=== PATIENT | female | born 1940 | race Caucasian/White ===

== ENCOUNTER → 2016-09-01 | Outpatient (CLI) | payer MEDICARE, OTHER ==
[~2016-09-01] MED LIST: ALBU8.5H2 IH; BUDE6HFA IH; CEPH500C PO; DILT240C54 PO; DOXY100C2 PO; FLUO20CA25 PO; FLUT1DIS26 IH; FLX10C PO; HYDR-3062 PO; HYDR-3816 PO; IBUP-15 PO; IBUP-1773 PO; LISI2.5T PO; MTF500T PO; OMEP20CA12 PO; OMEP40CA36 PO; OXYC-197 PO; PROM25TA14 PO; RANI75TA30 PO
--- OUTSIDE RECORDS SUMMARY | 2016-09-01 14:24 | XMS REPORT | Continuity of Care Document ---
Author Author [facility] Organization [facility] Address Unknown Phone Unavailable Care Team Providers Care Oil Scout Name Role Phone AVIS ALY MD PCP Insurance Providers Payer Name Policy Number Subscriber Name Relationship [employer] Medicare [id number] Trevor Burgess Self / Same As Patient [facility] [id number] Trevor Burgess Self / Same As Patient Self Pay Pending [facility] Apprv [phone] Trevor Burgess Self / Same As Patient Advance Directives Directive Response Recorded Date/Time Advance Directives No 12/31/15 1:08pm Health Care Power of Family Day Care Worker No 12/31/15 1:08pm Organ Donor Yes 12/31/15 1:08pm Resuscitation Status Full Code 12/31/15 1:08pm Problems No problem information available. Medications Current Home Medications Medication Dose Units Route Directions Days/Qty Instructions Start Date Diltiazem Hcl 240 Mg 240 Mg Oral Bedtime 30 06/14/11 Fluoxetine Hcl (Prozac) 20 Mg 20 Mg Oral Daily 06/14/11 Budesonide/Formoterol Fumarate 10.2 Gm 1 Puff Inhalation Twice A Day as needed for Shortness Of Breath 06/14/11 Metformin Hcl (Glucophage) 500 Mg 500 Mg Oral Twice A Day 09/05/12 Ibuprofen 600 Mg 600 Mg Oral Every 6 Hours as needed for Pain Omeprazole 40 Mg 40 Mg Oral Twice A Day 12/31/15 Hydrocodone/Acetaminophen 1 Each 1 Each Oral Every 6 Hours as needed for Pain 12/31/15 Lisinopril 2.5 Mg 2.5 Mg Oral Daily 12/31/15 Promethazine Hcl (Phenergan Tablet) 25 Mg 25 Mg Oral Every 6 Hours as needed for Nausea/Vomiting 12/31/15 Past Home Medications Medication Directions Ordered Status Doxycycline Hyclate (Vibramycin) 100 Mg Capsule, 1 Each Oral Twice A Day 14/06 Discontinued Ibuprofen 200 Mg Tablet, 800 Mg Oral Three Times A Day 06/14/11 Discontinued Omeprazole 20 Mg Capsule.dr, 1 Cap Oral Daily 06/14/11 Discontinued Albuterol 8.5 Gm Hfa.aer.ad, 8.5 Gm Inhalation Every 6 Hours as needed for Shortness Of Breath 06/14/11 Discontinued Fluoxetine Hcl 10 Mg Tablet, 1 Each Oral Daily 06/14/11 Discontinued Ranitidine Hcl 75 Mg Tablet, 150 Mg Oral Daily 06/14/11 Discontinued Salmeterol Xinafoate/Fluticasone 1 Disk Inhp, 1 Puff Inhalation Twice A Day 09/05/12 Discontinued Social History Social History Problem Response Recorded Date/Time Alcohol Use Denies Use 12/31/2015 1:01pm Recreational Drug Use No 12/31/2015 1:01pm Recent Foreign Travel No 12/31/2015 1:01pm Recent Infectious Disease Exposure No 12/31/2015 1:01pm Hospitalization with Isolation Denies 12/31/2015 1:01pm Smoking Status Never a Smoker 12/31/2015 1:10pm Query Response Start Date Stop Date Smoking Status Never a Smoker Hospital Discharge Instructions No hospital discharge instructions. Plan of Care Discharge Date 12/31/15 2:00pm Prescriptions See Medication Section Functional Status No functional status results. Allergies, Adverse Reactions, Alerts Allergen Type Severity Reaction Status Last Updated HAYFEVER Allergy Active 06/14/11 Immunizations Name Given Type Date of Pneumonia Vaccine 09/01/15 Historical Date of Influenza Vaccine 05/01/12 Historical Tetanus Booster (TDap) More than 5yrs Historical Vital Signs Acute Vital Signs Vital Response Date/Time Temperature (Fahrenheit) 97.2 degrees F (97.6 - 99.5) 12/26/2015 10:58am Temperature (Calculated Celsius) 36.87220 degrees C (36.4 - 37.5) 12/26/2015 10:58am Temperature Source Tympanic 12/26/2015 10:58am Pulse Rate (adult) 70 bpm (60 - 90) 12/31/2015 1:00pm Respiratory Rate 18 bpm (12 - 24) 12/26/2015 11:27am O2 Sat by Pulse Oximetry 96 % (88 - 100) 12/31/2015 1:00pm Blood Pressure 137/75 mm Hg 12/31/2015 1:00pm Blood Pressure Mean 95 mm Hg 12/31/2015 1:00pm Pain Pain Intensity 3 12/31/2015 1:00pm Height (Feet) 5 feet 12/31/2015 1:01pm Height (Inches) 4.00 inches 12/31/2015 1:01pm Height (Calculated Centimeters) 162.233866 cm 12/31/2015 1:01pm Weight (Pounds) 264 pounds 12/31/2015 1:01pm Weight (Ounces) 0.0 oz 12/31/2015 1:01pm Weight (Calculated Grams) 382075.387 gm 12/31/2015 1:01pm Weight (Calculated Kilograms) 119.188252 kilograms 12/31/2015 1:01pm Calculated BMI 45.3 12/31/2015 1:01pm Results Laboratory Results Test Name Result Units Flags Reference Collection Date/Time Result Date/ Time Comments White Blood Count 5.6 10^3/uL 4.3-11.0 09/03/2015 2:56pm 09/03/2015 3: 00pm Red Blood Count 4.59 10^6/uL 4.35-5.85 09/03/2015 2:56pm 09/03/2015 3: 00pm Hemoglobin 13.9 G/DL 11.5-16.0 09/03/2015 2:56pm 09/03/2015 3:00pm Hematocrit 43 % 35-52 09/03/2015 2:56pm 09/03/2015 3:00pm Mean Corpuscular Volume 93 FL 80-99 09/03/2015 2:56pm 09/03/2015 3: 00pm Mean Corpuscular Hemoglobin 30 PG 25-34 09/03/2015 2:56pm 09/03/2015 3: 00pm Mean Corpuscular Hemoglobin Concent 33 G/DL 32-36 09/03/2015 2:56pm 09/2015 3:00pm Red Cell Distribution Width 13.8 % 10.0-14.5 09/03/2015 2:56pm 2015 3:00pm Platelet Count 195 10^3/uL 130-400 09/03/2015 2:56pm 09/03/2015 3:00pm Mean Platelet Volume 9.4 FL 7.4-10.4 09/03/2015 2:56pm 09/03/2015 3: 00pm Neutrophils (%) (Auto) 70 % 42-75 09/03/2015 2:56pm 09/03/2015 3:00pm Lymphocytes (%) (Auto) 22 % 12-44 09/03/2015 2:56pm 09/03/2015 3:00pm Monocytes (%) (Auto) 7 % 0-12 09/03/2015 2:56pm 09/03/2015 3:00pm Eosinophils (%) (Auto) 1 % 0-10 09/03/2015 2:56pm 09/03/2015 3:00pm Basophils (%) (Auto) 0 % 0-10 09/03/2015 2:56pm 09/03/2015 3:00pm Neutrophils # (Auto) 3.9 X 10^3 1.8-7.8 09/03/2015 2:56pm 09/03/2015 3: 00pm Lymphocytes # (Auto) 1.2 X 10^3 1.0-4.0 09/03/2015 2:56pm 09/03/2015 3: 00pm Monocytes # (Auto) 0.4 X 10^3 0.0-1.0 09/03/2015 2:56pm 09/03/2015 3: 00pm Eosinophils # (Auto) 0.1 10^3/uL 0.0-0.3 09/03/2015 2:56pm 09/03/2015 3 :00pm Basophils # (Auto) 0.0 10^3/uL 0.0-0.1 09/03/2015 2:56pm 09/03/2015 3: 00pm Sodium Level 138 MMOL/L 135-145 09/03/2015 2:56pm 09/03/2015 3:34pm Potassium Level 4.2 MMOL/L 3.6-5.0 09/03/2015 2:56pm 09/03/2015 3:34pm Chloride Level 105 MMOL/L 98-107 09/03/2015 2:56pm 09/03/2015 3:34pm Carbon Dioxide Level 25 MMOL/L 21-32 09/03/2015 2:56pm 09/03/2015 3: 34pm Anion Gap 8 MMOL/L 5-14 09/03/2015 2:56pm 09/03/2015 3:34pm Blood Urea Nitrogen 20 MG/DL H 7-18 09/03/2015 2:56pm 09/03/2015 3:34pm Creatinine 0.75 MG/DL 0.60-1.30 09/03/2015 2:56pm 09/03/2015 3:34pm BUN/Creatinine Ratio 27 09/03/2015 2:56pm 09/03/2015 3:34pm Estimat Glomerular Filtration Rate > 60 09/03/2015 2:56pm 2015 3:34pm GFR INTERPRETIVE DATA UNITS FOR ESTIMATED GFR (eGFR): mL/min/1.73 M2 REFERENCE RANGE FOR ESTIMATED GFR (eGFR) eGFR NORMAL eGFR >60 MODERATELY DECREASED eGFR 30-59 SEVERLY DECREASED eGFR 15-29 KIDNEY FAILURE <15 (OR DIALYSIS) Glucose Level 102 MG/DL 70-105 09/03/2015 2:56pm 09/03/2015 3:34pm Calcium Level 9.4 MG/DL 8.5-10.1 09/03/2015 2:56pm 09/03/2015 3:34pm Total Bilirubin 0.3 MG/DL 0.1-1.0 09/03/2015 2:56pm 09/03/2015 3:34pm Alkaline Phosphatase 54 U/L 40-136 09/03/2015 2:56pm 09/03/2015 3:34pm Aspartate Amino Transf (AST/SGOT) 16 U/L 5-34 09/03/2015 2:56pm 2015 3:34pm Alanine Aminotransferase (ALT/SGPT) 25 U/L 0-55 09/03/2015 2:56pm 09/03 3:34pm Total Protein 6.0 G/DL L 6.4-8.2 09/03/2015 2:56pm 09/03/2015 3:34pm Albumin 3.7 G/DL 3.2-4.5 09/03/2015 2:56pm 09/03/2015 3:34pm Ferritin 43 NG/ML 15-150 09/03/2015 2:56pm 09/04/2015 7:02am Test performed at [facility] [address], [facility] [address] CLIA# [id number], Nighat Liu MD - Data Warehouse Administrator Iron Level 61 UG/DL 35-180 09/03/2015 2:56pm 09/04/2015 7:01am Test performed at [address] [address] CLIA# [id number], Deborah Alonzo MD - Data Warehouse Administrator Transferrin % Saturation 18 % 15-50 09/03/2015 2:56pm 09/04/2015 7: 01am Total Iron Binding Capacity 336 UG/DL 280-380 09/03/2015 2:56pm 2015 7:01am Unsaturated Iron Binding Capacity 275 MCG/DL 09/03/2015 2:56pm 2015 7:01am Test performed at [place] [id number] CLIA# [id number], Deborah Alonzo MD - Data Warehouse Administrator Pending Laboratory Results Test Name Collection Date/Time Procedures Procedure Status Date Provider(s) Tracing only of electrocardiogram Active 12/31/15 SUZE COONEY MD Encounters Encounter Location Arrival/Admit Date Discharge/Depart Date Attending Provider Departed Clinic [facility] 12/31/15 12:52pm 12/31/15 2: 00pm SUZE COONEY MD Departed Clinic [facility] 12/26/15 9:57am 12/26/15 11: 28am ÁNGEL ANDREWS MD Discharged Recurring [facility] 09/03/15 2:25pm 11:59pm ELIANA BAILON MD
[2016-09-01 14:30] LABS: BASOPHILS % (AUTO) 0 % (0-10); EOSINOPHILS # (AUTO) 0.1 10^3/uL (0.0-0.3); EOSINOPHILS % (AUTO) 2 % (0-10); LYMPHOCYTES # (AUTO) 1.4 X 10^3 (1.0-4.0); LYMPHOCYTES % (AUTO) 27 % (12-44); MEAN CORPUSCULAR HEMOGLOBIN 28 PG (25-34); MEAN CORPUSCULAR HGB CONC 32 G/DL (32-36); MEAN CORPUSCULAR VOLUME 88 FL (80-99); MEAN PLATELET VOLUME 9.4 FL (7.4-10.4); MONOCYTES # (AUTO) 0.4 X 10^3 (0.0-1.0); MONOCYTES % (AUTO) 8 % (0-12); NEUTROPHILS # (AUTO) 3.4 X 10^3 (1.8-7.8); NEUTROPHILS % (AUTO) 63 % (42-75); PLATELET COUNT 200 10^3/uL (130-400); RED BLOOD COUNT 4.57 10^6/uL (4.35-5.85); RED CELL DISTRIBUTION WIDTH 14.2 % (10.0-14.5); WHITE BLOOD COUNT 5.3 10^3/uL (4.3-11.0)
== END ==
LOC: EDSTATUS 12-03 14:39 → ONC 14:20
PROVIDERS: ATTEND Internal Medicine Hematology & Oncology
DX: D50.9 Iron deficiency anemia, unspecified (principal); I10 Essential (primary) hypertension; E11.9 Type 2 diabetes mellitus without complications; I25.10 Atherosclerotic heart disease of native coronary artery without angina pectoris; K21.9 Gastro-esophageal reflux disease without esophagitis; Z79.899 Other long term (current) drug therapy
CPT/HCPCS: 36415; 85025; 99213

== ENCOUNTER → 2016-11-05 | Outpatient (CLI) | payer MEDICARE ==
[~2016-11-05] VITALS: Ht 162.6 cm; Wt 113.4 kg
[~2016-11-05] MED LIST changes: +BUPIVACAINE 0.25% 30 ML (SENSORCAINE) VIAL ONE; +TRIAMCINOLONE ACET (KENALOG-40) 40 MG/ML 1 ML VIAL ONE
[2016-11-05 08:36] VITALS: BP 122/77
[2016-11-05 08:55] VITALS: BP 139/92
--- NOTE | 2016-11-05 12:30 | Pain Medicine-Procedure ---
Procedure Pre-Op/Post-Op Diagnosis Diagnosis: disc disorder with radiculopathy, lumbar Indications for Operation Low back pain Attending Surgeon Anthony Procedure Date of Service: Nov 05, 2016 Procedure: Lumbar Epidural Steroid Injection at the L5-S1 level under Fluoroscopic Guidance Procedure: Patient was identified in the holding area. After risks, benefits, and alternatives were discussed with the patient, informed consent was obtained. Patient was brought to the fluoroscopy suite and placed prone on the procedure room table. A time out was performed. Vital signs were monitored throughout the procedure. The patients low back was prepped and draped in the usual sterile fashion. The patients skin was anesthetized using 2% Lidocaine. A Tuohy needle was inserted and advanced to the L5-S1 epidural space under fluoroscopic guidance using the loss of resistance technique and intermittent projection of fluoroscopy. There was no paresthesia with needle placement. The needle position was confirmed in both the AP and lateral view. After negative aspiration 2ml of contrast was injected under live fluoroscopy which showed good spread of the contrast in the epidural space at the appropriate level, there was no intravascular or subarachnoid spread. Again, after negative aspiration for heme or CSF, 2 ml of 0.25% Bupivicaine, 2ml of preservative free normal saline, and 80mg of Kenalog was injected. The needle was removed and a sterile bandage was placed and the patient was transferred to the recovery area in stable condition. After a brief period of observation, patient was discharged to home with no new neurological deficits and no apparent complications. Complications None ÁNGEL ANDREWS MD Nov 05, 2016 12:30 pm
== END ==
LOC: CARD 08:08
PROVIDERS: ATTEND Pain Medicine Pain Medicine
DX: M51.16 Intervertebral disc disorders with radiculopathy, lumbar region (principal); Z79.899 Other long term (current) drug therapy
CPT/HCPCS: 62323; 82962

== ENCOUNTER 2017-03-28 14:33 | Outpatient (CLI) | payer MEDICARE ==
[~2017-03-28] VITALS: Ht 162.6 cm; Wt 110.2 kg
[~2017-03-28 14:33] MED LIST changes: -BUPIVACAINE 0.25% 30 ML (SENSORCAINE) VIAL ONE; -TRIAMCINOLONE ACET (KENALOG-40) 40 MG/ML 1 ML VIAL ONE
[2017-03-28 14:45] VITALS: BP 108/62
[2017-03-28] MEDS ORDERED: NS IV 1000 ML 1,000 ML ONE (15:07)
[2017-03-28] MEDS ORDERED: NS IV 1000 ML 1,000 ML IV ONE (15:15)
== END 2017-03-28 16:30 | disposition home or self-care (01) ==
LOC: 4TH 14:33 → 4THo 14:33 → 4TH 14:34 → 4THo 16:30
PROVIDERS: ATTEND Family Medicine
DX: E86.0 Dehydration (principal); R11.0 Nausea; R19.7 Diarrhea, unspecified
CPT/HCPCS: 96360

== ENCOUNTER → 2021-10-23 | Outpatient (CLI) | payer MEDICARE, MEDICAID ==
[~2021-10-23] MED LIST changes: +ACHD5005 PO; -HYDR-3062 PO; +HYDR-34 PO; -HYDR-3816 PO; -LISI2.5T PO; +LISI2.5T13 PO; -OMEP40CA36 PO; +OMEP40CA6 PO; -OXYC-197 PO; +OXYC1TAB87 PO
--- NOTE | 2021-10-23 14:18 | Diagnostic Imaging Report ---
PROCEDURE: US carotid duplex, bilateral. INDICATION: Carotid bruit. Hypertension. TECHNIQUE: Multiple real-time grayscale images were obtained over the carotid arteries in various projections bilaterally. Additional spectral analysis and color Doppler and Duplex images were also obtained. CORRELATION: None FINDINGS: Examination is compromised. The vessels overall fairly tortuous. In addition, the patient was reportedly with excessive coughing and had difficulty breathing during the examination. There is diffuse atherosclerotic calcification about the bilateral distal common carotid arteries involving the bulbs. No visualized area of stenosis. There is increased velocity in the right mid internal carotid artery with an ICA/CCA ratio 1.6. This suggests a less than 50% stenosis. Bilateral external carotid arteries are patent. Vertebral arteries antegrade directional flow. IMPRESSION: 1. Moderate atherosclerosis involving bilateral carotid bulbs. 2. No sonographic evidence to suggest a hemodynamically significant stenosis of the internal carotid arteries at this time. Parameters based on the consensus panel Dempsey-Scale and Doppler ultrasound criteria published June 2003, Radiology, Volume 229. DOPPLER (peak systolic velocity M/S Right Left CCA .75 .91 ICA Proximal .46 .65 ICA Mid 1.2 .83 ICA Distal .67 .41 RATIO 1.6 .92 ECA .60 .74 VERT .76 .83 Dictated by: Dictated on workstation # [id number]
== END ==
LOC: CARD 12:00
PROVIDERS: ATTEND Internal Medicine Cardiovascular Disease
DX: I65.23 Occlusion and stenosis of bilateral carotid arteries (principal); I35.0 Nonrheumatic aortic (valve) stenosis
CPT/HCPCS: 93306; 93880

== ENCOUNTER 2021-10-28 22:05 | Inpatient (IN) | payer MEDICARE, MEDICAID ==
[~2021-10-28] VITALS: Ht 162.6 cm; Wt 128.6 kg
[2021-10-28] MEDS ORDERED: methylPREDNISolone 125 MG (Solu-MEDROL) VIAL IV STA (22:07)
[2021-10-28] MEDS ORDERED: RT-ALBUTEROL/IPRATROPIUM 3 ML (DUONEB) VIAL INH ONE (22:15)
[2021-10-28 22:29] VITALS: BP 150/117
[2021-10-28 22:29] LABS: BASOPHILS # (AUTO) 0.1 10^3/uL (0.0-0.1); BASOPHILS % (AUTO) 1 % (0-10); EOSINOPHILS # (AUTO) 0.1 10^3/uL (0.0-0.3); EOSINOPHILS % (AUTO) 1 % (0-10); HEMATOCRIT 37 % (35-52); HEMOGLOBIN 11.3 g/dL (11.5-16.0); LYMPHOCYTES # (AUTO) 1.8 10^3/uL (1.0-4.0); LYMPHOCYTES % (AUTO) 19 % (12-44); MEAN CORPUSCULAR HEMOGLOBIN 29 pg (25-34); MEAN CORPUSCULAR HGB CONC 30 g/dL (32-36); MEAN CORPUSCULAR VOLUME 95 fL (80-99); MEAN PLATELET VOLUME 10.9 fL (9.0-12.2); MONOCYTES # (AUTO) 0.6 10^3/uL (0.0-1.0); MONOCYTES % (AUTO) 6 % (0-12); NEUTROPHILS # (AUTO) 7.2 10^3/uL (1.8-7.8); NEUTROPHILS % (AUTO) 73 % (42-75); PLATELET COUNT 176 10^3/uL (130-400); WHITE BLOOD COUNT 9.8 10^3/uL (4.3-11.0)
[2021-10-28] MEDS ORDERED: FUROSEMIDE 40 MG/4 ML INJ (LASIX) IVP ONE (22:30)
[2021-10-28] MEDS ORDERED: NITROGLYCERIN 2% OINT 1 GM UNIT DOSE PACKET TOP ONE (22:30)
--- NOTE | 2021-10-28 22:34 | ED Respiratory ---
General Stated Complaint: SOB Source: patient (PT IS LIMITED HISTORIAN AT THIS TIME), EMS Exam Limitations: clinical condition History of Present Illness Date Seen by Provider: Oct 28, 2021 Time Seen by Provider: 22:10 Initial Comments PT ARRIVES VIA EMS FROM [facility] C/O SHORTNESS OF BREATH X 2 HOURS EMS REPORT INITIAL O2 SAT WAS 73%, AND PT WAS IMMEDIATELY PLACED ON CPAP, WITH O2 SATS UP TO 97-98% INITIAL RESPIRATORY RATE WAS IN THE 40'S, BP 190'S/105, HR 110'S ACCUCHECK 320 BY EMS PT WITH HISTORY OF COPD, CHF, DM, HTN PT DOES STATE SHE "JUST HAS NOT FELT GOOD TODAY" HAS HAD SOME BODY ACHES DID BREAK OUT IN A SWEAT TONIGHT BUT DOES NOT KNOW IF SHE HAD FEVER DOES C/O SOME CHEST DISCOMFORT, BUT RELATES IT TO BREATHING HAS HAD A PRODUCTIVE COUGH WELL DENIES NAUSEA/VOMITING PCP: DR. ALY Allergies and Home Medications Allergies Uncoded Allergies: HAYFEVER (Allergy, Unknown, 08/17/16) Patient Home Medication List Home Medication List Reviewed: Yes Budesonide/Formoterol Fumarate (Symbicort Inhaler 160/4.5 Mcg) 10.2 Gm Hfa.aer.ad, 1 PUFF IH BID PRN for SHORTNESS OF BREATH, (Reported) Entered as Reported by: YAHAIRA GÓMEZ on 06/14/11 1020 Cephalexin (Cephalexin) 500 Mg Capsule, 500 MG PO TID Prescribed by: SEAMUS DEL REAL on 06/25/161953 Diltiazem Hcl (Cartia Xt) 240 Mg Cap.sr.24h, 240 MG PO HS, (Reported) Entered as Reported by: YAHAIRA GÓMEZ on 06/14/11 1017 Fluoxetine Hcl (Fluoxetine Hcl) 20 Mg Capsule, 20 MG PO DAILY, (Reported) Entered as Reported by: YAHAIRA GÓMEZ on 06/14/11 1020 Ibuprofen (Ibuprofen) 600 Mg Tablet, 600 MG PO Q6H PRN for PAIN, (Reported) Entered as Reported by: EMORY LYNCH on 12/31/15 1551 Lisinopril (Lisinopril) 2.5 Mg Tablet, 2.5 MG PO DAILY, (Reported) Entered as Reported by: EMORY LYNCH on 12/31/15 1551 Metformin Hcl (Metformin 500 Mg) 500 Mg Tablet, 500 MG PO BID, (Reported) Entered as Reported by: CRISSY SEVILLA on 09/05/12 1022 Review of Systems Review of Systems Constitutional: diaphoresis, malaise, other (LIMITED INFORMATION FROM PT AT THIS TIME DUE TO DYSPNEA) Respiratory: see HPI, cough, short of breath Cardiovascular: see HPI, chest pain Musculoskeletal: see HPI Past Rfvadzu-Ygbnud-Uqrmjg Hx Patient Social History Tobacco Use?: No Smoking Status: Never a Smoker Smokeless Tobacco Frequency: Never a User Use of E-Cig and/or Vaping Nahid: Never a User Substance use?: No Alcohol Use?: No Immunizations Up To Date Tetanus Booster (TDap): Unknown PED Vaccines UTD: No Seasonal Allergies Seasonal Allergies: Yes (HAYFEVER) Past Medical History Surgeries: Yes (RIGHT KNEE REPLACEMENT 12/[address] COONEY;EGD/COLONOSCOPY 2012) Hysterectomy, Joint Replacement, Orthopedic, Tubal Ligation Sleep Apnea Currently Using CPAP: No Currently Using BIPAP: No Cardiac: Yes (CHF) Chronic Edema/Swelling, High Cholesterol, Hypertension Reproductive Disorders: No Female Reproductive Disorders: Denies Sexually Transmitted Disease: No HIV/AIDS: No Genitourinary: Yes (INCONTINENCE) UTI-Chronic Gastrointestinal: Yes Gastroesophageal Reflux Musculoskeletal: Yes (CHRONIC GENERALIZED PAIN ) Arthritis Endocrine: Yes (MORBID OBESITY) Diabetes, Non-Insulin dep Loss of Vision: Bilateral Hearing Impairment: Denies Psychosocial: Yes Anxiety, Depression Family Medical History Cardiovascular disease 19 MOTHER Completed stroke 19 FATHER Respiratory disorder 19 FATHER 19 MOTHER No Pertinent Family Hx Physical Exam Vital Signs - First Documented 10/28/21 22:08 Temp 36.2 Pulse 107 Resp 25 B/P (MAP) 150/117 (128) Pulse Ox 99 O2 Delivery NIV Bilevel Capillary Refill : Height: 5'4.00" Weight: 243lbs. 0.0oz. 110.266538rx; 41.7 BMI Method:Stated General Appearance: mild distress, obese (MORBIDLY ), other (ABLE TO TALK IN SHORT SENTENCES) Respiratory: respiratory distress, decreased breath sounds, accessory muscle use, rales, wheezing, other (MILD DISTRESS WITH ABDOMINAL AND CHEST RETRACTIONS. DIFFUSE WHEEZING AND RALES BILATERALLY. ) Cardiovascular: tachycardia Gastrointestinal: soft, other (OBESE) Extremities: normal capillary refill, pedal edema (1+ BILATERALLY) Neurologic/Psychiatric: no motor/sensory deficits, alert, normal mood/affect Skin: normal color, warm/dry Focused Exam Sepsis Stage: Ruled Out (DOES NOT MEET CRITERIA) Possible Source: Pulmonary Lactate Level 10/28/21 22:20: Lactic Acid Level 2.40*H Time of Focused Exam: 23:00 Respiratory: Other (ON BIPAP, BREATHING IS LESS LABORED, STILL WITH RESIDUAL RALES AND WHEEZING BILATERALLY BUT OVERALL IMPROVED LUNG SOUNDS, WITH INCREASED AERATION) Cardiovascular: Regular Rate, Rhythm Skin: normal color, warm/dry Lactic Acid Level Laboratory Tests Test 10/28/21 22:20 Lactic Acid Level 2.40 MMOL/L (0.50-2.00) *H Within 3hrs of presentation: Admin fluids (DID NOT GIVE FULL FLUID BOLUS DUE TO OVERT CHF ), Admin ABX, Blood cultures prior to ABX's, Focus exam, Lactate level Procedures/Interventions Suture Size: 3-0 Progress/Results/Core Measures Suspected Sepsis SIRS Temperature: Pulse: Respiratory Rate: Laboratory Tests 10/28/21 22:20: White Blood Count 9.8 Blood Pressure / Mean: 10/28/21 22:20: Lactic Acid Level 2.40*H Laboratory Tests 10/28/21 22:20: Creatinine 1.10, INR Comment 1.0, Platelet Count 176, Total Bilirubin 0.8 Results/Orders Lab Results Laboratory Tests Test 10/28/21 22:10 10/28/21 22:14 10/28/21 22:15 10/28/21 22:20 Range/Units Urine Color YELLOW Urine Clarity SL CLOUDY Urine pH 6.0 5-9 Urine Specific [place] >=1.030 1.016-1.022 Urine Protein 1+ H NEGATIVE Urine Glucose (UA) NEGATIVE NEGATIVE Urine Ketones NEGATIVE NEGATIVE Urine Nitrite NEGATIVE NEGATIVE Urine Bilirubin 1+ H NEGATIVE Urine Urobilinogen 4.0 < = 1.0 MG/DL Urine Leukocyte Esterase TRACE H NEGATIVE Urine RBC (Auto) NEGATIVE NEGATIVE Urine RBC NONE /HPF Urine WBC 2-5 /HPF Urine Squamous Epithelial Cells 0-2 /HPF Urine Crystals NONE /LPF Urine Bacteria LARGE H /HPF Urine Casts PRESENT /LPF Urine Hyaline Casts RARE /LPF Urine Mucus NEGATIVE /LPF Urine Culture Indicated CULTURE PENDING Influenza Type A (RT-PCR) Not Detected Not Detecte Influenza Type B (RT-PCR) Not Detected Not Detecte SARS-CoV-2 RNA (RT-PCR) Not Detected Not Detecte Blood Gas Puncture Site R RAD Blood Gas Patient Temperature 36.2 Arterial Blood pH 7.19 *L 7.37-7.43 Arterial Blood Partial Pressure CO2 66 H 35-45 MMHG Arterial Blood Partial Pressure O2 103 H 79-93 MMHG Arterial Blood HCO3 24 23-27 MMOL/L Arterial Blood Total CO2 26.3 21.0-31.0 MMOL/L Arterial Blood Oxygen Saturation 97 94-100 % Arterial Blood Base Excess -3.2 L -2.5-2.5 MMOL/L Vinod Test YES-POS Blood Gas Ventilator Setting NO Blood Gas Inspired Oxygen 80% White Blood Count 9.8 4.3-11.0 10^3/uL Red Blood Count 3.94 3.80-5.11 10^6/uL Hemoglobin 11.3 L 11.5-16.0 g/dL Hematocrit 37 35-52 % Mean Corpuscular Volume 95 80-99 fL Mean Corpuscular Hemoglobin 29 25-34 pg Mean Corpuscular Hemoglobin Concent 30 L 32-36 g/dL Red Cell Distribution Width 13.4 10.0-14.5 % Platelet Count 176 130-400 10^3/uL Mean Platelet Volume 10.9 9.0-12.2 fL Immature Granulocyte % (Auto) 1 % Neutrophils (%) (Auto) 73 42-75 % Lymphocytes (%) (Auto) 19 12-44 % Monocytes (%) (Auto) 6 0-12 % Eosinophils (%) (Auto) 1 0-10 % Basophils (%) (Auto) 1 0-10 % Neutrophils # (Auto) 7.2 1.8-7.8 10^3/uL Lymphocytes # (Auto) 1.8 1.0-4.0 10^3/uL Monocytes # (Auto) 0.6 0.0-1.0 10^3/uL Eosinophils # (Auto) 0.1 0.0-0.3 10^3/uL Basophils # (Auto) 0.1 0.0-0.1 10^3/uL Immature Granulocyte # (Auto) 0.1 0.0-0.1 10^3/uL Erythrocyte Sedimentation Rate 3 0-30 MM/HR Prothrombin Time 13.2 12.2-14.7 SEC INR Comment 1.0 0.8-1.4 Activated Partial Thromboplast Time 20 L 24-35 SEC D-Dimer 4.70 H 0.00-0.49 UG/ML Sodium Level 137 135-145 MMOL/L Potassium Level 4.2 3.6-5.0 MMOL/L Chloride Level 103 98-107 MMOL/L Carbon Dioxide Level 17 L 21-32 MMOL/L Anion Gap 17 H 5-14 MMOL/L Blood Urea Nitrogen 15 7-18 MG/DL Creatinine 1.10 0.60-1.30 MG/DL Estimat Glomerular Filtration Rate 51 BUN/Creatinine Ratio 14 Glucose Level 273 H 70-105 MG/DL Lactic Acid Level 2.40 *H 0.50-2.00 MMOL/L Calcium Level 9.0 8.5-10.1 MG/DL Corrected Calcium 9.3 8.5-10.1 MG/DL Magnesium Level 1.8 1.6-2.4 MG/DL Total Bilirubin 0.8 0.1-1.0 MG/DL Aspartate Amino Transf (AST/SGOT) 23 5-34 U/L Alanine Aminotransferase (ALT/SGPT) 13 0-55 U/L Alkaline Phosphatase 76 40-136 U/L Lactate Dehydrogenase 371 H 125-220 U/L Total Creatine Kinase 74 29-168 U/L Creatine Kinase MB 2.6 <6.6 NG/ML Myoglobin 143.4 H 10.0-92.0 NG/ML Troponin I 0.043 H <0.028 NG/ML C-Reactive Protein High Sensitivity 1.31 H 0.00-0.50 MG/DL B-Type Natriuretic Peptide 505.8 H <100.0 PG/ML Total Protein 6.9 6.4-8.2 GM/DL Albumin 3.6 3.2-4.5 GM/DL Procalcitonin 0.02 <0.10 NG/ML TSH [place] Testing 1.69 0.35-4.94 UIU/ML My Orders Orders - CARMELLA MAHMOOD DO Ed Iv/Invasive Line Start (10/28/21 22:07) Ekg Tracing (10/28/21 22:07) Catheter(Urinary) Insert & Ass 03,15 (10/28/21 22:07) O2 (10/28/21 22:07) Monitor-Rhythm Ecg Trace Only (10/28/21 22:07) Chest 1 View, Ap/Pa Only (10/28/21 22:07) Arterial Blood Gas (10/28/21 22:07) Bnp [place] (10/28/21 22:07) Cbc With Automated Diff (10/28/21 22:07) Comprehensive Metabolic Panel (10/28/21 22:07) Creatine Kinase (10/28/21 22:07) Creatine Kinase Mb (10/28/21 22:07) Hs C Reactive Protein (10/28/21 22:07) Fibrin Degradation Products (10/28/21:07) Lactic Acid Analyzer (10/28/21:07) Magnesium (10/28/21 22:07) Protime With Inr (10/28/21:07) Partial Thromboplastin Time (10/28/21:07) Thyroid Analyzer (10/28/21:) Ua Culture If Indicated (10/28/21:) Erythrocyte Sedimentation Rate (10/28/21:07) Myoglobin Serum (10/28/21 22:07) Troponin I [place] (10/28/21 22:07) Albuterol/Ipra Inhalation Soln (Duoneb I (10/28/21 22:15) Dexamethasone Injection (Decadron Injec (10/28/21 22:15) Rt Request For Service (10/28/21 22:07) Methylprednisolone Sod Succ (Solu-Medrol (10/28/21 22:07) Procalcitonin (Pct) (10/28/21 22:07) LDH (10/28/21 22:07) Covid 19 Inhouse Test (10/28/21 22:07) Urine Culture (10/28/21:07) Vital Signs Adult Sepsis Patie Q15M (10/28/21 22:07) O2 (10/28/21 22:07) Remove Rings In Anticipation O (10/28/21 22:07) Svn Small Volume Nebulizer (10/28/21 22:07) Influenza A And B By Pcr (10/28/21 22:07) Isolation Central Supply Req (10/28/21 22:07) Furosemide Injection (Lasix Injection) (10/28/21 22:30) Nitroglycerin Ointment (Nitrobid Ointme (10/28/21 22:30) Arterial Blood Gas (10/28/21 23:21) Medications Given in ED Current Medications Medications Dose Ordered Sig/Darci Route Start Time Stop Time Status Last Admin Dose Admin Albuterol/ Ipratropium 3 ml ONCE ONCE INH 10/28/21 22:15 10/28/21 22:16 DC 10/28/21 22:28 3 ML Dexamethasone Sodium Phosphate 20 mg ONCE ONCE IH 10/28/21 22:15 10/28/21 22:16 DC 10/28/21 22:28 20 MG Furosemide 80 mg ONCE ONCE IVP 10/28/21 22:30 10/28/21 22:31 DC 10/28/21 22:31 80 MG Nitroglycerin 1 inch ONCE ONCE TOP 10/28/21 22:30 10/28/21 22:31 DC 10/28/21 22:31 1 INCH Vital Signs/I&O 10/28/21 10/28/21 22:08 22:29 Temp 36.2 Pulse 107 103 Resp 25 32 B/P (MAP) 150/117 (128) Pulse Ox 99 O2 Delivery NIV Bilevel Capillary Refill : Progress Note : Progress Note IMMEDIATELY SWITCHED TO BIPAP ON ARRIVAL O2 SATS 99-100% GIVEN LASIX AND NITROPASTE FOR CHF AND ELEVATED BLOOD PRESSURE GIVEN SOLU-MEDROL GIVEN ROCEPHIN + ZITHROMAX GIVEN LOVENOX FOR PROPHYLAXIS UNTIL CT CHEST ANGIOGRAM CAN BE DONE IN THE MORN ING PT STILL WITH LABORED BREATHING AND MUCH CHEST AND ABDOMINAL MOVEMENT WITH BREATHING, FEEL THAT ATTEMPTING TO OBTAIN CT CHEST ANGIOGRAM AT THIS TIME WILL BE SUBOPTIMAL DUE TO SIGNIFICANT MOTION. WILL TREAT EMPIRICALLY WITH LOVENOX AND ATTEMPT TO OBTAIN CT CHEST ANGIOGRAM IN THE MORNING, AFTER PT'S BREATHING IS LESS LABORED. NO DETERIORATION IN PT'S CONDITION DURING ER STAY ECG Initial ECG Impression Date: Oct 28, 2021 Initial ECG Impression Time: 22:27 Initial ECG Rate: 103 Initial ECG Rhythm: S.Tach Initial ECG Impression: Nonspecific Changes Diagnostic Imaging Comments CXR--PER RADIOLOGIST REPORT AT 2306 FINDINGS: Patchy opacities are seen in the mid and lower lungs, bilaterally, greatest in the bilateral perihilar regions. The heart size is prominent. No large pleural effusion or pneumothorax. IMPRESSION: Cardiomegaly with findings suggestive of pulmonary edema. Reviewed: Reviewed by Ma Departure Communication (Admissions) [id number]--SPOKE WITH DR. ALY, ACCEPTS PT FOR ADMIT. ORDERS NOTED. WILL CONSULT CARDIOLOGY IN AM. Impression Primary Impression: Acute respiratory failure with hypoxia and hypercapnia Additional Impressions: ACUTE ON CHRONIC CHF Elevated troponin Elevated d-dimer COPD exacerbation UTI (urinary tract infection) Lactic acidosis Morbid obesity HTN (hypertension) Hyperglycemia Disposition: ADMITTED INPATIENT Condition: Improved Admissions Decision to Admit Reason: Admit from ER (General) Decision to Admit/Date: Oct 28, 2021 Time/Decision to Admit Time: 23:35 Departure-Patient Inst. Referrals: AVIS ALY MD (PCP/Family) Primary Care Physician CARMELLA MAHMOOD DO Oct 28, 2021 22:34
[2021-10-28 22:38] LABS: ABG BASE EXCESS -3.2 MMOL/L (-2.5-2.5); ABG OXYGEN SATURATION 97 % (94-100); ABG PCO2 66 MMHG (35-45); ABG PO2 103 MMHG (79-93); ABG TCO2 26.3 MMOL/L (21.0-31.0)
[2021-10-28 22:39] LABS: ALLENS TEST YES-POS; INSPIRED O2 80%; PATIENT TEMP 36.2; VENTILATOR NO
[2021-10-28 22:40] LABS: ABG PH 7.19 (7.37-7.43)
[2021-10-28 22:42] LABS: ALBUMIN 3.6 GM/DL (3.2-4.5); POTASSIUM 4.2 MMOL/L (3.6-5.0)
[2021-10-28 22:44] LABS: TOTAL PROTEIN 6.9 GM/DL (6.4-8.2)
[2021-10-28 22:46] LABS: BILIRUBIN,TOTAL 0.8 MG/DL (0.1-1.0)
[2021-10-28 22:48] LABS: CREATININE SERUM 1.1 MG/DL (0.60-1.30)
[2021-10-28 22:51] LABS: FIBRIN DEGRADATION PRODUCTS 4.7 UG/ML (0.00-0.49); MAGNESIUM 1.8 MG/DL (1.6-2.4); PROTHROMBIN TIME PATIENT 13.2 SEC (12.2-14.7)
[2021-10-28 22:55] LABS: ERYTHROCYTE SEDIMENTATION RATE 3 MM/HR (0-30)
--- NOTE | 2021-10-28 22:58 | Diagnostic Imaging Report ---
EXAMINATION: Chest 1 view. HISTORY: Dyspnea. Shortness of breath. COMPARISON: 12/31/2015. FINDINGS: Patchy opacities are seen in the mid and lower lungs, bilaterally, greatest in the bilateral perihilar regions. The heart size is prominent. No large pleural effusion or pneumothorax. IMPRESSION: Cardiomegaly with findings suggestive of pulmonary edema. Dictated by: Dictated on workstation # [id number]
[2021-10-28 22:59] LABS: CREATINE KINASE MB 2.6 NG/ML (<6.6)
[2021-10-28 23:12] LABS: TSH (THYROID ANALYZER) 1.69 UIU/ML (0.35-4.94)
[2021-10-28 23:25] LABS: COLOR,URINE YELLOW; GLUCOSE, URINE (UA) NEGATIVE (NEGATIVE); KETONES,URINE NEGATIVE (NEGATIVE); LEUKOCYTE ESTERASE ,URINE TRACE (NEGATIVE); NITRITE,URINE NEGATIVE (NEGATIVE); PROTEIN,URINE 1+ (NEGATIVE)
[2021-10-28] MEDS ORDERED: ENOXAPARIN 80 MG/0.8 ML (LOVENOX) SYR SC ONE ×2 (23:45)
[2021-10-28] MEDS ORDERED: AZITHROMYCIN INJECTION 500 MG in NS (IVPB) 250 ML IV ONE (23:45)
[2021-10-28] MEDS ORDERED: cefTRIAXone 1 GM PRE-MIX 50 ML IV ONE (23:45)
[2021-10-28 23:49] LABS: ABG BASE EXCESS -1.5 MMOL/L (-2.5-2.5); ABG OXYGEN SATURATION 94 % (94-100); ABG PCO2 58 MMHG (35-45); ABG PO2 77 MMHG (79-93); ABG TCO2 26.8 MMOL/L (21.0-31.0)
[2021-10-28 23:51] LABS: BACTERIA,URINE LARGE /HPF; BILIRUBIN,URINE 1+ (NEGATIVE); CLARITY,URINE SL CLOUDY; HYALINE CASTS, URINE RARE /LPF; SQUAMOUS EPITHELIAL CELL,UR 0-2 /HPF
[2021-10-28 23:52] LABS: ALLENS TEST YES-POS; INSPIRED O2 50%; PATIENT TEMP 36.2; VENTILATOR NO
[2021-10-28 23:53] LABS: ABG PH 7.25 (7.37-7.43)
[2021-10-29] MEDS ORDERED: 1/2 NS IV SOLUTION 1,000 ML IV ONE (01:28)
[2021-10-29 01:37] VITALS: BP 150/117
[2021-10-29] MEDS ORDERED: RT-ALBUTEROL/IPRATROPIUM 3 ML (DUONEB) VIAL INH PRN (01:45)
[2021-10-29] MEDS ORDERED: EPINEPHrine 1 MG INJECTION 4 MG in NS (IVPB) 248 ML IV SCH (01:45)
[2021-10-29] MEDS ORDERED: ONDANSETRON 4 MG/2 ML (SDV) Z0FRAN IV PRN (01:45)
[2021-10-29] MEDS ORDERED: 1/2 NS IV SOLUTION 1,000 ML IV SCH (01:45)
[2021-10-29] MEDS: RT-ALBUTEROL/IPRATROPIUM 3 ML (DUONEB) VIAL INH SCH ×5 (02:01→20:32)
[2021-10-29 02:02] VITALS: BP 112/70
[2021-10-29 04:59] LABS: BASOPHILS % (AUTO) 0 % (0-10); EOSINOPHILS % (AUTO) 0 % (0-10); HEMATOCRIT 32 % (35-52); LYMPHOCYTES # (AUTO) 0.2 10^3/uL (1.0-4.0); LYMPHOCYTES % (AUTO) 3 % (12-44); MEAN CORPUSCULAR HEMOGLOBIN 29 pg (25-34); MEAN CORPUSCULAR HGB CONC 31 g/dL (32-36); MEAN CORPUSCULAR VOLUME 93 fL (80-99); MEAN PLATELET VOLUME 10.4 fL (9.0-12.2); MONOCYTES # (AUTO) 0.1 10^3/uL (0.0-1.0); MONOCYTES % (AUTO) 1 % (0-12); NEUTROPHILS # (AUTO) 7.2 10^3/uL (1.8-7.8); NEUTROPHILS % (AUTO) 95 % (42-75); PLATELET COUNT 152 10^3/uL (130-400); WHITE BLOOD COUNT 7.6 10^3/uL (4.3-11.0)
[2021-10-29] MEDS ORDERED: FUROSEMIDE 40 MG/4 ML INJ (LASIX) IV ONE (05:00)
[2021-10-29 05:21] LABS: ANISOCYTOSIS SLIGHT; BAND NEUTROPHILS 2 %; EOSINOPHILS % (MANUAL) 0 %; LYMPHOCYTES % (MANUAL) 1 %; MONOCYTES % (MANUAL) 0 %; NEUTROPHILS % (MANUAL) 97 %
[2021-10-29 05:24] LABS: ALBUMIN 3.5 GM/DL (3.2-4.5); BILIRUBIN,TOTAL 0.6 MG/DL (0.1-1.0); CALCIUM 8.8 MG/DL (8.5-10.1); CREATININE SERUM 1.01 MG/DL (0.60-1.30); PHOSPHORUS 3.2 MG/DL (2.3-4.7); TOTAL PROTEIN 6.2 GM/DL (6.4-8.2)
[2021-10-29 05:44] LABS: ABG BASE EXCESS -0.6 MMOL/L (-2.5-2.5); ABG OXYGEN SATURATION 99 % (94-100); ABG PCO2 59 MMHG (35-45); ABG PO2 132 MMHG (79-93); ABG TCO2 26.8 MMOL/L (21.0-31.0)
[2021-10-29 05:45] LABS: ALLENS TEST YES-POS; INSPIRED O2 50%; VENTILATOR YES
[2021-10-29 05:46] LABS: ABG PH 7.27 (7.37-7.43)
[2021-10-29] MEDS: inSUlin ASPART (NovoLOG) 1 UNIT/0.01 ML (CHARGE PER UNIT) SC SCH ×4 (05:49→20:29)
[2021-10-29] MEDS: NITROGLYCERIN 2% OINT 1 GM UNIT DOSE PACKET TOP SCH ×4 (05:49→22:57)
[2021-10-29] MEDS: NOREPINEPHRINE 8 MG/250 ML 250 ML IV SCH ×3 (05:50→21:39)
[2021-10-29] MEDS: VASOPRESSIN INJECTION 20 UNIT in NS (IVPB) 100 ML IV SCH ×3 (05:50→22:58)
[2021-10-29 07:11] VITALS: BP 121/64
--- NOTE | 2021-10-29 07:16 | Diagnostic Imaging Report ---
EXAMINATION: Chest 1 view HISTORY: Heart failure COMPARISON: 10/28/2021 FINDINGS: There is stable moderate pulmonary edema. No pleural effusion or pneumothorax. Heart size is upper limits of normal. IMPRESSION: 1. Stable moderate pulmonary edema. Dictated by: Dictated on workstation # [id number]
[2021-10-29] MEDS ORDERED: HOLD METFORMIN - RECEIVED CONTRAST 20 ML VIAL IV SCH (08:30)
[2021-10-29] MEDS ORDERED: NS 100 ML (IVPB) BAG IV ONE (08:30)
[2021-10-29] MEDS ORDERED: IOHEXOL 350 MG/ML 100 ML (OMNIPAQUE 350) VIAL IV ONE (08:30)
[2021-10-29] MEDS ORDERED: CATHETER FLUSH 10 ML SYR IV PRN (08:30)
--- NOTE | 2021-10-29 09:26 | Tele-ICU Progress Note ---
Subjective Date Seen by a Provider: Oct 29, 2021 Time Seen by a Provider: 09:25 Subjective/Events-last exam (Tele-ICU Physician , consultation) Available chart/ vitals / labs / Images reviewed H&P is from ER notes Patient's information available about PMH, Shx, Fhx allergy reviewed in EMR. ROS as per chart and RN report Now in ICU, hemodynamically stable Video assessment done using teleICU camera, rest of exam as per RN Discussed with RN. Consultants: Hospital course: (10/29) 80/F- Hypoxia, cough, malaise, pna, Bipap, hypercapnea. A/P Acurte resp failure - most likely CHF by CXR and clinical presentation - less likely PNA - BIPAP 18/6 35% rr 17 tv 700 - last ABG with 7.59 - will use BIPAP most of the day , weaning - additional dose of lawsix CHF ( + CP ? - stop IVF , add lasix x1 - ECHO 10/23/21- severe . EF 60% - cards consult Elevated D dimer - lovenox full dose to starte - US LE ordered - ? need CT - as per PCP and cards ID - empiricly started on Z max and cefteriaxone - follow COPD - cont nebs , off steroids - follow Elev lactate on presentation - due to hypoxia , not sepsis - stop IVF DM Hyperglycemia - ISS Lines : (Central Line Necessity Reviewed) Deluna: + OG: Nutrition: Analgesia: Anxiety/ delirium VTE Prophylaxis: denis full dose Stress Ulcer Prophylaxis: Plans in collaboration with bedside consultants and IM MDs. Discussed with RN to reach out if any questions or concerns A total of 33 minutes of critical care time was devoted to this patient today, required to treat and/or prevent further deterioration of critical care condition ( as above) . Sepsis Event Evaluation Height, Weight, BMI Height: 5'4.00" Weight: 243lbs. 0.0oz. 110.900930cy; 49.66 BMI Method:Stated Focused Exam Lactate Level 10/28/21 22:20: Lactic Acid Level 2.40*H 10/29/21 00:06: Lactic Acid Level 1.16 Time of Focused Exam: 23:00 Exam Exam Patient acknowledged, consented, and participated in this virtual visit which was conducted using real time audio/video Vital Signs Date Time Temp Pulse Resp B/P (MAP) Pulse Ox O2 Delivery O2 Flow Rate FiO2 10/29/21 08:00 36.9 10/29/21 07:11 90 19 99 35.00 10/29/21 07:00 95 23 121/64 99 NIV Bilevel 35.00 10/29/21 07:00 93 10/29/21 06:00 93 15 129/69 100 NIV Bilevel 50.00 10/29/21 05:00 89 15 128/73 100 NIV Bilevel 50.00 10/29/21 04:00 100 NIV Bilevel 50 10/29/21 04:00 87 14 130/85 100 NIV Bilevel 50.00 10/29/21 03:00 84 14 111/69 99 NIV Bilevel 50.00 10/29/21 02:30 82 15 113/71 99 NIV Bilevel 50.00 10/29/21 02:02 80 23 99 50.00 10/29/21 02:00 82 15 112/70 99 NIV Bilevel 50.00 10/29/21 01:45 91 14 123/92 99 NIV Bilevel 50.00 10/29/21 01:37 36.2 107 99 100 10/29/21 01:30 95 18 115/74 100 NIV Bilevel 50.00 10/29/21 01:30 100 NIV Bilevel 50 10/29/21 01:30 36.6 10/29/21 01:22 94 10/29/21 00:49 36.2 93 22 112/58 98 NIV Bilevel 10/28/21 22:29 103 32 10/28/21 22:08 36.2 107 25 150/117 (128) 99 NIV Bilevel I & O 10/29/21 07:00 Intake Total 50 ml Output Total 500 ml Balance -450 ml Height & Weight Height: 5'4.00" Weight: 243lbs. 0.0oz. 110.938505wo; 49.66 BMI Method:Stated General Appearance: No Apparent Distress Respiratory: Other (ON BIPAP, BREATHING IS LESS LABORED, STILL WITH RESIDUAL RALES AND WHEEZING BILATERALLY BUT OVERALL IMPROVED LUNG SOUNDS, WITH INCREASED AERATION) Cardiovascular: Regular Rate, Rhythm Gastrointestinal: soft, other (OBESE) Results Lab Laboratory Tests 10/28/21 22:20 10/29/21 04:30 Assessment/Plan Assessment/Plan . TAMI COLLADO MD Oct 29, 2021 09:26
[2021-10-29] MEDS ORDERED: FUROSEMIDE 40 MG/4 ML INJ (LASIX) IVP ONE ×2 (09:30→19:15)
[2021-10-29] MEDS ORDERED: FLUT16SP22 NSEACH (09:42)
[2021-10-29] MEDS ORDERED: ATOR10TA66 PO (09:42)
[2021-10-29] MEDS ORDERED: PANT40TA52 PO (09:42)
[2021-10-29] MEDS ORDERED: IPRA3AMP31 NEB (09:42)
[2021-10-29] MEDS ORDERED: ALBU90AE INH (09:42)
[2021-10-29] MEDS ORDERED: HYDR-700 PO (09:42)
[2021-10-29] MEDS ORDERED: LOSA50TA63 PO (09:42)
[2021-10-29] MEDS ORDERED: DILT-27 PO (09:42)
[2021-10-29] MEDS ORDERED: FURO20TA4 PO (09:42)
[2021-10-29] MEDS ORDERED: DILT240T10 PO (09:42)
[2021-10-29] MEDS ORDERED: CETI10TA17 PO (09:42)
[2021-10-29] MEDS ORDERED: FLUO20CA48 PO (09:42)
[2021-10-29] MEDS ORDERED: ACET1TAB43 PO (09:42)
[2021-10-29] MEDS ORDERED: GABA-486 PO (09:42)
[2021-10-29] MEDS ORDERED: MAGN400O7 PO (09:44)
--- NOTE | 2021-10-29 10:46 | Diagnostic Imaging Report ---
PROCEDURE: US Venous Lower Ext [place]. TECHNIQUE: Multiple real-time grayscale images were obtained over the lower extremities in various projections, bilaterally. Additional duplex Doppler and color Doppler images were also obtained. INDICATION: Lower extremity edema. FINDINGS: There is no evidence of right or left lower extremity DVT. Both lower extremity deep venous systems demonstrate normal compressibility with normal response to augmentation and Valsalva. No fluid collection or mass is detected. IMPRESSION: No evidence of right or left lower extremity DVT. Dictated by: Dictated on workstation # [id number]
--- NOTE | 2021-10-29 11:03 | Consultation-Cardiology ---
HPI-Cardiology Cardiology Consultation: Date of Consultation 10/29/21 Date of Admission 10/28/21 Attending Physician Natalie Giraldo MD Admitting Physician Natalie Giraldo MD Consulting Physician DANY MIGUEL JR, MD HPI: Time Seen by a Provider: 10:59 Chief Complaint: Reason for consultation: Heart failure. I had the pleasure of seeing Tricia in the intensive care unit at [facility] in [place], [place] this morning. She has a history of coronary artery disease with one previous coronary stent, aortic stenosis, mitral regurgitation, bilateral carotid atherosclerosis that has not required intervention, hypertension, hyperlipidemia, chronic obstructive pulmonary disease, type 2 diabetes mellitus, stage 3a chronic kidney disease, chronic back pain, anemia, anxiety, and morbid obesity among several other less clinically relevant issues. She currently resides at [facility]. For about the past 2 months she has been having bilateral lower extremity edema. Then for the past 3 nights, she has had paroxysmal nocturnal dyspnea and orthopnea. She has been h aving to sleep in a chair due to orthopnea. When her breathing would get very difficult, she would have heart palpitations with a sensation of rapid heartbeats as well as chest pressure. Last night despite sleeping in a chair, she could still not catch her breath. She tells me that one of the staff members at the [facility] sat with her for 2 hours and then the eventually called an ambulance and she was brought to the emergency room for further evaluation. She was felt to be in heart failure. She was placed on BiPAP and admitted to the intensive care unit. When I saw her in the intensive care unit this morning she was still wearing a BiPAP. She denies lightheadedness or syncope. Certain portions of this document may have been dictated utilizing voice recognition technology. Inherent to this technology, typographical and grammatical errors may exist. As much as I am diligent to identify and correct these mistakes, some errors may remain in the document. Review of Systems-Cardiology Review of Systems Other comments Review of 10 organ systems is as per the history of present illness, otherwise negative. [id number] Hx Patient Social History Smoking Status: Never a Smoker Have you traveled recently?: No Alcohol Use?: No Pt feels they are or have been: No Immunizations Up To Date Tetanus Booster (TDap): Unknown Date of Pneumonia Vaccine: May 01, 2015 Date of Influenza Vaccine: May 15, 2021 Past Medical History PMH As described under Assessment. Family Medical History Family History: Cardiovascular disease 19 MOTHER Completed stroke 19 FATHER Respiratory disorder 19 FATHER 19 MOTHER Allergies and Home Medications Allergies Uncoded Allergies: HAYFEVER (Allergy, Unknown, 08/17/16) Patient Home Medication List Home Medication List Reviewed: Yes Acetaminophen with Codeine (Acetaminophen-Cod #3 Tablet) 1 Each Tablet, 1 EA PO Q6H PRN for PAIN-MODERATE (5-7), (Reported) Entered as Reported by: GUERA WHITAKER on 10/29/21941 Last Action: Reviewed Albuterol Sulfate (Proair Respiclick) 90 Mcg Aer.pow.ba, 2 PUFF INH Q4H PRN for SHORTNESS OF BREATH, (Reported) Entered as Reported by: GUERA WHITAKER on 10/29/21941 Last Action: Reviewed Atorvastatin Calcium (Atorvastatin Calcium) 10 Mg Tablet, 10 MG PO HS, (Reported) Entered as Reported by: GUERA WHITAKER on 10/29/21941 Last Action: Continued Cetirizine HCl (Cetirizine HCl) 10 Mg Tablet, 10 MG PO HS, (Reported) Entered as Reported by: GUERA WHITAKER on 10/29/21941 Last Action: Reviewed Diltiazem HCl (Diltiazem 24Hr ER) 120 Mg Cap.er.24h, 120 MG PO DAILY, (Reported) Entered as Reported by: GUERA WHITAKER on 10/29/21941 Last Action: Reviewed Fluoxetine HCl (Fluoxetine HCl) 20 Mg Capsule, 20 MG PO HS, (Reported) Entered as Reported by: GUERA WHITAKER on 10/29/21941 Last Action: Continued Fluticasone Propionate (Fluticasone Propionate) 16 Gm [place].susp, 1 SPRAY NSEACH BID, (Reported) Entered as Reported by: GUERA WHITAKER on 10/29/21941 Last Action: Reviewed Furosemide (Furosemide) 20 Mg Tablet, 20 MG PO DAILY, (Reported) Entered as Reported by: GUERA WHITAKER on 10/29/21941 Last Action: Reviewed Gabapentin (Gabapentin) 100 Mg Capsule, 100 MG PO BID, (Reported) Entered as Reported by: GUERA WHITAKER on 10/29/21941 Last Action: Continued Hydroxyzine HCl (Hydroxyzine HCl) 25 Mg Tablet, 25 MG PO Q12H PRN for ANXIETY, (Reported) Entered as Reported by: GUERA WHITAKER on 10/29/21941 Last Action: Reviewed Ipratropium/Albuterol Sulfate (Iprat-Albut 0.5-3(2.5) mg/3 ml) 3 Ml Ampul.neb, 3 ML NEB Q6H PRN for SHORTNESS OF BREATH, (Reported) Entered as Reported by: GUERA WHITAKER on 10/29/21941 Last Action: Reviewed Losartan Potassium (Losartan Potassium) 50 Mg Tablet, 50 MG PO DAILY, (Reported) Entered as Reported by: GUERA WHITAKER on 10/29/21941 Last Action: Reviewed Magnesium Hydroxide (Milk of Magnesia) 400 Mg/5 Ml Oral.susp, 15 ML PO UD PRN for CONSTIPATION-7TH LINE, (Reported) Entered as Reported by: GUERA WHITAKER on 10/29/21943 Last Action: Reviewed Pantoprazole Sodium (Pantoprazole Sodium) 40 Mg Tablet.dr, 40 MG PO 1800 AFTER MEAL, (Reported) Entered as Reported by: GUERA WHITAKER on 10/29/21941 Last Action: Reviewed Discontinued Medications Budesonide/Formoterol Fumarate (Symbicort Inhaler 160/4.5 Mcg) 10.2 Gm Hfa.aer.ad, 1 PUFF IH BID PRN for SHORTNESS OF BREATH, (Reported) Discontinued Reason: Duplicate Order Entered as Reported by: YAHAIRA GÓMEZ on 06/14/11 1020 Last Action: Discontinued Cephalexin (Cephalexin) 500 Mg Capsule, 500 MG PO TID Discontinued Reason: Duplicate Order Prescribed by: SEAMUS DEL REAL on 06/25/161953 Last Action: Discontinued Diltiazem HCl (Diltiazem ER) 240 Mg Tab.er.24h, 240 MG PO DAILY, (Reported) Discontinued Reason: No Longer Taking Entered as Reported by: GUERA WHITAKER on 10/29/21941 Last Action: Discontinued Diltiazem Hcl (Cartia Xt) 240 Mg Cap.sr.24h, 240 MG PO HS, (Reported) Discontinued Reason: Duplicate Order Entered as Reported by: YAHAIRA GÓMEZ on 06/14/11 1017 Last Action: Discontinued Fluoxetine Hcl (Fluoxetine Hcl) 20 Mg Capsule, 20 MG PO DAILY, (Reported) Discontinued Reason: Duplicate Order Entered as Reported by: YAHAIRATOYIN GARDNERWILLI on 06/14/11 1020 Last Action: Discontinued Ibuprofen (Ibuprofen) 600 Mg Tablet, 600 MG PO Q6H PRN for PAIN, (Reported) Discontinued Reason: Duplicate Order Entered as Reported by: EMORY LYNCH on 12/31/15 1551 Last Action: Discontinued Lisinopril (Lisinopril) 2.5 Mg Tablet, 2.5 MG PO DAILY, (Reported) Discontinued Reason: Duplicate Order Entered as Reported by: EMORY LYNCH on 12/31/15 1551 Last Action: Discontinued Metformin Hcl (Metformin 500 Mg) 500 Mg Tablet, 500 MG PO BID, (Reported) Discontinued Reason: Duplicate Order Entered as Reported by: CRISSY SEVILLA on 09/05/12 1022 Last Action: Discontinued Exam Vital Signs Vital Signs Date Time Temp Pulse Resp B/P (MAP) Pulse Ox O2 Delivery O2 Flow Rate FiO2 10/29/21 12:57 91 10/29/21 12:50 High Flow N/C 4.00 10/29/21 12:28 37.1 10/29/21 12:00 21 156/76 99 10/29/21 12:00 35 Physical Exam General: Alert. Mild respiratory distress on BiPAP but able to hold a conversation. Well nourished and appears stated age. Eye: Extraocular movements are intact. Conjunctivae are clear. There are no xanthelasma. HENT: Normocephalic. Atraumatic. Carotid pulsations 2/2 with bilateral bruits versus radiated murmur from aortic stenosis. Neck: Jugular venous pressure does not appear elevated. No thyromegaly appreciated. Respiratory: Lungs have scattered wheezes bilaterally and decreased at the bases bilaterally. She is on BiPAP as above. Breath sounds are equal. Symmetrical chest wall expansion. Cardiovascular: Normal rate. Regular rhythm. Distant S1/S2. 2/6 systolic ejection murmur. No gallop. Point of maximal impulse is not appear displaced. Good pulses equal in all extremities. 2+ bilateral pretibial edema without venous stasis changes. Gastrointestinal: Soft. Normal bowel sounds. Skin: Skin turgor is normal. There is no pallor. Musculoskeletal: No kyphosis or scoliosis appreciated. Neurologic: Alert and oriented to person, place, time. Cranial nerves 3-12 appear grossly intact. The patient has good motor tone strength in the upper and lower extremities bilaterally. Psychiatric: Cooperative. Appropriate mood & affect. Labs Laboratory Tests Test 10/28/21 22:10 10/28/21 22:14 10/28/21 22:15 10/28/21 22:20 Range/Units Urine Color YELLOW Urine Clarity SL CLOUDY Urine pH 6.0 5-[address] >=1.030 1.016-1.022 Urine Protein 1+ H NEGATIVE Urine Glucose (UA) NEGATIVE NEGATIVE Urine Ketones NEGATIVE NEGATIVE Urine Nitrite NEGATIVE NEGATIVE Urine Bilirubin 1+ H NEGATIVE Urine Urobilinogen 4.0 < = 1.0 MG/DL Urine Leukocyte Esterase TRACE H NEGATIVE Urine RBC (Auto) NEGATIVE NEGATIVE Urine RBC NONE /HPF Urine WBC 2-5 /HPF Urine Squamous Epithelial Cells 0-2 /HPF Urine Crystals NONE /LPF Urine Bacteria LARGE H /HPF Urine Casts PRESENT /LPF Urine Hyaline Casts RARE /LPF Urine Mucus NEGATIVE /LPF Urine Culture Indicated CULTURE PENDING Influenza Type A (RT-PCR) Not Detected Not Detecte Influenza Type B (RT-PCR) Not Detected Not Detecte SARS-CoV-2 RNA (RT-PCR) Not Detected Not Detecte Blood Gas Puncture Site R RAD Blood Gas Patient Temperature 36.2 Arterial Blood pH 7.19 *L 7.37-7.43 Arterial Blood Partial Pressure CO2 66 H 35-45 MMHG Arterial Blood Partial Pressure O2 103 H 79-93 MMHG Arterial Blood HCO3 24 23-27 MMOL/L Arterial Blood Total CO2 26.3 21.0-31.0 MMOL/L Arterial Blood Oxygen Saturation 97 94-100 % Arterial Blood Base Excess -3.2 L -2.5-2.5 MMOL/L Vinod Test YES-POS Blood Gas Ventilator Setting NO Blood Gas Inspired Oxygen 80% White Blood Count 9.8 4.3-11.0 10^3/uL Red Blood Count 3.94 3.80-5.11 10^6/uL Hemoglobin 11.3 L 11.5-16.0 g/dL Hematocrit 37 35-52 % Mean Corpuscular Volume 95 80-99 fL Mean Corpuscular Hemoglobin 29 25-34 pg Mean Corpuscular Hemoglobin Concent 30 L 32-36 g/dL Red Cell Distribution Width 13.4 10.0-14.5 % Platelet Count 176 130-400 10^3/uL Mean Platelet Volume 10.9 9.0-12.2 fL Immature Granulocyte % (Auto) 1 % Neutrophils (%) (Auto) 73 42-75 % Lymphocytes (%) (Auto) 19 12-44 % Monocytes (%) (Auto) 6 0-12 % Eosinophils (%) (Auto) 1 0-10 % Basophils (%) (Auto) 1 0-10 % Neutrophils # (Auto) 7.2 1.8-7.8 10^3/uL Lymphocytes # (Auto) 1.8 1.0-4.0 10^3/uL Monocytes # (Auto) 0.6 0.0-1.0 10^3/uL Eosinophils # (Auto) 0.1 0.0-0.3 10^3/uL Basophils # (Auto) 0.1 0.0-0.1 10^3/uL Immature Granulocyte # (Auto) 0.1 0.0-0.1 10^3/uL Erythrocyte Sedimentation Rate 3 0-30 MM/HR Prothrombin Time 13.2 12.2-14.7 SEC INR Comment 1.0 0.8-1.4 Activated Partial Thromboplast Time 20 L 24-35 SEC D-Dimer 4.70 H 0.00-0.49 UG/ML Sodium Level 137 135-145 MMOL/L Potassium Level 4.2 3.6-5.0 MMOL/L Chloride Level 103 98-107 MMOL/L Carbon Dioxide Level 17 L 21-32 MMOL/L Anion Gap 17 H 5-14 MMOL/L Blood Urea Nitrogen 15 7-18 MG/DL Creatinine 1.10 0.60-1.30 MG/DL Estimat Glomerular Filtration Rate 51 BUN/Creatinine Ratio 14 Glucose Level 273 H 70-105 MG/DL Lactic Acid Level 2.40 *H 0.50-2.00 MMOL/L Calcium Level 9.0 8.5-10.1 MG/DL Corrected Calcium 9.3 8.5-10.1 MG/DL Magnesium Level 1.8 1.6-2.4 MG/DL Total Bilirubin 0.8 0.1-1.0 MG/DL Aspartate Amino Transf (AST/SGOT) 23 5-34 U/L Alanine Aminotransferase (ALT/SGPT) 13 0-55 U/L Alkaline Phosphatase 76 40-136 U/L Lactate Dehydrogenase 371 H 125-220 U/L Total Creatine Kinase 74 29-168 U/L Creatine Kinase MB 2.6 <6.6 NG/ML Myoglobin 143.4 H 10.0-92.0 NG/ML Troponin I 0.043 H <0.028 NG/ML C-Reactive Protein High Sensitivity 1.31 H 0.00-0.50 MG/DL B-Type Natriuretic Peptide 505.8 H <100.0 PG/ML Total Protein 6.9 6.4-8.2 GM/DL Albumin 3.6 3.2-4.5 GM/DL Procalcitonin 0.02 <0.10 NG/ML TSH [place] Testing 1.69 0.35-4.94 UIU/ML Test 10/28/21 23:39 10/29/21 00:06 10/29/21 04:30 10/29/21 05:27 Range/Units Blood Gas Puncture Site R RAD R RAD Blood Gas Patient Temperature 36.2 37.0 Arterial Blood pH 7.25 *L 7.27 *L 7.37-7.43 Arterial Blood Partial Pressure CO2 58 H 59 H 35-45 MMHG Arterial Blood Partial Pressure O2 77 L 132 H 79-93 MMHG Arterial Blood HCO3 25 25 23-27 MMOL/L Arterial Blood Total CO2 26.8 26.8 21.0-31.0 MMOL/L Arterial Blood Oxygen Saturation 94 99 94-100 % Arterial Blood Base Excess -1.5 -0.6 -2.5-2.5 MMOL/L Vinod Test YES-POS YES-POS Blood Gas Ventilator Setting NO YES Blood Gas Inspired Oxygen 50% 50% Lactic Acid Level 1.16 0.50-2.00 MMOL/L White Blood Count 7.6 4.3-11.0 10^3/uL Red Blood Count 3.48 L 3.80-5.11 10^6/uL Hemoglobin 10.0 L 11.5-16.0 g/dL Hematocrit 32 L 35-52 % Mean Corpuscular Volume 93 80-99 fL Mean Corpuscular Hemoglobin 29 25-34 pg Mean Corpuscular Hemoglobin Concent 31 L 32-36 g/dL Red Cell Distribution Width 13.3 10.0-14.5 % Platelet Count 152 130-400 10^3/uL Mean Platelet Volume 10.4 9.0-12.2 fL Immature Granulocyte % (Auto) 0 % Neutrophils (%) (Auto) 95 H 42-75 % Lymphocytes (%) (Auto) 3 L 12-44 % Monocytes (%) (Auto) 1 0-12 % Eosinophils (%) (Auto) 0 0-10 % Basophils (%) (Auto) 0 0-10 % Neutrophils # (Auto) 7.2 1.8-7.8 10^3/uL Lymphocytes # (Auto) 0.2 L 1.0-4.0 10^3/uL Monocytes # (Auto) 0.1 0.0-1.0 10^3/uL Eosinophils # (Auto) 0.0 0.0-0.3 10^3/uL Basophils # (Auto) 0.0 0.0-0.1 10^3/uL Immature Granulocyte # (Auto) 0.0 0.0-0.1 10^3/uL Neutrophils % (Manual) 97 % Lymphocytes % (Manual) 1 % Monocytes % (Manual) 0 % Eosinophils % (Manual) 0 % Band Neutrophils 2 % Basophilic Stippling SLIGHT Anisocytosis SLIGHT Sodium Level 140 135-145 MMOL/L Potassium Level 4.0 3.6-5.0 MMOL/L Chloride Level 105 98-107 MMOL/L Carbon Dioxide Level 20 L 21-32 MMOL/L Anion Gap 15 H 5-14 MMOL/L Blood Urea Nitrogen 16 7-18 MG/DL Creatinine 1.01 0.60-1.30 MG/DL Estimat Glomerular Filtration Rate 56 BUN/Creatinine Ratio 16 Glucose Level 189 H 70-105 MG/DL Calcium Level 8.8 8.5-10.1 MG/DL Corrected Calcium 9.2 8.5-10.1 MG/DL Phosphorus Level 3.2 2.3-4.7 MG/DL Magnesium Level 2.0 1.6-2.4 MG/DL Total Bilirubin 0.6 0.1-1.0 MG/DL Aspartate Amino Transf (AST/SGOT) 20 5-34 U/L Alanine Aminotransferase (ALT/SGPT) 11 0-55 U/L Alkaline Phosphatase 69 40-136 U/L Total Protein 6.2 L 6.4-8.2 GM/DL Albumin 3.5 3.2-4.5 GM/DL Test 10/29/21 11:55 10/29/21 12:16 Range/Units Troponin I 0.430 *H <0.028 NG/ML Glucometer 179 H 70-110 MG/DL Radiology ULTRASOUND CAROTID BILATERAL COMPLETE (10/23/2021): 1. Moderate atherosclerosis involving bilateral carotid bulbs. 2. No sonographic evidence to suggest a hemodynamically significant stenosis of the internal carotid arteries at this time. ECHOCARDIOGRAM (10/23/2021): 1. Normal left ventricular chamber with moderate concentric hypertrophy. Normal left ventricular systolic function with an estimated ejection fraction of 60-65% with no regional wall motion abnormalities identified. 2. The left ventricular diastolic function is indeterminate. 3. There is mild to moderate mitral regurgitation. 4. The aortic valve appears tricuspid with thickened and calcified leaflets with restricted leaflet mobility. There is severe aortic stenosis with a mean gradient of 78 mmHg, a peak gradient of 123 mmHg, a peak velocity of 5.5 m/s and a calculated aortic valve area of 0.7 cm. 5. The pulmonary artery pressure cannot be estimated on this study due to inadequate tricuspid regurgitant envelope. 6. There is no previous study available for comparison. ELECTROCARDIOGRAM (10/07/2021): Sinus rhythm with 1 premature supraventricular complex, probable old anterior infarct and diffuse, nonspecific ST-T wave changes. LABS (01/06/2018): Sodium 137. Potassium 4.7. Glucose 84. BUN 28. Creatinine 0.8. GFR 80. Liver function tests normal. HbA1c 5.6%. ECG Impression ECG Comment Electrocardiogram from 10/28 obtained in the emergency room showed sinus tachycardia 103 bpm with possible old anteroseptal myocardial infarction and diffuse, nonspecific ST-T wave changes. Diagnosis/Problems Diagnosis/Problems (1) Acute heart failure with preserved ejection fraction (HFpEF) Assessment & Plan: She did not know of any previous history of heart failure. She does have chronic obstructive pulmonary disease with chronic hypoxia on home oxygen. However, now she presents with probable acute heart failure with preserved ejection fraction. She has received several doses of intravenous furosemide. I will start her on intravenous furosemide 80 mg daily. We will need to watch her renal function closely. (2) Aortic stenosis Assessment & Plan: She has severe, if not critical aortic stenosis noted on her most recent echocardiogram. She was actually supposed to follow-up with me in the office in the near future to discuss future plans for the aortic stenosis. She tells me that she would want to consider definitive treatment of the aortic stenosis if possible. She may be a good candidate for a transcatheter aortic valve insertion (CHARLES) but first we need to get her through this episode of heart failure. (3) Coronary artery disease with unstable angina pectoris Assessment & Plan: I suspect she may be having a type II non-ST elevation myocardial infarction due to supply/demand mismatch. I will start her on low strength aspirin and resume clopidogrel which she was taking at home. She has been ordered for her home dose of atorvastatin. I do not think she would be a good candidate for beta-tom due to her oxygen dependent chronic obstructive pulmonary disease. She has been ordered for therapeutic dose of enoxaparin. I do not see any urgent need for an ischemic evaluation at this time. If we can get her heart failure turned around, ultimately she would need a cardiac catheterization prior to consideration of aortic valve replacement. (4) Mitral regurgitation Assessment & Plan: She also has mild to moderate mitral regurgitation. This should not be causing symptoms but will need to be followed longitudinally. (5) Atherosclerosis of both carotid arteries Assessment & Plan: She has moderate bilateral disease as noted above. Continue aspirin and statin medication. There is no indication for intervention and she has no previous history of stroke. (6) Primary hypertension Assessment & Plan: I will restart her diltiazem that she was taking at home. (7) Mixed hyperlipidemia Assessment & Plan: Continue atorvastatin. (8) Acute on chronic respiratory failure with hypoxia and hypercapnia Assessment & Plan: This is being managed by the primary provider and eICU. DANY MIGUEL JR, MD Oct 29, 2021 11:03
[2021-10-29 11:11] VITALS: BP 120/62
[2021-10-29] MEDS: ENOXAPARIN 120 MG/0.8 ML (LOVENOX) SQ SCH ×2 (12:15→20:01)
[2021-10-29] MEDS: ACETAMINOPHEN 500 MG TAB (TYLENOL) PO PRN (12:15)
[2021-10-29] MEDS ORDERED: hydrOXYzine (ATARAX) 10 MG TAB PO PRN (13:00)
[2021-10-29] MEDS ORDERED: ALPRAZolam 0.25 MG (XANAX) TAB PO PRN (13:00)
[2021-10-29] MEDS ORDERED: ASPIRIN E.C. 81 MG (ECOTRIN) TAB PO NR (13:30)
[2021-10-29] MEDS ORDERED: CLOPIDOGREL 75 MG (PLAVIX) TABLET PO NR (13:30)
[2021-10-29] MEDS ORDERED: PANTOPRAZOLE 40 MG (PROTONIX) TAB PO NR (13:30)
[2021-10-29] MEDS: dilTIAZem120 MG (CARDIZEM CD) CAP PO SCH (13:43)
[2021-10-29 14:30] VITALS: BP 115/68
[2021-10-29] MEDS ORDERED: NITROGLYCERIN 0.4 MG SL TABS BTL 25'S SL PRN (15:30)
--- NOTE | 2021-10-29 17:52 | History & Physical ---
History of Present Illness History of Present Illness Reason for visit/HPI This is an 81 year old female patient of Dr. Giraldo'henry who resides at [facility]. She states she has been having worsening edema to her lower legs and worsening shortness of air the past 2 months. She became more short of air with intermittent chest pain the last few days and this worsened overnight so she was brought to the emergency room. She was found to be in acute respiratory failure and was placed on BiPAP. The respiratory failure appeared to be from worsening congestive heart failure. She has a history of CAD with a previous stent placement and her troponin-I was elevated on admission. She has been given IV lasix and will be admitted to the ICU on BIPAP with cardiology consultation. Date of Admission Oct 28, 2021 at 23:35 Date Seen by a Provider: Oct 29, 2021 Time Seen by a Provider: 12:45 I consulted on this patient on 10/29/21 17:47 Attending Physician Natalie Giraldo MD Admitting Physician Natalie Giraldo MD Consult Allergies and Home Medications Allergies Uncoded Allergies: HAYFEVER (Allergy, Unknown, 08/17/16) Patient Home Medication List Home Medication List Reviewed: Yes Acetaminophen with Codeine (Acetaminophen-Cod #3 Tablet) 1 Each Tablet, 1 EA PO Q6H PRN for PAIN-MODERATE (5-7), (Reported) Entered as Reported by: GUERA WHITAKER on 10/29/21941 Last Action: Reviewed Albuterol Sulfate (Proair Respiclick) 90 Mcg Aer.pow.ba, 2 PUFF INH Q4H PRN for SHORTNESS OF BREATH, (Reported) Entered as Reported by: GUERA WHITAKER on 10/29/21941 Last Action: Reviewed Atorvastatin Calcium (Atorvastatin Calcium) 10 Mg Tablet, 10 MG PO HS, (Reported) Entered as Reported by: GUERA WHITAKER on 10/29/21941 Last Action: Continued Cetirizine HCl (Cetirizine HCl) 10 Mg Tablet, 10 MG PO HS, (Reported) Entered as Reported by: GUERA WHITAKER on 10/29/21941 Last Action: Reviewed Diltiazem HCl (Diltiazem 24Hr ER) 120 Mg Cap.er.24h, 120 MG PO DAILY, (Reported) Entered as Reported by: GUERA WHITAKER on 10/29/21941 Last Action: Reviewed Fluoxetine HCl (Fluoxetine HCl) 20 Mg Capsule, 20 MG PO HS, (Reported) Entered as Reported by: GUERA WHITAKER on 10/29/21941 Last Action: Continued Fluticasone Propionate (Fluticasone Propionate) 16 Gm [place].susp, 1 SPRAY NSEACH BID, (Reported) Entered as Reported by: GUERA WHITAKER on 10/29/21941 Last Action: Reviewed Furosemide (Furosemide) 20 Mg Tablet, 20 MG PO DAILY, (Reported) Entered as Reported by: GUERA WHITAKER on 10/29/21941 Last Action: Reviewed Gabapentin (Gabapentin) 100 Mg Capsule, 100 MG PO BID, (Reported) Entered as Reported by: GUERA WHITAKER on 10/29/21941 Last Action: Continued Hydroxyzine HCl (Hydroxyzine HCl) 25 Mg Tablet, 25 MG PO Q12H PRN for ANXIETY, (Reported) Entered as Reported by: GUERA WHITAKER on 10/29/21941 Last Action: Reviewed Ipratropium/Albuterol Sulfate (Iprat-Albut 0.5-3(2.5) mg/3 ml) 3 Ml Ampul.neb, 3 ML NEB Q6H PRN for SHORTNESS OF BREATH, (Reported) Entered as Reported by: GUERA WHITAKER on 10/29/21941 Last Action: Reviewed Losartan Potassium (Losartan Potassium) 50 Mg Tablet, 50 MG PO DAILY, (Reported) Entered as Reported by: GUERA WHITAKER on 10/29/21941 Last Action: Reviewed Magnesium Hydroxide (Milk of Magnesia) 400 Mg/5 Ml Oral.susp, 15 ML PO UD PRN for CONSTIPATION-7TH LINE, (Reported) Entered as Reported by: GUERA WHITAKER on 10/29/21943 Last Action: Reviewed Pantoprazole Sodium (Pantoprazole Sodium) 40 Mg Tablet.dr, 40 MG PO 1800 AFTER MEAL, (Reported) Entered as Reported by: GUERA WHITAKER on 10/29/21941 Last Action: Reviewed Discontinued Medications Budesonide/Formoterol Fumarate (Symbicort Inhaler 160/4.5 Mcg) 10.2 Gm Hfa.aer.ad, 1 PUFF IH BID PRN for SHORTNESS OF BREATH, (Reported) Discontinued Reason: Duplicate Order Entered as Reported by: YAHAIRA GÓMEZ on 06/14/11 1020 Last Action: Discontinued Cephalexin (Cephalexin) 500 Mg Capsule, 500 MG PO TID Discontinued Reason: Duplicate Order Prescribed by: SEAMUS DEL REAL on 06/25/161953 Last Action: Discontinued Diltiazem HCl (Diltiazem ER) 240 Mg Tab.er.24h, 240 MG PO DAILY, (Reported) Discontinued Reason: No Longer Taking Entered as Reported by: GUERA WHITAKER on 10/29/21 0942 Last Action: Discontinued Diltiazem Hcl (Cartia Xt) 240 Mg Cap.sr.24h, 240 MG PO HS, (Reported) Discontinued Reason: Duplicate Order Entered as Reported by: YAHAIRA GÓMEZ on 06/14/11 1017 Last Action: Discontinued Fluoxetine Hcl (Fluoxetine Hcl) 20 Mg Capsule, 20 MG PO DAILY, (Reported) Discontinued Reason: Duplicate Order Entered as Reported by: YAHAIRA GÓMEZ on 06/14/11 1020 Last Action: Discontinued Ibuprofen (Ibuprofen) 600 Mg Tablet, 600 MG PO Q6H PRN for PAIN, (Reported) Discontinued Reason: Duplicate Order Entered as Reported by: EMORY LYNCH on 12/31/15 1551 Last Action: Discontinued Lisinopril (Lisinopril) 2.5 Mg Tablet, 2.5 MG PO DAILY, (Reported) Discontinued Reason: Duplicate Order Entered as Reported by: EMORY LYNCH on 12/31/15 1551 Last Action: Discontinued Metformin Hcl (Metformin 500 Mg) 500 Mg Tablet, 500 MG PO BID, (Reported) Discontinued Reason: Duplicate Order Entered as Reported by: CRISSY SEVILLA on 09/05/12 1022 Last Action: Discontinued Past Nahhpkx-Uiryan-Bsbpil Hx Patient Social History Tobacco Use?: No Smoking Status: Never a Smoker Smokeless Tobacco Frequency: Never a User Use of E-Cig and/or Vaping dev: No Use of E-Cig and/or Vaping Nahid: Never a User Substance use?: No Alcohol Use?: No Pt feels they are or have been: No Immunizations Up To Date Date of Influenza Vaccine: May 15, 2021 Tetanus Booster (TDap): Unknown PED Vaccines UTD: No Date of Pneumonia Vaccine: May 01, 2015 Seasonal Allergies Seasonal Allergies: Yes (HAYFEVER) Current Status status: No status: No Advance Directives: No Communicates: Verbally Primary Language: Danish Preferred Spoken Language: Danish Is interpretation needed?: No Implanted or Applied Medical D: Stents Past Medical History Surgeries: Hysterectomy, Joint Replacement, Orthopedic, Tubal Ligation Sleep Apnea Currently Using CPAP: No Currently Using BIPAP: No Chronic Edema/Swelling, High Cholesterol, Hypertension Sexually Transmitted Disease: No HIV/AIDS: No UTI-Chronic Gastroesophageal Reflux Arthritis Diabetes, Non-Insulin dep Loss of Vision: Bilateral Hearing Impairment: Denies Anxiety, Depression Family Medical History Cardiovascular disease 19 MOTHER Completed stroke 19 FATHER Respiratory disorder 19 FATHER 19 MOTHER No Pertinent Family Hx Review of Systems Constitutional: weakness EENTM: No see HPI, No no symptoms reported, No ear discharge, No hearing loss, No ear pain, No blurred vision, No double vision, No eye pain, No tearing, No vision loss, No dental problems, No hoarseness, No mouth pain, No mouth sw elling, No epistaxis, No nose congestion, No nose pain, No throat pain, No throat swelling, No other Respiratory: dyspnea on exertion, orthopnea, short of breath Cardiovascular: chest pain, edema, Hx of Intervention, vascular heart diseas Gastrointestinal: No RUQ, No LUQ, No RLQ, No LLQ, No no symptoms reported, No s ee HPI, No abdominal pain, No constipation, No diarrhea, No dysphagia, No hematemesis, No heartburn, No jaundice, No loss of appetite, No melena, No nausea, No vomiting, No other Genitourinary: No no symptoms reported, No see HPI, No decreased output, No discharge, No dysuria, No frequency, No hematuria, No hesitancy, No incontinence, No nocturia, No pain, No other Musculoskeletal: back pain, muscle weakness Skin: No no symptoms reported, No see HPI, No change in color, No change in hair/nails, No dryness, No hx of skin cancer, No lesions, No lumps, No pruritus, No rash, No other Psychiatric/Neurological: Anxiety, Weakness Physical Exam Vital Signs Vital Signs - First Documented 10/28/21 10/29/21 22:08 01:30 Temp 36.2 Pulse 107 Resp 25 B/P (MAP) 150/117 (128) Pulse Ox 99 O2 Delivery NIV Bilevel O2 Flow Rate 50.00 FiO2 50 Capillary Refill : Height, Weight, BMI Height: 5'4.00" Weight: 243lbs. 0.0oz. [id number]; 49.66 BMI Method:Stated General Appearance: Moderate Distress (on BIPAP) HEENT: Other (on BIPAP) Neck: Supple Respiratory: Decreased Breath Sounds, Respiratory Distress Cardiovascular: Regular Rate, Rhythm, Systolic Murmur, Gallop/S4 Gastrointestinal: Normal Bowel Sounds, Non Tender, Soft Rectal: Deferred Back: No CVA Tenderness Extremity: No Calf Tenderness, Pedal Edema Neurologic/Psychiatric: Alert, Oriented x3 Skin: Warm/Dry Comments Laboratory Tests 10/28/21 22:10: Urine Color YELLOW, Urine Clarity SL CLOUDY, Urine pH 6.0, Urine Specific [place] >=1.030, Urine Protein 1+H, Urine Glucose (UA) NEGATIVE, Urine Ketones NEGATIVE, Urine Nitrite NEGATIVE, Urine Bilirubin 1+H, Urine Urobilinogen 4.0, Urine Leukocyte Esterase TRACEH, Urine RBC (Auto) NEGATIVE, Urine RBC NONE, Urine WBC 2-5, Urine Squamous Epithelial Cells 0-2, Urine Crystals NONE, Urine Bacteria LARGEH, Urine Casts PRESENT, Urine Hyaline Casts RARE, Urine Mucus NEGATIVE, Urine Culture Indicated CULTURE PENDING 10/28/21 22:14: Influenza Type A (RT-PCR) Not Detected, Influenza Type B (RT-PCR) Not Detected, SARS-CoV-2 RNA (RT-PCR) Not Detected 10/28/21 22:15: Blood Gas Puncture Site R RAD, Blood Gas Patient Temperature 36.2, Arterial Blood pH 7.19*L, Arterial Blood Partial Pressure CO2 66H, Arterial Blood Partial Pressure O2 103H, Arterial Blood HCO3 24, Arterial Blood Total CO2 26.3, Arterial Blood Oxygen Saturation 97, Arterial Blood Base Excess -3.2L, Vinod Test YES-POS, Blood Gas Ventilator Setting NO, Blood Gas Inspired Oxygen 80% 10/28/21 22:20: White Blood Count 9.8, Red Blood Count 3.94, Hemoglobin 11.3L, Hematocrit 37, Mean Corpuscular Volume 95, Mean Corpuscular Hemoglobin 29, Mean Corpuscular Hemoglobin Concent 30L, Red Cell Distribution Width 13.4, Platelet Count 176, Mean Platelet Volume 10.9, Immature Granulocyte % (Auto) 1, Neutrophils (%) (Auto) 73, Lymphocytes (%) (Auto) 19, Monocytes (%) (Auto) 6, Eosinophils (%) (Auto) 1, Basophils (%) (Auto) 1, Neutrophils # (Auto) 7.2, Lymphocytes # (Auto) 1.8, Monocytes # (Auto) 0.6, Eosinophils # (Auto) 0.1, Basophils # (Auto) 0.1, Immature Granulocyte # (Auto) 0.1, Erythrocyte Sedimentation Rate 3, Prothrombin Time 13.2, INR Comment 1.0, Activated Partial Thromboplast Time 20L, D-Dimer 4.70H, Sodium Level 137, Potassium Level 4.2, Chloride Level 103, Carbon Dioxide Level 17L, Anion Gap 17H, Blood Urea Nitrogen 15, Creatinine 1.10, Estimat Glomerular Filtration Rate 51, BUN/Creatinine Ratio 14, Glucose Level 273H, Lactic Acid Level 2.40*H, Calcium Level 9.0, Corrected Calcium 9.3, Magnesium Level 1.8, Total Bilirubin 0.8, Aspartate Amino Transf (AST/SGOT) 23, Alanine Aminotransferase (ALT/SGPT) 13, Alkaline Phosphatase 76, Lactate Dehydrogenase 371H, Total Creatine Kinase 74, Creatine Kinase MB 2.6, Myoglobin 143.4H, Troponin I 0.043H, C-Reactive Protein High Sensitivity 1.31H, B-Type Natriuretic Peptide 505.8H, Total Protein 6.9, Albumin 3.6, Procalcitonin 0.02, TSH [place] Testing 1.69 10/28/21 23:39: Blood Gas Puncture Site R RAD, Blood Gas Patient Temperature 36.2, Arterial Blood pH 7.25*L, Arterial Blood Partial Pressure CO2 58H, Arterial Blood Partial Pressure O2 77L, Arterial Blood HCO3 25, Arterial Blood Total CO2 26.8, Arterial Blood Oxygen Saturation 94, Arterial Blood Base Excess -1.5, Vinod Test YES-POS, Blood Gas Ventilator Setting NO, Blood Gas Inspired Oxygen 50% 10/29/21 00:06: Lactic Acid Level 1.16 10/29/21 04:30: White Blood Count 7.6, Red Blood Count 3.48L, Hemoglobin 10.0L, Hematocrit 32L, Mean Corpuscular Volume 93, Mean Corpuscular Hemoglobin 29, Mean Corpuscular Hemoglobin Concent 31L, Red Cell Distribution Width 13.3, Platelet Count 152, Mean Platelet Volume 10.4, Immature Granulocyte % (Auto) 0, Neutrophils (%) (Auto) 95H, Lymphocytes (%) (Auto) 3L, Monocytes (%) (Auto) 1, Eosinophils (%) (Auto) 0, Basophils (%) (Auto) 0, Neutrophils # (Auto) 7.2, Lymphocytes # (Auto) 0.2L, Monocytes # (Auto) 0.1, Eosinophils # (Auto) 0.0, Basophils # (Auto) 0.0, Immature Granulocyte # (Auto) 0.0, Neutrophils % (Manual) 97, Lymphocytes % (Manual) 1, Monocytes % (Manual) 0, Eosinophils % (Manual) 0, Band Neutrophils 2, Basophilic Stippling SLIGHT, Anisocytosis SLIGHT, Sodium Level 140, Potassium Level 4.0, Chloride Level 105, Carbon Dioxide Level 20L, Anion Gap 15H, Blood Urea Nitrogen 16, Creatinine 1.01, Estimat Glomerular Filtration Rate 56, BUN/Creatinine Ratio 16, Glucose Level 189H, Calcium Level 8.8, Corrected C alcium 9.2, Phosphorus Level 3.2, Magnesium Level 2.0, Total Bilirubin 0.6, Aspartate Amino Transf (AST/SGOT) 20, Alanine Aminotransferase (ALT/SGPT) 11, Alkaline Phosphatase 69, Total Protein 6.2L, Albumin 3.5 10/29/21 05:27: Blood Gas Puncture Site R RAD, Blood Gas Patient Temperature 37.0, Arterial Blood pH 7.27*L, Arterial Blood Partial Pressure CO2 59H, Arterial Blood Partial Pressure O2 132H, Arterial Blood HCO3 25, Arterial Blood Total CO2 26.8, Arterial Blood Oxygen Saturation 99, Arterial Blood Base Excess -0.6, Vinod Test YES-POS, Blood Gas Ventilator Setting YES, Blood Gas Inspired Oxygen 50% 10/29/21 11:55: Troponin I 0.430*H 10/29/21 12:16: Glucometer 179H 10/29/21 16:21: Glucometer 164H 10/29/21 17:27: Troponin I [Pending] Microbiology 10/28/21 Urine Culture - Preliminary, Resulted Gram Negative Bacillus 1 Assessment/Plan Assessment and Plan 1. Acute Respiratory Failure--on BIPAP 2. Acute Congestive Heart Failure with preserved EF--IV lasix and monitor BUN/Cr 3. CAD with elevated troponin-I--likely Type II AL--medical management at this time 4. Severe Aortic Stenosis--will need further evaluation as outpatient for possible repair 5. Hypertension--BP currently stable 6. COPD--on duoneb treatments 7. Chronic Renal Failure--monitor BUN/Cr with diuresis 8. Chronic Back Pain--resume pain meds prn--hydrocodone ordered 9. Anxiety--resume hydroxyzine prn Admission Diagnosis Admission Status: Inpatient Order (span 2 midnights) Reason for Inpatient Admission: Is on BIPAP in ICU so will need weaning off BIPAP and cardiac eval CHEMA BATES DO Oct 29, 2021 17:52
[2021-10-29] MEDS: SIMETHICONE 80 MG (MYLICON) CHEW PO PRN (18:15)
[2021-10-29] MEDS: guaiFENesin/DM (ROBITUSSIN DM) 10 ML UDC PO PRN ×2 (18:19→21:36)
[2021-10-29] MEDS ORDERED: DexMEDEtomidine 250 ML DRIP 250 ML IV ONE (19:07)
[2021-10-29] MEDS: DexMEDEtomidine 250 ML DRIP 250 ML IV SCH (19:10)
[2021-10-29] MEDS ORDERED: FUROSEMIDE 40 MG/4 ML INJ (LASIX) ONE (19:20)
[2021-10-29] MEDS: FLUoxetine HCL 20 MG (PROzac) CAP PO SCH (20:01)
[2021-10-29] MEDS: GABAPENTIN 100 MG (NEURONTIN) CAP PO SCH (20:01)
[2021-10-29] MEDS: AZITHROMYCIN INJECTION 500 MG in NS (IVPB) 250 ML IV SCH (20:01)
[2021-10-29] MEDS: AtorvaSTATin TABLET 10 MG TABLET PO SCH (20:01)
[2021-10-29 20:32] VITALS: BP 111/56
[2021-10-29] MEDS: cefTRIAXone 1 GM PRE-MIX 50 ML IV SCH (21:12)
[2021-10-29] MEDS: hydrOXYzine (VISTARIL/ATARAX) 25 MG capsule/tablet PO PRN (21:25)
[2021-10-30] MEDS: RT-ALBUTEROL/IPRATROPIUM 3 ML (DUONEB) VIAL INH SCH ×4 (02:59→18:57)
[2021-10-30 03:00] VITALS: BP 104/62
[2021-10-30 04:23] LABS: BASOPHILS % (AUTO) 0 % (0-10); EOSINOPHILS % (AUTO) 0 % (0-10); HEMATOCRIT 30 % (35-52); HEMOGLOBIN 9.5 g/dL (11.5-16.0); LYMPHOCYTES # (AUTO) 0.8 10^3/uL (1.0-4.0); LYMPHOCYTES % (AUTO) 6 % (12-44); MEAN CORPUSCULAR HEMOGLOBIN 28 pg (25-34); MEAN CORPUSCULAR HGB CONC 31 g/dL (32-36); MEAN CORPUSCULAR VOLUME 91 fL (80-99); MEAN PLATELET VOLUME 10.5 fL (9.0-12.2); MONOCYTES # (AUTO) 0.8 10^3/uL (0.0-1.0); MONOCYTES % (AUTO) 6 % (0-12); NEUTROPHILS # (AUTO) 11.9 10^3/uL (1.8-7.8); NEUTROPHILS % (AUTO) 88 % (42-75); PLATELET COUNT 160 10^3/uL (130-400); WHITE BLOOD COUNT 13.5 10^3/uL (4.3-11.0)
[2021-10-30 04:37] LABS: ALBUMIN 3.2 GM/DL (3.2-4.5); POTASSIUM 3.5 MMOL/L (3.6-5.0)
[2021-10-30 04:38] LABS: CALCIUM 8.6 MG/DL (8.5-10.1)
[2021-10-30 04:39] LABS: TOTAL PROTEIN 5.7 GM/DL (6.4-8.2)
[2021-10-30 04:41] LABS: BILIRUBIN,TOTAL 0.6 MG/DL (0.1-1.0)
[2021-10-30 04:43] LABS: CREATININE SERUM 0.94 MG/DL (0.60-1.30); PHOSPHORUS 3.2 MG/DL (2.3-4.7)
[2021-10-30 04:46] LABS: MAGNESIUM 1.6 MG/DL (1.6-2.4)
[2021-10-30] MEDS: MAGNESIUM 1 GM/100 ML IVPB 100 ML IV SCH (04:52)
[2021-10-30] MEDS: POTASSIUM CL 10MEQ/50ML IVPB 50 ML IV SCH ×2 (04:52→08:58)
[2021-10-30] MEDS: KCL 20 MEQ TAB (K-DUR) PO SCH (04:53)
[2021-10-30] MEDS: NITROGLYCERIN 2% OINT 1 GM UNIT DOSE PACKET TOP SCH ×3 (04:54→18:00)
[2021-10-30] MEDS: inSUlin ASPART (NovoLOG) 1 UNIT/0.01 ML (CHARGE PER UNIT) SC SCH ×4 (04:54→21:27)
[2021-10-30 07:16] VITALS: BP 114/68
--- NOTE | 2021-10-30 07:18 | Progress Note ---
Subjective Subjective Date Seen by Provider: Oct 30, 2021 Time Seen by Provider: 07:40 Pt is an81 y/o female who is known to me from clinic. Tricia had been having more swelling of her lower legs and shortness of breath at home, was brought to the ER and found to be in respiratory failure with pulmonary edema and pne umonia. This morning the patient reports that she had a bad night last night, had trouble resting in the BIPAP mask. She reportedly had improvement in her breathing after lasix yesterday. Pt reports that she understands that she has heart disease, is unsure if she wants to have a heart catheterization, and is also aware of her Aortic stenosis, but did not understand how bad it was from the previous fortune teller (Dr. STRONG). Review of Systems General: Fatigue, Malaise HEENT: Other (dry mouth) Pulmonary: Dyspnea, Cough Cardiovascular: Edema, Lt Headedness; No: Chest Pain Gastrointestinal: No: Nausea, Vomiting, Abdominal Pain Genitourinary: Other (wall in place) Musculoskeletal: back pain, leg pain Neurological: Weakness; No: Confusion All Other Systems Reviewed All Other Systems Reviewed: Yes Objective Exam Vital Signs Vital Signs Date Time Temp Pulse Resp B/P (MAP) Pulse Ox O2 Delivery O2 Flow Rate FiO2 10/30/21 06:00 87 19 107/69 93 NIV Bilevel 45.00 10/30/21 05:00 105 15 107/67 92 NIV Bilevel 45.00 10/30/21 04:00 108 21 109/65 93 NIV Bilevel 45.00 10/30/21 03:57 97 NIV Bilevel 50 10/30/21 03:00 89 20 94 45.00 10/30/21 03:00 89 26 94/64 96 NIV Bilevel 45.00 10/30/21 02:33 36.6 NIV Bilevel 45.00 10/30/21 02:00 88 29 103/63 95 NIV Bilevel 45.00 10/30/21 01:22 NIV Bilevel 45.00 10/30/21 01:00 91 20 98/53 94 NIV Bilevel 50.00 10/30/21 01:00 90 10/30/21 00:03 103 22 112/69 95 NIV Bilevel 50.00 10/29/21 23:19 36.6 10/29/21 23:17 97 NIV Bilevel 50 10/29/21 23:00 101 22 96/65 95 NIV Bilevel 50.00 10/29/21 22:57 NIV Bilevel 50.00 10/29/21 22:46 99 24 96 55.00 10/29/21 22:00 110 22 108/59 93 NIV Bilevel 45.00 10/29/21 21:39 107/71 10/29/21 21:38 NIV Bilevel 55.00 10/29/21 21:00 NIV Bilevel 45.00 10/29/21 21:00 98 23 102/62 94 NIV Bilevel 45.00 10/29/21 20:32 96 39 96 45.00 10/29/21 20:30 NIV Bilevel 50.00 10/29/21 20:03 NIV Bilevel 70.00 10/29/21 20:00 98 22 104/54 98 NIV Bilevel 80.00 10/29/21 19:43 97 NIV Bilevel 80 10/29/21 19:40 100 10/29/21 19:38 35.7 106 26 106/60 95 NIV Bilevel 80.00 10/29/21 19:10 120 120/105 10/29/21 19:00 131 10/29/21 18:00 98 28 108/61 99 NIV Bilevel 35.00 10/29/21 17:00 102 22 98/55 98 High Flow N/C 4.00 10/29/21 16:00 36.3 10/29/21 16:00 111 25 115/65 96 High Flow N/C 4.00 10/29/21 16:00 97 NIV Bilevel 35 10/29/21 15:00 111 113/64 95 High Flow N/C 4.00 10/29/21 14:30 111 38 92 30.00 10/29/21 14:00 109 28 115/68 93 High Flow N/C 4.00 10/29/21 13:00 101 126/81 94 High Flow N/C 4.00 10/29/21 12:57 91 10/29/21 12:50 High Flow N/C 4.00 10/29/21 12:28 37.1 10/29/21 12:00 95 21 156/76 99 NIV Bilevel 35.00 10/29/21 12:00 97 NIV Bilevel 35 3/31/22 11:11 36.9 98 93 10/29/21 11:00 93 21 140/80 96 NIV Bilevel 35.00 10/29/21 10:00 98 38 120/62 93 NIV Bilevel 35.00 10/29/21 09:50 High Flow N/C 4.00 10/29/21 09:00 97 21 117/59 96 NIV Bilevel 35.00 10/29/21 08:00 99 NIV Bilevel 35 10/29/21 08:00 36.9 10/29/21 08:00 93 14 120/65 97 NIV Bilevel 35.00 I & O 10/30/21 07:00 Intake Total 2020 ml Output Total 3075 ml Balance -1055 ml General Appearance: Moderate Distress (on BIPAP) HEENT: PERRL/EOMI, Other (on BIPAP) Neck: Supple Respiratory: Crackles, Decreased Breath Sounds, Other (on bipap, in distress when moving to sit up) Cardiovascular: Systolic Murmur, Gallop/S4, Tachycardia, Other (difficult to au scultate due to noise from bipap and respiratory crackles) Gastrointestinal: Normal Bowel Sounds, Non Tender, Soft Rectal: Deferred Back: No CVA Tenderness Extremity: No Calf Tenderness, Pedal Edema Neurologic/Psychiatric: Alert, Oriented x3, Normal Mood/Affect Skin: Normal Color, Warm/Dry Results Lab Laboratory Tests 10/29/21 11:55: Troponin I 0.430*H 10/29/21 12:16: Glucometer 179H 10/29/21 16:21: Glucometer 164H 10/29/21 17:27: Troponin I 0.308*H 10/29/21 20:15: Glucometer 196H 10/29/21 23:47: Troponin I 0.477*H 10/30/21 04:00: White Blood Count 13.5H, Red Blood Count 3.35L, Hemoglobin 9.5L, Hematocrit 30L, Mean Corpuscular Volume 91, Mean Corpuscular Hemoglobin 28, Mean Corpuscular Hemoglobin Concent 31L, Red Cell Distribution Width 13.4, Platelet Count 160, Mean Platelet Volume 10.5, Immature Granulocyte % (Auto) 0, Neutrophils (%) (Auto) 88H, Lymphocytes (%) (Auto) 6L, Monocytes (%) (Auto) 6, Eosinophils (%) (Auto) 0, Basophils (%) (Auto) 0, Neutrophils # (Auto) 11.9H, Lymphocytes # (Auto) 0.8L, Monocytes # (Auto) 0.8, Eosinophils # (Auto) 0.0, Basophils # (Au to) 0.0, Immature Granulocyte # (Auto) 0.1, Sodium Level 139, Potassium Level 3.5L, Chloride Level 102, Carbon Dioxide Level 22, Anion Gap 15H, Blood Urea Nitrogen 19H, Creatinine 0.94, Estimat Glomerular Filtration Rate 61, BUN/Creatinine Ratio 20, Glucose Level 140H, Calcium Level 8.6, Corrected C alcium 9.2, Phosphorus Level 3.2, Magnesium Level 1.6, Total Bilirubin 0.6, Aspartate Amino Transf (AST/SGOT) 18, Alanine Aminotransferase (ALT/SGPT) 11, Alkaline Phosphatase 57, Total Protein 5.7L, Albumin 3.2 Microbiology 10/28/21 Urine Culture - Preliminary, Resulted Gram Negative Bacillus 1 Assessment/Plan Assessment/Plan Admission Dx RESPIRATORY FAILURE PULMONARY EDEMA SEVERE AORTIC STENOSIS CHRONIC HYPERTENSION CHRONIC CORONARY ARTERY DISEASE NSTEMI LEUKOCYTOSIS ANEMIA OBESITY DEPRESSION ANXIETY PERIPHERAL NEUROPATHY Assessment and Plan RESPIRATORY FAILURE PULMONARY EDEMA SEVERE AORTIC STENOSIS CHRONIC HYPERTENSION CHRONIC CORONARY ARTERY DISEASE NSTEMI LEUKOCYTOSIS ANEMIA OBESITY DEPRESSION ANXIETY PERIPHERAL NEUROPATHY RESPIRATORY FAILURE WITH PNEUMONIA - pt on bipap, continue with current management, EICU involved in pt care, managing BIPAP and weaning. - pt on Rocephin and Azithromycin - breathing treatment per protocol. PULMONARY EDEMA - should improve with lasix, good urine output. SEVERE AORTIC STENOSIS - discussed with pt and her DTR (Maya SCHWARTZ) - pt will need arrangement for aortic valve replacement when she is stable. CHRONIC HYPERTENSION - monitor pressure, supportive care at this time. CHRONIC CORONARY ARTERY DISEASE with NSTEMI due to respiratory distress - defer to Dr. Hogan as to plans for heart cath when pt stable. LEUKOCYTOSIS - should improve with iv antibiotics, monitor labs ANEMIA - check iron panel OBESITY DEPRESSION and ANXIETY - resume medications when safe to take oral medications PERIPHERAL NEUROPATHY - resume Neurontin when safe to take oral medications DVT prophylaxis with lovenox and scd's GI prophylaxis with ppi iv, will start probiotics when safe to take PO medications. DISCUSSION WITH PT AND THEN WITH HER DTR - MAYA - SEPARATELY ABOUT THE PATIENT'S MEDICAL CONDITION. THE PATIENT HAS SEVERE AORTIC STENOSIS AND CO RONARY ARTERY DISEASE AND WILL NEED INTERVENTION WITH VALVE REPLACEMENT FOR LONG-TERM SURVIVAL. PT IS CURRENTLY IN A VERY TENUOUS STATE FROM A HEALTH STANDPOINT AND SHE VOICED HER DESIRE TO BE DNR/DNI- SHE STATED, "I TOLD THEM EARLIER THAT I WOULD WANT TO BE RESUSCITATED, BUT I DON'T WANT THAT TO BE DONE, I WANT TO BE ALLOWED TO IN [place]." AVIS ALY MD Oct 30, 2021 07:18
[2021-10-30] MEDS ORDERED: KCL 20 MEQ TAB (K-DUR) PO ONE (08:00)
[2021-10-30] MEDS: NOREPINEPHRINE 8 MG/250 ML 250 ML IV SCH ×2 (08:32→19:33)
[2021-10-30] MEDS: ENOXAPARIN 120 MG/0.8 ML (LOVENOX) SQ SCH ×2 (08:42→21:13)
--- NOTE | 2021-10-30 08:49 | Cardiology Progress Note ---
Progress Note-Cardiology Events since last exam Date Seen by Provider: Oct 30, 2021 Time Seen by Provider: 08:44 Events since last exam I am following her due to heart failure and aortic stenosis. She was on BiPAP overnight and this morning when the nurse tried to remove the BiPAP, the patient became much more short of breath with chest pressure and tachycardia. She was placed back on BiPAP. She just received the morning dose of intravenous Lasix. She denies palpitations or syncope. Her lower extremity edema has improved. I talked her about the possibility of needing to do a cardiac catheterization and she is not sure if she would want this done. She would like to speak with her family. Certain portions of this document may have been dictated utilizing voice recognition technology. Inherent to this technology, typographical and grammatical errors may exist. As much as I am diligent to identify and correct these mistakes, some errors may remain in the document. Vitals Last set of Vitals Signs Vital Signs 10/30/21 10/30/21 10/30/21 10/30/21 03:57 09:15 13:00 14:25 Temp 36.0 Pulse 104 Resp 44 B/P (MAP) 93/60 Pulse Ox 99 O2 Delivery NIV Bilevel O2 Flow Rate 45.00 FiO2 50 Labs Labs Laboratory Tests 10/30/21 04:00 Exam Vital Signs Vital Signs Date Time Temp Pulse Resp B/P (MAP) Pulse Ox O2 Delivery O2 Flow Rate FiO2 10/30/21 14:25 104 44 99 45.00 10/30/21 13:00 93/60 NIV Bilevel 10/30/21 09:15 36.0 10/30/21 03:57 50 Physical Exam General: Alert. Moderate respiratory distress on BiPAP. She is obese. Eye: No xanthelasma. HENT: Normocephalic. Neck: Jugular venous pressure does not appear elevated. Respiratory: Lungs have diffuse rhonchi. Respirations are moderately labored. Breath sounds are equal. Symmetrical chest wall expansion. Cardiovascular: Tachycardia with irregular rhythm. Distant S1/S2. 3/6 high- pitched systolic ejection murmur. No gallop. 1+ bilateral pretibial edema. Gastrointestinal: Soft. Normal bowel sounds. Skin: Warm. Dry. Neurologic: Alert and oriented to person, place, time. Cranial nerves 3-11 grossly intact. Psychiatric: Cooperative. Appropriate mood & affect. Labs Laboratory Tests Test 10/29/21 16:21 10/29/21 17:27 10/29/21 20:15 10/29/21 23:47 Range/Units Glucometer 164 H 196 H 70-110 MG/DL Troponin I 0.308 *H 0.477 *H <0.028 NG/ML Test 10/30/21 04:00 10/30/21 14:58 Range/Units White Blood Count 13.5 H 4.3-11.0 10^3/uL Red Blood Count 3.35 L 3.80-5.11 10^6/uL Hemoglobin 9.5 L 11.5-16.0 g/dL Hematocrit 30 L 35-52 % Mean Corpuscular Volume 91 80-99 fL Mean Corpuscular Hemoglobin 28 25-34 pg Mean Corpuscular Hemoglobin Concent 31 L 32-36 g/dL Red Cell Distribution Width 13.4 10.0-14.5 % Platelet Count 160 130-400 10^3/uL Mean Platelet Volume 10.5 9.0-12.2 fL Immature Granulocyte % (Auto) 0 % Neutrophils (%) (Auto) 88 H 42-75 % Lymphocytes (%) (Auto) 6 L 12-44 % Monocytes (%) (Auto) 6 0-12 % Eosinophils (%) (Auto) 0 0-10 % Basophils (%) (Auto) 0 0-10 % Neutrophils # (Auto) 11.9 H 1.8-7.8 10^3/uL Lymphocytes # (Auto) 0.8 L 1.0-4.0 10^3/uL Monocytes # (Auto) 0.8 0.0-1.0 10^3/uL Eosinophils # (Auto) 0.0 0.0-0.3 10^3/uL Basophils # (Auto) 0.0 0.0-0.1 10^3/uL Immature Granulocyte # (Auto) 0.1 0.0-0.1 10^3/uL Sodium Level 139 135-145 MMOL/L Potassium Level 3.5 L 3.6-5.0 MMOL/L Chloride Level 102 98-107 MMOL/L Carbon Dioxide Level 22 21-32 MMOL/L Anion Gap 15 H 5-14 MMOL/L Blood Urea Nitrogen 19 H 7-18 MG/DL Creatinine 0.94 0.60-1.30 MG/DL Estimat Glomerular Filtration Rate 61 BUN/Creatinine Ratio 20 Glucose Level 140 H 70-105 MG/DL Calcium Level 8.6 8.5-10.1 MG/DL Corrected Calcium 9.2 8.5-10.1 MG/DL Phosphorus Level 3.2 2.3-4.7 MG/DL Magnesium Level 1.6 1.6-2.4 MG/DL Total Bilirubin 0.6 0.1-1.0 MG/DL Aspartate Amino Transf (AST/SGOT) 18 5-34 U/L Alanine Aminotransferase (ALT/SGPT) 11 0-55 U/L Alkaline Phosphatase 57 40-136 U/L Troponin I 0.726 *H <0.028 NG/ML Total Protein 5.7 L 6.4-8.2 GM/DL Albumin 3.2 3.2-4.5 GM/DL Glucometer 133 H 70-110 MG/DL Diagnosis/Problems Diagnosis/Problems (1) Acute heart failure with preserved ejection fraction (HFpEF) Assessment & Plan: She did not know of any previous history of heart failure. She does have chronic obstructive pulmonary disease with chronic hypoxia on home oxygen. However, now she has acute heart failure with preserved ejection fraction. This got acutely worse again this morning. She has received several doses of intravenous furosemide. She has been having some low blood pressures. I will discontinue the bolus furosemide and start her on a furosemide infusion. This should be better tolerated given her low blood pressures. (2) Non-ST elevation myocardial infarction (NSTEMI) Assessment & Plan: Her troponin level has continued to climb. However, this is in the setting of decompensated heart failure. I suspect this may be a type II non-ST elevation myocardial infarction related to the heart failure. On the other hand, true coronary ischemia is certainly in the differential diagnosis. At some point we may need to consider cardiac catheterization but at the present time she is a DO NOT RESUSCITATE and does not want to be intubated. She remains on BiPAP and as such, I do not think she would tolerate laying flat for a cardiac catheterization. I recommend she continue aspirin, clopidogrel and enoxaparin. She is not a good candidate for beta-tom due to low blood pressures. I also started her on statin medication. If we can get her heart failure under good control, then we can reconsider cardiac catheterization. (3) Aortic stenosis Assessment & Plan: She has severe, if not critical aortic stenosis noted on her most recent echocardiogram. She was actually supposed to follow-up with me in the office in the near future to discuss future plans for the aortic stenosis. She told me at the time of admission that she would want to consider definitive treatment of the aortic stenosis if possible. She may be a good candidate for a transcatheter aortic valve insertion (CHARLES) but first we need to get her through this episode of heart failure. However, she is now a DO NOT RESUSCITATE. If we can turn the heart failure around then we can decide if we should continue to move forward for evaluation for a CHARLES. (4) Coronary artery disease with unstable angina pectoris Assessment & Plan: I suspect she may be having a type II non-ST elevation myocardial infarction due to supply/demand mismatch as outlined above. I will continue her on low strength aspirin and clopidogrel which she [facility]. She has been ordered for her home dose of atorvastatin. I do not think she would be a good candidate for beta-tom due to her oxygen dependent chronic obstructive pulmonary disease. She is on therapeutic dose of enoxaparin. If she does decide to pursue a CHARLES, she would need a coronary angiogram as part of the evaluation for the valve procedure. (5) Mitral regurgitation Assessment & Plan: She also has mild to moderate mitral regurgitation. This should not be causing symptoms but will need to be followed longitudinally. (6) Atherosclerosis of both carotid arteries Assessment & Plan: She has moderate bilateral disease. Continue aspirin and statin medication. There is no indication for intervention and she has no previous history of stroke. (7) Primary hypertension Assessment & Plan: I will restart her diltiazem that she was taking at home. (8) Mixed hyperlipidemia Assessment & Plan: Continue atorvastatin. (9) Acute on chronic respiratory failure with hypoxia and hypercapnia Assessment & Plan: This is being managed by the primary provider and eICU. DANY MIGUEL JR, MD Oct 30, 2021 08:49
[2021-10-30] MEDS: dilTIAZem120 MG (CARDIZEM CD) CAP PO SCH (08:50)
[2021-10-30] MEDS: ASPIRIN E.C. 81 MG (ECOTRIN) TAB PO SCH (08:50)
[2021-10-30] MEDS: CLOPIDOGREL 75 MG (PLAVIX) TABLET PO SCH (08:50)
[2021-10-30] MEDS: PANTOPRAZOLE 40 MG (PROTONIX) TAB PO SCH (08:50)
[2021-10-30] MEDS: GABAPENTIN 100 MG (NEURONTIN) CAP PO SCH ×2 (08:50→21:06)
[2021-10-30] MEDS ORDERED: FUROSEMIDE 40 MG/4 ML INJ (LASIX) IVP SCH (09:00)
--- NOTE | 2021-10-30 09:07 | Diagnostic Imaging Report ---
EXAMINATION: Chest 1 view HISTORY: Heart failure COMPARISON: 10/29/2021 FINDINGS: Stable enlargement of the cardiac silhouette and prominence of pulmonary vasculature. Increasing interstitial and airspace opacities seen throughout both lungs. No pleural effusion or pneumothorax. The osseous structures are intact. IMPRESSION: 1. Increasing interstitial and airspace opacities are both lungs compatible with worsening heart failure. Dictated by: Dictated on workstation # [id number]
--- NOTE | 2021-10-30 10:39 | Tele-ICU Progress Note ---
Subjective Date Seen by a Provider: Oct 30, 2021 Time Seen by a Provider: 10:38 Subjective/Events-last exam (Tele-ICU Physician , Progress Note ) Available chart/ vitals / labs / Images reviewed Video assessment done using teleICU camera, rest of exam as per RN Discussed with RN , EXAM PER RN Events overnight : Afebrile FiO2 - still on bipap I/O = Drips: Pressors: , hemodynamically stable Consultants: Hospital course: (10/29) 80/F- Hypoxia, cough, malaise, pna, Bipap, hypercapnea. A/P Acurte resp failure - most likely CHF by CXR and clinical presentation - less likely PNA - BIPAP 18/6 35% rr 17 tv 700 - DID NOT TOLERATE TIME OFF BIPAP - on lasix 80 daily CHF ( + CP ? , SEVERE - stop IVF , add lasix x1 - ECHO 10/23/21- severe . EF 60% - cards consult - CP as per cardiology w/up Elevated D dimer - lovenox full dose to starte - US LE -no DVT bilat 10/29 ID - UTI with E coli - empiricly started on Z max and cefteriaxone - follow COPD - cont nebs , off steroids - follow Elev lactate on presentation - due to hypoxia , not sepsis - stop IVF DM Hyperglycemia - ISS Lines : (Central Line Necessity Reviewed) Deluna: + OG: Nutrition: Analgesia: Anxiety/ delirium VTE Prophylaxis: denis full dose Stress Ulcer Prophylaxis: PPI Plans in collaboration with bedside consultants and IM MDs. Discussed with RN to reach out if any questions or concerns A total of 33 minutes of critical care time was devoted to this patient today, required to treat and/or prevent further deterioration of critical care condition ( as above) . Sepsis Event Evaluation Height, Weight, BMI Height: 5'4.00" Weight: 243lbs. 0.0oz. 110.135566dj; 49.66 BMI Method:Stated Focused Exam Lactate Level 10/28/21 22:20: Lactic Acid Level 2.40*H 10/29/21 00:06: Lactic Acid Level 1.16 Time of Focused Exam: 23:00 Exam Exam Patient acknowledged, consented, and participated in this virtual visit which was conducted using real time audio/video Vital Signs Date Time Temp Pulse Resp B/P (MAP) Pulse Ox O2 Delivery O2 Flow Rate FiO2 10/30/21 10:00 98 22 81/66 98 NIV Bilevel 60.00 10/30/21 09:15 36.0 NIV Bilevel 60.00 10/30/21 09:00 122 40 106/62 94 NIV Bilevel 45.00 10/30/21 08:00 113 33 121/66 93 NIV Bilevel 45.00 10/30/21 07:16 91 19 96 45.00 10/30/21 07:00 87 10/30/21 07:00 85 18 100/54 96 NIV Bilevel 45.00 10/30/21 06:00 87 19 107/69 93 NIV Bilevel 45.00 10/30/21 05:00 105 15 107/67 92 NIV Bilevel 45.00 10/30/21 04:00 108 21 109/65 93 NIV Bilevel 45.00 10/30/21 03:57 97 NIV Bilevel 50 10/30/21 03:00 89 20 94 45.00 10/30/21 03:00 89 26 94/64 96 NIV Bilevel 45.00 10/30/21 02:33 36.6 NIV Bilevel 45.00 10/30/21 02:00 88 29 103/63 95 NIV Bilevel 45.00 10/30/21 01:22 NIV Bilevel 45.00 10/30/21 01:00 91 20 98/53 94 NIV Bilevel 50.00 10/30/21 01:00 90 10/30/21 00:03 103 22 112/69 95 NIV Bilevel 50.00 10/29/21 23:19 36.6 10/29/21 23:17 97 NIV Bilevel 50 10/29/21 23:00 101 22 96/65 95 NIV Bilevel 50.00 10/29/21 22:57 NIV Bilevel 50.00 10/29/21 22:46 99 24 96 55.00 10/29/21 22:00 110 22 108/59 93 NIV Bilevel 45.00 10/29/21 21:39 107/71 10/29/21 21:38 NIV Bilevel 55.00 10/29/21 21:00 NIV Bilevel 45.00 10/29/21 21:00 98 23 102/62 94 NIV Bilevel 45.00 10/29/21 20:32 96 39 96 45.00 10/29/21 20:30 NIV Bilevel 50.00 10/29/21 20:03 NIV Bilevel 70.00 10/29/21 20:00 98 22 104/54 98 NIV Bilevel 80.00 10/29/21 19:43 97 NIV Bilevel 80 10/29/21 19:40 100 10/29/21 19:38 35.7 106 26 106/60 95 NIV Bilevel 80.00 10/29/21 19:10 120 120/105 10/29/21 19:00 131 10/29/21 18:00 98 28 108/61 99 NIV Bilevel 35.00 10/29/21 17:00 102 22 98/55 98 High Flow N/C 4.00 10/29/21 16:00 36.3 10/29/21 16:00 111 25 115/65 96 High Flow N/C 4.00 10/29/21 16:00 97 NIV Bilevel 35 10/29/21 15:00 111 113/64 95 High Flow N/C 4.00 10/29/21 14:30 111 38 92 30.00 10/29/21 14:00 109 28 115/68 93 High Flow N/C 4.00 10/29/21 13:00 101 126/81 94 High Flow N/C 4.00 10/29/21 12:57 91 10/29/21 12:50 High Flow N/C 4.00 10/29/21 12:28 37.1 10/29/21 12:00 95 21 156/76 99 NIV Bilevel 35.00 10/29/21 12:00 97 NIV Bilevel 35 10/29/21 11:11 36.9 98 93 10/29/21 11:00 93 21 140/80 96 NIV Bilevel 35.00 I & O 10/30/21 07:00 Intake Total 2020 ml Output Total 3075 ml Balance -1055 ml Height & Weight Height: 5'4.00" Weight: 243lbs. 0.0oz. 110.812086jk; 49.66 BMI Method:Stated General Appearance: Moderate Distress (on BIPAP) HEENT: Other (on BIPAP) Neck: Supple Respiratory: Decreased Breath Sounds, Respiratory Distress Cardiovascular: Regular Rate, Rhythm, Systolic Murmur, Gallop/S4 Gastrointestinal: soft, other (OBESE) Extremity: No Calf Tenderness, Pedal Edema Neurologic/Psychiatric: Alert, Oriented x3 Skin: Warm/Dry Results Lab Laboratory Tests 10/28/21 22:20 10/29/21 04:30 10/30/21 04:00 Assessment/Plan Assessment/Plan ` TAMI COLLADO MD Oct 30, 2021 10:39
[2021-10-30 14:25] VITALS: BP 109/67
[2021-10-30] MEDS: VASOPRESSIN INJECTION 20 UNIT in NS (IVPB) 100 ML IV SCH ×2 (15:25→22:36)
[2021-10-30] MEDS: FUROSEMIDE INJECTION 120 MG in D5W 100 ML IVPB 100 ML IV SCH (17:00)
[2021-10-30 18:52] VITALS: BP 105/63
[2021-10-30] MEDS: AtorvaSTATin TABLET 10 MG TABLET PO SCH (21:06)
[2021-10-30] MEDS: FLUoxetine HCL 20 MG (PROzac) CAP PO SCH (21:06)
[2021-10-30] MEDS: AZITHROMYCIN INJECTION 500 MG in NS (IVPB) 250 ML IV SCH (21:14)
[2021-10-30 21:28] VITALS: BP 107/64
[2021-10-30] MEDS: cefTRIAXone 1 GM PRE-MIX 50 ML IV SCH (22:46)
[2021-10-31] MEDS: NITROGLYCERIN 2% OINT 1 GM UNIT DOSE PACKET TOP SCH ×4 (01:32→17:39)
[2021-10-31] MEDS: NOREPINEPHRINE 8 MG/250 ML 250 ML IV SCH ×2 (01:39→14:06)
[2021-10-31 02:28] VITALS: BP 98/54
[2021-10-31] MEDS: RT-ALBUTEROL/IPRATROPIUM 3 ML (DUONEB) VIAL INH SCH ×4 (02:28→20:08)
[2021-10-31] MEDS: SIMETHICONE 80 MG (MYLICON) CHEW PO PRN (03:13)
[2021-10-31 04:33] LABS: BASOPHILS % (AUTO) 0 % (0-10); EOSINOPHILS % (AUTO) 0 % (0-10); HEMATOCRIT 32 % (35-52); HEMOGLOBIN 9.8 g/dL (11.5-16.0); LYMPHOCYTES # (AUTO) 0.9 10^3/uL (1.0-4.0); LYMPHOCYTES % (AUTO) 9 % (12-44); MEAN CORPUSCULAR HEMOGLOBIN 28 pg (25-34); MEAN CORPUSCULAR HGB CONC 31 g/dL (32-36); MEAN CORPUSCULAR VOLUME 92 fL (80-99); MEAN PLATELET VOLUME 10.3 fL (9.0-12.2); MONOCYTES # (AUTO) 0.8 10^3/uL (0.0-1.0); MONOCYTES % (AUTO) 8 % (0-12); NEUTROPHILS # (AUTO) 8.3 10^3/uL (1.8-7.8); NEUTROPHILS % (AUTO) 83 % (42-75); PLATELET COUNT 138 10^3/uL (130-400); WHITE BLOOD COUNT 10.1 10^3/uL (4.3-11.0)
[2021-10-31 04:47] LABS: ALBUMIN 3.2 GM/DL (3.2-4.5); POTASSIUM 3.4 MMOL/L (3.6-5.0)
[2021-10-31 04:48] LABS: CALCIUM 8.5 MG/DL (8.5-10.1)
[2021-10-31 04:49] LABS: TOTAL PROTEIN 5.8 GM/DL (6.4-8.2)
[2021-10-31 04:52] LABS: PHOSPHORUS 2.6 MG/DL (2.3-4.7)
[2021-10-31 04:53] LABS: CREATININE SERUM 0.81 MG/DL (0.60-1.30)
[2021-10-31 04:55] LABS: MAGNESIUM 1.5 MG/DL (1.6-2.4)
[2021-10-31] MEDS: inSUlin ASPART (NovoLOG) 1 UNIT/0.01 ML (CHARGE PER UNIT) SC SCH ×4 (05:41→20:40)
[2021-10-31] MEDS: MAGNESIUM 1 GM/100 ML IVPB 100 ML IV SCH ×3 (06:06→12:41)
[2021-10-31] MEDS: KCL 20 MEQ TAB (K-DUR) PO SCH (06:06)
--- NOTE | 2021-10-31 06:52 | Diagnostic Imaging Report ---
INDICATION: Respiratory distress. EXAMINATION: Chest on 10/31/2021. COMPARISON: 10/30/2021. FINDINGS: Diffuse bilateral infiltrates are noted throughout both lungs, similar to previous imaging. The heart is enlarged. The pulmonary vasculature is congested. No pneumothorax or effusions are appreciated. IMPRESSION: Persistent diffuse bilateral infiltrates with likely underlying pulmonary edema. Dictated by: Dictated on workstation # [id number]
[2021-10-31 07:05] VITALS: BP 91/51
[2021-10-31] MEDS: CLOPIDOGREL 75 MG (PLAVIX) TABLET PO SCH (08:57)
[2021-10-31] MEDS: PANTOPRAZOLE 40 MG (PROTONIX) TAB PO SCH (08:57)
[2021-10-31] MEDS: dilTIAZem120 MG (CARDIZEM CD) CAP PO SCH (08:57)
[2021-10-31] MEDS: POTASSIUM CL 10MEQ/50ML IVPB 50 ML IV SCH ×2 (08:57→12:41)
[2021-10-31] MEDS: GABAPENTIN 100 MG (NEURONTIN) CAP PO SCH ×2 (08:57→20:30)
[2021-10-31] MEDS: ASPIRIN E.C. 81 MG (ECOTRIN) TAB PO SCH (08:57)
[2021-10-31] MEDS: ENOXAPARIN 120 MG/0.8 ML (LOVENOX) SQ SCH ×2 (08:58→20:31)
--- NOTE | 2021-10-31 09:10 | Tele-ICU Progress Note ---
Subjective Date Seen by a Provider: Oct 31, 2021 Time Seen by a Provider: 09:05 Subjective/Events-last exam CHF, given IV Lasix yesterday, Currently on IV Lasix drip @ 8.6, Still has moderate resp distress Today's CXR still shows considerable pulmonary edema was on epi, vaso, levo-now off all pressors, Plavix, ASA, po cardizem pt is DNR on BiPAP 16/03, rate 15 FiO2 55%, just switched to vapotherm @ 35 FiO2 90%, SpO 98% spont RR 18-22 COVID seology negative trop 1.113 10/30, 0.796 10/31 Sepsis Event Evaluation Height, Weight, BMI Height: 5'4.00" Weight: 243lbs. 0.0oz. 110.404553sh; 49.66 BMI Method:Stated Focused Exam Lactate Level 10/28/21 22:20: Lactic Acid Level 2.40*H 10/29/21 00:06: Lactic Acid Level 1.16 Time of Focused Exam: 23:00 Exam Exam Patient acknowledged, consented, and participated in this virtual visit which was conducted using real time audio/video Vital Signs Date Time Temp Pulse Resp B/P (MAP) Pulse Ox O2 Delivery O2 Flow Rate FiO2 10/31/21 08:00 88 23 97/47 95 NIV Bilevel 55.00 10/31/21 07:40 36.0 10/31/21 07:05 90 22 96 55.00 10/31/21 07:00 90 24 91/51 95 NIV Bilevel 55.00 10/31/21 07:00 95 10/31/21 06:02 NIV Bilevel 55.00 10/31/21 06:00 96 11 103/55 96 NIV Bilevel 60.00 10/31/21 05:00 102 26 106/58 97 NIV Bilevel 60.00 10/31/21 04:00 103 28 104/62 98 NIV Bilevel 60.00 10/31/21 04:00 95 NIV Bilevel 60 10/31/21 03:00 111 23 94/61 96 NIV Bilevel 60.00 10/31/21 02:28 96 25 97 60.00 10/31/21 02:00 94 15 105/59 97 NIV Bilevel 60.00 10/31/21 01:00 93 10/31/21 01:00 92 26 105/69 98 NIV Bilevel 60.00 10/31/21 00:00 89 19 104/68 97 NIV Bilevel 60.00 10/31/21 00:00 36.6 10/30/21 23:59 96 NIV Bilevel 60 10/30/21 23:00 90 26 111/59 98 NIV Bilevel 60.00 10/30/21 22:00 92 25 105/62 99 NIV Bilevel 60.00 10/30/21 21:28 92 34 97 60.00 10/30/21 21:27 36.6 NIV Bilevel 60.00 10/30/21 21:00 91 24 110/58 98 NIV Bilevel 60.00 10/30/21 20:00 95 NIV Bilevel 60 10/30/21 20:00 92 19 104/62 99 NIV Bilevel 60.00 10/30/21 19:00 105 10/30/21 19:00 96 24 106/71 97 NIV Bilevel 60.00 10/30/21 18:52 91 29 98 45.00 10/30/21 18:00 93 22 100/57 98 NIV Bilevel 60.00 10/30/21 17:00 100 18 92/57 99 NIV Bilevel 60.00 10/30/21 16:00 97 NIV Bilevel 60 10/30/21 16:00 100 24 92/56 99 NIV Bilevel 60.00 10/30/21 15:00 107 34 100/56 98 NIV Bilevel 60.00 10/30/21 14:25 104 44 99 45.00 10/30/21 14:00 98 33 109/67 98 NIV Bilevel 60.00 10/30/21 13:00 96 10/30/21 13:00 87 24 93/60 97 NIV Bilevel 60.00 10/30/21 12:00 106 23 106/70 99 NIV Bilevel 60.00 10/30/21 12:00 97 NIV Bilevel 60 10/30/21 11:00 103 24 113/70 98 NIV Bilevel 60.00 10/30/21 10:00 98 22 81/66 98 NIV Bilevel 60.00 10/30/21 09:15 36.0 NIV Bilevel 60.00 I & O 10/31/21 07:00 Intake Total 900 ml Output Total 3950 ml Balance -3050 ml Height & Weight Height: 5'4.00" Weight: 243lbs. 0.0oz. 110.390837dh; 49.66 BMI Method:Stated General Appearance: Moderate Distress (on BIPAP) HEENT: PERRL/EOMI, Other (on BIPAP) Neck: Supple Respiratory: Crackles, Decreased Breath Sounds, Wheezing, Other (on bipap, in distress when moving to sit up) Cardiovascular: Regular Rate, Rhythm, Systolic Murmur, Gallop/S4, Tachycardia, Other (difficult to auscultate due to noise from bipap and respiratory crackles) Gastrointestinal: normal bowel sounds, non tender, soft, other (OBESE) Extremity: No Calf Tenderness, Pedal Edema (+1) Neurologic/Psychiatric: Alert, Oriented x3, Normal Mood/Affect Skin: Normal Color, Warm/Dry Results Lab Laboratory Tests 10/30/21 04:00 10/31/21 04:13 Assessment/Plan Assessment/Plan Severe CHF, will change to vapotherm and see how tolerates, continue IV Lasix drip Overall outlook poor Critical Care: Critically Ill Patient Time spent with patient (mins): 25 BAILEE KEITH MD Oct 31, 2021 09:10
[2021-10-31] MEDS: VASOPRESSIN INJECTION 20 UNIT in NS (IVPB) 100 ML IV SCH ×2 (09:53→20:31)
--- NOTE | 2021-10-31 09:57 | Cardiology Progress Note ---
Progress Note-Cardiology Events since last exam Date Seen by Provider: Oct 31, 2021 Time Seen by Provider: 09:52 Events since last exam I am following her due to heart failure with preserved ejection fraction, severe aortic stenosis and probable type II non-ST elevation myocardial infarction. On 10/30 she decided to be DNR status. I also started her on furosemide infusion on 10/30. Her breathing is much improved today but she still requires BiPAP. She would still like to hold off on any invasive procedures at this time. She denies chest discomfort. She denies palpitations or syncope. Her lower extre mity edema is improving. Certain portions of this document may have been dictated utilizing voice r ecognition technology. Inherent to this technology, typographical and grammatical errors may exist. As much as I am diligent to identify and correct these mistakes, some errors may remain in the document. Vitals Last set of Vitals Signs Vital Signs 10/31/21 10/31/21 10/31/21 04:00 07:40 09:00 Temp 36.0 Pulse 87 Resp 13 B/P (MAP) 95/52 Pulse Ox 95 O2 Delivery NIV Bilevel O2 Flow Rate 55.00 FiO2 60 Labs Labs Laboratory Tests 10/31/21 04:13 Exam Vital Signs Vital Signs Date Time Temp Pulse Resp B/P (MAP) Pulse Ox O2 Delivery O2 Flow Rate FiO2 10/31/21 09:00 87 13 95/52 95 NIV Bilevel 55.00 10/31/21 07:40 36.0 10/31/21 04:00 60 Physical Exam General: Alert. She is breathing more comfortably on BiPAP and is able to speak full sentences even when this is removed. She is obese. Eye: No xanthelasma. HENT: Normocephalic. Neck: Jugular venous pressure does not appear elevated. Respiratory: Lungs have better aeration with some scattered crackles. Respirations are non-labored. Breath sounds are equal. Symmetrical chest wall expansion. Cardiovascular: Normal rate. Regular rhythm. 3/6 high-pitched systolic ejection murmur. No gallop. 1+ bilateral pretibial edema. Gastrointestinal: Soft. Normal bowel sounds. Skin: Warm. Dry. Neurologic: Alert and oriented to person, place, time. Cranial nerves 3-11 grossly intact. Psychiatric: Cooperative. Appropriate mood & affect. Labs Laboratory Tests Test 10/30/21 14:58 10/30/21 15:55 10/30/21 21:04 10/31/21 04:13 Range/Units Glucometer 133 H 136 H 70-110 MG/DL Troponin I 1.113 *H <0.028 NG/ML White Blood Count 10.1 4.3-11.0 10^3/uL Red Blood Count 3.47 L 3.80-5.11 10^6/uL Hemoglobin 9.8 L 11.5-16.0 g/dL Hematocrit 32 L 35-52 % Mean Corpuscular Volume 92 80-99 fL Mean Corpuscular Hemoglobin 28 25-34 pg Mean Corpuscular Hemoglobin Concent 31 L 32-36 g/dL Red Cell Distribution Width 13.4 10.0-14.5 % Platelet Count 138 130-400 10^3/uL Mean Platelet Volume 10.3 9.0-12.2 fL Immature Granulocyte % (Auto) 0 % Neutrophils (%) (Auto) 83 H 42-75 % Lymphocytes (%) (Auto) 9 L 12-44 % Monocytes (%) (Auto) 8 0-12 % Eosinophils (%) (Auto) 0 0-10 % Basophils (%) (Auto) 0 0-10 % Neutrophils # (Auto) 8.3 H 1.8-7.8 10^3/uL Lymphocytes # (Auto) 0.9 L 1.0-4.0 10^3/uL Monocytes # (Auto) 0.8 0.0-1.0 10^3/uL Eosinophils # (Auto) 0.0 0.0-0.3 10^3/uL Basophils # (Auto) 0.0 0.0-0.1 10^3/uL Immature Granulocyte # (Auto) 0.0 0.0-0.1 10^3/uL Sodium Level 140 135-145 MMOL/L Potassium Level 3.4 L 3.6-5.0 MMOL/L Chloride Level 100 98-107 MMOL/L Carbon Dioxide Level 23 21-32 MMOL/L Anion Gap 17 H 5-14 MMOL/L Blood Urea Nitrogen 18 7-18 MG/DL Creatinine 0.81 0.60-1.30 MG/DL Estimat Glomerular Filtration Rate 73 BUN/Creatinine Ratio 22 Glucose Level 138 H 70-105 MG/DL Calcium Level 8.5 8.5-10.1 MG/DL Corrected Calcium 9.1 8.5-10.1 MG/DL Phosphorus Level 2.6 2.3-4.7 MG/DL Magnesium Level 1.5 L 1.6-2.4 MG/DL Total Bilirubin 1.0 0.1-1.0 MG/DL Aspartate Amino Transf (AST/SGOT) 17 5-34 U/L Alanine Aminotransferase (ALT/SGPT) 12 0-55 U/L Alkaline Phosphatase 46 40-136 U/L Total Protein 5.8 L 6.4-8.2 GM/DL Albumin 3.2 3.2-4.5 GM/DL Test 10/31/21 07:18 Range/Units Troponin I 0.796 *H <0.028 NG/ML Diagnosis/Problems Diagnosis/Problems (1) Acute heart failure with preserved ejection fraction (HFpEF) Assessment & Plan: This is a new finding in this patient. She does have chron ic obstructive pulmonary disease with chronic hypoxia on home oxygen. Since starting her on the intravenous furosemide infusion, she has been diuresing well and her breathing is improving. I will increase the rate on the furosemide infusion. If she continues to improve, then over the next couple of days we can have another discussion of long-term treatment goals. (2) Non-ST elevation myocardial infarction (NSTEMI) Assessment & Plan: Her troponin level had been climbing but is now on a downward slope. This is in the setting of decompensated heart failure. I suspect this may be a type II non-ST elevation myocardial infarction related to the heart failure. On the other hand, true coronary ischemia is certainly in the differential diagnosis. At some point we may need to consider cardiac catheterization but at the present time she is a DO NOT RESUSCITATE and does not want to be intubated. She remains on BiPAP and as such, I do not think she would tolerate laying flat for a cardiac catheterization. I recommend she continue aspirin, clopidogrel, statin, and enoxaparin. She is not a good candidate for beta-tom due to low blood pressures and her chronic obstructive pulmonary disease. As above, if we can get her heart failure under good control, then we can reconsider cardiac catheterization. She would have to rescind her DNR order in order to have this procedure. (3) Aortic stenosis Assessment & Plan: She has severe, if not critical aortic stenosis noted on her most recent echocardiogram. She was actually supposed to follow-up with me in the office in the near future to discuss future plans for the aortic stenosis. She told me at the time of admission that she would want to consider definitive treatment of the aortic stenosis if possible. She may be a good candidate for a transcatheter aortic valve insertion (CHARLES) but first we need to get her through this episode of heart failure. However, she is now a DO NOT RESUSCITATE. If we can turn the heart failure around then we can decide if we should continue to move forward for evaluation for a CHARLES. (4) Coronary artery disease with unstable angina pectoris Assessment & Plan: As above, I suspect she may be having a type II non-ST elevation myocardial infarction due to supply/demand mismatch. I will continue her on low strength aspirin and clopidogrel which she was taking at home. She has been ordered for her home dose of atorvastatin. I do not think she would be a good candidate for beta-tom due to her oxygen dependent chronic obstructive pulmonary disease. She is on therapeutic dose of enoxaparin which I would continue for 5 days then military exchange wireless manager to DVT prophylaxis dose. If she does decide to pursue a CHARLES, she would need a coronary angiogram as part of the evaluation for the valve procedure. (5) Mitral regurgitation Assessment & Plan: She also has mild to moderate mitral regurgitation. This should not be causing symptoms but will need to be followed longitudinally. (6) Atherosclerosis of both carotid arteries Assessment & Plan: She has moderate bilateral disease. She has no previously known history of a stroke. Continue aspirin and statin medication. There is no indication for intervention at this time. (7) Primary hypertension Assessment & Plan: Continue diltiazem. (8) Mixed hyperlipidemia Assessment & Plan: Continue atorvastatin. (9) Acute on chronic respiratory failure with hypoxia and hypercapnia Assessment & Plan: This is most likely multifactorial due to her chronic obstructive pulmonary disease and now superimposed heart failure. This is being managed by the primary provider and eICU as well as with my assistance on the heart failure aspect. DANY MIGUEL JR, MD Oct 31, 2021 09:57
[2021-10-31] MEDS: FUROSEMIDE INJECTION 120 MG in D5W 100 ML IVPB 100 ML IV SCH ×2 (12:41→13:35)
[2021-10-31 15:09] VITALS: BP 95/57
[2021-10-31] MEDS: ACETAMINOPHEN 500 MG TAB (TYLENOL) PO PRN (17:39)
[2021-10-31] MEDS: hydrOXYzine (VISTARIL/ATARAX) 25 MG capsule/tablet PO PRN (17:39)
--- NOTE | 2021-10-31 18:14 | Progress Note - Hospitalist ---
Subjective HPI/CC On Admission Date Seen by Provider: Oct 31, 2021 Time Seen by Provider: 09:30 Subjective/Events-last exam She is wearing BiPAP. She is still short of breath. She denies pain. Focused Exam Lactate Level 10/28/21 22:20: Lactic Acid Level 2.40*H 10/29/21 00:06: Lactic Acid Level 1.16 Time of Focused Exam: 23:00 Objective Exam Vital Signs Vital Signs Date Time Temp Pulse Resp B/P (MAP) Pulse Ox O2 Delivery O2 Flow Rate FiO2 10/31/21 17:00 106 98/57 93 Vapotherm 30.00 70.00 10/31/21 16:15 70 10/31/21 16:00 26 10/31/21 11:46 36.5 Capillary Refill : General Appearance: No Apparent Distress, Obese, Other (wearing BiPAP) Respiratory: No Respiratory Distress, Decreased Breath Sounds Cardiovascular: Regular Rate, Rhythm, Systolic Murmur Gastrointestinal: Normal Bowel Sounds, Soft Extremity: Normal Inspection, Non Tender Neurologic/Psychiatric: Alert, No Motor/Sensory Deficits Skin: Normal Color, Warm/Dry Results/Procedures Lab Laboratory Tests 10/31/21 04:13 Patient resulted labs reviewed. Assessment/Plan Assessment and Plan Assess & Plan/Chief Complaint Acute respiratory failure with hypoxia Severe aortic stenosis Acute on chronic HFpEF Pneumonia Currently on BiPAP Attempt to transition to Vapotherm today Continue Lasix gtt Cardiology following TeleICU following May need aortic valve repair Continue antibiotics HTN HLD CAD Morbid obesity Critical Care Critically Ill Patient Diagnosis/Problems Diagnosis/Problems (1) Acute heart failure with preserved ejection fraction (HFpEF) Status: Acute (2) Aortic stenosis Status: Acute (3) Acute respiratory failure with hypoxia and hypercapnia Status: Acute HUE BENÍTEZ MD Oct 31, 2021 18:14
[2021-10-31 20:09] VITALS: BP 83/47
[2021-10-31] MEDS: AtorvaSTATin TABLET 10 MG TABLET PO SCH (20:30)
[2021-10-31] MEDS: FLUoxetine HCL 20 MG (PROzac) CAP PO SCH (20:30)
[2021-10-31] MEDS: MEROPENEM 500 MG in NS (IVPB) 100 ML IV SCH (20:40)
[2021-10-31] MEDS ORDERED: NS (IVPB) 250 ML ONE (20:43)
[2021-10-31 23:27] VITALS: BP 102/51
[2021-11-01 02:36] VITALS: BP 115/57
[2021-11-01] MEDS: RT-ALBUTEROL/IPRATROPIUM 3 ML (DUONEB) VIAL INH SCH ×5 (02:36→22:05)
[2021-11-01] MEDS: MEROPENEM 500 MG in NS (IVPB) 100 ML IV SCH ×4 (03:56→20:13)
[2021-11-01 05:31] LABS: BASOPHILS % (AUTO) 0 % (0-10); EOSINOPHILS % (AUTO) 1 % (0-10); HEMATOCRIT 28 % (35-52); HEMOGLOBIN 8.7 g/dL (11.5-16.0); LYMPHOCYTES # (AUTO) 0.6 10^3/uL (1.0-4.0); LYMPHOCYTES % (AUTO) 8 % (12-44); MEAN CORPUSCULAR HEMOGLOBIN 28 pg (25-34); MEAN CORPUSCULAR HGB CONC 31 g/dL (32-36); MEAN CORPUSCULAR VOLUME 92 fL (80-99); MONOCYTES # (AUTO) 0.4 10^3/uL (0.0-1.0); MONOCYTES % (AUTO) 6 % (0-12); NEUTROPHILS # (AUTO) 6.1 10^3/uL (1.8-7.8); NEUTROPHILS % (AUTO) 85 % (42-75); PLATELET COUNT 120 10^3/uL (130-400); WHITE BLOOD COUNT 7.1 10^3/uL (4.3-11.0)
[2021-11-01 05:45] LABS: ALBUMIN 2.9 GM/DL (3.2-4.5); POTASSIUM 3.2 MMOL/L (3.6-5.0)
[2021-11-01 05:47] LABS: CALCIUM 8.2 MG/DL (8.5-10.1)
[2021-11-01 05:48] LABS: TOTAL PROTEIN 5.4 GM/DL (6.4-8.2)
[2021-11-01 05:50] LABS: BILIRUBIN,TOTAL 1.2 MG/DL (0.1-1.0)
[2021-11-01 05:51] LABS: CREATININE SERUM 0.83 MG/DL (0.60-1.30)
[2021-11-01 05:55] LABS: MAGNESIUM 1.7 MG/DL (1.6-2.4)
[2021-11-01] MEDS: inSUlin ASPART (NovoLOG) 1 UNIT/0.01 ML (CHARGE PER UNIT) SC SCH ×4 (06:10→20:57)
[2021-11-01] MEDS: NITROGLYCERIN 2% OINT 1 GM UNIT DOSE PACKET TOP SCH ×4 (06:10→18:34)
[2021-11-01] MEDS: KCL 20 MEQ TAB (K-DUR) PO SCH (06:11)
[2021-11-01] MEDS: POTASSIUM CL 10MEQ/50ML IVPB 50 ML IV SCH ×6 (06:11→17:39)
[2021-11-01] MEDS: MAGNESIUM 1 GM/100 ML IVPB 100 ML IV SCH ×3 (06:11→07:23)
[2021-11-01 07:34] VITALS: BP 116/58
[2021-11-01] MEDS: VASOPRESSIN INJECTION 20 UNIT in NS (IVPB) 100 ML IV SCH ×2 (07:43→18:34)
[2021-11-01] MEDS: CLOPIDOGREL 75 MG (PLAVIX) TABLET PO SCH (10:17)
[2021-11-01] MEDS: dilTIAZem120 MG (CARDIZEM CD) CAP PO SCH (10:17)
[2021-11-01] MEDS: ASPIRIN E.C. 81 MG (ECOTRIN) TAB PO SCH (10:17)
[2021-11-01] MEDS: PANTOPRAZOLE 40 MG (PROTONIX) TAB PO SCH (10:18)
[2021-11-01] MEDS: GABAPENTIN 100 MG (NEURONTIN) CAP PO SCH ×2 (10:18→20:13)
[2021-11-01] MEDS: ENOXAPARIN 120 MG/0.8 ML (LOVENOX) SQ SCH ×2 (10:18→20:13)
[2021-11-01] MEDS: NOREPINEPHRINE 8 MG/250 ML 250 ML IV SCH ×3 (11:45→21:52)
--- NOTE | 2021-11-01 11:58 | Tele-ICU Progress Note ---
Subjective Date Seen by a Provider: Nov 01, 2021 Time Seen by a Provider: 10:30 Subjective/Events-last exam This virtual visit was conducted using real time audio/video. Thank you for asking us to see this patient for respiratory insufficiency due to AECOPD, CHF, pna, NSTEMI, severe aortic stenosis. Recent events: Alternating BiPAP 16/8 with VT 80%. PE: Pale. Currently undistressed. VSS. O2 sat 98% on VT. HEENT: No obvious masses, adenopathy or JVD. Chest: clear to auscultation.prersent. Abd: Non-tender. Bowel sounds Y. : Unremarkable. Deluna N. HAND HOSE CUTTER/psychiatric: Grossly intact. No obvious focal findings. Extremities: Tr edema. Capillary refill < 3 seconds. Skin: unremarkable. Results: Decreased Hb 8.7, K 3.2,. CXR: B infilts.. Available chart/ vitals / labs / images reviewed. Video assessment done using teleICU camera, rest of exam as per RN. A/P: Respiratory insufficiency: Continue present management with BiPAP/VT, duonebs, PRN Precedex. Monitor for increasing oxygenation needs and/or need for intubation. Critical Care: critically ill patient. Cont. Plavix,ASA, cardizem, Lasix, PRN pressors, abx, statin, Prozac, PPI, SSI,m Kiran., NTG. Replace K. Discussed with ROXANNA Holt. Asked RN to reach out to eICU if any questions or concerns later. Time spent with patient/coordination of care with other health professionals (mins): 30 Sepsis Event Evaluation Height, Weight, BMI Height: 5'4.00" Weight: 243lbs. 0.0oz. [id number]; 49.66 BMI Method:Stated Focused Exam Time of Focused Exam: 23:00 Exam Exam Patient acknowledged, consented, and participated in this virtual visit which was conducted using real time audio/video Vital Signs Date Time Temp Pulse Resp B/P (MAP) Pulse Ox O2 Delivery O2 Flow Rate FiO2 11/01/21 11:00 93 104/63 96 NIV Bilevel 80.00 11/01/21 10:35 100 Vapotherm 35.00 90 11/01/21 10:20 NIV Bilevel 80.00 11/01/21 10:00 87 29 102/56 99 NIV Bilevel 50.00 11/01/21 09:00 108 23 112/72 98 NIV Bilevel 50.00 11/01/21 08:00 72 11 125/61 97 NIV Bilevel 50.00 11/01/21 07:43 36.0 11/01/21 07:34 90 20 98 50.00 11/01/21 07:00 93 11/01/21 07:00 90 25 116/58 98 NIV Bilevel 50.00 11/01/21 06:00 89 24 119/53 97 NIV Bilevel 50.00 11/01/21 05:00 101 28 112/51 96 NIV Bilevel 50.00 11/01/21 04:00 102 24 116/60 96 NIV Bilevel 50.00 11/01/21 04:00 NIV Bilevel 50 11/01/21 04:00 37.0 11/01/21 03:45 NIV Bilevel 50.00 11/01/21 03:00 Vapotherm 30.00 70.00 11/01/21 03:00 93 26 115/78 92 Vapotherm 30.00 70.00 11/01/21 02:36 93 26 97 55.00 11/01/21 02:00 90 25 111/58 96 NIV Bilevel 55.00 11/01/21 01:00 91 11/01/21 01:00 92 25 104/59 96 NIV Bilevel 55.00 11/01/21 00:00 NIV Bilevel 50 11/01/21 00:00 36.7 11/01/21 00:00 88 19 113/59 98 NIV Bilevel 55.00 10/31/21 23:27 84 21 97 55.00 10/31/21 23:00 87 102/51 97 NIV Bilevel 55.00 10/31/21 22:45 NIV Bilevel 50.00 10/31/21 22:00 93 107/61 95 Vapotherm 30.00 70.00 10/31/21 21:00 104 108/67 91 Vapotherm 30.00 70.00 10/31/21 20:09 80 24 97 55.00 10/31/21 20:00 36.4 10/31/21 20:00 85 96/55 97 NIV Bilevel 55.00 10/31/21 20:00 Vapotherm 30.00 70 10/31/21 19:00 95 10/31/21 19:00 87 86/48 98 NIV Bilevel 55.00 10/31/21 18:18 98 NIV Bilevel 55.00 10/31/21 18:00 116 99/57 96 Vapotherm 30.00 70.00 10/31/21 17:00 106 98/57 93 Vapotherm 30.00 70.00 10/31/21 16:15 Vapotherm 70 10/31/21 16:13 93 Vapotherm 30.00 70.00 10/31/21 16:00 93 26 97/55 97 NIV Bilevel 55.00 10/31/21 16:00 36.5 10/31/21 15:09 92 26 96 55.00 10/31/21 15:00 85 22 95/57 97 NIV Bilevel 55.00 10/31/21 14:00 84 20 92/53 97 NIV Bilevel 55.00 10/31/21 13:36 NIV Bilevel 55.00 10/31/21 13:00 100 94/56 96 Vapotherm 30.00 70.00 10/31/21 12:30 Vapotherm 70 10/31/21 12:28 96 10/31/21 12:03 Vapotherm 30.00 70.00 10/31/21 12:00 98 98/55 95 Vapotherm 30.00 70.00 I & O 11/01/21 07:00 Intake Total 1500 ml Output Total 2300 ml Balance -800 ml Height & Weight Height: 5'4.00" Weight: 243lbs. 0.0oz. [id number]; 49.66 BMI Method:Stated General Appearance: No Apparent Distress, Obese, Other (wearing BiPAP) HEENT: PERRL/EOMI, Other (on BIPAP) Neck: Supple Respiratory: No Respiratory Distress, Decreased Breath Sounds Cardiovascular: Regular Rate, Rhythm, Systolic Murmur Gastrointestinal: normal bowel sounds, non tender, soft, other (OBESE) Extremity: Normal Inspection, Non Tender Neurologic/Psychiatric: Alert, No Motor/Sensory Deficits Skin: Normal Color, Warm/Dry Results Lab Laboratory Tests 10/31/21 04:13 11/01/21 05:01 Assessment/Plan Assessment/Plan See free text Critical Care: Critically Ill Patient BELGIAC MENCHACA MD Nov 01, 2021 11:58
[2021-11-01] MEDS: DexMEDEtomidine 250 ML DRIP 250 ML IV SCH (12:44)
[2021-11-01] MEDS: FUROSEMIDE INJECTION 120 MG in D5W 100 ML IVPB 100 ML IV SCH (13:02)
--- NOTE | 2021-11-01 15:21 | Cardiology Progress Note ---
Progress Note-Cardiology Events since last exam Date Seen by Provider: Nov 01, 2021 Time Seen by Provider: 15:16 Events since last exam I am following her due to aortic stenosis, heart failure and probable non-ST elevation myocardial infarction. She remains in the intensive care unit on furosemide infusion as well as Precedex infusion. She can come off BiPAP long enough to eat and actually was off BiPAP for a few hours earlier today. She states that her breathing is improving. She denies any significant chest discomfort today. She denies palpitations or syncope. Her lower extremity edema is about the same. She reports that at times she becomes anxious and this makes her feel short of breath. Certain portions of this document may have been dictated utilizing voice recognition technology. Inherent to this technology, typographical and grammatical errors may exist. As much as I am diligent to identify and correct these mistakes, some errors may remain in the document. Vitals Last set of Vitals Signs Vital Signs 11/01/21 11/01/21 11/01/21 10:35 12:09 15:00 Temp 36.0 Pulse 87 Resp 17 B/P (MAP) 106/58 Pulse Ox 96 O2 Delivery NIV Bilevel O2 Flow Rate 50.00 FiO2 90 Labs Labs Laboratory Tests 11/01/21 05:01 11/01/21 14:45 Exam Vital Signs Vital Signs Date Time Temp Pulse Resp B/P (MAP) Pulse Ox O2 Delivery O2 Flow Rate FiO2 11/01/21 15:00 NIV Bilevel 50.00 11/01/21 15:00 87 17 106/58 96 11/01/21 12:09 36.0 11/01/21 10:35 90 Physical Exam General: Alert. No acute distress but she is on BiPAP. She is obese. Eye: No xanthelasma. HENT: Normocephalic. Neck: Jugular venous pressure does not appear elevated. Respiratory: Lungs have coarse airway sounds from the BiPAP respirations are non-labored. Breath sounds are equal. Symmetrical chest wall expansion. Cardiovascular: Normal rate. Regular rhythm. 3/6 high-pitched systolic ejection murmur. No gallop. 1+ bilateral pretibial edema. Gastrointestinal: Soft. Normal bowel sounds. Skin: Warm. Dry. Neurologic: Alert and oriented to person, place, time. Cranial nerves 3-11 grossly intact. Psychiatric: Cooperative. Appropriate mood but anxious at times. Labs Laboratory Tests Test 10/31/21 16:31 10/31/21 20:38 11/01/21 05:01 11/01/21 10:55 Range/Units Glucometer 113 H 127 H 112 H 70-110 MG/DL White Blood Count 7.1 4.3-11.0 10^3/uL Red Blood Count 3.06 L 3.80-5.11 10^6/uL Hemoglobin 8.7 L 11.5-16.0 g/dL Hematocrit 28 L 35-52 % Mean Corpuscular Volume 92 80-99 fL Mean Corpuscular Hemoglobin 28 25-34 pg Mean Corpuscular Hemoglobin Concent 31 L 32-36 g/dL Red Cell Distribution Width 13.2 10.0-14.5 % Platelet Count 120 L 130-400 10^3/uL Mean Platelet Volume 11.0 9.0-12.2 fL Immature Granulocyte % (Auto) 0 % Neutrophils (%) (Auto) 85 H 42-75 % Lymphocytes (%) (Auto) 8 L 12-44 % Monocytes (%) (Auto) 6 0-12 % Eosinophils (%) (Auto) 1 0-10 % Basophils (%) (Auto) 0 0-10 % Neutrophils # (Auto) 6.1 1.8-7.8 10^3/uL Lymphocytes # (Auto) 0.6 L 1.0-4.0 10^3/uL Monocytes # (Auto) 0.4 0.0-1.0 10^3/uL Eosinophils # (Auto) 0.0 0.0-0.3 10^3/uL Basophils # (Auto) 0.0 0.0-0.1 10^3/uL Immature Granulocyte # (Auto) 0.0 0.0-0.1 10^3/uL Sodium Level 136 135-145 MMOL/L Potassium Level 3.2 L 3.6-5.0 MMOL/L Chloride Level 96 L 98-107 MMOL/L Carbon Dioxide Level 25 21-32 MMOL/L Anion Gap 15 H 5-14 MMOL/L Blood Urea Nitrogen 17 7-18 MG/DL Creatinine 0.83 0.60-1.30 MG/DL Estimat Glomerular Filtration Rate 71 BUN/Creatinine Ratio 20 Glucose Level 121 H 70-105 MG/DL Calcium Level 8.2 L 8.5-10.1 MG/DL Corrected Calcium 9.1 8.5-10.1 MG/DL Phosphorus Level 3.0 2.3-4.7 MG/DL Magnesium Level 1.7 1.6-2.4 MG/DL Total Bilirubin 1.2 H 0.1-1.0 MG/DL Aspartate Amino Transf (AST/SGOT) 13 5-34 U/L Alanine Aminotransferase (ALT/SGPT) 10 0-55 U/L Alkaline Phosphatase 47 40-136 U/L Lactate Dehydrogenase 303 H 125-220 U/L Total Protein 5.4 L 6.4-8.2 GM/DL Albumin 2.9 L 3.2-4.5 GM/DL Test 11/01/21 14:45 Range/Units Potassium Level 3.5 L 3.6-5.0 MMOL/L Diagnosis/Problems Diagnosis/Problems (1) Acute heart failure with preserved ejection fraction (HFpEF) Status: Acute Assessment & Plan: This is a new finding in this patient. She does have chronic obstructive pulmonary disease with chronic hypoxia on home oxygen which causes chronic dyspnea. Since starting her on the intravenous furosemide infusion, she has been diuresing well and her breathing is improving. I increase e the rate on the furosemide infusion on 10/31. I will also start her on spironolactone. If she continues to improve, then over the next couple of days we can have another discussion of long-term treatment goals. However, for the time being, she is DNR. Today she was again asking about getting her heart valve treated. (2) Non-ST elevation myocardial infarction (NSTEMI) Assessment & Plan: Her troponin level had been climbing but then started coming down. This is in the setting of decompensated heart failure. I suspect this may be a type II non-ST elevation myocardial infarction related to the heart failure. On the other hand, true coronary ischemia is certainly in the differential diagnosis. At some point we may need to consider cardiac catheterization but at the present time she is a DO NOT RESUSCITATE and does not want to be intubated. She remains on BiPAP and as such, I do not think she would tolerate laying flat for a cardiac catheterization. I recommend she continue aspirin, clopidogrel, statin, and enoxaparin. She is not a good candidate for beta-tom due to low blood pressures and her chronic obstructive pulmonary disease. If we can get her heart failure under good control, then we can reconsider cardiac catheterization. She would have to rescind her DNR order in order to have this procedure. (3) Aortic stenosis Status: Acute Assessment & Plan: She has severe, if not critical aortic stenosis noted on her most recent echocardiogram. She was actually supposed to follow-up with me in the office in the near future to discuss future plans for the aortic stenosis. She told me at the time of admission that she would want to consider definitive treatment of the aortic stenosis if possible. She may be a good candidate for a transcatheter aortic valve insertion (CHARLES) but first we need to get her through this episode of heart failure. However, she is now a DO NOT RESUSCITATE. If we can turn the heart failure around then we can decide if we should continue to move forward for evaluation for a CHARLES. (4) Primary hypertension Assessment & Plan: Blood pressure is reasonably controlled with diltiazem. (5) Coronary artery disease with unstable angina pectoris Assessment & Plan: As above, I suspect she may be having a type II non-ST elevation myocardial infarction due to supply/demand mismatch. I will continue her on low strength aspirin and clopidogrel which she was taking at home. She has been ordered for her home dose of atorvastatin. I do not think she would be a good candidate for beta-tom due to her oxygen dependent chronic obstructive pulmonary disease. She is on therapeutic dose of enoxaparin which I would continue for 5 days then tar heat exchanger cleaner to DVT prophylaxis dose. If she does decide to pursue a CHARLES, she would need a coronary angiogram as part of the evaluation for the valve procedure. (6) Mitral regurgitation Assessment & Plan: She also has mild to moderate mitral regurgitation. This should not be causing symptoms but will need to be followed longitudinally. (7) Atherosclerosis of both carotid arteries Assessment & Plan: She has moderate bilateral disease. She has no previously known history of a stroke. Continue aspirin and statin medication. There is no indication for intervention at this time. (8) Mixed hyperlipidemia Assessment & Plan: Continue atorvastatin. (9) Acute on chronic respiratory failure with hypoxia and hypercapnia Assessment & Plan: This is most likely multifactorial due to her chronic obstructive pulmonary disease and now superimposed heart failure. This is being managed by the primary provider and eICU as well as with my assistance on the heart failure aspect. (10) Chronic kidney disease, stage 3a Assessment & Plan: Her renal function seems to be tolerating the diuretic. (11) Morbid obesity Status: Acute Assessment & Plan: She needs to work on weight loss. DANY MIGUEL JR, MD Nov 01, 2021 15:21
[2021-11-01 15:22] VITALS: BP 91/56
[2021-11-01] MEDS ORDERED: SPIRONOLACTONE 25 MG (ALDACTONE) TAB PO ONE (15:30)
[2021-11-01 15:38] VITALS: BP 106/58
[2021-11-01] MEDS ORDERED: SPIRONOLACTONE 25 MG (ALDACTONE) TAB ONE (17:40)
[2021-11-01 19:00] VITALS: BP 110/63
--- NOTE | 2021-11-01 19:03 | Progress Note - Hospitalist ---
Subjective HPI/CC On Admission Date Seen by Provider: Nov 01, 2021 Time Seen by Provider: 10:20 Subjective/Events-last exam She is wearing Vapotherm. She is short of breath. She is anxious. She denies pain. Focused Exam Time of Focused Exam: 23:00 Objective Exam Vital Signs Vital Signs Date Time Temp Pulse Resp B/P (MAP) Pulse Ox O2 Delivery O2 Flow Rate FiO2 11/01/21 18:00 91 34 104/55 99 NIV Bilevel 50.00 11/01/21 16:00 35.8 11/01/21 15:38 50 Capillary Refill : General Appearance: No Apparent Distress, Obese Respiratory: Decreased Breath Sounds, Wheezing Cardiovascular: Regular Rate, Rhythm, No Murmur Gastrointestinal: Normal Bowel Sounds, Non Tender, Soft Extremity: Normal Inspection, No Pedal Edema Neurologic/Psychiatric: Alert, Oriented x3, No Motor/Sensory Deficits Skin: Normal Color, Warm/Dry Results/Procedures Lab Laboratory Tests 11/01/21 05:01 11/01/21 14:45 Patient resulted labs reviewed. Assessment/Plan Assessment and Plan Assess & Plan/Chief Complaint Acute respiratory failure with hypoxia Severe aortic stenosis Acute on chronic HFpEF Pneumonia ESBL E coli UTI Elevated d-dimer Elevated troponin Currently requiring Vapotherm/BiPAP Continue Lasix gtt Cardiology following TeleICU following May need aortic valve repair Continue Merrem CT chest angio ordered to assess for PE Continue therapeutic Lovenox HTN HLD CAD Morbid obesity Critical Care Critically Ill Patient Diagnosis/Problems Diagnosis/Problems (1) Acute heart failure with preserved ejection fraction (HFpEF) Status: Acute (2) Aortic stenosis Status: Acute (3) Acute respiratory failure with hypoxia and hypercapnia Status: Acute (4) PNA (pneumonia) (5) Infection due to ESBL-producing Escherichia coli (6) UTI (urinary tract infection) Status: Acute (7) Elevated d-dimer Status: Acute (8) Elevated troponin Status: Acute HUE BENÍTEZ MD Nov 01, 2021 19:03
[2021-11-01] MEDS: HYDROcodone/APAP 5 MG/325 MG (LORTAB) TAB PO PRN (20:13)
[2021-11-01] MEDS: AtorvaSTATin TABLET 10 MG TABLET PO SCH (20:13)
[2021-11-01] MEDS: FLUoxetine HCL 20 MG (PROzac) CAP PO SCH (20:13)
[2021-11-01 22:05] VITALS: BP 94/46
[2021-11-02] MEDS: HYDROcodone/APAP 5 MG/325 MG (LORTAB) TAB PO PRN ×2 (00:13→17:57)
[2021-11-02] MEDS: NITROGLYCERIN 2% OINT 1 GM UNIT DOSE PACKET TOP SCH ×2 (00:13→06:35)
[2021-11-02] MEDS: guaiFENesin/DM (ROBITUSSIN DM) 10 ML UDC PO PRN ×2 (00:13→13:08)
[2021-11-02] MEDS: MEROPENEM 500 MG in NS (IVPB) 100 ML IV SCH ×4 (02:17→20:33)
[2021-11-02 02:24] VITALS: BP 94/46
[2021-11-02] MEDS: RT-ALBUTEROL/IPRATROPIUM 3 ML (DUONEB) VIAL INH SCH ×6 (02:24→21:10)
[2021-11-02] MEDS: FUROSEMIDE INJECTION 120 MG in D5W 100 ML IVPB 100 ML IV SCH ×3 (03:32→17:14)
[2021-11-02 04:35] LABS: HEMOGLOBIN 8.5 g/dL (11.5-16.0)
[2021-11-02 04:36] LABS: BASOPHILS % (AUTO) 0 % (0-10); EOSINOPHILS # (AUTO) 0.1 10^3/uL (0.0-0.3); EOSINOPHILS % (AUTO) 2 % (0-10); HEMATOCRIT 27 % (35-52); LYMPHOCYTES # (AUTO) 0.7 10^3/uL (1.0-4.0); LYMPHOCYTES % (AUTO) 12 % (12-44); MEAN CORPUSCULAR HEMOGLOBIN 28 pg (25-34); MEAN CORPUSCULAR HGB CONC 31 g/dL (32-36); MEAN CORPUSCULAR VOLUME 91 fL (80-99); MEAN PLATELET VOLUME 11.1 fL (9.0-12.2); MONOCYTES # (AUTO) 0.5 10^3/uL (0.0-1.0); MONOCYTES % (AUTO) 8 % (0-12); NEUTROPHILS # (AUTO) 4.3 10^3/uL (1.8-7.8); NEUTROPHILS % (AUTO) 77 % (42-75); PLATELET COUNT 119 10^3/uL (130-400); WHITE BLOOD COUNT 5.6 10^3/uL (4.3-11.0)
[2021-11-02 04:44] LABS: ALBUMIN 2.8 GM/DL (3.2-4.5)
[2021-11-02 04:45] LABS: POTASSIUM 3.5 MMOL/L (3.6-5.0)
[2021-11-02 04:46] LABS: CALCIUM 8.3 MG/DL (8.5-10.1)
[2021-11-02 04:47] LABS: TOTAL PROTEIN 5.3 GM/DL (6.4-8.2)
[2021-11-02 04:49] LABS: BILIRUBIN,TOTAL 0.9 MG/DL (0.1-1.0)
[2021-11-02 04:50] LABS: PHOSPHORUS 3.2 MG/DL (2.3-4.7)
[2021-11-02 04:51] LABS: CREATININE SERUM 0.84 MG/DL (0.60-1.30)
[2021-11-02 04:54] LABS: MAGNESIUM 1.9 MG/DL (1.6-2.4)
[2021-11-02] MEDS: POTASSIUM CL 10MEQ/50ML IVPB 50 ML IV SCH (05:18)
[2021-11-02] MEDS: VASOPRESSIN INJECTION 20 UNIT in NS (IVPB) 100 ML IV SCH ×2 (05:18→16:55)
[2021-11-02] MEDS: MAGNESIUM 1 GM/100 ML IVPB 100 ML IV SCH (05:19)
[2021-11-02] MEDS: KCL 20 MEQ TAB (K-DUR) PO SCH (05:19)
[2021-11-02] MEDS: inSUlin ASPART (NovoLOG) 1 UNIT/0.01 ML (CHARGE PER UNIT) SC SCH ×4 (05:19→20:36)
[2021-11-02 06:43] VITALS: BP 101/55
[2021-11-02] MEDS ORDERED: KCL 20 MEQ TAB (K-DUR) PO ONE (08:00)
[2021-11-02] MEDS: ENOXAPARIN 120 MG/0.8 ML (LOVENOX) SQ SCH ×2 (08:11→20:33)
[2021-11-02] MEDS: SPIRONOLACTONE 25 MG (ALDACTONE) TAB PO SCH (08:12)
[2021-11-02] MEDS: PANTOPRAZOLE 40 MG (PROTONIX) TAB PO SCH (08:12)
[2021-11-02] MEDS: CLOPIDOGREL 75 MG (PLAVIX) TABLET PO SCH (08:12)
[2021-11-02] MEDS: ASPIRIN E.C. 81 MG (ECOTRIN) TAB PO SCH (08:12)
[2021-11-02] MEDS: GABAPENTIN 100 MG (NEURONTIN) CAP PO SCH ×2 (08:12→20:31)
[2021-11-02] MEDS: dilTIAZem120 MG (CARDIZEM CD) CAP PO SCH (08:12)
--- NOTE | 2021-11-02 08:30 | Progress Note ---
Subjective Subjective Date Seen by Provider: Nov 02, 2021 Time Seen by Provider: 08:45 PT REPORTS THAT SHE IS FEELING FATIGUED, HER DTR IS IN THE ROOM TODAY, SHE REPORTS THAT HER MOM APPEARS TO BE MORE COMFORTABLE TODAY COMPARED TO ADMISSION. TREVOR REPORTS THAT SHE HAS BEEN AFRAID AND ANXIOUS. SHE HAS HYDROXYZINE WHICH SHE USUALLY TAKES AT HOME BUT HAS NOT GOTTEN MUCH IN THE HOSPITAL DUE TO HER BEING ON BIPAP. Review of Systems General: Fatigue, Malaise HEENT: Other (dry mouth) Pulmonary: Dyspnea, Cough Cardiovascular: Edema, Lt Headedness; No: Chest Pain Gastrointestinal: No: Nausea, Vomiting, Abdominal Pain Genitourinary: Other (wall in place) Musculoskeletal: back pain, leg pain Neurological: Weakness; No: Confusion All Other Systems Reviewed All Other Systems Reviewed: Yes Objective Exam Vital Signs Vital Signs Date Time Temp Pulse Resp B/P (MAP) Pulse Ox O2 Delivery O2 Flow Rate FiO2 11/02/21 08:00 80 17 103/53 94 NIV Bilevel 35.00 11/02/21 07:37 36.3 11/02/21 07:00 76 22 103/58 96 NIV Bilevel 35.00 11/02/21 07:00 75 11/02/21 06:43 76 20 96 35.00 11/02/21 06:00 78 18 97/63 95 NIV Bilevel 35.00 11/02/21 05:00 80 16 96/58 95 NIV Bilevel 35.00 11/02/21 04:05 94 NIV Bilevel 35 11/02/21 04:05 36.1 11/02/21 04:00 89 17 94/62 97 NIV Bilevel 35.00 11/02/21 03:00 86 16 106/55 96 NIV Bilevel 35.00 11/02/21 02:24 90 24 96 25.00 11/02/21 02:18 NIV Bilevel 35.00 11/02/21 02:00 89 21 108/55 95 NIV Bilevel 45.00 11/02/21 01:00 93 11/02/21 01:00 93 102/56 97 NIV Bilevel 45.00 11/02/21 00:04 35.7 NIV Bilevel 45.00 11/02/21 00:00 110 30 108/65 85 NIV Bilevel 30.00 11/02/21 00:00 93 NIV Bilevel 30 11/01/21 23:30 NIV Bilevel 30.00 11/01/21 23:00 102 36 104/81 91 NIV Bilevel 25.00 11/01/21 22:05 94 25 97 30.00 11/01/21 22:00 95 31 97/57 91 NIV Bilevel 25.00 11/01/21 21:47 NIV Bilevel 30.00 11/01/21 21:15 89 15 100/43 97 NIV Bilevel 40.00 11/01/21 20:45 97 NIV Bilevel 40 11/01/21 20:30 NIV Bilevel 40.00 11/01/21 20:00 95 23 105/56 97 NIV Bilevel 40.00 11/01/21 19:38 35.9 11/01/21 19:30 98 22 99/49 93 NIV Bilevel 40.00 11/01/21 19:00 89 16 110/63 100 NIV Bilevel 50.00 11/01/21 19:00 91 31 100 50.00 11/01/21 19:00 89 11/01/21 18:00 91 34 104/55 99 NIV Bilevel 50.00 11/01/21 17:00 92 20 91/60 96 NIV Bilevel 50.00 11/01/21 16:10 NIV Bilevel 11/01/21 16:00 35.8 11/01/21 16:00 104 23 111/53 93 NIV Bilevel 50.00 11/01/21 15:38 96 92 50 11/01/21 15:22 96 40 92 50.00 11/01/21 15:00 NIV Bilevel 50.00 11/01/21 15:00 87 17 106/58 96 NIV Bilevel 50.00 11/01/21 14:00 82 25 106/58 95 NIV Bilevel 80.00 11/01/21 13:00 112 33 121/72 91 NIV Bilevel 80.00 11/01/21 12:59 88 11/01/21 12:44 101 123/75 11/01/21 12:37 92 Vapotherm 30.00 65.00 11/01/21 12:09 36.0 11/01/21 12:05 Vapotherm 11/01/21 12:00 98 104/79 90 NIV Bilevel 80.00 11/01/21 11:00 93 104/63 96 NIV Bilevel 80.00 11/01/21 10:35 100 Vapotherm 35.00 90 11/01/21 10:20 NIV Bilevel 80.00 11/01/21 10:00 87 29 102/56 99 NIV Bilevel 50.00 11/01/21 09:00 108 23 112/72 98 NIV Bilevel 50.00 I & O 11/02/21 07:00 Intake Total 2622 ml Output Total 1575 ml Balance 1047 ml General Appearance: No Apparent Distress, Obese HEENT: PERRL/EOMI, Other (on BIPAP) Neck: Supple Respiratory: Decreased Breath Sounds, Wheezing Cardiovascular: Regular Rate, Rhythm, Systolic Murmur Gastrointestinal: Normal Bowel Sounds, Non Tender, Soft Rectal: Deferred Back: No CVA Tenderness Extremity: Normal Inspection, No Pedal Edema Neurologic/Psychiatric: Alert, Oriented x3, No Motor/Sensory Deficits, Normal Mood/Affect Skin: Normal Color, Warm/Dry Results Lab Laboratory Tests 11/01/21 10:55: Glucometer 112H 11/01/21 14:45: Potassium Level 3.5L 11/01/21 15:45: Glucometer 97 11/01/21 20:45: Glucometer 109 11/02/21 04:01: White Blood Count 5.6, Red Blood Count 2.99L, Hemoglobin 8.5L, Hematocrit 27L, Mean Corpuscular Volume 91, Mean Corpuscular Hemoglobin 28, Mean Corpuscular Hemoglobin Concent 31L, Red Cell Distribution Width 13.0, Platelet Count 119L, Mean Platelet Volume 11.1, Immature Granulocyte % (Auto) 1, Neutrophils (%) (Auto) 77H, Lymphocytes (%) (Auto) 12, Monocytes (%) (Auto) 8, Eosinophils (%) (Auto) 2, Basophils (%) (Auto) 0, Neutrophils # (Auto) 4.3, Lymphocytes # (Auto) 0.7L, Monocytes # (Auto) 0.5, Eosinophils # (Auto) 0.1, Basophils # (Auto) 0.0, Immature Granulocyte # (Auto) 0.0, Percent Immature Platelet Fraction 4.2, Sodium Level 133L, Potassium Level 3.5L, Chloride Level 95L, Carbon Dioxide Level 24, Anion Gap 14, Blood Urea Nitrogen 20H, Creatinine 0.84, Estimat Glomerular Filtration Rate 70, BUN/Creatinine Ratio 24, Glucose Level 129H, Calcium Level 8.3L, Corrected Calcium 9.3, Phosphorus Level 3.2, Magnesium Level 1.9, Total Bilirubin 0.9, Aspartate Amino Transf (AST/SGOT) 12, Alanine Aminotransferase (ALT/SGPT) 11, Alkaline Phosphatase 45, Total Protein 5.3L, Albumin 2.8L Microbiology 10/29/21 MRSA Screen - Final, Complete MRSA not isolated 10/28/21 Urine Culture - Final, Complete Escherichia coli Assessment/Plan Assessment/Plan Admission Dx RESPIRATORY FAILURE PULMONARY EDEMA SEVERE AORTIC STENOSIS CHRONIC HYPERTENSION CHRONIC CORONARY ARTERY DISEASE NSTEMI LEUKOCYTOSIS ANEMIA OBESITY DEPRESSION ANXIETY PERIPHERAL NEUROPATHY Assessment and Plan RESPIRATORY FAILURE PULMONARY EDEMA SEVERE AORTIC STENOSIS CHRONIC HYPERTENSION CHRONIC CORONARY ARTERY DISEASE NSTEMI LEUKOCYTOSIS ANEMIA OBESITY DEPRESSION ANXIETY PERIPHERAL NEUROPATHY RESPIRATORY FAILURE WITH PNEUMONIA - pt on bipap, continue with current management, EICU involved in pt care, managing BIPAP and weaning. - pt on Rocephin and Azithromycin - breathing treatment per protocol. PULMONARY EDEMA - should improve with lasix, good urine output. SEVERE AORTIC STENOSIS - discussed with pt and her DTR (Maya SCHWARTZ) - pt will need arrangement for aortic valve replacement when she is stable. CHRONIC HYPERTENSION - monitor pressure, supportive care at this time. CHRONIC CORONARY ARTERY DISEASE with NSTEMI due to respiratory distress - defer to Dr. Hogan as to plans for heart cath when pt stable. LEUKOCYTOSIS - should improve with iv antibiotics, monitor labs ANEMIA - check iron panel OBESITY DEPRESSION and ANXIETY - resume medications when safe to take oral medications PERIPHERAL NEUROPATHY - resume Neurontin when safe to take oral medications DVT prophylaxis with lovenox and scd's GI prophylaxis with ppi iv, will start probiotics when safe to take PO medications. Admission Dx RESPIRATORY FAILURE PULMONARY EDEMA SEVERE AORTIC STENOSIS CHRONIC HYPERTENSION CHRONIC CORONARY ARTERY DISEASE NSTEMI LEUKOCYTOSIS ANEMIA OBESITY DEPRESSION ANXIETY PERIPHERAL NEUROPATHY Clinical Quality Measures Admission Status Admission Dx RESPIRATORY FAILURE PULMONARY EDEMA SEVERE AORTIC STENOSIS CHRONIC HYPERTENSION CHRONIC CORONARY ARTERY DISEASE NSTEMI LEUKOCYTOSIS ANEMIA OBESITY DEPRESSION ANXIETY PERIPHERAL NEUROPATHY AVIS ALY MD Nov 02, 2021 08:30
[2021-11-02] MEDS: NOREPINEPHRINE 8 MG/250 ML 250 ML IV SCH ×2 (08:40→17:35)
[2021-11-02] MEDS: hydrOXYzine (VISTARIL/ATARAX) 25 MG capsule/tablet PO PRN ×2 (08:45→14:21)
[2021-11-02] MEDS ORDERED: IRON SUCROSE 200 MG/10 ML (VENOFER) VIAL IV NR (09:49)
--- NOTE | 2021-11-02 09:55 | Cardiology Progress Note ---
Progress Note-Cardiology Events since last exam Date Seen by Provider: Nov 02, 2021 Time Seen by Provider: 09:54 Events since last exam I am following her due to heart failure, probable non-ST elevation myocardial infarction and severe aortic stenosis. This morning she was sitting up in bed eating breakfast. She is off BiPAP and on nasal cannula oxygen. Her breathing is much better. She denies chest discomfort, palpitations, or syncope. She still has some mild ankle edema. Today we talked about goals of treatment and she would like to pursue definitive treatment of the aortic stenosis if she continues to improve. Certain portions of this document may have been dictated utilizing voice recognition technology. Inherent to this technology, typographical and grammatical errors may exist. As much as I am diligent to identify and correct these mistakes, some errors may remain in the document. Vitals Last set of Vitals Signs Vital Signs 11/02/21 11/02/21 11/02/21 08:46 10:00 10:42 Temp 36.3 Pulse 93 Resp 17 B/P (MAP) 102/56 Pulse Ox 97 O2 Delivery Vapotherm O2 Flow Rate 30.00 FiO2 65 Labs Labs Laboratory Tests 11/01/21 14:45 11/02/21 04:01 Exam Vital Signs Vital Signs Date Time Temp Pulse Resp B/P (MAP) Pulse Ox O2 Delivery O2 Flow Rate FiO2 11/02/21 10:42 97 Vapotherm 30.00 65 11/02/21 10:00 93 17 102/56 11/02/21 08:46 36.3 Physical Exam General: Alert. No acute distress. She is wearing oxygen by nasal cannula. She is morbidly obese. Eye: No xanthelasma. HENT: Normocephalic. Neck: Jugular venous pressure does not appear elevated. Respiratory: Lungs are clear to auscultation but decreased at the bases bilaterally. Respirations are non-labored. Breath sounds are equal. Symmetrical chest wall expansion. Cardiovascular: Normal rate. Regular rhythm. 3/6 high-pitched systolic ejection murmur. No gallop. Trace bilateral pretibial edema. Gastrointestinal: Soft. Normal bowel sounds. Skin: Warm. Dry. Neurologic: Alert and oriented to person, place, time. Cranial nerves 3-11 grossly intact. Psychiatric: Cooperative. Appropriate mood & affect. Labs Laboratory Tests Test 11/01/21 14:45 11/01/21 15:45 11/01/21 20:45 11/02/21 04:01 Range/Units Potassium Level 3.5 L 3.5 L 3.6-5.0 MMOL/L Glucometer 97 109 70-110 MG/DL White Blood Count 5.6 4.3-11.0 10^3/uL Red Blood Count 2.99 L 3.80-5.11 10^6/uL Hemoglobin 8.5 L 11.5-16.0 g/dL Hematocrit 27 L 35-52 % Mean Corpuscular Volume 91 80-99 fL Mean Corpuscular Hemoglobin 28 25-34 pg Mean Corpuscular Hemoglobin Concent 31 L 32-36 g/dL Red Cell Distribution Width 13.0 10.0-14.5 % Platelet Count 119 L 130-400 10^3/uL Mean Platelet Volume 11.1 9.0-12.2 fL Immature Granulocyte % (Auto) 1 % Neutrophils (%) (Auto) 77 H 42-75 % Lymphocytes (%) (Auto) 12 12-44 % Monocytes (%) (Auto) 8 0-12 % Eosinophils (%) (Auto) 2 0-10 % Basophils (%) (Auto) 0 0-10 % Neutrophils # (Auto) 4.3 1.8-7.8 10^3/uL Lymphocytes # (Auto) 0.7 L 1.0-4.0 10^3/uL Monocytes # (Auto) 0.5 0.0-1.0 10^3/uL Eosinophils # (Auto) 0.1 0.0-0.3 10^3/uL Basophils # (Auto) 0.0 0.0-0.1 10^3/uL Immature Granulocyte # (Auto) 0.0 0.0-0.1 10^3/uL Percent Immature Platelet Fraction 4.2 0.0-7.6 % Sodium Level 133 L 135-145 MMOL/L Chloride Level 95 L 98-107 MMOL/L Carbon Dioxide Level 24 21-32 MMOL/L Anion Gap 14 5-14 MMOL/L Blood Urea Nitrogen 20 H 7-18 MG/DL Creatinine 0.84 0.60-1.30 MG/DL Estimat Glomerular Filtration Rate 70 BUN/Creatinine Ratio 24 Glucose Level 129 H 70-105 MG/DL Calcium Level 8.3 L 8.5-10.1 MG/DL Corrected Calcium 9.3 8.5-10.1 MG/DL Phosphorus Level 3.2 2.3-4.7 MG/DL Magnesium Level 1.9 1.6-2.4 MG/DL Total Bilirubin 0.9 0.1-1.0 MG/DL Aspartate Amino Transf (AST/SGOT) 12 5-34 U/L Alanine Aminotransferase (ALT/SGPT) 11 0-55 U/L Alkaline Phosphatase 45 40-136 U/L Total Protein 5.3 L 6.4-8.2 GM/DL Albumin 2.8 L 3.2-4.5 GM/DL Test 11/02/21 10:54 Range/Units Glucometer 183 H 70-110 MG/DL Diagnosis/Problems Diagnosis/Problems (1) Acute heart failure with preserved ejection fraction (HFpEF) Status: Acute Assessment & Plan: This is a new finding in this patient. She does have chronic obstructive pulmonary disease with chronic hypoxia on home oxygen which causes chronic dyspnea. Since starting her on the intravenous furosemide infusion, she has been diuresing well and her breathing is to improve. I increased the rate on the furosemide infusion on 10/31. I will also treated her on spironolactone on 11/01. If she continues to improve, then over the next couple of days we can have another discussion of long-term treatment goals. However, for the time being, she is DNR. Today she was again asking about getting her heart valve treated. She seems to understand that we would need to temporarily rescind her DNR order if she wishes to undergo invasive procedures. (2) Non-ST elevation myocardial infarction (NSTEMI) Assessment & Plan: Her troponin level had been climbing but then started coming down. This is in the setting of decompensated heart failure. I suspect this may be a type II non-ST elevation myocardial infarction related to the heart failure. On the other hand, true coronary ischemia is certainly in the differential diagnosis. She is starting to improve as outlined above. Now she again seems interested in definitive treatment of the aortic stenosis. She would need a cardiac catheterization prior to referring her for aortic valve intervention. If she continues to improve, we may be able to consider a cardiac catheterization later in the week. As above, she would have to temporarily rescind her DNR order. She has now received 5 days of therapeutic dose of en oxaparin and I will change this over to prophylactic dosing. She should continue aspirin, clopidogrel and statin medication. I do not have her on beta- tom due to her chronic obstructive pulmonary disease on home oxygen. (3) Aortic stenosis Status: Acute Assessment & Plan: She has severe, if not critical aortic stenosis noted on her most recent echocardiogram. She was actually supposed to follow-up with me in the office in the near future to discuss future plans for the aortic stenosis. She told me at the time of admission that she would want to consider definitive treatment of the aortic stenosis if possible. She may be a good candidate for a transcatheter aortic valve insertion (CHARLES) but first we need to get her through this episode of heart failure. However, she is now a DO NOT RESUSCITATE. If we can turn the heart failure around then we can decide if we should continue to move forward for evaluation for a CHARLES. (4) Primary hypertension Assessment & Plan: Blood pressure is reasonably controlled with diltiazem. I also started her on spironolactone for the heart failure with preserved ejection fraction. (5) Coronary artery disease with unstable angina pectoris Assessment & Plan: As above. (6) Mixed hyperlipidemia Assessment & Plan: Continue atorvastatin. (7) Mitral regurgitation Assessment & Plan: She also has mild to moderate mitral regurgitation. This should not be causing symptoms but will need to be followed longitudinally. (8) Atherosclerosis of both carotid arteries Assessment & Plan: She has moderate bilateral disease. She has no previously known history of a stroke. Continue aspirin and statin medication. There is no indication for intervention at this time. (9) Acute on chronic respiratory failure with hypoxia and hypercapnia Assessment & Plan: This is most likely multifactorial due to her chronic obstructive pulmonary disease and now superimposed heart failure. This is being managed by the primary provider and eICU as well as with my assistance on the heart failure aspect. (10) Chronic kidney disease, stage 3a Assessment & Plan: Her renal function seems to be tolerating the diuretic. (11) Morbid obesity Status: Acute Assessment & Plan: She needs to work on weight loss. DANY MIGUEL JR, MD Nov 02, 2021 09:55
--- NOTE | 2021-11-02 10:16 | Tele-ICU Progress Note ---
Subjective Date Seen by a Provider: Nov 02, 2021 Time Seen by a Provider: 10:16 Subjective/Events-last exam (Tele-ICU Physician , Progress Note ) Available chart/ vitals / labs / Images reviewed Video assessment done using teleICU camera, rest of exam as per RN Discussed with RN , EXAM PER RN Events overnight : Afebrile FiO2 - requiring Vapotherm/BiPAP I/O = neg Drips: lasix Pressors: , hemodynamically stable Consultants: Hospital course: (10/29) 81/F- Hypoxia, cough, malaise, pna, Bipap, hypercapnea. 10/30- VT /- lasix gtt 11/02 - VT 35L 65 % , lasix gtt , precedex A/P Acurte resp failure - most likely CHF by CXR and clinical presentation - less likely PNA - BIPAP /6 35% rr 17 tv 700 - VT 35L 65 % - on lasix gtt CHF ( + CP ? , SEVERE - ECHO 10/23/21- severe . EF 60% - cards consult - CP as per cardiology w/up - cont lasix gtt Elevated D dimer - lovenox full dose to starte - US LE -no DVT bilat 10/29 - attempted CT ID - UTI with E coli - empiricly started on Z max and cefteriaxone - 10/31 to MERRREM by sensitifity - follow COPD - cont nebs , off steroids - follow Elev lactate on presentation - due to hypoxia , not sepsis - stop IVF DM Hyperglycemia - ISS Anxiety = precedex Lines : PICC 11/02 (Central Line Necessity Reviewed) Deluna: + OG: Nutrition: po . minimal Analgesia: Anxiety/ delirium VTE Prophylaxis: denis full dose Stress Ulcer Prophylaxis: PPI Plans in collaboration with bedside consultants and IM MDs. Discussed with RN to reach out if any questions or concerns A total of 33 minutes of critical care time was devoted to this patient today, required to treat and/or prevent further deterioration of critical care condition ( as above) . Sepsis Event Evaluation Height, Weight, BMI Height: 5'4.00" Weight: 243lbs. 0.0oz. 110.499644oo; 49.66 BMI Method:Stated Focused Exam Time of Focused Exam: 23:00 Exam Exam Patient acknowledged, consented, and participated in this virtual visit which was conducted using real time audio/video Vital Signs Date Time Temp Pulse Resp B/P (MAP) Pulse Ox O2 Delivery O2 Flow Rate FiO2 11/02/21 10:00 93 17 102/56 97 Vapotherm 30.00 65.00 11/02/21 09:00 88 14 89/53 94 Vapotherm 30.00 65.00 11/02/21 08:46 36.3 80 17 103/53 94 Vapotherm 30.00 65.00 11/02/21 08:40 80 103/53 11/02/21 08:00 80 17 103/53 94 NIV Bilevel 35.00 11/02/21 07:37 36.3 11/02/21 07:00 76 22 103/58 96 NIV Bilevel 35.00 11/02/21 07:00 75 11/02/21 06:43 76 20 96 35.00 11/02/21 06:00 78 18 97/63 95 NIV Bilevel 35.00 11/02/21 05:00 80 16 96/58 95 NIV Bilevel 35.00 11/02/21 04:05 94 NIV Bilevel 35 11/02/21 04:05 36.1 11/02/21 04:00 89 17 94/62 97 NIV Bilevel 35.00 11/02/21 03:00 86 16 106/55 96 NIV Bilevel 35.00 11/02/21 02:24 90 24 96 25.00 11/02/21 02:18 NIV Bilevel 35.00 11/02/21 02:00 89 21 108/55 95 NIV Bilevel 45.00 11/02/21 01:00 93 11/02/21 01:00 93 102/56 97 NIV Bilevel 45.00 11/02/21 00:04 35.7 NIV Bilevel 45.00 11/02/21 00:00 110 30 108/65 85 NIV Bilevel 30.00 11/02/21 00:00 93 NIV Bilevel 30 11/01/21 23:30 NIV Bilevel 30.00 11/01/21 23:00 102 36 104/81 91 NIV Bilevel 25.00 11/01/21 22:05 94 25 97 30.00 11/01/21 22:00 95 31 97/57 91 NIV Bilevel 25.00 11/01/21 21:47 NIV Bilevel 30.00 11/01/21 21:15 89 15 100/43 97 NIV Bilevel 40.00 11/01/21 20:45 97 NIV Bilevel 40 11/01/21 20:30 NIV Bilevel 40.00 11/01/21 20:00 95 23 105/56 97 NIV Bilevel 40.00 11/01/21 19:38 35.9 11/01/21 19:30 98 22 99/49 93 NIV Bilevel 40.00 11/01/21 19:00 89 16 110/63 100 NIV Bilevel 50.00 11/01/21 19:00 91 31 100 50.00 11/01/21 19:00 89 11/01/21 18:00 91 34 104/55 99 NIV Bilevel 50.00 11/01/21 17:00 92 20 91/60 96 NIV Bilevel 50.00 11/01/21 16:10 NIV Bilevel 11/01/21 16:00 35.8 11/01/21 16:00 104 23 111/53 93 NIV Bilevel 50.00 11/01/21 15:38 96 92 50 11/01/21 15:22 96 40 92 50.00 11/01/21 15:00 NIV Bilevel 50.00 11/01/21 15:00 87 17 106/58 96 NIV Bilevel 50.00 11/01/21 14:00 82 25 106/58 95 NIV Bilevel 80.00 11/01/21 13:00 112 33 121/72 91 NIV Bilevel 80.00 11/01/21 12:59 88 11/01/21 12:44 101 123/75 11/01/21 12:37 92 Vapotherm 30.00 65.00 11/01/21 12:09 36.0 11/01/21 12:05 Vapotherm 11/01/21 12:00 98 104/79 90 NIV Bilevel 80.00 11/01/21 11:00 93 104/63 96 NIV Bilevel 80.00 11/01/21 10:35 100 Vapotherm 35.00 90 11/01/21 10:20 NIV Bilevel 80.00 I & O 11/02/21 06:59 Intake Total 2622 ml Output Total 1575 ml Balance 1047 ml Height & Weight Height: 5'4.00" Weight: 243lbs. 0.0oz. [id number]; 49.66 BMI Method:Stated General Appearance: No Apparent Distress, Obese HEENT: PERRL/EOMI, Other (on BIPAP) Neck: Supple Respiratory: Decreased Breath Sounds, Wheezing Cardiovascular: Regular Rate, Rhythm, No Murmur Gastrointestinal: normal bowel sounds, non tender, soft, other (OBESE) Extremity: Normal Inspection, No Pedal Edema Neurologic/Psychiatric: Alert, Oriented x3, No Motor/Sensory Deficits Skin: Normal Color, Warm/Dry Results Lab Laboratory Tests 11/01/21 05:01 11/01/21 14:45 11/02/21 04:01 Assessment/Plan Assessment/Plan ` TAMI COLLADO MD Nov 02, 2021 10:16
--- NOTE | 2021-11-02 14:05 | Diagnostic Imaging Report ---
INDICATION: PICC line placement. TIME OF EXAM: 1:59 p.m. COMPARISON: Correlation is made with prior chest from 10/31/2021. FINDINGS: Right upper extremity PICC line appears to have the tip in good position overlying the SVC. Extensive bilateral pulmonary infiltrates persist. There is no pneumothorax or effusion. IMPRESSION: Satisfactory PICC line placement. Dictated by: Dictated on workstation # [id number]
[2021-11-02 14:33] VITALS: BP 127/72
[2021-11-02] MEDS: SIMETHICONE 80 MG (MYLICON) CHEW PO PRN (17:57)
[2021-11-02 18:08] VITALS: BP 129/69
[2021-11-02] MEDS: AtorvaSTATin TABLET 10 MG TABLET PO SCH (20:30)
[2021-11-02] MEDS: FLUoxetine HCL 20 MG (PROzac) CAP PO SCH (20:31)
[2021-11-02 21:10] VITALS: BP 95/49
[2021-11-03 02:19] VITALS: BP 113/65
[2021-11-03] MEDS: RT-ALBUTEROL/IPRATROPIUM 3 ML (DUONEB) VIAL INH SCH ×6 (02:19→21:09)
[2021-11-03] MEDS: MEROPENEM 500 MG in NS (IVPB) 100 ML IV SCH ×4 (03:03→20:34)
[2021-11-03] MEDS: NOREPINEPHRINE 8 MG/250 ML 250 ML IV SCH ×2 (04:43→14:04)
[2021-11-03] MEDS: VASOPRESSIN INJECTION 20 UNIT in NS (IVPB) 100 ML IV SCH ×2 (04:44→15:05)
[2021-11-03 05:12] LABS: BASOPHILS % (AUTO) 0 % (0-10); EOSINOPHILS # (AUTO) 0.1 10^3/uL (0.0-0.3); EOSINOPHILS % (AUTO) 2 % (0-10); HEMATOCRIT 28 % (35-52); HEMOGLOBIN 8.7 g/dL (11.5-16.0); LYMPHOCYTES # (AUTO) 0.6 10^3/uL (1.0-4.0); LYMPHOCYTES % (AUTO) 10 % (12-44); MEAN CORPUSCULAR HEMOGLOBIN 28 pg (25-34); MEAN CORPUSCULAR HGB CONC 31 g/dL (32-36); MEAN CORPUSCULAR VOLUME 91 fL (80-99); MEAN PLATELET VOLUME 10.7 fL (9.0-12.2); MONOCYTES # (AUTO) 0.4 10^3/uL (0.0-1.0); MONOCYTES % (AUTO) 7 % (0-12); NEUTROPHILS # (AUTO) 4.4 10^3/uL (1.8-7.8); NEUTROPHILS % (AUTO) 80 % (42-75); PLATELET COUNT 144 10^3/uL (130-400); WHITE BLOOD COUNT 5.5 10^3/uL (4.3-11.0)
[2021-11-03 05:33] LABS: POTASSIUM 3.8 MMOL/L (3.6-5.0)
[2021-11-03 05:34] LABS: CALCIUM 8.6 MG/DL (8.5-10.1)
[2021-11-03 05:35] LABS: TOTAL PROTEIN 5.6 GM/DL (6.4-8.2)
[2021-11-03 05:37] LABS: BILIRUBIN,TOTAL 0.8 MG/DL (0.1-1.0)
[2021-11-03 05:38] LABS: PHOSPHORUS 3.5 MG/DL (2.3-4.7)
[2021-11-03 05:39] LABS: CREATININE SERUM 0.83 MG/DL (0.60-1.30)
[2021-11-03 05:41] LABS: MAGNESIUM 1.9 MG/DL (1.6-2.4)
[2021-11-03] MEDS: MAGNESIUM 1 GM/100 ML IVPB 100 ML IV SCH (06:07)
[2021-11-03] MEDS: POTASSIUM CL 10MEQ/50ML IVPB 50 ML IV SCH (06:07)
[2021-11-03] MEDS: FUROSEMIDE INJECTION 120 MG in D5W 100 ML IVPB 100 ML IV SCH (06:07)
[2021-11-03] MEDS: inSUlin ASPART (NovoLOG) 1 UNIT/0.01 ML (CHARGE PER UNIT) SC SCH ×4 (06:08→20:38)
[2021-11-03] MEDS: KCL 20 MEQ TAB (K-DUR) PO SCH (06:08)
[2021-11-03 07:05] VITALS: BP 91/42
[2021-11-03] MEDS: GABAPENTIN 100 MG (NEURONTIN) CAP PO SCH ×2 (09:00→20:33)
[2021-11-03] MEDS: PANTOPRAZOLE 40 MG (PROTONIX) TAB PO SCH (09:00)
[2021-11-03] MEDS: ASPIRIN E.C. 81 MG (ECOTRIN) TAB PO SCH (09:00)
[2021-11-03] MEDS: CLOPIDOGREL 75 MG (PLAVIX) TABLET PO SCH (09:00)
[2021-11-03] MEDS: SPIRONOLACTONE 25 MG (ALDACTONE) TAB PO SCH (09:00)
[2021-11-03] MEDS: dilTIAZem120 MG (CARDIZEM CD) CAP PO SCH (09:00)
[2021-11-03] MEDS: ENOXAPARIN 40 MG/0.4 ML (LOVENOX) SYR SC SCH ×2 (09:00→20:34)
--- NOTE | 2021-11-03 09:33 | Cardiology Progress Note ---
Progress Note-Cardiology Events since last exam Date Seen by Provider: Nov 03, 2021 Time Seen by Provider: 09:31 Events since last exam I am following her due to probable non-ST elevation myocardial infarction acc ompanied by acute heart failure with preserved ejection fraction in the setting of severe aortic stenosis. She is back on BiPAP this morning. She had been on Precedex for anxiety but this was stopped due to low blood pressure. Then she became anxious and wanted to go back on BiPAP. Yesterday she had been on nasal cannula oxygen. When she gets short of breath, her chest will feel heavy. She denies palpitations or syncope. She still has mild ankle edema. Certain portions of this document may have been dictated utilizing voice recognition technology. Inherent to this technology, typographical and grammatical errors may exist. As much as I am diligent to identify and correct these mistakes, some errors may remain in the document. Vitals Last set of Vitals Signs Vital Signs 11/03/21 11/03/21 11/03/21 08:00 11:00 11:34 Temp 36.1 Pulse 98 Resp 25 B/P (MAP) 84/59 Pulse Ox 95 O2 Delivery NIV Bilevel O2 Flow Rate 35.00 FiO2 30 Labs Labs Laboratory Tests 11/03/21 04:31 Exam Vital Signs Vital Signs Date Time Temp Pulse Resp B/P (MAP) Pulse Ox O2 Delivery O2 Flow Rate FiO2 11/03/21 11:34 NIV Bilevel 30 11/03/21 11:00 98 25 84/59 95 35.00 11/03/21 08:00 36.1 Physical Exam General: Alert. No acute distress but on BiPAP. She is morbidly obese. Eye: No xanthelasma. HENT: Normocephalic. Neck: Jugular venous pressure does not appear elevated. Respiratory: Lungs have scattered upper respiratory sounds from the BiPAP. Respirations are non-labored on BiPAP. Breath sounds are equal. Symmetrical chest wall expansion. Cardiovascular: Normal rate. Regular rhythm. 3/6 high-pitched systolic ejection murmur. No gallop. 1+ bilateral pretibial edema. Gastrointestinal: Soft. Normal bowel sounds. Skin: Warm. Dry. Neurologic: Alert and oriented to person, place, time. Cranial nerves 3-11 g rossly intact. Psychiatric: Cooperative. Appropriate mood & affect but slightly anxious at times. Labs Laboratory Tests Test 11/02/21 15:30 11/02/21 20:29 11/03/21 04:31 11/03/21 10:54 Range/Units Glucometer 138 H 124 H 144 H 70-110 MG/DL White Blood Count 5.5 4.3-11.0 10^3/uL Red Blood Count 3.08 L 3.80-5.11 10^6/uL Hemoglobin 8.7 L 11.5-16.0 g/dL Hematocrit 28 L 35-52 % Mean Corpuscular Volume 91 80-99 fL Mean Corpuscular Hemoglobin 28 25-34 pg Mean Corpuscular Hemoglobin Concent 31 L 32-36 g/dL Red Cell Distribution Width 13.2 10.0-14.5 % Platelet Count 144 130-400 10^3/uL Mean Platelet Volume 10.7 9.0-12.2 fL Immature Granulocyte % (Auto) 1 % Neutrophils (%) (Auto) 80 H 42-75 % Lymphocytes (%) (Auto) 10 L 12-44 % Monocytes (%) (Auto) 7 0-12 % Eosinophils (%) (Auto) 2 0-10 % Basophils (%) (Auto) 0 0-10 % Neutrophils # (Auto) 4.4 1.8-7.8 10^3/uL Lymphocytes # (Auto) 0.6 L 1.0-4.0 10^3/uL Monocytes # (Auto) 0.4 0.0-1.0 10^3/uL Eosinophils # (Auto) 0.1 0.0-0.3 10^3/uL Basophils # (Auto) 0.0 0.0-0.1 10^3/uL Immature Granulocyte # (Auto) 0.0 0.0-0.1 10^3/uL Sodium Level 134 L 135-145 MMOL/L Potassium Level 3.8 3.6-5.0 MMOL/L Chloride Level 95 L 98-107 MMOL/L Carbon Dioxide Level 25 21-32 MMOL/L Anion Gap 14 5-14 MMOL/L Blood Urea Nitrogen 21 H 7-18 MG/DL Creatinine 0.83 0.60-1.30 MG/DL Estimat Glomerular Filtration Rate 71 BUN/Creatinine Ratio 25 Glucose Level 131 H 70-105 MG/DL Calcium Level 8.6 8.5-10.1 MG/DL Corrected Calcium 9.4 8.5-10.1 MG/DL Phosphorus Level 3.5 2.3-4.7 MG/DL Magnesium Level 1.9 1.6-2.4 MG/DL Total Bilirubin 0.8 0.1-1.0 MG/DL Aspartate Amino Transf (AST/SGOT) 15 5-34 U/L Alanine Aminotransferase (ALT/SGPT) 11 0-55 U/L Alkaline Phosphatase 45 40-136 U/L Total Protein 5.6 L 6.4-8.2 GM/DL Albumin 3.0 L 3.2-4.5 GM/DL Diagnosis/Problems Diagnosis/Problems (1) Acute heart failure with preserved ejection fraction (HFpEF) Status: Acute Assessment & Plan: This is a new finding in this patient. She so has chronic obstructive pulmonary disease with chronic hypoxia on home oxygen which causes chronic dyspnea. Since starting her on the intravenous furosemide infusion on 10/30, she has been diuresing well and her breathing is to improve. I initially had her on bolus dosing of intravenous furosemide but then she would develop hypotension. For this reason I changed her to furosemide infusion. I increased the rate on the furosemide infusion on 10/31. She is now having intermittent hypotension. I will decrease the infusion rate on the furosemide. I started her on spironolactone on 11/01. If she continues to improve, then over the next couple of days we can have another discussion of long-term treatment goals. However, for the time being, she is DNR. Does continue to ask about getting her heart valve treated. She seems to understand that we would need to temporarily rescind her DNR order if she wishes to undergo invasive procedures. (2) Non-ST elevation myocardial infarction (NSTEMI) Assessment & Plan: Her troponin level had been climbing but then started coming down. This is in the setting of decompensated heart failure. I suspect this may be a type II non-ST elevation myocardial infarction related to the heart failure. On the other hand, true coronary ischemia is certainly in the differential diagnosis. She is improving as outlined above. Now she again seems interested in definitive treatment of the aortic stenosis. She would need a cardiac catheterization prior to referring her for aortic valve intervention. If she continues to improve, we may be able to consider a cardiac catheterization later in the week. As above, she would have to temporarily rescind her DNR order. She received 5 days of therapeutic dose of enoxaparin and I changed this over to prophylactic dosing on 11/02. She should continue aspirin, clopidogrel and statin medication. I do not have her on beta-tom due to her chronic obstructive pulmonary disease on home oxygen. (3) Aortic stenosis Status: Acute Assessment & Plan: She has severe, if not critical aortic stenosis noted on her most recent echocardiogram. She was actually supposed to follow-up with me in the office in the near future to discuss future plans for the aortic stenosis. She told me at the time of admission that she would want to consider definitive treatment of the aortic stenosis if possible. She may be a good candidate for a transcatheter aortic valve insertion (CHARLES) but first we need to get her through this episode of heart failure. However, she is now a DO NOT RESUSCITATE. If we can turn the heart failure around then we can decide if we should continue to m ove forward for evaluation for a CHARLES. (4) Primary hypertension Assessment & Plan: Blood pressure is reasonably controlled with diltiazem. I also started her on spironolactone for the heart failure with preserved ejection fraction. As above, I will adjust the furosemide infusion rate due to some intermittently low blood pressures (5) Coronary artery disease with unstable angina pectoris Assessment & Plan: As above. (6) Mixed hyperlipidemia Assessment & Plan: Continue atorvastatin. (7) Mitral regurgitation Assessment & Plan: She also has mild to moderate mitral regurgitation. This should not be causing symptoms but will need to be followed longitudinally. (8) Atherosclerosis of both carotid arteries Assessment & Plan: She has moderate bilateral disease. She has no previously known history of a stroke. Continue aspirin and statin medication. There is no indication for intervention at this time. (9) Acute on chronic respiratory failure with hypoxia and hypercapnia Assessment & Plan: This is most likely multifactorial due to her chronic obstructive pulmonary disease and superimposed heart failure. This is being managed by the primary provider and eICU as well as with my assistance on the heart failure aspect. (10) Chronic kidney disease, stage 3a Assessment & Plan: Her renal function seems to be tolerating the diuretic. (11) Morbid obesity Status: Acute Assessment & Plan: She needs to work on weight loss. DANY MIGUEL JR, MD Nov 03, 2021 09:33
--- NOTE | 2021-11-03 09:52 | Tele-ICU Progress Note ---
Subjective Date Seen by a Provider: Nov 03, 2021 Time Seen by a Provider: 09:51 Subjective/Events-last exam (Tele-ICU Physician , Progress Note ) Available chart/ vitals / labs / Images reviewed Video assessment done using teleICU camera, rest of exam as per RN Discussed with RN , EXAM PER RN Events overnight : Afebrile FiO2 - requiring Vapotherm/BiPAP I/O = neg Drips: lasix Pressors: , hemodynamically stable Consultants: Hospital course: (10/29) 81/F- Hypoxia, cough, malaise, pna, Bipap, hypercapnea. 10/30- VT /2- lasix gtt 11/02 - VT 35L 65 % , lasix gtt , precedex A/P Acurte resp failure - most likely CHF by CXR and clinical presentation - less likely PNA - BIPAP 18/6 35% rr 17 tv 700 - refusing VT 35L 65 % - TOO ANXIOUS - on precedex ( STARTED ON KLONOPIN 11/03 - on lasix gtt CHF ( + CP ? , SEVERE - ECHO 10/23/21- severe . EF 60% - cards consult - CP as per cardiology w/up - cont lasix gtt Elevated D dimer - lovenox full dose to starte - US LE -no DVT bilat 10/29 - attempted CT ID - UTI with E coli - empiricly started on Z max and cefteriaxone - 10/31 to MERRREM by sensitifity - follow COPD - cont nebs , off steroids - follow Elev lactate on presentation - due to hypoxia , not sepsis - stop IVF DM Hyperglycemia - ISS Anxiety = precedex Lines : PICC 11/02 (Central Line Necessity Reviewed) Deluna: + OG: Nutrition: po . minimal Analgesia: Anxiety/ delirium VTE Prophylaxis: denis full dose Stress Ulcer Prophylaxis: PPI Plans in collaboration with bedside consultants and IM MDs. Discussed with RN to reach out if any questions or concerns A total of 33 minutes of critical care time was devoted to this patient today, required to treat and/or prevent further deterioration of critical care condition ( as above) . Sepsis Event Evaluation Height, Weight, BMI Height: 5'4.00" Weight: 243lbs. 0.0oz. [id number]; 49.66 BMI Method:Stated Focused Exam Time of Focused Exam: 23:00 Exam Exam Patient acknowledged, consented, and participated in this virtual visit which was conducted using real time audio/video Vital Signs Date Time Temp Pulse Resp B/P (MAP) Pulse Ox O2 Delivery O2 Flow Rate FiO2 11/03/21 08:00 36.1 11/03/21 08:00 9 35 93/53 95 NIV Bilevel 35.00 11/03/21 07:05 81 20 95 30.00 11/03/21 07:00 80 20 91/48 96 NIV Bilevel 35.00 11/03/21 07:00 84 11/03/21 06:00 86 28 95/54 97 NIV Bilevel 35.00 11/03/21 05:00 92 21 107/75 96 NIV Bilevel 35.00 11/03/21 04:00 86 34 94/48 98 NIV Bilevel 35.00 11/03/21 04:00 36.2 11/03/21 04:00 NIV Bilevel 35 11/03/21 03:00 90 98/59 96 NIV Bilevel 35.00 11/03/21 02:19 93 25 95 35.00 11/03/21 02:00 100 35 113/65 92 NIV Bilevel 35.00 11/03/21 01:00 91 38 115/56 93 NIV Bilevel 35.00 11/03/21 01:00 91 11/03/21 00:00 NIV Bilevel 35 11/03/21 00:00 96 25 101/59 93 NIV Bilevel 35.00 11/03/21 00:00 36.4 11/02/21 23:00 94 19 95/60 95 NIV Bilevel 35.00 11/02/21 22:00 101 21 98/58 91 NIV Bilevel 35.00 11/02/21 21:10 98 25 93 35.00 11/02/21 21:00 94 23 95/49 93 NIV Bilevel 35.00 11/02/21 20:20 93 23 94/54 95 NIV Bilevel 35.00 11/02/21 20:00 NIV Bilevel 35 11/02/21 19:29 35.8 11/02/21 19:03 107 88/56 95 NIV Bilevel 35.00 11/02/21 19:00 106 11/02/21 18:08 117 36 91 35.00 11/02/21 18:00 118 36 129/69 89 NIV Bilevel 35.00 11/02/21 17:00 106 28 114/59 94 Vapotherm 30.00 65.00 11/02/21 16:00 93 NIV Bilevel 35 11/02/21 16:00 110 34 130/64 92 Vapotherm 30.00 65.00 11/02/21 15:44 35.9 11/02/21 15:00 107 29 109/64 93 Vapotherm 30.00 65.00 11/02/21 14:33 112 30 90 35.00 11/02/21 14:00 101 33 115/60 92 Vapotherm 30.00 65.00 11/02/21 13:00 101 26 115/67 94 Vapotherm 30.00 65.00 11/02/21 13:00 102 11/02/21 12:00 35.7 11/02/21 12:00 92 34 95/51 96 Vapotherm 30.00 65.00 11/02/21 12:00 97 Vapotherm 35.00 65 11/02/21 11:00 89 29 92/51 96 Vapotherm 30.00 65.00 11/02/21 10:42 97 Vapotherm 30.00 65 11/02/21 10:00 93 17 102/56 97 Vapotherm 30.00 65.00 I & O 11/03/21 06:59 Intake Total 1340 ml Output Total 1905 ml Balance -565 ml Height & Weight Height: 5'4.00" Weight: 243lbs. 0.0oz. [id number]; 49.66 BMI Method:Stated General Appearance: No Apparent Distress, Obese HEENT: PERRL/EOMI, Other (on BIPAP) Neck: Supple Respiratory: Decreased Breath Sounds, Wheezing Cardiovascular: Regular Rate, Rhythm, No Murmur Gastrointestinal: normal bowel sounds, non tender, soft, other (OBESE) Extremity: Normal Inspection, No Pedal Edema Neurologic/Psychiatric: Alert, Oriented x3, No Motor/Sensory Deficits Skin: Normal Color, Warm/Dry Results Lab Laboratory Tests 11/01/21 14:45 11/02/21 04:01 11/03/21 04:31 Assessment/Plan Assessment/Plan ` TAMI COLLADO MD Nov 03, 2021 09:52
[2021-11-03 10:36] VITALS: BP 98/58
[2021-11-03] MEDS: clonazePAM 0.5 MG (KlonoPIN) TAB PO SCH ×2 (12:44→20:33)
[2021-11-03] MEDS: guaiFENesin/DM (ROBITUSSIN DM) 10 ML UDC PO PRN (14:30)
[2021-11-03] MEDS: HYDROcodone/APAP 5 MG/325 MG (LORTAB) TAB PO PRN (14:30)
[2021-11-03] MEDS: hydrOXYzine (VISTARIL/ATARAX) 25 MG capsule/tablet PO PRN ×2 (15:01→20:33)
[2021-11-03] MEDS ORDERED: LORazepam INJ 2 MG/ML (ATIVAN) VIAL ONE (15:55)
[2021-11-03] MEDS ORDERED: LORazepam INJ 2 MG/ML (ATIVAN) VIAL IVP ONE (16:00)
--- NOTE | 2021-11-03 17:16 | Progress Note ---
Subjective Subjective Date Seen by Provider: Nov 03, 2021 Time Seen by Provider: 08:50 PT REPORTS THAT SHE IS AFRAID TO HAVE THE BIPAP REMOVED DUE TO HER SHORTNESS OF BREATH. SHE COMPLAINS OF A FEELING OF FULLNESS IN HER STOMACH AND A LITTLE DYSPEPSIA. SHE DENIES CHEST PAIN CURRENTLY, DOES HAVE PERSISTENT SHORTNESS OF BREATH. SHE REPORTS A DECREASED APPETITE. Review of Systems General: Fatigue, Malaise, Appetite (DECREASED) HEENT: Other (dry mouth) Pulmonary: Dyspnea, Cough Cardiovascular: Edema, Lt Headedness; No: Chest Pain Gastrointestinal: Abdominal Pain; No: Nausea, Vomiting Genitourinary: Other (wall in place) Musculoskeletal: back pain, leg pain Neurological: Weakness; No: Confusion All Other Systems Reviewed All Other Systems Reviewed: Yes Objective Exam Vital Signs Vital Signs Date Time Temp Pulse Resp B/P (MAP) Pulse Ox O2 Delivery O2 Flow Rate FiO2 11/03/21 16:30 101 31 107/73 98 11/03/21 16:15 105 17 111/75 99 11/03/21 16:00 36.3 11/03/21 16:00 110 36 130/71 96 NIV Bilevel 50.00 11/03/21 15:45 NIV Bilevel 50.00 11/03/21 15:45 118 45 134/89 97 11/03/21 15:30 116 37 127/81 98 11/03/21 15:15 112 37 120/64 97 11/03/21 15:00 113 23 125/112 97 Vapotherm 35.00 90.00 11/03/21 14:45 112 49 97/63 98 11/03/21 14:30 112 29 98/66 98 11/03/21 14:30 112 29 98/66 98 11/03/21 14:23 Vapotherm 35.00 90.00 11/03/21 14:15 105 29 105/60 99 11/03/21 14:14 100 Vapotherm 40.00 100 11/03/21 14:00 104 32 74/46 94 NIV Bilevel 35.00 11/03/21 13:45 100 27 102/84 100 11/03/21 13:30 102 28 95/ 91 11/03/21 13:15 101 15 95/77 100 11/03/21 13:00 107 11/03/21 13:00 103 17 108/86 100 NIV Bilevel 35.00 11/03/21 12:45 102 10 125/100 92 11/03/21 12:30 95 36 100/57 96 11/03/21 12:15 90 29 83/56 97 11/03/21 12:00 92 21 102/45 94 NIV Bilevel 35.00 11/03/21 11:45 98 30 101/53 93 11/03/21 11:34 NIV Bilevel 30 11/03/21 11:30 93 31 105/54 95 11/03/21 11:15 92 19 90/49 96 11/03/21 11:00 98 25 84/59 95 NIV Bilevel 35.00 11/03/21 10:45 89 36 103/59 96 11/03/21 10:36 92 21 95 30.00 11/03/21 10:30 89 31 98/58 95 11/03/21 10:15 90 35 96/52 95 11/03/21 10:00 100 32 95/68 95 NIV Bilevel 35.00 11/03/21 09:45 99 19 95/53 94 11/03/21 09:30 96 29 89/47 94 11/03/21 09:15 84 32 89/51 95 11/03/21 09:00 87 22 92/45 95 NIV Bilevel 35.00 11/03/21 08:45 91 21 90/79 96 11/03/21 08:30 84 22 69/34 96 11/03/21 08:00 36.1 11/03/21 08:00 9 35 93/53 95 NIV Bilevel 35.00 11/03/21 08:00 NIV Bilevel 30 11/03/21 07:30 85 32 86/53 95 11/03/21 07:05 81 20 95 30.00 11/03/21 07:00 80 20 91/48 96 NIV Bilevel 35.00 11/03/21 07:00 84 11/03/21 06:00 86 28 95/54 97 NIV Bilevel 35.00 11/03/21 05:00 92 21 107/75 96 NIV Bilevel 35.00 11/03/21 04:00 86 34 94/48 98 NIV Bilevel 35.00 11/03/21 04:00 36.2 11/03/21 04:00 NIV Bilevel 35 11/03/21 03:00 90 98/59 96 NIV Bilevel 35.00 11/03/21 02:19 93 25 95 35.00 11/03/21 02:00 100 35 113/65 92 NIV Bilevel 35.00 11/03/21 01:00 91 38 115/56 93 NIV Bilevel 35.00 11/03/21 01:00 91 11/03/21 00:00 NIV Bilevel 35 11/03/21 00:00 96 25 101/59 93 NIV Bilevel 35.00 11/03/21 00:00 36.4 11/02/21 23:00 94 19 95/60 95 NIV Bilevel 35.00 11/02/21 22:00 101 21 98/58 91 NIV Bilevel 35.00 11/02/21 21:10 98 25 93 35.00 11/02/21 21:00 94 23 95/49 93 NIV Bilevel 35.00 11/02/21 20:20 93 23 94/54 95 NIV Bilevel 35.00 11/02/21 20:00 NIV Bilevel 35 11/02/21 19:29 35.8 11/02/21 19:03 107 88/56 95 NIV Bilevel 35.00 11/02/21 19:00 106 11/02/21 18:08 117 36 91 35.00 11/02/21 18:00 118 36 129/69 89 NIV Bilevel 35.00 I & O 11/03/21 07:00 Intake Total 1340 ml Output Total 1905 ml Balance -565 ml General Appearance: WD/WN, Mild Distress, Obese HEENT: PERRL/EOMI, Other (on BIPAP) Neck: Supple Respiratory: Decreased Breath Sounds, Wheezing Cardiovascular: Regular Rate, Rhythm, Systolic Murmur Gastrointestinal: Normal Bowel Sounds, Non Tender, Soft Rectal: Deferred Back: No CVA Tenderness Extremity: Normal Inspection, No Pedal Edema Neurologic/Psychiatric: Alert, Oriented x3, No Motor/Sensory Deficits, Normal Mood/Affect Skin: Normal Color, Warm/Dry Results Lab Laboratory Tests 11/02/21 20:29: Glucometer 124H 11/03/21 04:31: White Blood Count 5.5, Red Blood Count 3.08L, Hemoglobin 8.7L, Hematocrit 28L, Mean Corpuscular Volume 91, Mean Corpuscular Hemoglobin 28, Mean Corpuscular Hemoglobin Concent 31L, Red Cell Distribution Width 13.2, Platelet Count 144, Mean Platelet Volume 10.7, Immature Granulocyte % (Auto) 1, Neutrophils (%) (Auto) 80H, Lymphocytes (%) (Auto) 10L, Monocytes (%) (Auto) 7, Eosinophils (%) (Auto) 2, Basophils (%) (Auto) 0, Neutrophils # (Auto) 4.4, Lymphocytes # (Auto) 0.6L, Monocytes # (Auto) 0.4, Eosinophils # (Auto) 0.1, Basophils # (Auto) 0.0, Immature Granulocyte # (Auto) 0.0, Sodium Level 134L, Potassium Level 3.8, Chloride Level 95L, Carbon Dioxide Level 25, Anion Gap 14, Blood Urea Nitrogen 21H, Creatinine 0.83, Estimat Glomerular Filtration Rate 71, BUN/Creatinine Ratio 25, Glucose Level 131H, Calcium Level 8.6, Corrected Calcium 9.4, Phosphorus Level 3.5, Magnesium Level 1.9, Total Bilirubin 0.8, Aspartate Amino Transf (AST/SGOT) 15, Alanine Aminotransferase (ALT/SGPT) 11, Alkaline Phosphatase 45, Total Protein 5.6L, Albumin 3.0L 11/03/21 10:54: Glucometer 144H 11/03/21 14:54: Glucometer 177H 11/03/21 16:09: Glucometer 166H Microbiology 10/29/21 MRSA Screen - Final, Complete MRSA not isolated 10/28/21 Urine Culture - Final, Complete Escherichia coli Assessment/Plan Assessment/Plan Admission Dx RESPIRATORY FAILURE PULMONARY EDEMA SEVERE AORTIC STENOSIS CHRONIC HYPERTENSION CHRONIC CORONARY ARTERY DISEASE NSTEMI LEUKOCYTOSIS ANEMIA OBESITY DEPRESSION ANXIETY PERIPHERAL NEUROPATHY Assessment and Plan RESPIRATORY FAILURE PULMONARY EDEMA SEVERE AORTIC STENOSIS CHRONIC HYPERTENSION CHRONIC CORONARY ARTERY DISEASE ECOLI URINARY TRACT INFECTION NSTEMI LEUKOCYTOSIS ANEMIA OBESITY DEPRESSION ANXIETY PERIPHERAL NEUROPATHY RESPIRATORY FAILURE WITH PNEUMONIA - pt on bipap, continue with current management, EICU involved in pt care, managing BIPAP and weaning. - pt on Rocephin and Azithromycin INITIALLY - CHANGED TO MEROPENEM ON 10/31/21 - breathing treatments per protocol. PULMONARY EDEMA - improving - continue with lasix iv drip ECOLI UTI - SENSITIVE TO MEROPENEM SEVERE AORTIC STENOSIS - discussed with pt and her DTR (Maya SCHWARTZ) - pt will need arrangement for aortic valve replacement when she is stable. CHRONIC HYPERTENSION - monitor pressure, supportive care at this time. CHRONIC CORONARY ARTERY DISEASE with NSTEMI due to respiratory distress - defer to Dr. Hogan as to plans for heart cath when pt stable. LEUKOCYTOSIS -RESOLVED ANEMIA - check iron panel OBESITY DEPRESSION and ANXIETY - resumed some of home regimen PERIPHERAL NEUROPATHY - resumed Neurontin DVT prophylaxis with lovenox and scd's GI prophylaxis with ppi iv, Admission Dx RESPIRATORY FAILURE PULMONARY EDEMA SEVERE AORTIC STENOSIS CHRONIC HYPERTENSION CHRONIC CORONARY ARTERY DISEASE NSTEMI LEUKOCYTOSIS ANEMIA OBESITY DEPRESSION ANXIETY PERIPHERAL NEUROPATHY Clinical Quality Measures Admission Status Admission Dx RESPIRATORY FAILURE PULMONARY EDEMA SEVERE AORTIC STENOSIS CHRONIC HYPERTENSION CHRONIC CORONARY ARTERY DISEASE NSTEMI LEUKOCYTOSIS ANEMIA OBESITY DEPRESSION ANXIETY PERIPHERAL NEUROPATHY AVIS ALY MD Nov 03, 2021 17:16
[2021-11-03 18:24] VITALS: BP 114/60
[2021-11-03] MEDS: FLUoxetine HCL 20 MG (PROzac) CAP PO SCH (20:33)
[2021-11-03] MEDS: AtorvaSTATin TABLET 10 MG TABLET PO SCH (20:34)
[2021-11-03] MEDS: DexMEDEtomidine 250 ML DRIP 250 ML IV SCH (20:57)
[2021-11-03 21:09] VITALS: BP 112/61
[2021-11-04] MEDS: NOREPINEPHRINE 8 MG/250 ML 250 ML IV SCH ×3 (00:47→20:29)
[2021-11-04 01:44] VITALS: BP 106/50
[2021-11-04] MEDS: RT-ALBUTEROL/IPRATROPIUM 3 ML (DUONEB) VIAL INH SCH ×6 (01:44→22:15)
[2021-11-04] MEDS: VASOPRESSIN INJECTION 20 UNIT in NS (IVPB) 100 ML IV SCH ×2 (02:15→15:13)
[2021-11-04] MEDS: MEROPENEM 500 MG in NS (IVPB) 100 ML IV SCH ×4 (03:49→20:17)
[2021-11-04 04:35] LABS: BASOPHILS % (AUTO) 0 % (0-10); EOSINOPHILS # (AUTO) 0.2 10^3/uL (0.0-0.3); EOSINOPHILS % (AUTO) 4 % (0-10); HEMATOCRIT 27 % (35-52); HEMOGLOBIN 8.5 g/dL (11.5-16.0); LYMPHOCYTES # (AUTO) 0.7 10^3/uL (1.0-4.0); LYMPHOCYTES % (AUTO) 15 % (12-44); MEAN CORPUSCULAR HEMOGLOBIN 28 pg (25-34); MEAN CORPUSCULAR HGB CONC 31 g/dL (32-36); MEAN CORPUSCULAR VOLUME 91 fL (80-99); MEAN PLATELET VOLUME 10.2 fL (9.0-12.2); MONOCYTES # (AUTO) 0.4 10^3/uL (0.0-1.0); MONOCYTES % (AUTO) 8 % (0-12); NEUTROPHILS # (AUTO) 3.5 10^3/uL (1.8-7.8); NEUTROPHILS % (AUTO) 72 % (42-75); PLATELET COUNT 167 10^3/uL (130-400); WHITE BLOOD COUNT 4.8 10^3/uL (4.3-11.0)
[2021-11-04 04:50] LABS: POTASSIUM 3.3 MMOL/L (3.6-5.0)
[2021-11-04 04:51] LABS: CALCIUM 8.4 MG/DL (8.5-10.1)
[2021-11-04 04:52] LABS: TOTAL PROTEIN 5.4 GM/DL (6.4-8.2)
[2021-11-04 04:54] LABS: BILIRUBIN,TOTAL 0.8 MG/DL (0.1-1.0)
[2021-11-04 04:56] LABS: CREATININE SERUM 0.74 MG/DL (0.60-1.30)
[2021-11-04] MEDS ORDERED: POTASSIUM CL 10MEQ/50ML IVPB 50 ML IV SCH (05:15)
[2021-11-04] MEDS: KCL 20 MEQ TAB (K-DUR) PO SCH (05:16)
[2021-11-04] MEDS: POTASSIUM CL 10MEQ/50ML IVPB 50 ML IV SCH ×4 (05:16→07:25)
[2021-11-04] MEDS: MAGNESIUM 1 GM/100 ML IVPB 100 ML IV SCH (05:16)
[2021-11-04] MEDS: inSUlin ASPART (NovoLOG) 1 UNIT/0.01 ML (CHARGE PER UNIT) SC SCH ×4 (05:36→20:20)
[2021-11-04 07:10] VITALS: BP 104/62
[2021-11-04] MEDS: FUROSEMIDE INJECTION 120 MG in D5W 100 ML IVPB 100 ML IV SCH (07:11)
--- NOTE | 2021-11-04 07:37 | Diagnostic Imaging Report ---
INDICATION: Respiratory distress. Comparison with 11/02/2021. FINDINGS: The 5 lobe dense alveolar infiltrate with air bronchograms again demonstrated. Heart upper limits of normal. No pneumothorax or pleural effusion. Right PICC line remains in good position. IMPRESSION: Findings of ARDS with little overall change. Dictated by: Dictated on workstation # [id number]
--- NOTE | 2021-11-04 08:40 | Progress Note ---
Subjective Subjective Date Seen by Provider: Nov 04, 2021 Time Seen by Provider: 09:00 PT REPORTS FATIGUE, SHORTNESS OF BREATH, FEAR OF NOT BEING ABLE TO BREATHE EVERY TIME THE BIPAP IS REMOVED FOR HER TO EAT OR WHEN THE WEANING TRIAL IS OCCURRING. SHE DENIES CHEST PAIN, DOES HAVE SOME ABDOMINAL PAIN IN HER SIDES WHEN SHE IS COUGHING. Review of Systems General: Fatigue, Malaise, Appetite (DECREASED) HEENT: Other (dry mouth) Pulmonary: Dyspnea, Cough Cardiovascular: Edema, Lt Headedness; No: Chest Pain Gastrointestinal: Abdominal Pain; No: Nausea, Vomiting Genitourinary: Other (wall in place) Musculoskeletal: back pain, leg pain Neurological: Weakness; No: Confusion All Other Systems Reviewed All Other Systems Reviewed: Yes Objective Exam Vital Signs Vital Signs Date Time Temp Pulse Resp B/P (MAP) Pulse Ox O2 Delivery O2 Flow Rate FiO2 11/04/21 08:00 NIV Bilevel 35 11/04/21 08:00 86 23 96/50 96 NIV Bilevel 50.00 11/04/21 08:00 37.1 11/04/21 07:10 88 20 96 35.00 11/04/21 07:00 82 16 104/62 95 NIV Bilevel 50.00 11/04/21 07:00 91 11/04/21 06:00 92 23 95/45 96 NIV Bilevel 50.00 11/04/21 05:45 90 26 103/52 96 11/04/21 05:30 87 19 96/45 97 11/04/21 05:15 91 24 111/56 95 11/04/21 05:00 99 25 89/45 94 NIV Bilevel 50.00 11/04/21 04:45 96 22 101/53 96 11/04/21 04:30 98 26 106/59 93 11/04/21 04:15 92 18 101/52 96 11/04/21 04:00 97 20 91/56 95 NIV Bilevel 50.00 11/04/21 04:00 NIV Bilevel 35 11/04/21 04:00 36.0 11/04/21 03:45 87 37 99/55 96 11/04/21 03:30 95 24 111/54 94 11/04/21 03:15 85 39 104/55 95 11/04/21 03:00 81 22 91/41 96 NIV Bilevel 50.00 11/04/21 02:45 82 18 88/41 95 11/04/21 02:30 81 19 86/42 96 11/04/21 02:15 83 25 101/52 96 11/04/21 02:00 84 19 92/44 95 NIV Bilevel 50.00 11/04/21 01:45 88 26 106/50 95 11/04/21 01:44 87 20 95 35.00 11/04/21 01:30 83 18 91/42 97 11/04/21 01:15 89 37 103/43 97 11/04/21 01:00 90 11/04/21 01:00 90 35 101/49 96 NIV Bilevel 50.00 11/04/21 00:45 88 39 105/47 97 11/04/21 00:30 86 26 94/46 97 11/04/21 00:15 90 23 98/50 96 11/04/21 00:02 86 17 95/54 96 NIV Bilevel 50.00 11/04/21 00:00 NIV Bilevel 35 11/04/21 00:00 36.2 11/04/21 00:00 93 31 86/45 97 11/03/21 23:45 91 19 96/52 98 11/03/21 23:30 90 34 105/52 97 11/03/21 23:15 93 35 96/49 94 11/03/21 23:00 97 20 100/51 92 NIV Bilevel 50.00 11/03/21 22:45 103 26 87/53 94 11/03/21 22:30 97 99/56 93 11/03/21 22:24 99 24 100/49 97 11/03/21 22:15 103 17 86/54 97 11/03/21 22:00 100 30 96/49 97 NIV Bilevel 50.00 11/03/21 21:45 94 29 96 11/03/21 21:30 105 26 112/49 93 11/03/21 21:15 102 18 107/45 98 11/03/21 21:09 102 26 96 35.00 11/03/21 21:00 105 29 112/61 96 NIV Bilevel 50.00 11/03/21 20:57 106 117/65 11/03/21 20:45 105 28 117/65 94 11/03/21 20:41 111 32 128/53 88 11/03/21 20:30 108 16 111/50 90 11/03/21 20:15 104 30 107/59 94 11/03/21 20:00 104 25 105/65 91 NIV Bilevel 50.00 11/03/21 20:00 NIV Bilevel 35 11/03/21 19:45 103 14 113/76 89 11/03/21 19:30 101 24 121/75 91 11/03/21 19:27 36.0 11/03/21 19:15 103 22 120/72 89 11/03/21 19:00 105 25 115/60 87 NIV Bilevel 50.00 11/03/21 19:00 105 11/03/21 18:45 104 29 110/79 90 11/03/21 18:30 98 29 122/35 98 11/03/21 18:24 103 31 97 50.00 11/03/21 18:15 95 20 114/60 98 11/03/21 18:00 96 21 114/65 96 NIV Bilevel 50.00 11/03/21 17:45 89 29 109/62 98 11/03/21 17:30 101 57 95/58 100 11/03/21 17:15 93 16 109/57 98 11/03/21 17:00 96 27 125/70 98 NIV Bilevel 50.00 11/03/21 16:45 96 15 108/58 97 11/03/21 16:30 101 31 107/73 98 11/03/21 16:30 101 31 107/73 98 NIV Bilevel 50.00 11/03/21 16:15 105 17 111/75 99 11/03/21 16:00 NIV Bilevel 30 11/03/21 16:00 36.3 11/03/21 16:00 110 36 130/71 96 NIV Bilevel 50.00 11/03/21 15:45 NIV Bilevel 50.00 11/03/21 15:45 118 45 134/89 97 11/03/21 15:30 116 37 127/81 98 11/03/21 15:15 112 37 120/64 97 11/03/21 15:00 113 23 125/112 97 Vapotherm 35.00 90.00 11/03/21 14:45 112 49 97/63 98 11/03/21 14:30 112 29 98/66 98 11/03/21 14:30 112 29 98/66 98 11/03/21 14:23 Vapotherm 35.00 90.00 11/03/21 14:15 105 29 105/60 99 11/03/21 14:14 100 Vapotherm 40.00 100 11/03/21 14:00 104 32 74/46 94 NIV Bilevel 35.00 11/03/21 13:45 100 27 102/84 100 11/03/21 13:30 102 28 95/ 91 11/03/21 13:15 101 15 95/77 100 11/03/21 13:00 107 11/03/21 13:00 103 17 108/86 100 NIV Bilevel 35.00 11/03/21 12:45 102 10 125/100 92 11/03/21 12:30 95 36 100/57 96 11/03/21 12:15 90 29 83/56 97 11/03/21 12:00 92 21 102/45 94 NIV Bilevel 35.00 11/03/21 11:45 98 30 101/53 93 11/03/21 11:34 NIV Bilevel 30 11/03/21 11:30 93 31 105/54 95 11/03/21 11:15 92 19 90/49 96 11/03/21 11:00 98 25 84/59 95 NIV Bilevel 35.00 11/03/21 10:45 89 36 103/59 96 11/03/21 10:36 92 21 95 30.00 11/03/21 10:30 89 31 98/58 95 11/03/21 10:15 90 35 96/52 95 11/03/21 10:00 100 32 95/68 95 NIV Bilevel 35.00 11/03/21 09:45 99 19 95/53 94 11/03/21 09:30 96 29 89/47 94 11/03/21 09:15 84 32 89/51 95 11/03/21 09:00 87 22 92/45 95 NIV Bilevel 35.00 11/03/21 08:45 91 21 90/79 96 I & O 11/04/21 07:00 Intake Total 2150 ml Output Total 2525 ml Balance -375 ml General Appearance: WD/WN, Mild Distress, Obese HEENT: PERRL/EOMI, Other (on BIPAP) Neck: Supple Respiratory: Decreased Breath Sounds, Respiratory Distress (IN BIPAP) Cardiovascular: Regular Rate, Rhythm, Systolic Murmur (DIFFICULT TO AUSCULTATE DUE TO BIPAP NOISE) Gastrointestinal: Normal Bowel Sounds, Non Tender, Soft Rectal: Deferred Back: No CVA Tenderness Extremity: No Pedal Edema (RESOLVED) Neurologic/Psychiatric: Alert, Oriented x3, No Motor/Sensory Deficits, Normal Mood/Affect Skin: Normal Color, Warm/Dry, Other (SKIN ON FEET WRINKLED/DRY) Results Lab Laboratory Tests 11/03/21 10:54: Glucometer 144H 11/03/21 14:54: Glucometer 177H 11/03/21 16:09: Glucometer 166H 11/03/21 20:16: Glucometer 112H 11/04/21 04:20: White Blood Count 4.8, Red Blood Count 3.02L, Hemoglobin 8.5L, Hematocrit 27L, Mean Corpuscular Volume 91, Mean Corpuscular Hemoglobin 28, Mean Corpuscular Hemoglobin Concent 31L, Red Cell Distribution Width 13.1, Platelet Count 167, Mean Platelet Volume 10.2, Immature Granulocyte % (Auto) 0, Neutrophils (%) ( Auto) 72, Lymphocytes (%) (Auto) 15, Monocytes (%) (Auto) 8, Eosinophils (%) (Auto) 4, Basophils (%) (Auto) 0, Neutrophils # (Auto) 3.5, Lymphocytes # (Auto) 0.7L, Monocytes # (Auto) 0.4, Eosinophils # (Auto) 0.2, Basophils # (Auto) 0.0, Immature Granulocyte # (Auto) 0.0, Sodium Level 138, Potassium Level 3.3L, Chloride Level 96L, Carbon Dioxide Level 26, Anion Gap 16H, Blood Urea Nitrogen 20H, Creatinine 0.74, Estimat Glomerular Filtration Rate 82, BUN/Creatinine Ratio 27, Glucose Level 117H, Calcium Level 8.4L, Corrected Calcium 9.2, Phosphorus Level 3.0, Magnesium Level 2.0, Total Bilirubin 0.8, Aspartate Amino Transf (AST/SGOT) 13, Alanine Aminotransferase (ALT/SGPT) 12, Alkaline Phosphatase 41, Total Protein 5.4L, Albumin 3.0L Microbiology 10/29/21 MRSA Screen - Final, Complete MRSA not isolated 10/28/21 Urine Culture - Final, Complete Escherichia coli Assessment/Plan Assessment/Plan Admission Dx RESPIRATORY FAILURE PULMONARY EDEMA SEVERE AORTIC STENOSIS CHRONIC HYPERTENSION CHRONIC CORONARY ARTERY DISEASE NSTEMI LEUKOCYTOSIS ANEMIA OBESITY DEPRESSION ANXIETY PERIPHERAL NEUROPATHY Assessment and Plan RESPIRATORY FAILURE PULMONARY EDEMA SEVERE AORTIC STENOSIS CHRONIC HYPERTENSION CHRONIC CORONARY ARTERY DISEASE ECOLI URINARY TRACT INFECTION NSTEMI LEUKOCYTOSIS ANEMIA OBESITY DEPRESSION ANXIETY PERIPHERAL NEUROPATHY RESPIRATORY FAILURE WITH PNEUMONIA - pt on bipap, continue with current management, EICU involved in pt care, managing BIPAP and weaning. - pt on Rocephin and Azithromycin INITIALLY - CHANGED TO MEROPENEM ON 10/31/21 - breathing treatments per protocol. PULMONARY EDEMA - improving - continue with lasix iv drip ECOLI UTI - SENSITIVE TO MEROPENEM SEVERE AORTIC STENOSIS - discussed with pt and her DTRS (Maya SCHWARTZ) - pt will need arrangement for aortic valve replacement when she is stable. CHRONIC HYPERTENSION - monitor pressure, supportive care at this time. CHRONIC CORONARY ARTERY DISEASE with NSTEMI due to respiratory distress - defer to Dr. Hogan - HE IS DISCUSSING HER CASE WITH YVAN, HE INDICATED TODAY THAT HE WOULD ALSO DISCUSS WITH HER FAMILY THE PLAN FOR TRANSFER TO (IF THEY WILL TAKE HER) TO THE HEART FAILURE TEAM SO THAT THEY CAN WORK ON GETTING HER TO A POINT WHERE SHE WOULD BE ABLE TO HAVE VALVE REPLACEMENT AND OTHER APPROPRIATE WORK-UP AND TREATMENT. LEUKOCYTOSIS -RESOLVED ANEMIA - MONITOR - WHEN/IF PT IS AT OR BELOW 8 WILL GIVE TRANSFER OF 1 UNIT PRBC'S OBESITY DEPRESSION and ANXIETY - resumed some of home regimen PERIPHERAL NEUROPATHY - resumed Neurontin DVT prophylaxis with lovenox and scd's GI prophylaxis with ppi iv, Admission Dx RESPIRATORY FAILURE PULMONARY EDEMA SEVERE AORTIC STENOSIS CHRONIC HYPERTENSION CHRONIC CORONARY ARTERY DISEASE NSTEMI LEUKOCYTOSIS ANEMIA OBESITY DEPRESSION ANXIETY PERIPHERAL NEUROPATHY Clinical Quality Measures Admission Status Admission Dx RESPIRATORY FAILURE PULMONARY EDEMA SEVERE AORTIC STENOSIS CHRONIC HYPERTENSION CHRONIC CORONARY ARTERY DISEASE NSTEMI LEUKOCYTOSIS ANEMIA OBESITY DEPRESSION ANXIETY PERIPHERAL NEUROPATHY AVIS ALY MD Nov 04, 2021 08:40
--- NOTE | 2021-11-04 08:53 | Cardiology Progress Note ---
Progress Note-Cardiology Events since last exam Date Seen by Provider: Nov 04, 2021 Time Seen by Provider: 08:48 Events since last exam I am following her due to heart failure on top of a probable NSTEMI and severe aortic stenosis. She has remained on BiPAP for most of the past 24 hours. Every time the nurses try to remove the BiPAP so she can eat or take medication, she gets anxious and more short of breath and has to be put back on BiPAP. When she feels short of breath, she gets recurrent tightness in her chest. She denies palpitations or syncope. Her peripheral edema has improved slightly over the past 24 hours. Certain portions of this document may have been dictated utilizing voice recognition technology. Inherent to this technology, typographical and grammatical errors may exist. As much as I am diligent to identify and correct these mistakes, some errors may remain in the document. Vitals Last set of Vitals Signs Vital Signs 11/04/21 11/04/21 11/04/21 08:00 12:00 12:09 Temp 37.1 Pulse 90 Resp 25 B/P (MAP) 94/55 Pulse Ox 100 O2 Delivery NIV Bilevel O2 Flow Rate 50.00 FiO2 35 Labs Labs Laboratory Tests 11/04/21 04:20 Exam Vital Signs Vital Signs Date Time Temp Pulse Resp B/P (MAP) Pulse Ox O2 Delivery O2 Flow Rate FiO2 11/04/21 12:09 90 11/04/21 12:00 NIV Bilevel 35 11/04/21 12:00 25 94/55 100 50.00 11/04/21 08:00 37.1 Physical Exam General: Alert. No acute distress but on BiPAP. Morbidly obese. Eye: No xanthelasma. HENT: Normocephalic. Neck: Jugular venous pressure does not appear elevated. Respiratory: Lungs have coarse upper airway sounds with some mixed crackles and wheezes. Respirations are non-labored. Breath sounds are equal. Symmetrical chest wall expansion. Cardiovascular: Normal rate. Regular rhythm. Distant S1/S2. 3/6 high-pitched systolic ejection murmur. No gallop. 1+ bilateral edema. Gastrointestinal: Soft. Normal bowel sounds. Skin: Warm. Dry. Neurologic: Alert and oriented to person, place, time. Cranial nerves 3-11 grossly intact. Psychiatric: Cooperative. Slightly anxious. Labs Laboratory Tests Test 11/03/21 14:54 11/03/21 16:09 11/03/21 20:16 11/04/21 04:20 Range/Units Glucometer 177 H 166 H 112 H 70-110 MG/DL White Blood Count 4.8 4.3-11.0 10^3/uL Red Blood Count 3.02 L 3.80-5.11 10^6/uL Hemoglobin 8.5 L 11.5-16.0 g/dL Hematocrit 27 L 35-52 % Mean Corpuscular Volume 91 80-99 fL Mean Corpuscular Hemoglobin 28 25-34 pg Mean Corpuscular Hemoglobin Concent 31 L 32-36 g/dL Red Cell Distribution Width 13.1 10.0-14.5 % Platelet Count 167 130-400 10^3/uL Mean Platelet Volume 10.2 9.0-12.2 fL Immature Granulocyte % (Auto) 0 % Neutrophils (%) (Auto) 72 42-75 % Lymphocytes (%) (Auto) 15 12-44 % Monocytes (%) (Auto) 8 0-12 % Eosinophils (%) (Auto) 4 0-10 % Basophils (%) (Auto) 0 0-10 % Neutrophils # (Auto) 3.5 1.8-7.8 10^3/uL Lymphocytes # (Auto) 0.7 L 1.0-4.0 10^3/uL Monocytes # (Auto) 0.4 0.0-1.0 10^3/uL Eosinophils # (Auto) 0.2 0.0-0.3 10^3/uL Basophils # (Auto) 0.0 0.0-0.1 10^3/uL Immature Granulocyte # (Auto) 0.0 0.0-0.1 10^3/uL Sodium Level 138 135-145 MMOL/L Potassium Level 3.3 L 3.6-5.0 MMOL/L Chloride Level 96 L 98-107 MMOL/L Carbon Dioxide Level 26 21-32 MMOL/L Anion Gap 16 H 5-14 MMOL/L Blood Urea Nitrogen 20 H 7-18 MG/DL Creatinine 0.74 0.60-1.30 MG/DL Estimat Glomerular Filtration Rate 82 BUN/Creatinine Ratio 27 Glucose Level 117 H 70-105 MG/DL Calcium Level 8.4 L 8.5-10.1 MG/DL Corrected Calcium 9.2 8.5-10.1 MG/DL Phosphorus Level 3.0 2.3-4.7 MG/DL Magnesium Level 2.0 1.6-2.4 MG/DL Total Bilirubin 0.8 0.1-1.0 MG/DL Aspartate Amino Transf (AST/SGOT) 13 5-34 U/L Alanine Aminotransferase (ALT/SGPT) 12 0-55 U/L Alkaline Phosphatase 41 40-136 U/L Total Protein 5.4 L 6.4-8.2 GM/DL Albumin 3.0 L 3.2-4.5 GM/DL Test 11/04/21 10:58 Range/Units Glucometer 161 H 70-110 MG/DL Diagnosis/Problems Diagnosis/Problems (1) Acute heart failure with preserved ejection fraction (HFpEF) Status: Acute Assessment & Plan: She has persistent evidence of pulmonary edema on her chest x-rays and continues to require BiPAP with oxygen. She also has chronic obstructive pulmonary disease with chronic hypoxia on home oxygen which causes chronic dyspnea. Since starting her on the intravenous furosemide infusion on 10/30, she had been diuresing well and her breathing improved at 1 point but has again deteriorated over the past 24-48 hours. Now her blood pressures are on the lower side. I will discontinue the furosemide infusion. I started her on spironolactone on 11/01. (2) Aortic stenosis Status: Acute Assessment & Plan: She has severe, if not critical aortic stenosis noted on her most recent echocardiogram. She was actually supposed to follow-up with me in the office this week to discuss future plans for the aortic stenosis. She told me at the time of admission that she would want to consider definitive treatment of the aortic stenosis if possible. She may be a good candidate for a transcatheter aortic valve insertion (CHARLES) but first we need to get her through this episode of heart failure. However, she is now a DO NOT RESUSCITATE. I suspect we have reached a point with her diuresis that she now has decreased afterload resulting in hypotension and probably decrease cardiac output. As above, I have stopped the intravenous furosemide infusion. Unfortunately, she may have started into the downward spiral that we sometimes see with severe untreated aortic stenosis. I have asked her to speak with her family about long-term goals. If she wants to pursue aggressive therapy, she would need to rescind her DO NOT RESUSCITATE order. If she wants to go that route, then I can contact the advanced heart failure team at [facility] and see if they would be willing to accept her in transfer. I cannot make any guarantees that they would accept her. However, if she would rather be made comfortable, that would also be a perfectly reasonable option. I have asked her to discuss this with her family and I will also try to speak with them later today when they arrive. (3) Non-ST elevation myocardial infarction (NSTEMI) Assessment & Plan: Her troponin level had been climbing but then started coming down. This is in the setting of decompensated heart failure. I suspect this may be a type II non-ST elevation myocardial infarction related to the heart failure. On the other hand, true coronary ischemia is certainly in the differential diagnosis. She received 5 days of therapeutic dose of enoxaparin and I changed this over to prophylactic dosing on 11/02. She should continue aspirin, clopidogrel and statin medication. I do not have her on beta-tom due to her chronic obstructive pulmonary disease on home oxygen. (4) Primary hypertension Assessment & Plan: Blood pressure is reasonably controlled with diltiazem. I also started her on spironolactone for the heart failure with preserved ejection fraction. However, as outlined above, now she seems to be running low blood pressures. We may need to stop the diltiazem or lower the dose. (5) Coronary artery disease with unstable angina pectoris Assessment & Plan: As above. (6) Mixed hyperlipidemia Assessment & Plan: Continue atorvastatin. (7) Mitral regurgitation Assessment & Plan: She also has mild to moderate mitral regurgitation. This should not be causing symptoms but will need to be followed longitudinally. (8) Atherosclerosis of both carotid arteries Assessment & Plan: She has moderate bilateral disease. She has no previously known history of a stroke. Continue aspirin and statin medication. There is no indication for intervention at this time. (9) Acute on chronic respiratory failure with hypoxia and hypercapnia Assessment & Plan: This is most likely multifactorial due to her chronic obstructive pulmonary disease and superimposed heart failure. This is being managed by the primary provider and eICU as well as with my assistance on the heart failure aspect. (10) Chronic kidney disease, stage 3a Assessment & Plan: Her renal function has been stable despite her other acute conditions. (11) Morbid obesity Status: Acute Assessment & Plan: She needs to work on weight loss. DANY MIGUEL JR, MD Nov 04, 2021 08:53
[2021-11-04] MEDS: SPIRONOLACTONE 25 MG (ALDACTONE) TAB PO SCH (10:12)
[2021-11-04] MEDS: dilTIAZem120 MG (CARDIZEM CD) CAP PO SCH (10:13)
[2021-11-04] MEDS: CLOPIDOGREL 75 MG (PLAVIX) TABLET PO SCH (10:13)
[2021-11-04] MEDS: GABAPENTIN 100 MG (NEURONTIN) CAP PO SCH ×2 (10:13→20:17)
[2021-11-04] MEDS: clonazePAM 0.5 MG (KlonoPIN) TAB PO SCH ×2 (10:13→20:17)
[2021-11-04] MEDS: ASPIRIN E.C. 81 MG (ECOTRIN) TAB PO SCH (10:13)
[2021-11-04] MEDS: ENOXAPARIN 40 MG/0.4 ML (LOVENOX) SYR SC SCH ×2 (10:14→20:18)
[2021-11-04] MEDS: PANTOPRAZOLE 40 MG (PROTONIX) TAB PO SCH (10:14)
--- NOTE | 2021-11-04 14:40 | Tele-ICU Progress Note ---
Subjective Date Seen by a Provider: Nov 04, 2021 Time Seen by a Provider: 08:22 Subjective/Events-last exam (Tele-ICU Physician , Progress Note ) Available chart/ vitals / labs / Images reviewed Video assessment done using teleICU camera, rest of exam as per RN Discussed with RN , EXAM PER RN Events overnight : Afebrile FiO2 - requiring Vapotherm/BiPAP I/O = neg Drips: lasix Pressors: , hemodynamically stable Consultants: Hospital course: (10/29) 81/F- Hypoxia, cough, malaise, pna, Bipap, hypercapnea. 10/30- VT /2- lasix gtt 11/02 - VT 35L 65 % , lasix gtt , precedex 11/03 -attempted VT 35L 65 % - was TOO ANXIOUSand tachycardic - placed back on precedex ( STARTED ON KLONOPIN A/P Acurte resp failure - most likely CHF by CXR and clinical presentation - less likely PNA - BIPAP 16/8 35% rr 20 tv 500 - on 11/03 -attempted VT 35L 65 % - was TOO ANXIOUSand tachycardic - placed back on precedex ( STARTED ON KLONOPIN - on lasix gtt CHF ( + CP ? , SEVERE - ECHO 10/23/21- severe . EF 60% - cards consult - CP as per cardiology w/up - cont lasix gtt - i/o reported even - ? PO fluids 2.2 L - will discuss with RN Elevated D dimer - lovenox full dose to starte - US LE -no DVT bilat 10/29 - attempted CT ID - UTI with E coli - empiricly started on Z max and cefteriaxone - 10/31 to MERRREM by sensitifity - follow COPD - cont nebs , off steroids - follow Elev lactate on presentation - due to hypoxia , not sepsis - stop IVF DM Hyperglycemia - ISS Anxiety = precedex Lines : PICC 11/02 (Central Line Necessity Reviewed) Deluna: + OG: Nutrition: po . minimal Analgesia: Anxiety/ delirium VTE Prophylaxis: denis full dose Stress Ulcer Prophylaxis: PPI Plans in collaboration with bedside consultants and IM MDs. Discussed with RN to reach out if any questions or concerns A total of 33 minutes of critical care time was devoted to this patient today, required to treat and/or prevent further deterioration of critical care condi tion ( as above) . Sepsis Event Evaluation Height, Weight, BMI Height: 5'4.00" Weight: 243lbs. 0.0oz. [id number]; 49.66 BMI Method:Stated Focused Exam Time of Focused Exam: 23:00 Exam Exam Patient acknowledged, consented, and participated in this virtual visit which was conducted using real time audio/video Vital Signs Date Time Temp Pulse Resp B/P (MAP) Pulse Ox O2 Delivery O2 Flow Rate FiO2 11/04/21 12:54 88 11/04/21 12:09 90 11/04/21 12:00 NIV Bilevel 35 11/04/21 12:00 87 25 94/55 100 NIV Bilevel 50.00 11/04/21 11:00 94 22 88/61 100 NIV Bilevel 50.00 11/04/21 10:00 86 19 103/59 99 NIV Bilevel 50.00 11/04/21 09:45 83 20 96 30.00 11/04/21 09:00 95 25 98/69 96 NIV Bilevel 50.00 11/04/21 08:00 NIV Bilevel 35 11/04/21 08:00 86 23 96/50 96 NIV Bilevel 50.00 11/04/21 08:00 37.1 11/04/21 07:10 88 20 96 35.00 11/04/21 07:00 82 16 104/62 95 NIV Bilevel 50.00 11/04/21 07:00 91 11/04/21 06:00 92 23 95/45 96 NIV Bilevel 50.00 11/04/21 05:45 90 26 103/52 96 11/04/21 05:30 87 19 96/45 97 11/04/21 05:15 91 24 111/56 95 11/04/21 05:00 99 25 89/45 94 NIV Bilevel 50.00 11/04/21 04:45 96 22 101/53 96 11/04/21 04:30 98 26 106/59 93 11/04/21 04:15 92 18 101/52 96 11/04/21 04:00 97 20 91/56 95 NIV Bilevel 50.00 11/04/21 04:00 NIV Bilevel 35 11/04/21 04:00 36.0 11/04/21 03:45 87 37 99/55 96 11/04/21 03:30 95 24 111/54 94 11/04/21 03:15 85 39 104/55 95 11/04/21 03:00 81 22 91/41 96 NIV Bilevel 50.00 11/04/21 02:45 82 18 88/41 95 11/04/21 02:30 81 19 86/42 96 11/04/21 02:15 83 25 101/52 96 11/04/21 02:00 84 19 92/44 95 NIV Bilevel 50.00 11/04/21 01:45 88 26 106/50 95 11/04/21 01:44 87 20 95 35.00 11/04/21 01:30 83 18 91/42 97 11/04/21 01:15 89 37 103/43 97 11/04/21 01:00 90 11/04/21 01:00 90 35 101/49 96 NIV Bilevel 50.00 11/04/21 00:45 88 39 105/47 97 11/04/21 00:30 86 26 94/46 97 11/04/21 00:15 90 23 98/50 96 11/04/21 00:02 86 17 95/54 96 NIV Bilevel 50.00 11/04/21 00:00 NIV Bilevel 35 11/04/21 00:00 36.2 11/04/21 00:00 93 31 86/45 97 11/03/21 23:45 91 19 96/52 98 11/03/21 23:30 90 34 105/52 97 11/03/21 23:15 93 35 96/49 94 11/03/21 23:00 97 20 100/51 92 NIV Bilevel 50.00 11/03/21 22:45 103 26 87/53 94 11/03/21 22:30 97 99/56 93 11/03/21 22:24 99 24 100/49 97 11/03/21 22:15 103 17 86/54 97 11/03/21 22:00 100 30 96/49 97 NIV Bilevel 50.00 11/03/21 21:45 94 29 96 11/03/21 21:30 105 26 112/49 93 11/03/21 21:15 102 18 107/45 98 11/03/21 21:09 102 26 96 35.00 11/03/21 21:00 105 29 112/61 96 NIV Bilevel 50.00 11/03/21 20:57 106 117/65 11/03/21 20:45 105 28 117/65 94 11/03/21 20:41 111 32 128/53 88 11/03/21 20:30 108 16 111/50 90 11/03/21 20:15 104 30 107/59 94 11/03/21 20:00 104 25 105/65 91 NIV Bilevel 50.00 11/03/21 20:00 NIV Bilevel 35 11/03/21 19:45 103 14 113/76 89 11/03/21 19:30 101 24 121/75 91 11/03/21 19:27 36.0 11/03/21 19:15 103 22 120/72 89 11/03/21 19:00 105 25 115/60 87 NIV Bilevel 50.00 11/03/21 19:00 105 11/03/21 18:45 104 29 110/79 90 11/03/21 18:30 98 29 122/35 98 11/03/21 18:24 103 31 97 50.00 11/03/21 18:15 95 20 114/60 98 11/03/21 18:00 96 21 114/65 96 NIV Bilevel 50.00 11/03/21 17:45 89 29 109/62 98 11/03/21 17:30 101 57 95/58 100 11/03/21 17:15 93 16 109/57 98 11/03/21 17:00 96 27 125/70 98 NIV Bilevel 50.00 11/03/21 16:45 96 15 108/58 97 11/03/21 16:30 101 31 107/73 98 11/03/21 16:30 101 31 107/73 98 NIV Bilevel 50.00 11/03/21 16:15 105 17 111/75 99 11/03/21 16:00 NIV Bilevel 30 11/03/21 16:00 36.3 11/03/21 16:00 110 36 130/71 96 NIV Bilevel 50.00 11/03/21 15:45 NIV Bilevel 50.00 11/03/21 15:45 118 45 134/89 97 11/03/21 15:30 116 37 127/81 98 11/03/21 15:15 112 37 120/64 97 11/03/21 15:00 113 23 125/112 97 Vapotherm 35.00 90.00 11/03/21 14:45 112 49 97/63 98 I & O 11/04/21 07:00 Intake Total 2150 ml Output Total 2525 ml Balance -375 ml Height & Weight Height: 5'4.00" Weight: 243lbs. 0.0oz. [id number]; 49.66 BMI Method:Stated General Appearance: WD/WN, Mild Distress, Obese HEENT: PERRL/EOMI, Other (on BIPAP) Neck: Supple Respiratory: Decreased Breath Sounds, Wheezing Cardiovascular: Regular Rate, Rhythm, Systolic Murmur Gastrointestinal: normal bowel sounds, non tender, soft, other (OBESE) Extremity: Normal Inspection, No Pedal Edema Neurologic/Psychiatric: Alert, Oriented x3, No Motor/Sensory Deficits, Normal Mood/Affect Skin: Normal Color, Warm/Dry Results Lab Laboratory Tests 11/03/21 04:31 11/04/21 04:20 Assessment/Plan Assessment/Plan ` TAMI COLLADO MD Nov 04, 2021 14:40
[2021-11-04] MEDS: guaiFENesin/DM (ROBITUSSIN DM) 10 ML UDC PO PRN (15:25)
[2021-11-04] MEDS: HYDROcodone/APAP 5 MG/325 MG (LORTAB) TAB PO PRN (18:25)
[2021-11-04] MEDS: FLUoxetine HCL 20 MG (PROzac) CAP PO SCH (20:17)
[2021-11-04] MEDS: AtorvaSTATin TABLET 10 MG TABLET PO SCH (20:17)
[2021-11-05] MEDS: VASOPRESSIN INJECTION 20 UNIT in NS (IVPB) 100 ML IV SCH (01:23)
[2021-11-05] MEDS: RT-ALBUTEROL/IPRATROPIUM 3 ML (DUONEB) VIAL INH SCH ×3 (02:02→10:28)
[2021-11-05] MEDS: MEROPENEM 500 MG in NS (IVPB) 100 ML IV SCH ×2 (02:28→09:25)
[2021-11-05 03:08] LABS: BASOPHILS % (AUTO) 0 % (0-10); EOSINOPHILS # (AUTO) 0.1 10^3/uL (0.0-0.3); EOSINOPHILS % (AUTO) 2 % (0-10); HEMATOCRIT 25 % (35-52); HEMOGLOBIN 7.8 g/dL (11.5-16.0); LYMPHOCYTES # (AUTO) 0.7 10^3/uL (1.0-4.0); LYMPHOCYTES % (AUTO) 14 % (12-44); MEAN CORPUSCULAR HEMOGLOBIN 28 pg (25-34); MEAN CORPUSCULAR HGB CONC 31 g/dL (32-36); MEAN CORPUSCULAR VOLUME 90 fL (80-99); MEAN PLATELET VOLUME 10.4 fL (9.0-12.2); MONOCYTES # (AUTO) 0.4 10^3/uL (0.0-1.0); MONOCYTES % (AUTO) 9 % (0-12); NEUTROPHILS # (AUTO) 3.4 10^3/uL (1.8-7.8); NEUTROPHILS % (AUTO) 74 % (42-75); PLATELET COUNT 153 10^3/uL (130-400); WHITE BLOOD COUNT 4.6 10^3/uL (4.3-11.0)
[2021-11-05 03:18] LABS: ALBUMIN 2.9 GM/DL (3.2-4.5); POTASSIUM 3.7 MMOL/L (3.6-5.0)
[2021-11-05 03:19] LABS: CALCIUM 8.4 MG/DL (8.5-10.1)
[2021-11-05 03:20] LABS: TOTAL PROTEIN 5.2 GM/DL (6.4-8.2)
[2021-11-05 03:22] LABS: BILIRUBIN,TOTAL 0.7 MG/DL (0.1-1.0)
[2021-11-05 03:23] LABS: PHOSPHORUS 2.8 MG/DL (2.3-4.7)
[2021-11-05 03:24] LABS: CREATININE SERUM 0.79 MG/DL (0.60-1.30)
[2021-11-05 03:27] LABS: MAGNESIUM 1.9 MG/DL (1.6-2.4)
[2021-11-05] MEDS: DexMEDEtomidine 250 ML DRIP 250 ML IV SCH (04:59)
[2021-11-05] MEDS: KCL 20 MEQ TAB (K-DUR) PO SCH (05:24)
[2021-11-05] MEDS: POTASSIUM CL 10MEQ/50ML IVPB 50 ML IV SCH (05:24)
[2021-11-05] MEDS: MAGNESIUM 1 GM/100 ML IVPB 100 ML IV SCH (05:24)
[2021-11-05] MEDS: inSUlin ASPART (NovoLOG) 1 UNIT/0.01 ML (CHARGE PER UNIT) SC SCH ×2 (05:26→11:33)
[2021-11-05] MEDS: NOREPINEPHRINE 8 MG/250 ML 250 ML IV SCH (05:26)
[2021-11-05 07:28] VITALS: BP 91/55
--- NOTE | 2021-11-05 08:52 | Progress Note ---
Subjective Subjective Date Seen by Provider: Nov 05, 2021 Time Seen by Provider: 08:20 PT REPORTS FATIGUE, SHORTNESS OF BREATH, ABDOMINAL PAIN IN HER SIDES WHEN SHE IS COUGHING. PT'S DTR IS AT BEDSIDE (SHAQUILLE) - AND SHE REPORTS THAT THEY WANT TO RESCIND HER MOM'S DNR/DNI STATUS AND HAVE HER TRANSFERRED UP TO OR [facility] FOR VALVE REPLACEMENT. THEY WANT TO PURSUE ALL TREATMENT OPTIONS THAT MAY BE AVAILABLE, AND THEY ARE WANTING MORE AGGRESSIVE INTERVENTIONS IF NEEDED. TREVOR IS IN AGREEMENT WITH HER FAMILY AT THIS TIME. IF NOTHING CAN BE DONE, SHAQUILLE WOULD LIKE TO BRING HER MOM HOME AND CARE FOR HER THERE, BUT TREVOR STATES THAT SHE DOES NOT THINK THAT SHAQUILLE CAN CARE FOR HER AT HOME AND WOULD LIKE TO CONSIDER THE ALF IF AND [facility] CARDIAC TEAMS DO NOT FEEL THAT THEY CAN INTERVENE IN HER CARDIOVASCULAR HEALTH TO MAKE HER BETTER. Review of Systems General: Fatigue, Malaise, Appetite (DECREASED) HEENT: Other (dry mouth) Pulmonary: Dyspnea, Cough Cardiovascular: Edema, Lt Headedness; No: Chest Pain Gastrointestinal: Abdominal Pain (ON THE SIDES); No: Nausea, Vomiting Genitourinary: Other (wall in place) Musculoskeletal: back pain, leg pain Neurological: Weakness; No: Confusion All Other Systems Reviewed All Other Systems Reviewed: Yes Objective Exam Vital Signs Vital Signs Date Time Temp Pulse Resp B/P (MAP) Pulse Ox O2 Delivery O2 Flow Rate FiO2 11/05/21 06:00 83 20 102/60 98 NIV Bilevel 30.00 11/05/21 05:00 83 20 100/59 97 NIV Bilevel 30.00 11/05/21 04:59 86 102/64 11/05/21 04:00 84 23 96/55 98 NIV Bilevel 30.00 11/05/21 04:00 NIV Bilevel 30 11/05/21 04:00 36.6 NIV Bilevel 30.00 11/05/21 03:00 87 16 121/79 95 NIV Bilevel 30.00 11/05/21 02:02 82 19 96 30.00 11/05/21 02:00 82 20 101/60 96 NIV Bilevel 30.00 11/05/21 01:00 82 20 92/56 95 NIV Bilevel 30.00 11/05/21 01:00 82 11/05/21 00:00 36.2 NIV Bilevel 30.00 11/05/21 00:00 96 19 114/90 90 NIV Bilevel 30.00 11/04/21 23:59 NIV Bilevel 30 11/04/21 23:00 88 18 106/67 95 NIV Bilevel 30.00 11/04/21 22:15 94 23 94 30.00 11/04/21 22:00 83 19 110/70 96 NIV Bilevel 30.00 11/04/21 21:00 87 19 88/57 95 NIV Bilevel 35.00 11/04/21 20:00 NIV Bilevel 35 11/04/21 20:00 92 22 106/77 95 NIV Bilevel 35.00 11/04/21 19:39 35.7 11/04/21 19:00 90 21 117/69 97 NIV Bilevel 35.00 11/04/21 19:00 90 11/04/21 18:38 96 36 94 30.00 11/04/21 18:00 105 29 151/79 96 NIV Bilevel 50.00 11/04/21 17:00 107 24 122/81 91 NIV Bilevel 50.00 11/04/21 16:00 NIV Bilevel 35 11/04/21 16:00 96 23 104/56 99 NIV Bilevel 50.00 11/04/21 15:40 36.3 11/04/21 15:00 92 23 103/82 100 NIV Bilevel 50.00 11/04/21 14:57 100 Vapotherm 35.00 100 11/04/21 14:00 96 31 95/63 100 NIV Bilevel 50.00 11/04/21 13:00 89 19 98/65 100 NIV Bilevel 50.00 11/04/21 12:54 88 11/04/21 12:09 90 11/04/21 12:00 NIV Bilevel 35 11/04/21 12:00 87 25 94/55 100 NIV Bilevel 50.00 11/04/21 11:00 94 22 88/61 100 NIV Bilevel 50.00 11/04/21 10:00 86 19 103/59 99 NIV Bilevel 50.00 11/04/21 09:45 83 20 96 30.00 11/04/21 09:00 95 25 98/69 96 NIV Bilevel 50.00 I & O 11/05/21 07:00 Intake Total 2825 ml Output Total 1125 ml Balance 1700 ml General Appearance: WD/WN, Mild Distress, Obese HEENT: PERRL/EOMI, Other (on BIPAP) Respiratory: Decreased Breath Sounds (ON BIPAP, APPEARS COMFORTABLE EXCEPT WHEN COUGHING) Cardiovascular: Regular Rate, Rhythm, Systolic Murmur (DIFFICULT TO AUSCULTATE DUE TO BIPAP NOISE) Gastrointestinal: Normal Bowel Sounds, Non Tender, Soft Extremity: No Pedal Edema (RESOLVED) Neurologic/Psychiatric: Alert, Oriented x3, No Motor/Sensory Deficits, Normal Mood/Affect Skin: Normal Color, Warm/Dry, Other (SKIN ON FEET WRINKLED/DRY) Results Lab Laboratory Tests 11/04/21 10:58: Glucometer 161H 11/04/21 15:45: Glucometer 153H 11/05/21 03:02: White Blood Count 4.6, Red Blood Count 2.76L, Hemoglobin 7.8L, Hematocrit 25L, Mean Corpuscular Volume 90, Mean Corpuscular Hemoglobin 28, Mean Corpuscular Hemoglobin Concent 31L, Red Cell Distribution Width 12.9, Platelet Count 153, Mean Platelet Volume 10.4, Immature Granulocyte % (Auto) 1, Neutrophils (%) (Auto) 74, Lymphocytes (%) (Auto) 14, Monocytes (%) (Auto) 9, Eosinophils (%) (Auto) 2, Basophils (%) (Auto) 0, Neutrophils # (Auto) 3.4, Lymphocytes # (Auto) 0.7L, Monocytes # (Auto) 0.4, Eosinophils # (Auto) 0.1, Basophils # (Auto) 0.0, Immature Granulocyte # (Auto) 0.0, Sodium Level 132L, Potassium Level 3.7, Chloride Level 93L, Carbon Dioxide Level 25, Anion Gap 14, Blood Urea Nitrogen 20H, Creatinine 0.79, Estimat Glomerular Filtration Rate 76, BUN/Creatinine Ratio 25, Glucose Level 144H, Calcium Level 8.4L, Corrected Calcium 9.3, Phosphorus Level 2.8, Magnesium Level 1.9, Total Bilirubin 0.7, Aspartate Amino Transf (AST/SGOT) 15, Alanine Aminotransferase (ALT/SGPT) 13, Alkaline Phosphatase 40, Total Protein 5.2L, Albumin 2.9L Microbiology 10/29/21 MRSA Screen - Final, Complete MRSA not isolated 10/28/21 Urine Culture - Final, Complete Escherichia coli Assessment/Plan Assessment/Plan Admission Dx RESPIRATORY FAILURE PULMONARY EDEMA SEVERE AORTIC STENOSIS CHRONIC HYPERTENSION CHRONIC CORONARY ARTERY DISEASE NSTEMI LEUKOCYTOSIS ANEMIA OBESITY DEPRESSION ANXIETY PERIPHERAL NEUROPATHY Assessment and Plan RESPIRATORY FAILURE PULMONARY EDEMA SEVERE AORTIC STENOSIS CHRONIC HYPERTENSION CHRONIC CORONARY ARTERY DISEASE ECOLI URINARY TRACT INFECTION NSTEMI LEUKOCYTOSIS ANEMIA OBESITY DEPRESSION ANXIETY PERIPHERAL NEUROPATHY RESPIRATORY FAILURE WITH PNEUMONIA - pt on bipap, continue with current management, EICU involved in pt care, managing BIPAP and weaning. - pt on Rocephin and Azithromycin INITIALLY - CHANGED TO MEROPENEM ON 10/31/21 - breathing treatments per protocol. PULMONARY EDEMA - improving - continue with lasix iv drip ECOLI UTI - SENSITIVE TO MEROPENEM SEVERE AORTIC STENOSIS - discussed with pt and her DTRS (Maya SCHWARTZ) - pt will need arrangement for aortic valve replacement when she is stable. CHRONIC HYPERTENSION - monitor pressure, supportive care at this time. CHRONIC CORONARY ARTERY DISEASE with NSTEMI due to respiratory distress - defer to Dr. Hogan - - [facility] HAS REQUESTED RECORDS AND THEY ARE REVIEWING HER INFORMATION TO DETERMINE IF SHE QUALIFIES FOR TRANSFER TO 'S HEART FAILURE TEAM. LEUKOCYTOSIS -RESOLVED ANEMIA - HGB DROPPED TO 7.8 TODAY - WILL GIVE A UNIT OF BLOOD TODAY. OBESITY DEPRESSION and ANXIETY - resumed some of home regimen PERIPHERAL NEUROPATHY - resumed Neurontin DVT prophylaxis with lovenox and scd's GI prophylaxis with ppi iv, Admission Dx RESPIRATORY FAILURE PULMONARY EDEMA SEVERE AORTIC STENOSIS CHRONIC HYPERTENSION CHRONIC CORONARY ARTERY DISEASE NSTEMI LEUKOCYTOSIS ANEMIA OBESITY DEPRESSION ANXIETY PERIPHERAL NEUROPATHY Clinical Quality Measures Admission Status Admission Dx RESPIRATORY FAILURE PULMONARY EDEMA SEVERE AORTIC STENOSIS CHRONIC HYPERTENSION CHRONIC CORONARY ARTERY DISEASE NSTEMI LEUKOCYTOSIS ANEMIA OBESITY DEPRESSION ANXIETY PERIPHERAL NEUROPATHY AVIS ALY MD Nov 05, 2021 08:52
--- NOTE | 2021-11-05 08:54 | Cardiology Progress Note ---
Progress Note-Cardiology Events since last exam Date Seen by Provider: Nov 05, 2021 Time Seen by Provider: 08:52 Events since last exam I am following her due to acute heart failure with preserved ejection fraction in the setting of severe aortic stenosis and acute non-ST elevation myocardial infarction. She remains in the intensive care unit on BiPAP. On 11/04 I discontinued the furosemide infusion due to persistent hypotension. She had been on the furosemide infusion for about 4 days and was diuresing well. Fortunately, she has not required vasopressors. When her BiPAP is removed for her to take oral medication or try to eat, she gets anxious and fairly short of breath. This will cause her to have tightness in the center of her chest. She denies palpitations or syncope. She has mild pretibial edema. I again had a discussion with the patient and one of her daughters and they wish to proceed w ith aggressive treatment options. The patient agrees to rescind her DNR order if she were to need any invasive procedures. Certain portions of this document may have been dictated utilizing voice r ecognition technology. Inherent to this technology, typographical and grammatical errors may exist. As much as I am diligent to identify and correct these mistakes, some errors may remain in the document. Vitals Last set of Vitals Signs Vital Signs 11/05/21 11/05/21 10:28 12:00 Temp 35.4 Pulse 106 Resp 18 B/P (MAP) 109/90 Pulse Ox 88 O2 Delivery Vapotherm O2 Flow Rate 35.00 90.00 FiO2 90 Labs Labs Laboratory Tests 11/05/21 03:02 Exam Vital Signs Vital Signs Date Time Temp Pulse Resp B/P (MAP) Pulse Ox O2 Delivery O2 Flow Rate FiO2 11/05/21 12:00 106 18 109/90 88 Vapotherm 35.00 90.00 11/05/21 12:00 35.4 11/05/21 10:28 90 Physical Exam General: Alert. She is on BiPAP. She is morbidly obese. Eye: No xanthelasma. HENT: Normocephalic. Neck: Jugular venous pressure does not appear elevated. Respiratory: Lungs are clear to auscultation. Respirations are non-labored. Breath sounds are equal. Symmetrical chest wall expansion. Cardiovascular: Normal rate. Regular rhythm. Distant S1/S2. 3/6 high-pitched systolic ejection murmur. No gallop. 1+ bilateral pretibial edema. Gastrointestinal: Soft. Normal bowel sounds. Skin: Warm. Dry. Neurologic: Alert and oriented to person, place, time. Cranial nerves 3-11 grossly intact. Psychiatric: Cooperative. Appropriate mood & affect. Labs Laboratory Tests Test 11/04/21 15:45 11/05/21 03:02 11/05/21 10:48 Range/Units Glucometer 153 H 158 H 70-110 MG/DL White Blood Count 4.6 4.3-11.0 10^3/uL Red Blood Count 2.76 L 3.80-5.11 10^6/uL Hemoglobin 7.8 L 11.5-16.0 g/dL Hematocrit 25 L 35-52 % Mean Corpuscular Volume 90 80-99 fL Mean Corpuscular Hemoglobin 28 25-34 pg Mean Corpuscular Hemoglobin Concent 31 L 32-36 g/dL Red Cell Distribution Width 12.9 10.0-14.5 % Platelet Count 153 130-400 10^3/uL Mean Platelet Volume 10.4 9.0-12.2 fL Immature Granulocyte % (Auto) 1 % Neutrophils (%) (Auto) 74 42-75 % Lymphocytes (%) (Auto) 14 12-44 % Monocytes (%) (Auto) 9 0-12 % Eosinophils (%) (Auto) 2 0-10 % Basophils (%) (Auto) 0 0-10 % Neutrophils # (Auto) 3.4 1.8-7.8 10^3/uL Lymphocytes # (Auto) 0.7 L 1.0-4.0 10^3/uL Monocytes # (Auto) 0.4 0.0-1.0 10^3/uL Eosinophils # (Auto) 0.1 0.0-0.3 10^3/uL Basophils # (Auto) 0.0 0.0-0.1 10^3/uL Immature Granulocyte # (Auto) 0.0 0.0-0.1 10^3/uL Sodium Level 132 L 135-145 MMOL/L Potassium Level 3.7 3.6-5.0 MMOL/L Chloride Level 93 L 98-107 MMOL/L Carbon Dioxide Level 25 21-32 MMOL/L Anion Gap 14 5-14 MMOL/L Blood Urea Nitrogen 20 H 7-18 MG/DL Creatinine 0.79 0.60-1.30 MG/DL Estimat Glomerular Filtration Rate 76 BUN/Creatinine Ratio 25 Glucose Level 144 H 70-105 MG/DL Calcium Level 8.4 L 8.5-10.1 MG/DL Corrected Calcium 9.3 8.5-10.1 MG/DL Phosphorus Level 2.8 2.3-4.7 MG/DL Magnesium Level 1.9 1.6-2.4 MG/DL Total Bilirubin 0.7 0.1-1.0 MG/DL Aspartate Amino Transf (AST/SGOT) 15 5-34 U/L Alanine Aminotransferase (ALT/SGPT) 13 0-55 U/L Alkaline Phosphatase 40 40-136 U/L Total Protein 5.2 L 6.4-8.2 GM/DL Albumin 2.9 L 3.2-4.5 GM/DL Diagnosis/Problems Diagnosis/Problems (1) Acute heart failure with preserved ejection fraction (HFpEF) Status: Acute Assessment & Plan: She has persistent evidence of pulmonary edema on her chest x-rays and continues to require BiPAP with oxygen. She also has chronic obstructive pulmonary disease with chronic hypoxia on home oxygen which causes chronic dyspnea. Since starting her on the intravenous furosemide infusion on 10/30, she had been diuresing well and her breathing improved at 1 point but has again deteriorated over the past 24-48 hours. Her blood pressures remain on the low side even after discontinuing the furosemide infusion. I started her on spironolactone on 11/01. At this point, I believe she needs a right heart catheterization to measure hemodynamics to determine whether or not she is still volume overloaded or could be volume depleted. I recommend transfer to [facility] to the advanced heart failure team. I have spoken to the on-call attending and a have accepted the patient in transfer. (2) Aortic stenosis Status: Acute Assessment & Plan: She has severe, if not critical aortic stenosis noted on her most recent echocardiogram. She was actually supposed to follow-up with me in the office this week to discuss future plans for the aortic stenosis. She told me at the time of admission that she would want to consider definitive treatment of the aortic stenosis if possible. She may be a good candidate for a transcatheter aortic valve insertion (CHARLES) but first we need to get her through this episode of heart failure. She has agreed to rescind her DO NOT RESUSCITATE order in the event that she needs any invasive procedures. I did explain to her that the goals of transfer to [facility] is to hopefully get her out of heart failure. Then we can consider additional testing to determine whether or not she would be a candidate for a CHARLES. I explained to her and her family that it would be likely she would be discharged home before she would be considered for a CHARLES. However, this will be up to the discretion of cardiothoracic surgery and interventional cardiology at the outside hospital (3) Non-ST elevation myocardial infarction (NSTEMI) Assessment & Plan: Her troponin level had been climbing but then started coming down. This is in the setting of decompensated heart failure. I suspect this may be a type II non-ST elevation myocardial infarction related to the heart failure. On the other hand, true coronary ischemia is certainly in the differential diagnosis. She received 5 days of therapeutic dose of enoxaparin and I changed this over to prophylactic dosing on 11/02. She should continue aspirin, clopidogrel and statin medication. I do not have her on beta-tom due to her chronic obstructive pulmonary disease on home oxygen. She will ultimately need a cardiac catheterization if she reaches a point where she would be a candidate for a CHARLES. I did not perform a cardiac catheterization here because she remained in heart failure and was concerned about her instability and increased risk of a cardiac catheterization especially in the setting of severe aortic stenosis and fulminant heart failure (4) Primary hypertension Assessment & Plan: Blood pressure has been running on the low side. I will stop her diltiazem. (5) Coronary artery disease with unstable angina pectoris Assessment & Plan: As above. (6) Mixed hyperlipidemia Assessment & Plan: Continue atorvastatin. (7) Mitral regurgitation Assessment & Plan: She also has mild to moderate mitral regurgitation. This should not be causing symptoms but will need to be followed longitudinally. (8) Atherosclerosis of both carotid arteries Assessment & Plan: She has moderate bilateral disease. She has no previously known history of a stroke. Continue aspirin and statin medication. There is no indication for intervention at this time. (9) Acute on chronic respiratory failure with hypoxia and hypercapnia Assessment & Plan: This is most likely multifactorial due to her chronic obstructive pulmonary disease and superimposed heart failure. This is being managed by the primary provider and eICU as well as with my assistance on the heart failure aspect. (10) Chronic kidney disease, stage 3a Assessment & Plan: Her renal function has been stable despite her other acute conditions. (11) Morbid obesity Status: Acute Assessment & Plan: She needs to work on weight loss. DANY MIGUEL JR, MD Nov 05, 2021 08:54
--- NOTE | 2021-11-05 08:57 | Discharge Summary ---
Diagnosis/Chief Complaint Date of Admission Oct 28, 2021 at 23:35 Date of Discharge 11/05/21 Discharge Date: Nov 05, 2021 Admission Diagnosis Admission Diagnosis RESPIRATORY FAILURE PULMONARY EDEMA SEVERE AORTIC STENOSIS CHRONIC HYPERTENSION CHRONIC CORONARY ARTERY DISEASE ECOLI URINARY TRACT INFECTION NSTEMI LEUKOCYTOSIS ANEMIA OBESITY DEPRESSION ANXIETY PERIPHERAL NEUROPATHY Discharge Diagnosis RESPIRATORY FAILURE PULMONARY EDEMA SEVERE AORTIC STENOSIS CHRONIC HYPERTENSION CHRONIC CORONARY ARTERY DISEASE ECOLI URINARY TRACT INFECTION NSTEMI LEUKOCYTOSIS ANEMIA OBESITY DEPRESSION ANXIETY PERIPHERAL NEUROPATHY Reason Hospital Visit This is an 81 year old female patient of Dr. Rodriguez who resides at [facility]. She states she has been having worsening edema to her lower legs and worsening shortness of air the past 2 months. She became more short of air with intermittent chest pain the last few days and this worsened overnight so she was brought to the emergency room. She was found to be in acute respiratory failure and was placed on BiPAP. The respiratory failure appeared to be from worsening congestive heart failure. She has a history of CAD with a previous stent placement and her troponin-I was elevated on admission. She has been given IV lasix and will be admitted to the ICU on BIPAP with cardiology consultation. Discharge Summary Consultations DR. HOGAN Discharge Physical Examination Allergies: Uncoded Allergies: HAYFEVER (Allergy, Unknown, 08/17/16) Vitals & I&Os Vital Signs Date Time Temp Pulse Resp B/P (MAP) Pulse Ox O2 Delivery O2 Flow Rate FiO2 11/05/21 06:00 83 20 102/60 98 NIV Bilevel 30.00 11/05/21 04:00 30 11/05/21 04:00 36.6 General Appearance: Alert, Oriented X3, Cooperative, Mild Distress (DUE TO RESPIRATORY DISTRESS AT TIMES, WORSE WITH COUGHING, CONVERSATION) HEENT: Atraumatic Respiratory: Other (DIFFICULT TO AUSCULTATE BREATH SOUNDS DUE TO BIPAP, DECREASED THROUGHOUT) Cardiovascular: Regular Rate Abdominal: Normal Bowel Sounds, Soft Extremities: No Clubbing, Other (EDEMA RESOLVED) Skin: No Rashes Neuro: Normal Speech Psych/Mental Status: Mental Status NL, Mood NL Hospital Course Was the Problem List Reviewed?: Yes RESPIRATORY FAILURE PULMONARY EDEMA SEVERE AORTIC STENOSIS CHRONIC HYPERTENSION CHRONIC CORONARY ARTERY DISEASE ECOLI URINARY TRACT INFECTION NSTEMI LEUKOCYTOSIS ANEMIA OBESITY DEPRESSION ANXIETY PERIPHERAL NEUROPATHY RESPIRATORY FAILURE WITH PNEUMONIA - pt on bipap, continue with current management, EICU involved in pt care, managing BIPAP and weaning. - pt on Rocephin and Azithromycin INITIALLY - CHANGED TO MEROPENEM ON 10/31/21 - breathing treatments per protocol. PULMONARY EDEMA - improving - continue with lasix iv drip ECOLI UTI - SENSITIVE TO MEROPENEM SEVERE AORTIC STENOSIS - discussed with pt and her DTRS (Maya SCHWARTZ) - pt will need arrangement for aortic valve replacement when she is stable. CHRONIC HYPERTENSION - monitor pressure, supportive care at this time. CHRONIC CORONARY ARTERY DISEASE with NSTEMI due to respiratory distress - defer to Dr. Hogan - - HAS REQUESTED RECORDS AND THEY ARE REVIEWING HER INFORMATION TO DETERMINE IF SHE QUALIFIES FOR TRANSFER TO 'S HEART FAILURE TEAM. LEUKOCYTOSIS -RESOLVED ANEMIA - HGB DROPPED TO 7.8 TODAY - WILL GIVE A UNIT OF BLOOD TODAY. OBESITY DEPRESSION and ANXIETY - resumed some of home regimen PERIPHERAL NEUROPATHY - resumed Neurontin DVT prophylaxis with lovenox and scd's GI prophylaxis with ppi iv, PLANNING [facility] TRANSFER WHEN/IF THEY ACCEPT THE PT IN TRANSFER TO THE HEART TEAM Pending Labs Laboratory Tests 11/05/21 03:02: White Blood Count 4.6, Red Blood Count 2.76, Hemoglobin 7.8, Hematocrit 25, Mean Corpuscular Volume 90, Mean Corpuscular Hemoglobin 28, Mean Corpuscular He moglobin Concent 31, Red Cell Distribution Width 12.9, Platelet Count 153, Mean Platelet Volume 10.4, Immature Granulocyte % (Auto) 1, Neutrophils (%) (Auto) 74, Lymphocytes (%) (Auto) 14, Monocytes (%) (Auto) 9, Eosinophils (%) (Auto) 2, Basophils (%) (Auto) 0, Neutrophils # (Auto) 3.4, Lymphocytes # (Auto) 0.7, Monocytes # (Auto) 0.4, Eosinophils # (Auto) 0.1, Basophils # (Auto) 0.0, Immature Granulocyte # (Auto) 0.0, Sodium Level 132, Potassium Level 3.7, Chloride Level 93, Carbon Dioxide Level 25, Anion Gap 14, Blood Urea Nitrogen 20, Creatinine 0.79, Estimat Glomerular Filtration Rate 76, BUN/Creatinine Ratio 25, Glucose Level 144, Calcium Level 8.4, Corrected Calcium 9.3, Phosphorus Level 2.8, Magnesium Level 1.9, Total Bilirubin 0.7, Aspartate Amino Transf (AST/SGOT) 15, Alanine Aminotransferase (ALT/SGPT) 13, Alkaline Phosphatase 40, Total Protein 5.2, Albumin 2.9 Discharge Condition at discharge IMPROVED Instructions to patient/family Please see electronic discharge instructions given to patient. Discharge Medications Reviewed and agree with Discharge Medication list on patient's Discharge Instruction sheet AVIS ALY MD Nov 05, 2021 08:57
[2021-11-05] MEDS ORDERED: diphenhydrAMINE 50 MG/ML INJ (BENADRYL) IVP PRN (09:15)
[2021-11-05] MEDS ORDERED: FUROSEMIDE 40 MG/4 ML INJ (LASIX) IVP ONE (09:15)
[2021-11-05] MEDS ORDERED: NS IV 500 ML 500 ML IV SCH ×2 (09:15)
[2021-11-05] MEDS: dilTIAZem120 MG (CARDIZEM CD) CAP PO SCH ×2 (09:24→11:33)
[2021-11-05] MEDS: clonazePAM 0.5 MG (KlonoPIN) TAB PO SCH (09:24)
[2021-11-05] MEDS: PANTOPRAZOLE 40 MG (PROTONIX) TAB PO SCH (09:24)
[2021-11-05] MEDS: ASPIRIN E.C. 81 MG (ECOTRIN) TAB PO SCH (09:24)
[2021-11-05] MEDS: GABAPENTIN 100 MG (NEURONTIN) CAP PO SCH (09:24)
[2021-11-05] MEDS: CLOPIDOGREL 75 MG (PLAVIX) TABLET PO SCH (09:24)
[2021-11-05] MEDS: SPIRONOLACTONE 25 MG (ALDACTONE) TAB PO SCH (09:24)
[2021-11-05] MEDS: ENOXAPARIN 40 MG/0.4 ML (LOVENOX) SYR SC SCH (09:25)
--- NOTE | 2021-11-05 09:43 | Tele-ICU Progress Note ---
Subjective Date Seen by a Provider: Nov 05, 2021 Time Seen by a Provider: 08:40 Subjective/Events-last exam This virtual visit was conducted using real time audio/video. Thank you for asking us to see this patient for respiratory insufficiency due to AECOPD, CHF, pna, NSTEMI, severe aortic stenosis. Recent events: Alternating BiPAP 16/8 with VT 80%. PE: Pale. Currently undistressed. VSS. O2 sat 96% on BiPAP 16/8 30%.. HEENT: No obvious masses, adenopathy or JVD. Chest: clear to auscultation. Diminished. Abd: Non-tender. Bowel sounds Y. : Unremarkable. Deluna Y. [employer]ICATIONS/psychiatric: Grossly intact. No obvious focal findings. Extremities: Tr edema. Capillary refill < 3 seconds. Skin: unremarkable. Results: Decreased Hb 7.8, Na 132. CXR: B infilts., R>L, hyperinflated. Available chart/ vitals / labs / images reviewed. Video assessment done using teleICU camera, rest of exam as per RN. A/P: Respiratory insufficiency: Continue present management with BiPAP/VT. Wean as anay. Cont. duonebs, PRN Precedex. Monitor for increasing oxygenation needs and/or need for intubation. Critical Care: critically ill patient. Cont. Plavix,ASA, cardizem, Lasix, PRN pressors, abx, statin, Prozac, PPI, SSI, Kiran., NTG. Discussed with RNAmber. Asked RN to reach out to eICU if any questions or concerns later. Time spent with patient/coordination of care with other health professionals (mins): 30 Sepsis Event Evaluation Height, Weight, BMI Height: 5'4.00" Weight: 243lbs. 0.0oz. 110.576340su; 49.66 BMI Method:Stated Focused Exam Time of Focused Exam: 23:00 Exam Exam Patient acknowledged, consented, and participated in this virtual visit which was conducted using real time audio/video Vital Signs Date Time Temp Pulse Resp B/P (MAP) Pulse Ox O2 Delivery O2 Flow Rate FiO2 11/05/21 08:00 NIV Bilevel 30 11/05/21 08:00 36.2 11/05/21 06:00 83 20 102/60 98 NIV Bilevel 30.00 11/05/21 05:00 83 20 100/59 97 NIV Bilevel 30.00 11/05/21 04:59 86 102/64 11/05/21 04:00 84 23 96/55 98 NIV Bilevel 30.00 11/05/21 04:00 NIV Bilevel 30 11/05/21 04:00 36.6 NIV Bilevel 30.00 11/05/21 03:00 87 16 121/79 95 NIV Bilevel 30.00 11/05/21 02:02 82 19 96 30.00 11/05/21 02:00 82 20 101/60 96 NIV Bilevel 30.00 11/05/21 01:00 82 20 92/56 95 NIV Bilevel 30.00 11/05/21 01:00 82 11/05/21 00:00 36.2 NIV Bilevel 30.00 11/05/21 00:00 96 19 114/90 90 NIV Bilevel 30.00 11/04/21 23:59 NIV Bilevel 30 11/04/21 23:00 88 18 106/67 95 NIV Bilevel 30.00 11/04/21 22:15 94 23 94 30.00 11/04/21 22:00 83 19 110/70 96 NIV Bilevel 30.00 11/04/21 21:00 87 19 88/57 95 NIV Bilevel 35.00 11/04/21 20:00 NIV Bilevel 35 11/04/21 20:00 92 22 106/77 95 NIV Bilevel 35.00 11/04/21 19:39 35.7 11/04/21 19:00 90 21 117/69 97 NIV Bilevel 35.00 11/04/21 19:00 90 11/04/21 18:38 96 36 94 30.00 11/04/21 18:00 105 29 151/79 96 NIV Bilevel 50.00 11/04/21 17:00 107 24 122/81 91 NIV Bilevel 50.00 11/04/21 16:00 NIV Bilevel 35 11/04/21 16:00 96 23 104/56 99 NIV Bilevel 50.00 11/04/21 15:40 36.3 11/04/21 15:00 92 23 103/82 100 NIV Bilevel 50.00 11/04/21 14:57 100 Vapotherm 35.00 100 11/04/21 14:00 96 31 95/63 100 NIV Bilevel 50.00 11/04/21 13:00 89 19 98/65 100 NIV Bilevel 50.00 11/04/21 12:54 88 11/04/21 12:09 90 11/04/21 12:00 NIV Bilevel 35 11/04/21 12:00 87 25 94/55 100 NIV Bilevel 50.00 11/04/21 11:00 94 22 88/61 100 NIV Bilevel 50.00 11/04/21 10:00 86 19 103/59 99 NIV Bilevel 50.00 11/04/21 09:45 83 20 96 30.00 I & O 11/05/21 07:00 Intake Total 2825 ml Output Total 1125 ml Balance 1700 ml Height & Weight Height: 5'4.00" Weight: 243lbs. 0.0oz. 110.144389si; 49.66 BMI Method:Stated General Appearance: WD/WN, Mild Distress, Obese HEENT: PERRL/EOMI, Other (on BIPAP) Respiratory: Decreased Breath Sounds (ON BIPAP, APPEARS COMFORTABLE EXCEPT WHEN COUGHING) Cardiovascular: Regular Rate, Rhythm, Systolic Murmur (DIFFICULT TO AUSCULTATE DUE TO BIPAP NOISE) Capillary Refill: Less Than 3 Seconds Gastrointestinal: normal bowel sounds, non tender, soft, other (OBESE) Extremity: No Pedal Edema (RESOLVED) Neurologic/Psychiatric: Alert, Oriented x3, No Motor/Sensory Deficits, Normal Mood/Affect Skin: Normal Color, Warm/Dry, Other (SKIN ON FEET WRINKLED/DRY) Results Lab Laboratory Tests 11/04/21 04:20 11/05/21 03:02 Assessment/Plan Assessment/Plan See free text. Critical Care: Critically Ill Patient BELGICA MENCHACA MD Nov 05, 2021 09:43
[2021-11-05] MEDS: guaiFENesin/DM (ROBITUSSIN DM) 10 ML UDC PO PRN (10:46)
[2021-11-05 12:49] VITALS: BP 108/76
[2021-11-05] MEDS: hydrOXYzine (VISTARIL/ATARAX) 25 MG capsule/tablet PO PRN (12:54)
[2021-11-05 13:06] VITALS: BP 94/58
== END 2021-11-05 14:11 | disposition short-term general hospital (02) | DRG 280 ==
LOC: EDUNIT# 22:05 → ER 22:06 → ICU 23:35 → EDLOC 23:35 → ICU 10-29 03:29
PROVIDERS: ADMIT Family Medicine; ATTEND Family Medicine
PROC: 5A09457 Assistance with Respiratory Ventilation, 24-96 Consecutive Hours, Continuous Positive Airway Pressure (ICD-10-PCS; principal; 2021-10-29)
PROC: 5A0935A Assistance with Respiratory Ventilation, Less than 24 Consecutive Hours, High Flow/Velocity Cannula (ICD-10-PCS; 2021-11-05)
DX: I13.0 Hypertensive heart and chronic kidney disease with heart failure and stage 1 through stage 4 chronic kidney disease, or unspecified chronic kidney disease (principal); I50.33 Acute on chronic diastolic (congestive) heart failure; I21.A1 Myocardial infarction type 2; J18.9 Pneumonia, unspecified organism; J96.21 Acute and chronic respiratory failure with hypoxia; J96.22 Acute and chronic respiratory failure with hypercapnia; N39.0 Urinary tract infection, site not specified; J44.0 Chronic obstructive pulmonary disease with (acute) lower respiratory infection; J44.1 Chronic obstructive pulmonary disease with (acute) exacerbation; Z68.42 Body mass index [BMI] 45.0-49.9, adult; E87.2 Acidosis; Z16.12 Extended spectrum beta lactamase (ESBL) resistance; Z66 Do not resuscitate; Z20.822 Contact with and (suspected) exposure to COVID-19; E13.22 Other specified diabetes mellitus with diabetic chronic kidney disease; E13.65 Other specified diabetes mellitus with hyperglycemia; N18.31 Chronic kidney disease, stage 3a; E11.51 Type 2 diabetes mellitus with diabetic peripheral angiopathy without gangrene; E66.01 Morbid (severe) obesity due to excess calories; I25.110 Atherosclerotic heart disease of native coronary artery with unstable angina pectoris; I08.0 Rheumatic disorders of both mitral and aortic valves; F41.9 Anxiety disorder, unspecified; F32.A Depression, unspecified; E78.2 Mixed hyperlipidemia; E78.00 Pure hypercholesterolemia, unspecified; K21.9 Gastro-esophageal reflux disease without esophagitis; M19.91 Primary osteoarthritis, unspecified site; I65.23 Occlusion and stenosis of bilateral carotid arteries; H54.3 Unqualified visual loss, both eyes; B96.20 Unspecified Escherichia coli [E. coli] as the cause of diseases classified elsewhere; Z95.5 Presence of coronary angioplasty implant and graft; Z79.84 Long term (current) use of oral hypoglycemic drugs; Z82.5 Family history of asthma and other chronic lower respiratory diseases; Z82.49 Family history of ischemic heart disease and other diseases of the circulatory system
CPT/HCPCS: 36415; 36569; 51702; 71045; 76937; 80053; 81000; 82550; 82553; 82805; 82947; 83010; 83540; 83605; 83615; 83735; 83874; 83880; 84100; 84132; 84145; 84443; 84484; 85007; 85025; 85027; 85379; 85610; 85652; 85730; 86141; 86850; 86900; 86901; 86920; 87077; 87081; 87088; 87186; 87636; 93005; 93041; 93970; 94640; 94660; 96372; 96374; 96375

== ENCOUNTER 2023-04-26 23:50 | Inpatient (IN) | payer MEDICARE, MEDICAID ==
[~2023-04-26] VITALS: Ht 165 cm; Wt 122.9 kg
[~2023-04-26 23:50] MED LIST changes: +ACET-11 PO; +ALBU90AE INH; +ATOR10TA66 PO; +CETI10TA17 PO; +DILT-27 PO; +DILT240T10 PO; +FLUO20CA48 PO; +FLUT16SP22 NSEACH; +FURO20TA4 PO; +GABA-486 PO; +HYDR-700 PO; +IPRA3AMP31 NEB; +LOSA50TA63 PO; +MAGN400O7 PO; +PANT40TA52 PO
[2023-04-27] VITALS (7 sets, daily range): BP systolic 138–155; BP diastolic 63–86
[2023-04-27 00:15] LABS: BASOPHILS % (AUTO) 1 % (0-10); EOSINOPHILS # (AUTO) 0.2 10^3/uL (0.0-0.3); EOSINOPHILS % (AUTO) 4 % (0-10); HEMATOCRIT 34 % (35-52); HEMOGLOBIN 10.7 g/dL (11.5-16.0); LYMPHOCYTES # (AUTO) 1.7 10^3/uL (1.0-4.0); LYMPHOCYTES % (AUTO) 28 % (12-44); MEAN CORPUSCULAR HEMOGLOBIN 29 pg (25-34); MEAN CORPUSCULAR HGB CONC 32 g/dL (32-36); MEAN CORPUSCULAR VOLUME 91 fL (80-99); MEAN PLATELET VOLUME 9.3 fL (9.0-12.2); MONOCYTES # (AUTO) 0.5 10^3/uL (0.0-1.0); MONOCYTES % (AUTO) 8 % (0-12); NEUTROPHILS # (AUTO) 3.6 10^3/uL (1.8-7.8); NEUTROPHILS % (AUTO) 59 % (42-75); PLATELET COUNT 200 10^3/uL (130-400); WHITE BLOOD COUNT 6.1 10^3/uL (4.3-11.0)
[2023-04-27] MEDS ORDERED: NS IV 500 ML 500 ML IV SCH (00:15)
[2023-04-27 00:20] LABS: POTASSIUM 3.9 MMOL/L (3.6-5.0)
[2023-04-27 00:21] LABS: CALCIUM 8.7 MG/DL (8.5-10.1)
[2023-04-27 00:22] LABS: TOTAL PROTEIN 6.8 GM/DL (6.4-8.2)
[2023-04-27 00:24] LABS: BILIRUBIN,TOTAL 0.5 MG/DL (0.1-1.0)
--- NOTE | 2023-04-27 00:25 | ED Respiratory ---
General Chief Complaint: Respiratory Problems Stated Complaint: SOA Nursing Triage Note: BROUGHT IN BY [facility] FOR INCREASED SOA, FEVER. DX COVID + 04/22/23 Source: patient, EMS Exam Limitations: no limitations History of Present Illness Date Seen by Provider: Apr 27, 2023 Time Seen by Provider: 00:07 Initial Comments 83-year-old female presents emergency department today from nursing facility in [facility] via EMS. She was diagnosed with COVID on 04/22/2023. She has had shortness of breath since that time. Staff noted very noisy breathing this evening. They tried to give her a DuoNeb treatment without much relief. She is on 2.5 L of oxygen twawfg-ber-ocarw normally and has not had to increase this per nursing facility. She states she is still having fevers and body aches. All other systems reviewed and negative except documented per HPI. Voice recognition software was used to help create this chart Allergies and Home Medications Allergies Uncoded Allergies: HAYFEVER (Allergy, Unknown, 08/17/16) Patient Home Medication List Home Medication List Reviewed: Yes Acetaminophen with Codeine (Acetaminophen-Cod #3 Tablet) 1 Each Tablet, 1 EA PO Q6H PRN for PAIN-MODERATE (5-7), (Reported) Entered as Reported by: GUERA WHITAKER on 10/29/21941 Albuterol Sulfate (Proair Respiclick) 90 Mcg Aer.pow.ba, 2 PUFF INH Q4H PRN for SHORTNESS OF BREATH, (Reported) Entered as Reported by: GUERA WHITAKER on 10/29/21941 Atorvastatin Calcium (Atorvastatin Calcium) 10 Mg Tablet, 10 MG PO HS, (Reported ) Entered as Reported by: GUERA WHITAKER on 10/29/21941 Cetirizine HCl (Cetirizine HCl) 10 Mg Tablet, 10 MG PO HS, (Reported) Entered as Reported by: GUERA WHITAKER on 10/29/21941 Diltiazem HCl (Diltiazem 24Hr ER) 120 Mg Cap.er.24h, 120 MG PO DAILY, (Reported) Entered as Reported by: GUERA WHITAKER on 10/29/21941 Fluoxetine HCl (Fluoxetine HCl) 20 Mg Capsule, 20 MG PO HS, (Reported) Entered as Reported by: GUERA WHITAKER on 10/29/21941 Fluticasone Propionate (Fluticasone Propionate) 16 Gm [place].susp, 1 SPRAY NSEACH BID, (Reported) Entered as Reported by: GUERA WHITAKER on 10/29/21941 Furosemide (Furosemide) 20 Mg Tablet, 20 MG PO DAILY, (Reported) Entered as Reported by: GUERA WHITAKER on 10/29/21941 Gabapentin (Gabapentin) 100 Mg Capsule, 100 MG PO BID, (Reported) Entered as Reported by: GUERA WHITAKER on 10/29/21941 Hydroxyzine HCl (Hydroxyzine HCl) 25 Mg Tablet, 25 MG PO Q12H PRN for ANXIETY, (Reported) Entered as Reported by: GUERA WHITAKER on 10/29/21941 Ipratropium/Albuterol Sulfate (Iprat-Albut 0.5-3(2.5) mg/3 ml) 3 Ml Ampul.neb, 3 ML NEB Q6H PRN for SHORTNESS OF BREATH, (Reported) Entered as Reported by: GUERA WHITAKER on 10/29/21941 Losartan Potassium (Losartan Potassium) 50 Mg Tablet, 50 MG PO DAILY, (Reported) Entered as Reported by: GUERA WHITAKER on 10/29/21941 Magnesium Hydroxide (Milk of Magnesia) 400 Mg/5 Ml Oral.susp, 15 ML PO UD PRN for CONSTIPATION-7TH LINE, (Reported) Entered as Reported by: GUERA WHITAKER on 10/29/21943 Pantoprazole Sodium (Pantoprazole Sodium) 40 Mg Tablet.dr, 40 MG PO 1800 AFTER MEAL, (Reported) Entered as Reported by: GUERA WHITAKER on 10/29/21941 Review of Systems Review of Systems Constitutional: see HPI Past Ebgyiwp-Uibiea-Khbwty Hx Patient Social History Tobacco Use?: No Substance use?: No Alcohol Use?: No Pt feels they are or have been: No Immunizations Up To Date Tetanus Booster (TDap): Unknown PED Vaccines UTD: No Seasonal Allergies Seasonal Allergies: Yes (HAYFEVER) Past Medical History Surgery/Hospitalization HX: AFIB, NIDDM, CAD, COPD, CHF, DEPRESSION, ANXIETY, HYPOTHRYOIDISM, HTN, GERD, CELLULITIS ON ABDOMEN Surgeries: Yes (RIGHT KNEE REPLACEMENT 12/[address] COONEY;EGD/COLONOSCOPY 2012) Hysterectomy, Joint Replacement, Orthopedic, Tubal Ligation Sleep Apnea Currently Using CPAP: No Currently Using BIPAP: No Cardiac: Yes (CHF) Chronic Edema/Swelling, High Cholesterol, Hypertension Reproductive Disorders: No Female Reproductive Disorders: Denies Sexually Transmitted Disease: No HIV/AIDS: No Genitourinary: Yes (INCONTINENCE) UTI-Chronic Gastrointestinal: Yes Gastroesophageal Reflux Musculoskeletal: Yes (CHRONIC GENERALIZED PAIN ) Arthritis Endocrine: Yes (MORBID OBESITY) Diabetes, Non-Insulin dep Loss of Vision: Bilateral Hearing Impairment: Denies Psychosocial: Yes Anxiety, Depression Family Medical History Cardiovascular disease 19 MOTHER Completed stroke 19 FATHER Respiratory disorder 19 FATHER 19 MOTHER No Pertinent Family Hx Physical Exam Vital Signs - First Documented Capillary Refill : Less Than 3 Seconds Height: 5'4.00" Weight: 243lbs. 0.0oz. 110.300039zp; 48.00 BMI Method:Stated General Appearance: mild distress Eyes: Bilateral Eye Normal Inspection, Bilateral Eye PERRL, Bilateral Eye EOMI HEENT: normal ENT inspection, pharynx normal Neck: non-tender, supple, normal inspection Respiratory: chest non-tender, lungs clear, other (Very noisy almost forceful breathing creating a sound to her upper airway similar to stridor. This does seem to be intermittent and stops when she is speaking) Cardiovascular: no murmur, tachycardia Gastrointestinal: normal bowel sounds, non tender, soft Extremities: non-tender, normal inspection, no pedal edema, normal capillary refill Neurologic/Psychiatric: alert, normal mood/affect, oriented x 3 Skin: normal color, warm/dry Focused Exam Lactate Level 04/26/23 23:55: Lactic Acid Level 1.39 Lactic Acid Level Laboratory Tests Test 04/26/23 23:55 Lactic Acid Level 1.39 MMOL/L (0.50-2.00) Procedures/Interventions Suture Size: 3-0 Progress/Results/Core Measures Suspected Sepsis SIRS Temperature: Pulse: 111 Respiratory Rate: 20 Laboratory Tests 04/26/23 23:55: White Blood Count 6.1 Blood Pressure 172 /101 Mean: 124 04/26/23 23:55: Lactic Acid Level 1.39 Laboratory Tests 04/26/23 23:55: Creatinine 0.80, Platelet Count 200, Total Bilirubin 0.5 Results/Orders Lab Results Laboratory Tests Test 04/26/23 23:55 Range/Units White Blood Count 6.1 4.3-11.0 10^3/uL Red Blood Count 3.70 L 3.80-5.11 10^6/uL Hemoglobin 10.7 L 11.5-16.0 g/dL Hematocrit 34 L 35-52 % Mean Corpuscular Volume 91 80-99 fL Mean Corpuscular Hemoglobin 29 25-34 pg Mean Corpuscular Hemoglobin Concent 32 32-36 g/dL Red Cell Distribution Width 13.2 10.0-14.5 % Platelet Count 200 130-400 10^3/uL Mean Platelet Volume 9.3 9.0-12.2 fL Immature Granulocyte % (Auto) 1 % Neutrophils (%) (Auto) 59 42-75 % Lymphocytes (%) (Auto) 28 12-44 % Monocytes (%) (Auto) 8 0-12 % Eosinophils (%) (Auto) 4 0-10 % Basophils (%) (Auto) 1 0-10 % Neutrophils # (Auto) 3.6 1.8-7.8 10^3/uL Lymphocytes # (Auto) 1.7 1.0-4.0 10^3/uL Monocytes # (Auto) 0.5 0.0-1.0 10^3/uL Eosinophils # (Auto) 0.2 0.0-0.3 10^3/uL Basophils # (Auto) 0.0 0.0-0.1 10^3/uL Immature Granulocyte # (Auto) 0.0 0.0-0.1 10^3/uL Sodium Level 134 L 135-145 MMOL/L Potassium Level 3.9 3.6-5.0 MMOL/L Chloride Level 100 98-107 MMOL/L Carbon Dioxide Level 22 21-32 MMOL/L Anion Gap 12 5-14 MMOL/L Blood Urea Nitrogen 7 7-18 MG/DL Creatinine 0.80 0.60-1.30 MG/DL Estimat Glomerular Filtration Rate 74 BUN/Creatinine Ratio 9 Glucose Level 144 H 70-105 MG/DL Lactic Acid Level 1.39 0.50-2.00 MMOL/L Calcium Level 8.7 8.5-10.1 MG/DL Corrected Calcium 9.5 8.5-10.1 MG/DL Total Bilirubin 0.5 0.1-1.0 MG/DL Aspartate Amino Transf (AST/SGOT) 19 5-34 U/L Alanine Aminotransferase (ALT/SGPT) 11 0-55 U/L Alkaline Phosphatase 62 40-136 U/L Total Protein 6.8 6.4-8.2 GM/DL Albumin 3.0 L 3.2-4.5 GM/DL My Orders Orders - CARLOS GAMBLE DO Cbc And Automated Diff (04/27/23 00:04) Comprehensive Metabolic Panel (04/27/23 00:04) Blood Culture (04/27/23 00:04) Chest 1 View, Ap/Pa Only (04/27/23 00:04) Ed Iv/Invasive Line Start (04/27/23 00:04) Vital Signs Adult Sepsis Patie Q15M (04/27/23 00:04) O2 (04/27/23 00:04) Lactic Acid Analyzer (04/27/23 00:04) Ns Iv 500 Ml (Ns Iv 500 Ml) (04/27/23 00:15) Lorazepam Injection (Lorazepam Injection (04/27/23 00:30) Vital Signs/I&O 04/26/23 04/26/23 23:51 23:51 Temp 36.2 Pulse 111 Resp 20 B/P (MAP) 172/101 (124) Pulse Ox 94 94 O2 Delivery Nasal Cannula Nasal Cannula O2 Flow Rate 3.00 3.00 Capillary Refill : Less Than 3 Seconds Blood Pressure Mean: 124 Departure Communication (Admissions) Patient is hemodynamically stable outside of some mild tachycardia and some tachypnea. She has almost stridulous activity of her upper airway that is intermittent and completely resolves when she talks. All seems a bit forced and may be secondary to anxiety however there does not seem to be any overt clear medical reason at this time. There is no swelling intraorally. She does have known COVID-19 and does have a history of anxiety so I will try some Ativan to see if this might help her. Her oxygen saturation is 96% on her home 2.5 L of oxygen via nasal cannula. Pressures are slightly elevated, no hypotension. Her labs are reassuring. I have independently reviewed all labs, imaging. I spoke with Dr. Hogue who agrees to accept the patient in admission at this time. I have placed bridging orders. Impression Primary Impression: COVID-19 Disposition: ADMITTED INPATIENT Condition: Stable Admissions Decision to Admit Reason: Admit from ER (General) Departure-Patient Inst. Referrals: AVIS ALY MD (PCP/Family) Primary Care Physician CARLOS GAMBLE DO Apr 27, 2023 00:25
[2023-04-27 00:26] LABS: CREATININE SERUM 0.8 MG/DL (0.60-1.30)
[2023-04-27] MEDS ORDERED: ACETAMINOPHEN 500 MG TABLET PO PRN (01:45)
[2023-04-27] MEDS ORDERED: DOXY100T2 PO (03:04)
[2023-04-27] MEDS ORDERED: METO-333 PO ×2 (03:04→10:21)
[2023-04-27] MEDS ORDERED: DOCU-143 PO ×2 (03:04→10:21)
[2023-04-27] MEDS ORDERED: CEFD300C3 PO (03:04)
[2023-04-27] MEDS ORDERED: LEVO25CA4 PO (03:04)
[2023-04-27] MEDS ORDERED: RT-Ipratropium/Albuterol NEB 3 ML VIAL INH PRN (04:30)
[2023-04-27 05:06] LABS: ABG BASE EXCESS 1.1 MMOL/L (-2.5-2.5); ABG OXYGEN SATURATION 95 % (94-100); ABG PCO2 57 MMHG (35-45); ABG PO2 73 MMHG (79-93); ABG TCO2 28.6 MMOL/L (21.0-31.0)
[2023-04-27 05:14] LABS: ALLENS TEST YES-POS; INSPIRED O2 3 LITERS; VENTILATOR NO
[2023-04-27] MEDS: CATHETER FLUSH 10 ML SYR IVP SCH ×3 (06:14→21:51)
--- NOTE | 2023-04-27 07:14 | Diagnostic Imaging Report ---
CLINICAL INDICATIONS: Patient with dyspnea and Covid positive. EXAM: Portable chest x-ray upright view. COMPARISON: Chest x-ray dated 11/04/2021. FINDINGS: There is right basilar atelectasis and elevation of the right hemidiaphragm. Otherwise, lungs are clear as visualized. Previously seen bilateral lung infiltrates have resolved. There is cardiomegaly with no significant pulmonary vascular congestion. There is no pleural effusion or pneumothorax. There are degenerative spurs involving the thoracic spine. IMPRESSION: 1: There is interval development of right basilar atelectasis with elevation of the right hemidiaphragm. 2: There is cardiomegaly with no significant pulmonary vascular congestion. Dictated by: Dictated on workstation # [id number]
[2023-04-27] MEDS ORDERED: ACET325T38 PO (10:21)
[2023-04-27] MEDS ORDERED: SPIR25TA5 PO (10:21)
[2023-04-27] MEDS ORDERED: RT-ALBUINH INH (10:21)
[2023-04-27] MEDS ORDERED: HYDR-700 PO (10:21)
[2023-04-27] MEDS ORDERED: LEVO25TA5 PO (10:21)
[2023-04-27] MEDS ORDERED: IPRA4AER IH (10:21)
[2023-04-27] MEDS ORDERED: DILT240T10 PO (10:21)
[2023-04-27] MEDS ORDERED: APIX2.5T PO (10:21)
[2023-04-27] MEDS ORDERED: POLY17PO6 PO (10:21)
[2023-04-27] MEDS ORDERED: LIDO700A45 TP (10:21)
[2023-04-27] MEDS ORDERED: DULO20CA19 PO (10:21)
[2023-04-27] MEDS ORDERED: PANT40TA52 PO (10:21)
[2023-04-27] MEDS ORDERED: BISACODYL 10 MG SUPPOSITORY PR PRN (11:00)
[2023-04-27] MEDS ORDERED: ACETAMINOPHEN 325 MG TABLET PO PRN ×2 (11:00→13:00)
[2023-04-27] MEDS ORDERED: ONDANSETRON INJECTION 4 MG/2 ML (SDV) IV PRN (11:00)
[2023-04-27] MEDS ORDERED: HYDROmorphone INJECTION 2 MG/ML VIAL IV PRN (11:00)
[2023-04-27] MEDS ORDERED: MILK OF MAGNESIA 400 MG/5 ML 30 ML UDC PO PRN (11:00)
[2023-04-27] MEDS ORDERED: CALCIUM CARBONATE 500 MG CHEW TABLET PO PRN (11:00)
[2023-04-27] MEDS ORDERED: MELATONIN 3 MG TABLET PO PRN (11:00)
[2023-04-27] MEDS ORDERED: ANTACID SUSPENSION 30 ML UDC PO PRN (11:00)
[2023-04-27] MEDS ORDERED: LACTULOSE SYRUP 10GM/15ML 30ML UDC PO PRN (11:00)
[2023-04-27] MEDS ORDERED: diphenhydrAMINE 25 MG TABLET PO PRN (11:00)
[2023-04-27] MEDS ORDERED: diphenhydrAMINE INJ 50 MG/ML VIAL IVP PRN (11:00)
[2023-04-27] MEDS ORDERED: ONDANSETRON 4 MG ORAL DISSOLVE TABLET PO PRN (11:00)
[2023-04-27 11:16] LABS: BASOPHILS % (AUTO) 0 % (0-10); EOSINOPHILS % (AUTO) 0 % (0-10); HEMATOCRIT 33 % (35-52); HEMOGLOBIN 10.3 g/dL (11.5-16.0); LYMPHOCYTES # (AUTO) 0.4 10^3/uL (1.0-4.0); LYMPHOCYTES % (AUTO) 8 % (12-44); MEAN CORPUSCULAR HEMOGLOBIN 29 pg (25-34); MEAN CORPUSCULAR HGB CONC 32 g/dL (32-36); MEAN CORPUSCULAR VOLUME 91 fL (80-99); MEAN PLATELET VOLUME 9.9 fL (9.0-12.2); MONOCYTES # (AUTO) 0.1 10^3/uL (0.0-1.0); MONOCYTES % (AUTO) 1 % (0-12); NEUTROPHILS # (AUTO) 4.5 10^3/uL (1.8-7.8); NEUTROPHILS % (AUTO) 91 % (42-75); PLATELET COUNT 162 10^3/uL (130-400); WHITE BLOOD COUNT 4.9 10^3/uL (4.3-11.0)
[2023-04-27 11:18] LABS: POTASSIUM 4.2 MMOL/L (3.6-5.0)
[2023-04-27 11:19] LABS: CALCIUM 8.7 MG/DL (8.5-10.1)
[2023-04-27 11:20] LABS: TOTAL PROTEIN 6.7 GM/DL (6.4-8.2)
[2023-04-27 11:22] LABS: BILIRUBIN,TOTAL 0.4 MG/DL (0.1-1.0)
[2023-04-27 11:24] LABS: CREATININE SERUM 0.8 MG/DL (0.60-1.30)
[2023-04-27 11:32] LABS: ABG BASE EXCESS 1.8 MMOL/L (-2.5-2.5); ABG OXYGEN SATURATION 99 % (94-100); ABG PCO2 45 MMHG (35-45); ABG PH 7.39 (7.37-7.43); ABG PO2 91 MMHG (79-93); ABG TCO2 27.8 MMOL/L (21.0-31.0)
--- NOTE | 2023-04-27 11:34 | Diagnostic Imaging Report ---
CLINICAL INDICATION: Patient with shortness of breath and COVID positive. EXAM: Portable chest x-ray upright view. COMPARISON: Portable chest x-ray dated 04/27/2023 at 0019 hours. FINDINGS: Stable elevation of the right hemidiaphragm with right lung base atelectasis. There is no interval lung infiltrate. There is no pleural effusion or pneumothorax. Stable cardiomegaly with no significant pulmonary vascular congestion. The remainder of this exam shows no significant interval change compared to the prior study of comparison. IMPRESSION: 1: Stable chest x-ray exam with no interval lung infiltrate. 2: There is stable elevation of the right hemidiaphragm with mild right basilar atelectasis. Dictated by: Dictated on workstation # [id number]
[2023-04-27 11:36] LABS: ALLENS TEST YES-POS
[2023-04-27 11:37] LABS: INSPIRED O2 30%; PATIENT TEMP 36.8; VENTILATOR YES
[2023-04-27] MEDS: APIXABAN 5 MG TABLET PO SCH ×2 (12:07→20:39)
[2023-04-27] MEDS: dexAMETHasone INJ 4 MG/ML SDV IV SCH ×2 (12:07→20:39)
[2023-04-27 12:11] LABS: BAND NEUTROPHILS 1 %; LYMPHOCYTES % (MANUAL) 10 %; MONOCYTES % (MANUAL) 1 %; NEUTROPHILS % (MANUAL) 88 %; RBC MORPH NORMAL
[2023-04-27] MEDS ORDERED: NON-FORMULARY MEDICATION 1 EA EA (Hydroxyzine HCl 25 MG) PO PRN (13:00)
[2023-04-27] MEDS ORDERED: ALBUTEROL IH PRN (13:00)
[2023-04-27] MEDS ORDERED: IPRATROPIUM IH PRN (13:00)
[2023-04-27] MEDS ORDERED: FLUTICASONE NASAL SPRAY (120 SPRAYS) NS PRN (13:00)
[2023-04-27] MEDS ORDERED: RT-ALBUTEROL SULF 2.5 MG/3 ML PRE-MIX VIAL INH PRN (13:00)
[2023-04-27] MEDS ORDERED: SPIRONOLACTONE 25 MG TABLET PO PRN (13:00)
--- NOTE | 2023-04-27 13:21 | History & Physical ---
MUSA PAREDES 04/27/23 1321: History of Present Illness History of Present Illness Reason for visit/HPI 83[facility]-old [facility] with a history of O2-dependent COPD presented to the ED via EMS on 04/27 with CC SOB. She was diagnosed with COVID on 04/22, has had SOB, subjective fever, body aches since that time. She uses 2.5L O2 at baseline, has not had to increase. Staff at the nursing facility reported noisy breathing, was given duoneb at the facility with little improvement. CXR in the ED showed right basilar atelectasis with elevation of the right hemidiaphragm, seen again on repeat X-ray today. ABG showed a pH of 7.30, pCO2 of 57, pO2 of 73, ABG today all were within normal limits. She was on 3L O2 via [place] initially, now on bipap at 30%, maintaining good O2 sats. She is seen laying in bed this morning, no family at bedside. She reports that her SOB has increased slightly, still having a hard time catching her breath. She reports that her subjective fever and body aches are improved this morning. Patient has no other complaints. Date of Admission Apr 26, 2023 at 23:53 Date Seen by a Provider: Apr 27, 2023 Time Seen by a Provider: 11:30 I consulted on this patient on 04/27/23 13:15 Attending Physician [facility] Admitting Physician Admitting Physician: Natalie Hogue MD Attending Physician: Ashly Cifuentes DO Consult Allergies and Home Medications Allergies Uncoded Allergies: HAYFEVER (Allergy, Unknown, 08/17/16) Patient Home Medication List Acetaminophen (Tylenol) 325 Mg Tablet, 650 MG PO Q4H PRN for PAIN-MILD (1-4), (Reported) Entered as Reported by: GUERA WHITAKER on 04/27/23 1021 Last Action: Continued Albuterol Sulfate (Ventolin Hfa) 1 Puff Puff, 2 PUFF INH Q4H PRN for SHORTNESS OF BREATH, (Reported) Entered as Reported by: GUERA WHITAKER on 04/27/23 1021 Last Action: Continued Albuterol/Ipratropium (Combivent Respimat Inhal Bosler) 20 Mcg-100 Mcg/Actuation Aero, 2 PUFF IH Q4H PRN for SHORTNESS OF BREATH, (Reported) Entered as Reported by: GUERA WHITAKER on 04/27/231020 Last Action: Continued Apixaban (Eliquis) 2.5 Mg Tablet, 2.5 MG PO BID, (Reported) Entered as Reported by: GUERA WHITAKER on 04/27/231020 Last Action: Held Diltiazem HCl (Diltiazem ER) 240 Mg Tab.er.24h, 240 MG PO DAILY, (Reported) Entered as Reported by: GUERA WHITAKER on 04/27/231020 Last Action: Converted Docusate Sodium (Colace) 100 Mg Capsule, 100 MG PO BID, (Reported) Entered as Reported by: GUERA WHITAKER on 04/27/231020 Last Action: Continued Duloxetine HCl (Duloxetine HCl) 20 Mg Capsule.dr, 20 MG PO HS, (Reported) Entered as Reported by: GUERA WHITAKER on 04/27/231020 Last Action: Continued Fluticasone Propionate (Fluticasone Propionate) 50 Mcg/Actuation Bosler.susp, 1 SPRAY NSEACH DAILY PRN for ALLERGY SYMPTOMS, (Reported) Entered as Reported by: GUERA WHITAKER on 10/29/21 0942 Last Action: Continued Hydroxyzine HCl (Hydroxyzine HCl) 25 Mg Tablet, 25 MG PO BID PRN for ANXIETY, (Reported) Entered as Reported by: GUERA WHITAKER on 04/27/231020 Last Action: Converted Levothyroxine Sodium (Levothyroxine Sodium) 25 Mcg Tablet, 25 MCG PO DAILY, (Reported) Entered as Reported by: GUERA WHITAKER on 04/27/231020 Last Action: Continued Lidocaine (Lidocaine 5% Patch) 5 % Adh..patch, 1 EACH TP DAILY, (Reported) Entered as Reported by: GUERA WHITAKER on 04/27/231020 Last Action: Continued Metoprolol Tartrate (Metoprolol Tartrate) 25 Mg Tablet, 25 MG PO DAILY, (Reported) Entered as Reported by: GUERA WHITAKER on 04/27/231020 Last Action: Continued Pantoprazole Sodium (Pantoprazole Sodium) 40 Mg Tablet.dr, 40 MG PO ACHS, (Reported) Entered as Reported by: GUERA WHITAKER on 04/27/231020 Last Action: Continued Polyethylene Glycol 3350 (Miralax) 17 Gram Powd.pack, 17 GM PO DAILY PRN for CONSTIPATION-2ND LINE, (Reported) Entered as Reported by: GUERA WHITAKER on 04/27/231020 Last Action: Continued Spironolactone (Spironolactone) 25 Mg Tablet, 25 MG PO DAILY PRN for EDEMA, (Reported) Entered as Reported by: GUERA WHITAKER on 04/27/231020 Last Action: Continued Discontinued Medications Acetaminophen with Codeine (Acetaminophen-Cod #3 Tablet) 1 Each Tablet, 1 EA PO Q6H PRN for PAIN-MODERATE (5-7), (Reported) Discontinued Reason: No Longer Taking Entered as Reported by: GUERA WHITAKER on 10/29/21941 Last Action: Discontinued Albuterol Sulfate (Proair Respiclick) 90 Mcg Aer.pow.ba, 2 PUFF INH Q4H PRN for SHORTNESS OF BREATH, (Reported) Discontinued Reason: No Longer Taking Entered as Reported by: GUERA WHITAKER on 10/29/21941 Last Action: Discontinued Atorvastatin Calcium (Atorvastatin Calcium) 10 Mg Tablet, 10 MG PO HS, (Reported) Discontinued Reason: No Longer Taking Entered as Reported by: GUERA WHITAKER on 10/29/21941 Last Action: Discontinued Cefdinir (Cefdinir) 300 Mg Capsule, 300 MG PO BID, (Reported) Discontinued Reason: No Longer Taking Entered as Reported by: Kishor Arroyo on 04/27/23303 Last Action: Discontinued Cetirizine HCl (Cetirizine HCl) 10 Mg Tablet, 10 MG PO HS, (Reported) Discontinued Reason: No Longer Taking Entered as Reported by: GUERA WHITAKER on 10/29/21941 Last Action: Discontinued Diltiazem HCl (Diltiazem 24Hr ER) 120 Mg Cap.er.24h, 120 MG PO DAILY, (Reported) Discontinued Reason: No Longer Taking Entered as Reported by: GUERA WHITAKER on 10/29/21941 Last Action: Discontinued Docusate Sodium (Colace) 100 Mg Capsule, 100 MG PO BID, (Reported) Discontinued Reason: No Longer Taking Entered as Reported by: Kishor Arroyo on 04/27/23303 Last Action: Discontinued Doxycycline Hyclate (Doxycycline Hyclate) 100 Mg Tablet, 100 MG PO BID, (Reported) Discontinued Reason: No Longer Taking Entered as Reported by: Kishor Arroyo on 04/27/23303 Last Action: Discontinued Fluoxetine HCl (Fluoxetine HCl) 20 Mg Capsule, 20 MG PO HS, (Reported) Discontinued Reason: No Longer Taking Entered as Reported by: GUERA WHITAKER on 10/29/21941 Last Action: Discontinued Furosemide (Furosemide) 20 Mg Tablet, 20 MG PO DAILY, (Reported) Discontinued Reason: No Longer Taking Entered as Reported by: GUERA WHITAKER on 10/29/21941 Last Action: Discontinued Gabapentin (Gabapentin) 100 Mg Capsule, 100 MG PO BID, (Reported) Discontinued Reason: No Longer Taking Entered as Reported by: GUERA WHITAKER on 10/29/21941 Last Action: Discontinued Hydroxyzine HCl (Hydroxyzine HCl) 25 Mg Tablet, 25 MG PO Q12H PRN for ANXIETY, (Reported) Discontinued Reason: No Longer Taking Entered as Reported by: GUERA WHITAKER on 10/29/21941 Last Action: Discontinued Ipratropium/Albuterol Sulfate (Iprat-Albut 0.5-3(2.5) mg/3 ml) 3 Ml Ampul.neb, 3 ML NEB Q6H PRN for SHORTNESS OF BREATH, (Reported) Discontinued Reason: No Longer Taking Entered as Reported by: GUERA WHITAKER on 10/29/21941 Last Action: Discontinued Levothyroxine Sodium (Levothyroxine) 25 Mcg Capsule, 25 MCG PO ONCE, (Reported) Discontinued Reason: No Longer Taking Entered as Reported by: Kishor Arroyo on 04/27/23303 Last Action: Discontinued Losartan Potassium (Losartan Potassium) 50 Mg Tablet, 50 MG PO DAILY, (Reported) Discontinued Reason: No Longer Taking Entered as Reported by: GUERA WHITAKER on 10/29/21941 Last Action: Discontinued Magnesium Hydroxide (Milk of Magnesia) 400 Mg/5 Ml Oral.susp, 15 ML PO UD PRN for CONSTIPATION-7TH LINE, (Reported) Discontinued Reason: No Longer Taking Entered as Reported by: GUERA WHITAKER on 10/29/21943 Last Action: Discontinued Metoprolol Tartrate (Metoprolol Tartrate) 25 Mg Tablet, 25 MG PO ONCE, (Reported) Discontinued Reason: No Longer Taking Entered as Reported by: Kishor Arroyo on 04/27/23 0304 Last Action: Discontinued Pantoprazole Sodium (Pantoprazole Sodium) 40 Mg Tablet.dr, 40 MG PO 1800 AFTER MEAL, (Reported) Discontinued Reason: No Longer Taking Entered as Reported by: GUERA WHITAKER on 10/29/21 0942 Last Action: Discontinued Past [place]-Eqjmwf-Ubjepr Hx Patient Social History Tobacco Use?: No Use of E-Cig and/or Vaping dev: No Substance use?: No Alcohol Use?: No Pt feels they are or have been: No Immunizations Up To Date Date of Influenza Vaccine: May 15, 2021 Tetanus Booster (TDap): Unknown Hepatitis A: No Hepatitis B: No PED Vaccines UTD: No Date of Pneumonia Vaccine: May 01, 2015 Seasonal Allergies Seasonal Allergies: Yes (HAYFEVER) Current Status status: No status: No Advance Directives: No Communicates: Verbally Primary Language: American Preferred Spoken Language: American Is interpretation needed?: No Sensory deficits: Vision impairment Implanted or Applied Medical D: Stents Past Medical History Surgeries: Hysterectomy, Joint Replacement, Orthopedic, Tubal Ligation Sleep Apnea Currently Using CPAP: No Currently Using BIPAP: No Chronic Edema/Swelling, High Cholesterol, Hypertension Sexually Transmitted Disease: No HIV/AIDS: No UTI-Chronic Gastroesophageal Reflux Arthritis Diabetes, Non-Insulin dep Loss of Vision: Bilateral Hearing Impairment: Denies Anxiety, Depression Family Medical History Cardiovascular disease 19 MOTHER Completed stroke 19 FATHER Respiratory disorder 19 FATHER 19 MOTHER No Pertinent Family Hx Review of Systems Constitutional: No chills; fever (subjective, improved) EENTM: No hearing loss, No blurred vision Respiratory: dyspnea on exertion, short of breath, wheezing (reports improved) Cardiovascular: No chest pain, No palpitations Gastrointestinal: No nausea, No vomiting Genitourinary: No dysuria, No hematuria Musculoskeletal: No back pain, No neck pain Skin: No change in color, No change in hair/nails Psychiatric/Neurological: Denies Numbness, Denies Weakness Physical Exam Vital Signs Vital Signs - First Documented Capillary Refill : Less Than 3 Seconds Height, Weight, BMI Height: 5'4.00" Weight: 243lbs. 0.0oz. [id number]; 45.32 BMI Method:Stated General Appearance: No Apparent Distress, WD/WN HEENT: PERRL/EOMI Neck: Non Tender, Supple Respiratory: Chest Non Tender, No Accessory Muscle Use, No Respiratory Distress, Wheezing (b/l) Cardiovascular: No Edema, Normal Peripheral Pulses, Tachycardia Gastrointestinal: Non Tender, Soft Rectal: Deferred Back: No Vertebral Tenderness Extremity: Normal Capillary Refill, Non Tender, No Calf Tenderness Neurologic/Psychiatric: Alert, Oriented x3 Skin: Normal Color, Warm/Dry Lymphatic: No Adenopathy Assessment/Plan Assessment and Plan Acute respiratory failure with hypoxia and hypercapnia: IV decadron, currently on bipap, continue nebs COPD exacerbation: O2, decadron, nebs COVID: O2, decadron, nebs A-fib: continue eliquis NIDDM: SSI HTN: home BP meds Chronic edema: spironolactone PRN Anxiety: home meds Depression: home meds GERD: protonix Hypothyroidism: home dose levothyroxine CAD HLD Obesity CIFUENTESASHLY ROGERS 04/28/23 0450: History of Present Illness History of Present Illness Reason for visit/HPI CC: Increased dyspnea with COVID HPI: This is an 83[facility] patient of [facility] who presents with increased work of breathing following COVID dx 04/22. She usually wears O2 24/7.BIPAP indicated and she is a DNR. Diff communicating with BIPAP on. Allergies and Home Medications Allergies Uncoded Allergies: HAYFEVER (Allergy, Unknown, 08/17/16) Patient Home Medication List Home Medication List Reviewed: Yes Acetaminophen (Tylenol) 325 Mg Tablet, 650 MG PO Q4H PRN for PAIN-MILD (1-4), (Reported) Entered as Reported by: GUERA WHITAKER on 04/27/23 1021 Last Action: Continued Albuterol Sulfate (Ventolin Hfa) 1 Puff Puff, 2 PUFF INH Q4H PRN for SHORTNESS OF BREATH, (Reported) Entered as Reported by: GUERA WHITAKER on 04/27/23 1021 Last Action: Continued Albuterol/Ipratropium (Combivent Respimat Inhal Bosler) 20 Mcg-100 Mcg/Actuation Aero, 2 PUFF IH Q4H PRN for SHORTNESS OF BREATH, (Reported) Entered as Reported by: GUERA WHITAKER on 04/27/23 1021 Last Action: Continued Apixaban (Eliquis) 2.5 Mg Tablet, 2.5 MG PO BID, (Reported) Entered as Reported by: GUERA WHITAKER on 04/27/231020 Last Action: Held Diltiazem HCl (Diltiazem ER) 240 Mg Tab.er.24h, 240 MG PO DAILY, (Reported) Entered as Reported by: GUERA WHITAKER on 04/27/231020 Last Action: Converted Docusate Sodium (Colace) 100 Mg Capsule, 100 MG PO BID, (Reported) Entered as Reported by: GUERA WHITAKER on 04/27/231020 Last Action: Continued Duloxetine HCl (Duloxetine HCl) 20 Mg Capsule.dr, 20 MG PO HS, (Reported) Entered as Reported by: GUERA WHITAKER on 04/27/231020 Last Action: Continued Fluticasone Propionate (Fluticasone Propionate) 50 Mcg/Actuation Bosler.susp, 1 SPRAY NSEACH DAILY PRN for ALLERGY SYMPTOMS, (Reported) Entered as Reported by: GUERA WHITAKER on 10/29/21 0942 Last Action: Continued Hydroxyzine HCl (Hydroxyzine HCl) 25 Mg Tablet, 25 MG PO BID PRN for ANXIETY, (Reported) Entered as Reported by: GUERA WHITAKER on 04/27/231020 Last Action: Converted Levothyroxine Sodium (Levothyroxine Sodium) 25 Mcg Tablet, 25 MCG PO DAILY, (Reported) Entered as Reported by: GUERA WHITAKER on 04/27/231020 Last Action: Continued Lidocaine (Lidocaine 5% Patch) 5 % Adh..patch, 1 EACH TP DAILY, (Reported) Entered as Reported by: GUERA WHITAKER on 04/27/231020 Last Action: Continued Metoprolol Tartrate (Metoprolol Tartrate) 25 Mg Tablet, 25 MG PO DAILY, (Reported) Entered as Reported by: GUERA WHITAKER on 04/27/231020 Last Action: Continued Pantoprazole Sodium (Pantoprazole Sodium) 40 Mg Tablet.dr, 40 MG PO ACHS, (Reported) Entered as Reported by: GUERA WHITAKER on 04/27/231020 Last Action: Continued Polyethylene Glycol 3350 (Miralax) 17 Gram Powd.pack, 17 GM PO DAILY PRN for CONSTIPATION-2ND LINE, (Reported) Entered as Reported by: GUERA WHITAKER on 04/27/231020 Last Action: Continued Spironolactone (Spironolactone) 25 Mg Tablet, 25 MG PO DAILY PRN for EDEMA, (Reported) Entered as Reported by: GUERA WHITAKER on 04/27/231020 Last Action: Continued Discontinued Medications Acetaminophen with Codeine (Acetaminophen-Cod #3 Tablet) 1 Each Tablet, 1 EA PO Q6H PRN for PAIN-MODERATE (5-7), (Reported) Discontinued Reason: No Longer Taking Entered as Reported by: GUERA WHITAKER on 10/29/21941 Last Action: Discontinued Albuterol Sulfate (Proair Respiclick) 90 Mcg Aer.pow.ba, 2 PUFF INH Q4H PRN for SHORTNESS OF BREATH, (Reported) Discontinued Reason: No Longer Taking Entered as Reported by: GUERA WHITAKER on 10/29/21941 Last Action: Discontinued Atorvastatin Calcium (Atorvastatin Calcium) 10 Mg Tablet, 10 MG PO HS, (Reported) Discontinued Reason: No Longer Taking Entered as Reported by: GUERA WHITAKER on 10/29/21941 Last Action: Discontinued Cefdinir (Cefdinir) 300 Mg Capsule, 300 MG PO BID, (Reported) Discontinued Reason: No Longer Taking Entered as Reported by: Kishor Arroyo on 04/27/23303 Last Action: Discontinued Cetirizine HCl (Cetirizine HCl) 10 Mg Tablet, 10 MG PO HS, (Reported) Discontinued Reason: No Longer Taking Entered as Reported by: GUERA WHITAKER on 10/29/21941 Last Action: Discontinued Diltiazem HCl (Diltiazem 24Hr ER) 120 Mg Cap.er.24h, 120 MG PO DAILY, (Reported) Discontinued Reason: No Longer Taking Entered as Reported by: GUERA WHITAKER on 10/29/21941 Last Action: Discontinued Docusate Sodium (Colace) 100 Mg Capsule, 100 MG PO BID, (Reported) Discontinued Reason: No Longer Taking Entered as Reported by: Kishor Arroyo on 04/27/23303 Last Action: Discontinued Doxycycline Hyclate (Doxycycline Hyclate) 100 Mg Tablet, 100 MG PO BID, (Reported) Discontinued Reason: No Longer Taking Entered as Reported by: Kishor Arroyo on 04/27/23303 Last Action: Discontinued Fluoxetine HCl (Fluoxetine HCl) 20 Mg Capsule, 20 MG PO HS, (Reported) Discontinued Reason: No Longer Taking Entered as Reported by: GUERA WHITAKER on 10/29/21941 Last Action: Discontinued Furosemide (Furosemide) 20 Mg Tablet, 20 MG PO DAILY, (Reported) Discontinued Reason: No Longer Taking Entered as Reported by: GUERA WHITAKER on 10/29/21941 Last Action: Discontinued Gabapentin (Gabapentin) 100 Mg Capsule, 100 MG PO BID, (Reported) Discontinued Reason: No Longer Taking Entered as Reported by: GUERA WHITAKER on 10/29/21941 Last Action: Discontinued Hydroxyzine HCl (Hydroxyzine HCl) 25 Mg Tablet, 25 MG PO Q12H PRN for ANXIETY, (Reported) Discontinued Reason: No Longer Taking Entered as Reported by: GUERA WHITAKER on 10/29/21941 Last Action: Discontinued Ipratropium/Albuterol Sulfate (Iprat-Albut 0.5-3(2.5) mg/3 ml) 3 Ml Ampul.neb, 3 ML NEB Q6H PRN for SHORTNESS OF BREATH, (Reported) Discontinued Reason: No Longer Taking Entered as Reported by: GUERA WHITAKER on 10/29/21941 Last Action: Discontinued Levothyroxine Sodium (Levothyroxine) 25 Mcg Capsule, 25 MCG PO ONCE, (Reported) Discontinued Reason: No Longer Taking Entered as Reported by: Kishor Arroyo on 04/27/23303 Last Action: Discontinued Losartan Potassium (Losartan Potassium) 50 Mg Tablet, 50 MG PO DAILY, (Reported) Discontinued Reason: No Longer Taking Entered as Reported by: GUERA WHITAKER on 10/29/21941 Last Action: Discontinued Magnesium Hydroxide (Milk of Magnesia) 400 Mg/5 Ml Oral.susp, 15 ML PO UD PRN for CONSTIPATION-7TH LINE, (Reported) Discontinued Reason: No Longer Taking Entered as Reported by: GUERA WHITAKER on 10/29/21943 Last Action: Discontinued Metoprolol Tartrate (Metoprolol Tartrate) 25 Mg Tablet, 25 MG PO ONCE, (Reported) Discontinued Reason: No Longer Taking Entered as Reported by: Kishor Arroyo on 04/27/23303 Last Action: Discontinued Pantoprazole Sodium (Pantoprazole Sodium) 40 Mg Tablet.dr, 40 MG PO 1800 AFTER MEAL, (Reported) Discontinued Reason: No Longer Taking Entered as Reported by: GUERA WHITAKER on 10/29/21 0942 Last Action: Discontinued Past Ndjizei-Nnhcrh-Vvljmo Hx Patient Social History Marrital Status: single Employed/Student: retired Smoking Status: Former Smoker Past Medical History COPD High Cholesterol, Hypertension Family Medical History Cardiovascular disease 19 MOTHER Completed stroke 19 FATHER Respiratory disorder 19 FATHER 19 MOTHER Review of Systems Constitutional: see HPI Respiratory: dyspnea on exertion, short of breath Physical Exam General Appearance: Anxious, Chronically ill, Mild Distress, Other (bipap on) Respiratory: No Accessory Muscle Use, No Respiratory Distress, Decreased Breath Sounds, Wheezing (b/l) Cardiovascular: Tachycardia Neurologic/Psychiatric: Alert, Oriented x3 Assessment/Plan Assessment and Plan Acute on chronic hypoxic hypercapneic resp failure COVID AECOPD HTN DM Plan: BiPAP DNR Monitor closely Problems: (1) Acute respiratory failure with hypoxia and hypercapnia Status: Acute (2) Chronic kidney disease, stage 3a (3) Primary hypertension (4) Aortic stenosis Status: Acute Admission Diagnosis Admission Status: Inpatient Order (span 2 midnights) Reason for Inpatient Admission: covid Supervisory-Addendum Brief Verification & Attestation Participated in pt care: history, MDM, physical Personally performed: exam, history, MDM, supervision of care Care discussed with: Medical Student Procedures: n/a Results interpretation: Verified all documentation Verification and Attestation of Medical Student E/M Service A medical student performed and documented this service in my presence. I reviewed and verified all information documented by the medical student and made modifications to such information, when appropriate. I personally performed the physical exam and medical decision making. Ashly Cifuentes Apr 28, 2023,04:50 MUSA PAREDES Apr 27, 2023 13:21 ASHLY CIFUENTES DO Apr 28, 2023 04:50
[2023-04-27] MEDS: inSUlin ASPART 1 UNIT/0.01 ML (PER UNIT) SC SCH ×3 (13:26→21:50)
[2023-04-27] MEDS: DOCUSATE SODIUM 100 MG CAPSULE PO SCH (20:39)
[2023-04-27] MEDS: SENNOSIDES 8.6 MG TABLET PO SCH (20:39)
[2023-04-27] MEDS: DULoxetine 20 MG CAPSULE PO SCH (20:39)
[2023-04-27] MEDS: PANTOPRAZOLE 40 MG TABLET PO SCH (20:39)
[2023-04-27] MEDS ORDERED: DOCUSATE SODIUM 100 MG CAPSULE PO SCH (21:00)
[2023-04-27] MEDS: ALPRAZolam 0.25 MG TABLET PO PRN (21:09)
[2023-04-27] MEDS: hydrOXYzine 25 MG CAPSULE PO PRN (21:09)
[2023-04-27] MEDS: RT-ALBUTEROL HFA 8.5 GM INHALER IH SCH (21:11)
[2023-04-27] MEDS: LIDOCAINE PATCH REMOVAL TP SCH (21:50)
[2023-04-28] VITALS: BP 140/79
[2023-04-28 04:00] VITALS: BP 155/74
[2023-04-28 05:33] LABS: BASOPHILS % (AUTO) 0 % (0-10); EOSINOPHILS % (AUTO) 0 % (0-10); HEMATOCRIT 28 % (35-52); HEMOGLOBIN 8.9 g/dL (11.5-16.0); LYMPHOCYTES # (AUTO) 0.8 10^3/uL (1.0-4.0); LYMPHOCYTES % (AUTO) 15 % (12-44); MEAN CORPUSCULAR HEMOGLOBIN 29 pg (25-34); MEAN CORPUSCULAR HGB CONC 32 g/dL (32-36); MEAN CORPUSCULAR VOLUME 89 fL (80-99); MEAN PLATELET VOLUME 9.6 fL (9.0-12.2); MONOCYTES # (AUTO) 0.1 10^3/uL (0.0-1.0); MONOCYTES % (AUTO) 2 % (0-12); NEUTROPHILS # (AUTO) 4.7 10^3/uL (1.8-7.8); NEUTROPHILS % (AUTO) 82 % (42-75); PLATELET COUNT 161 10^3/uL (130-400); WHITE BLOOD COUNT 5.7 10^3/uL (4.3-11.0)
[2023-04-28 05:43] LABS: ALBUMIN 2.9 GM/DL (3.2-4.5); POTASSIUM 4.1 MMOL/L (3.6-5.0)
[2023-04-28 05:46] LABS: TOTAL PROTEIN 6.2 GM/DL (6.4-8.2)
[2023-04-28 05:47] LABS: BILIRUBIN,TOTAL 0.4 MG/DL (0.1-1.0)
[2023-04-28 05:49] LABS: CREATININE SERUM 0.85 MG/DL (0.60-1.30)
[2023-04-28] MEDS: inSUlin ASPART 1 UNIT/0.01 ML (PER UNIT) SC SCH ×4 (06:24→20:31)
[2023-04-28] MEDS: LEVOTHYROXINE 25 MCG TABLET PO SCH (06:24)
[2023-04-28] MEDS: CATHETER FLUSH 10 ML SYR IVP SCH ×3 (06:24→20:57)
[2023-04-28 07:45] VITALS: BP 183/77
[2023-04-28] MEDS ORDERED: NON-FORMULARY MEDICATION 1 EA EA (Diltiazem HCl (Diltiazem ER) 240 MG) PO SCH (09:00)
[2023-04-28] MEDS: LIDOCAINE 4% PATCH TP SCH (09:07)
[2023-04-28] MEDS: dexAMETHasone INJ 4 MG/ML SDV IV SCH ×2 (09:07→20:53)
[2023-04-28] MEDS: PANTOPRAZOLE 40 MG TABLET PO SCH ×2 (09:09→20:52)
[2023-04-28] MEDS: SENNOSIDES 8.6 MG TABLET PO SCH ×2 (09:09→20:02)
[2023-04-28] MEDS: hydrOXYzine 25 MG CAPSULE PO PRN (09:09)
[2023-04-28] MEDS: DOCUSATE SODIUM 100 MG CAPSULE PO SCH ×2 (09:09→20:02)
[2023-04-28] MEDS: meTOprolol TARTRATE (IR) 25 MG TABLET PO SCH (09:10)
[2023-04-28] MEDS: APIXABAN 5 MG TABLET PO SCH ×2 (09:10→20:53)
[2023-04-28] MEDS: dilTIAZem ER 240 MG CAPSULE PO SCH (09:10)
[2023-04-28] MEDS: RT-ALBUTEROL HFA 8.5 GM INHALER IH PRN (09:11)
[2023-04-28] MEDS: RT-ALBUTEROL HFA 8.5 GM INHALER IH SCH ×2 (09:12→21:31)
[2023-04-28] MEDS ORDERED: BENZONATATE 100 MG CAPSULE PO PRN (11:00)
[2023-04-28 11:09] VITALS: BP 174/77
[2023-04-28] MEDS: BENZONATATE 100 MG CAPSULE PO PRN ×2 (11:59→20:53)
[2023-04-28] MEDS: AZITHROMYCIN INJECTION 500 MG in NS (IVPB) 250 ML 250 ML IV SCH (12:00)
[2023-04-28] MEDS: CEFEPIME INJECTION 1,000 MG in NS (IVPB) 50 ML 50 ML IV SCH ×2 (12:00→17:30)
--- NOTE | 2023-04-28 12:23 | Progress Note ---
MUSA PAREDES 04/28/23 1223: Subjective Date Seen by a Provider: Apr 28, 2023 Time Seen by a Provider: 11:00 Subjective/Events-last exam Patient seen laying in bed this morning, no family at bedside. Patient was on the bipap overnight, currently on [place]. She reports that she is feeling better today, able to breathe a little easier. She has not had any more feelings of subjective fever, still having body aches. She reports that she now has a cough, mostly dry but occasionally productive of yellow-clear sputum. Hypertensive overnight, last measured at 183/77 but had not received her BP meds yet. Patient has no new complaints. Review of Systems General: No Chills, No Night Sweats HEENT: No Visual Changes, No Eye Pain Pulmonary: Dyspnea (improving), Cough (mostly dry, sometimes productive of clearish yellow sputum) Cardiovascular: No: Chest Pain, Palpitations Gastrointestinal: No: Nausea, Vomiting Genitourinary: No Dysuria, No Hematuria Musculoskeletal: No: neck pain, back pain Neurological: No: Weakness, Numbness Focused Exam Lactate Level 04/26/23 23:55: Lactic Acid Level 1.39 Objective Exam Last Set of Vital Signs Vital Signs Date Time Temp Pulse Resp B/P (MAP) Pulse Ox O2 Delivery O2 Flow Rate FiO2 04/28/23 11:09 36.1 93 18 174/77 (109) 94 Nasal Cannula 4.00 04/28/23 08:00 30 Capillary Refill : Less Than 3 Seconds I&O Intake and Output 04/28/23 00:00 Intake Total 1500 ml Output Total 0 ml Balance 1500 ml Intake Oral 1000 ml IV Total 500 ml Output Urine Total 0 ml # Urine Diapers 2 Daily Weight Change No General: Alert, Oriented X3 HEENT: Atraumatic, PERRLA Neck: Supple, No JVD Lungs: Other (wheezing b/l) Heart: No Murmurs, Other (a-fib, rate controlled) Abdomen: Soft, No Tenderness Extremities: No Clubbing, No Cyanosis Skin: No Rashes, No Breakdown Neuro: Normal Speech, Normal Tone Psych/Mental Status: Mental Status NL Results Lab Laboratory Tests 04/27/23 16:37: Glucometer 152H 04/27/23 20:00: Glucometer 165H 04/28/23 05:23: White Blood Count 5.7, Red Blood Count 3.12L, Hemoglobin 8.9L, Hematocrit 28L, Mean Corpuscular Volume 89, Mean Corpuscular Hemoglobin 29, Mean Corpuscular Hemoglobin Concent 32, Red Cell Distribution Width 13.2, Platelet Count 161, Mean Platelet Volume 9.6, Immature Granulocyte % (Auto) 1, Neutrophils (%) (Auto) 82H, Lymphocytes (%) (Auto) 15, Monocytes (%) (Auto) 2, Eosinophils (%) (Auto) 0, Basophils (%) (Auto) 0, Neutrophils # (Auto) 4.7, Lymphocytes # (Auto) 0.8L, Monocytes # (Auto) 0.1, Eosinophils # (Auto) 0.0, Basophils # (Auto) 0.0, Immature Granulocyte # (Auto) 0.1, Sodium Level 137, Potassium Level 4.1, Chloride Level 104, Carbon Dioxide Level 26, Anion Gap 7, Blood Urea Nitrogen 10, Creatinine 0.85, Estimat Glomerular Filtration Rate 68, BUN/Creatinine Ratio 12, Glucose Level 154H, Calcium Level 9.0, Corrected Calcium 9.9, Total Bilirubin 0.4, Aspartate Amino Transf (AST/SGOT) 15, Alanine Aminotransferase (ALT/SGPT) 10, Alkaline Phosphatase 52, Total Protein 6.2L, Albumin 2.9L 04/28/23 10:35: Glucometer 166H Assessment/Plan Assessment/Plan Assess & Plan/Chief Complaint Acute on chronic respiratory failure with hypoxia and hypercapnia: Continue steroids, O2, nebs, added cefepime and azithromycin today, sputum culture and tessalon pearls for cough COVID: Continue steroids, O2, nebs AECOPD: Steroids, O2, nebs HTN: Restarted home BP meds today NIDDM: SSI A-fib: continue eliquis Anemia: appears to be a chronic issue for her, Hg 8.9 today, continue to monitor Chronic edema: spironolactone PRN Gerd: protonix Hypothyroidism: levothyroxine Anxiety: home meds, hydralazine and alprazolam as needed Depression: home meds CAD HLD Obesity Clinical Quality Measures Admission Status Admission Dx Acute respiratory failure with hypoxia and hypercapnia: IV decadron, currently on bipap, continue nebs COPD exacerbation: O2, decadron, nebs COVID: O2, decadron, nebs A-fib: continue eliquis NIDDM: SSI HTN: home BP meds Chronic edema: spironolactone PRN Anxiety: home meds Depression: home meds GERD: protonix Hypothyroidism: home dose levothyroxine CAD HLD Obesity ASHLY OVERTON DO 04/29/23 0504: Subjective Subjective/Events-last exam Improved slightly Still dyspneic Productive sputum so added abx Objective Exam General: Alert, Oriented X3, Cooperative, No Acute Distress Lungs: Other (wheezing b/l) Heart: Regular Rate Psych/Mental Status: Mental Status NL Assessment/Plan Assessment/Plan Assess & Plan/Chief Complaint Add abx for bronchitis/early PNA Supervisory-Addendum Brief Verification & Attestation Participated in pt care: history, MDM, physical Personally performed: exam, history, MDM, supervision of care Care discussed with: Medical Student Procedures: n/a Results interpretation: Verified all documentation Verification and Attestation of Medical Student E/M Service A medical student performed and documented this service in my presence. I reviewed and verified all information documented by the medical student and made modifications to such information, when appropriate. I personally performed the physical exam and medical decision making. Ashly Overton Apr 29, 2023,05:03 MUSA PAREDES Apr 28, 2023 12:23 ASHLY OVERTON DO Apr 29, 2023 05:04
--- NOTE | 2023-04-28 13:47 | Occupational Therapy Eval ---
OT Evaluation-General/PLF Medical Diagnosis Admission Date Apr 27, 2023 at 14:32 Medical Diagnosis: COVID Onset Date: Apr 27, 2023 Therapy Diagnosis Therapy Diagnosis: weakness Height/Weight Height (Feet): 5 Height (Inches): 4.00 Weight (Pounds): 243 Weight (Ounces): 0.0 Precautions Precautions/Isolations: Airborne Isolation, Droplet Isolation Medical History Pertinent Medical History: DM, GERD, HTN Additional Medical History MO, B/B incont per report and today Social History Home: [facility] ADL-Prior Level of Function SCALE: Activities may be completed with or without assistive devices. 2-Nonqbwrhtl-mwdiqdz completes the activity by him/herself with no assistance from a helper. 5-Set-up or Clean-up Assistance-helper sets up or cleans up; patient completes activity. [place] assists only prior to or following the activity. 4-Supervision or Touching Assistance-helper provides verbal cues and/or touching/steadying and/or contact guard assistance as patient completes activity. Assistance may be provided throughout the activity or intermittently. 3-Partial/Moderate Assistance-helper does LESS THAN HALF the effort. [place] lifts, holds or supports trunk or limbs, but provides less than half the effort. 2-Substantial/Maximal Assistance-helper does MORE THAN HALF the effort. [place] lifts or holds trunk or limbs and provides more than half the effort. 0-Rhedyedre-kpgqji does ALL the effort. Patient does none of the effort to complete the activity. Or, the assistance of 2 or more helpers is required for the patient to complete the activity. If activity was not attempted, code reason: 7-Patient Refused. 9-Not Applicable-not attempted and the patient did not perform the activity before the current illness, exacerbation or injury. 10-Not Attempted due to Environmental Limitations-(lack of equipment, weather restraints, etc.). 88-Not Attempted due to Medical Conditions or Safety Concerns. Self Care: Needed Some Help Functional Cognition: Needed Some Help Drive Self: No OT Current Status Subjective Patient reports she is bedbound by her own definition, told me I don't have to have therapy today or get in a chair. Pain Comment: yeasty skin areas Mental Status/Objective Patient Orientation: Person, Place (hospital I think") Attachments: IV, Oxygen, SCD's, Other-See Comments (PUR WICK) Current Hand Dominance: Right Upper Extremity ROM WFL limited by excessive soft tissue reducing joint approximation Upper Extremity Coordination Limited by mass Upper Extremity Strength +3/5, able to roll independently to right and left side of bed use rail and sit EOB w/o OTR assistance ADL-Treatment Eating (QC): 6 Oral Hygiene (QC): 5 Shower/Bathe Self (QC): 88 Upper Body Dressing (QC): 3 (hospital gown only) Lower Body Dressing (QC): 1 On/Off Footwear (QC): 1 Toileting Hygiene (QC): 1 (BM incont on arrival.) Education OT Patient Education: Modified ADL techniques, Progress toward Goal/Update tx plan, Purpose of tx/functional activities, Reviewed precautions, Rehab process, Safety issues Teaching Recipient: Patient Teaching Methods: Discussion Response to Teaching: Reinforcement Needed OT Fdc Goals Able Seaman Goals Eating (QC): 6 Oral Hygiene (QC): 6 (sitting) Toileting Hygiene (QC): 3 Upper Body Dressing (QC): 4 Lower Body Dressing (QC): 3 On/Off Footwear (QC): 3 1=Demonstrate adherence to instructed precautions during ADL tasks. 2=Patient will verbalize/demonstrate understanding of assistive devices/modifications for ADL. 3=Patient will improve strength/tolerance for activity to enable patient to perform ADL's. OT Education/Plan Problem List/Assessment Assessment: Decreased Activ Tolerance, Decreased Safety Aware, Decreased UE Strength, Impaired Coordination, Impaired Funct Balance, Impaired Self-Care Skills Discharge Recommendations Plan/Recommendations: Continue POC Therapy Discharge Recommendati: Post Acute OT Treatment Plan/Plan of Care Treatment,Training & Education: Yes Patient would benefit from OT for education, treatment and training to promote independence in ADL's, mobility, safety and/or upper extremity function for ADL's. Plan of Care: ADL Retraining, Concurrent Therapy, Functional Mobility, Group Exercise/Act as Ind, UE Funct Exercise/Act Treatment Duration: May 06, 2023 Frequency: 3 times per week (3-5 times per week) Estimated Hrs Per Day: .25 hour per day Agreement: Yes Rehab Potential: Fair Time Start Time: 13:15 Stop Time: 13:40 DATE: Apr 28, 2023 Total Time Billed (hr/min): 25 Billed Treatment Time EVH, ADL 25 min CARSON LEAHY OT Apr 28, 2023 13:47
--- NOTE | 2023-04-28 13:52 | Physical Therapy Progress Note ---
Therapy Progress Note Orders received, PT evaluation attempted. Patient in bed after working with OT. Adamantly refuses PT evaluation and treatment. Patient states "Dr. Overton said I don't have to do PT today." Patient was educated on the benefits of activity to promote healing. Asked if she would get out of bed to ambulate, that she did not have to get in the chair. Patient again adamantly refused, however tentatively agreed to do PT tomorrow. OT and POLYSOMNOGRAPHY TECH in the room at the same time. EDIN KRUEGER PT Apr 28, 2023 13:52
[2023-04-28 15:59] VITALS: BP 163/73
[2023-04-28 20:11] VITALS: BP 158/66
[2023-04-28] MEDS: DULoxetine 20 MG CAPSULE PO SCH (20:53)
[2023-04-28] MEDS: ALPRAZolam 0.25 MG TABLET PO PRN (20:53)
[2023-04-28] MEDS: LIDOCAINE PATCH REMOVAL TP SCH (20:56)
[2023-04-29] VITALS (7 sets, daily range): BP systolic 137–174; BP diastolic 65–80
[2023-04-29] MEDS: CEFEPIME INJECTION 1,000 MG in NS (IVPB) 50 ML 50 ML IV SCH ×5 (00:19→23:55)
[2023-04-29] MEDS: LEVOTHYROXINE 25 MCG TABLET PO SCH (05:13)
[2023-04-29] MEDS: CATHETER FLUSH 10 ML SYR IVP SCH ×3 (05:13→22:34)
[2023-04-29 06:08] LABS: BASOPHILS % (AUTO) 0 % (0-10); EOSINOPHILS % (AUTO) 0 % (0-10); HEMATOCRIT 27 % (35-52); HEMOGLOBIN 8.7 g/dL (11.5-16.0); LYMPHOCYTES # (AUTO) 0.6 10^3/uL (1.0-4.0); LYMPHOCYTES % (AUTO) 12 % (12-44); MEAN CORPUSCULAR HEMOGLOBIN 29 pg (25-34); MEAN CORPUSCULAR HGB CONC 32 g/dL (32-36); MEAN CORPUSCULAR VOLUME 89 fL (80-99); MEAN PLATELET VOLUME 9.8 fL (9.0-12.2); MONOCYTES # (AUTO) 0.2 10^3/uL (0.0-1.0); MONOCYTES % (AUTO) 3 % (0-12); NEUTROPHILS # (AUTO) 4.3 10^3/uL (1.8-7.8); NEUTROPHILS % (AUTO) 83 % (42-75); PLATELET COUNT 176 10^3/uL (130-400); WHITE BLOOD COUNT 5.2 10^3/uL (4.3-11.0)
[2023-04-29 06:35] LABS: ALBUMIN 3.1 GM/DL (3.2-4.5); BILIRUBIN,TOTAL 0.4 MG/DL (0.1-1.0); CALCIUM 8.7 MG/DL (8.5-10.1); CREATININE SERUM 0.84 MG/DL (0.60-1.30); TOTAL PROTEIN 6.1 GM/DL (6.4-8.2)
[2023-04-29] MEDS: inSUlin ASPART 1 UNIT/0.01 ML (PER UNIT) SC SCH ×4 (06:36→20:32)
[2023-04-29] MEDS: RT-ALBUTEROL HFA 8.5 GM INHALER IH SCH ×2 (08:13→21:09)
[2023-04-29] MEDS: AZITHROMYCIN INJECTION 500 MG in NS (IVPB) 250 ML 250 ML IV SCH (09:21)
[2023-04-29] MEDS: dexAMETHasone INJ 4 MG/ML SDV IV SCH ×2 (09:21→20:59)
[2023-04-29] MEDS: dilTIAZem ER 240 MG CAPSULE PO SCH (09:21)
[2023-04-29] MEDS: LIDOCAINE 4% PATCH TP SCH (09:21)
[2023-04-29] MEDS: BENZONATATE 100 MG CAPSULE PO PRN (09:22)
[2023-04-29] MEDS: APIXABAN 5 MG TABLET PO SCH ×2 (09:23→20:59)
[2023-04-29] MEDS: DOCUSATE SODIUM 100 MG CAPSULE PO SCH ×2 (09:23→20:59)
[2023-04-29] MEDS: SENNOSIDES 8.6 MG TABLET PO SCH ×2 (09:23→20:59)
[2023-04-29] MEDS: hydrOXYzine 25 MG CAPSULE PO PRN ×2 (09:23→17:02)
[2023-04-29] MEDS: PANTOPRAZOLE 40 MG TABLET PO SCH ×2 (09:23→20:59)
[2023-04-29] MEDS: meTOprolol TARTRATE (IR) 25 MG TABLET PO SCH (09:23)
--- NOTE | 2023-04-29 09:53 | Progress Note ---
Subjective Date Seen by a Provider: Apr 29, 2023 Time Seen by a Provider: 10:30 Subjective/Events-last exam Doing a bit better Up in a chair now Off biPAP Still dyspneic No falls No pain Robitussin AC will be ordered Review of Systems General: Fatigue Pulmonary: Dyspnea, Cough Focused Exam Lactate Level 04/26/23 23:55: Lactic Acid Level 1.39 Objective Exam Last Set of Vital Signs Vital Signs Date Time Temp Pulse Resp B/P (MAP) Pulse Ox O2 Delivery O2 Flow Rate FiO2 04/29/23 08:13 95 Nasal Cannula 3.00 04/29/23 07:51 36.0 62 22 174/74 (107) 04/28/23 08:00 30 Capillary Refill : Less Than 3 Seconds I&O Intake and Output 04/29/23 00:00 Intake Total 1560 ml Output Total 580 ml Balance 980 ml Intake Oral 1560 ml Output Urine Total 580 ml # Voids 4 General: Alert, Oriented X3, Cooperative, Mild Distress Lungs: Other (coarse with wheezing) Heart: Regular Rate Psych/Mental Status: Mental Status NL Results Lab Laboratory Tests 04/28/23 10:35: Glucometer 166H 04/28/23 16:04: Glucometer 138H 04/28/23 20:17: Glucometer 146H 04/29/23 05:30: White Blood Count 5.2, Red Blood Count 3.02L, Hemoglobin 8.7L, Hematocrit 27L, Mean Corpuscular Volume 89, Mean Corpuscular Hemoglobin 29, Mean Corpuscular Hemoglobin Concent 32, Red Cell Distribution Width 13.3, Platelet Count 176, Mean Platelet Volume 9.8, Immature Granulocyte % (Auto) 2, Neutrophils (%) (Auto) 83H, Lymphocytes (%) (Auto) 12, Monocytes (%) (Auto) 3, Eosinophils (%) (Auto) 0, Basophils (%) (Auto) 0, Neutrophils # (Auto) 4.3, Lymphocytes # (Auto) 0.6L, Monocytes # (Auto) 0.2, Eosinophils # (Auto) 0.0, Basophils # (Auto) 0.0, Immature Granulocyte # (Auto) 0.1, Sodium Level 137, Potassium Level 4.0, Chloride Level 104, Carbon Dioxide Level 26, Anion Gap 7, Blood Urea Nitrogen 13, Creatinine 0.84, Estimat Glomerular Filtration Rate 69, BUN/Creatinine Ratio 15, Glucose Level 144H, Calcium Level 8.7, Corrected Calcium 9.4, Total Bilirubin 0.4, Aspartate Amino Transf (AST/SGOT) 14, Alanine Aminotransferase (ALT/SGPT) 12, Alkaline Phosphatase 49, Total Protein 6.1L, Albumin 3.1L Microbiology 04/28/23 Gram Stain - Final, Resulted 04/28/23 Sputum Culture, Resulted Pending 04/27/23 Blood Culture - Preliminary, Resulted Assessment/Plan Assessment/Plan Assess & Plan/Chief Complaint Acute respiratory failure with hypoxia and hypercapnia: IV decadron, previously on bipap, continue nebs COPD exacerbation: O2, decadron, nebs Early PNA placed on abx COVID: O2, decadron, nebs A-fib: continue eliquis NIDDM: SSI HTN: home BP meds Chronic edema: spironolactone PRN Anxiety: home meds Depression: home meds GERD: protonix Hypothyroidism: home dose levothyroxine CAD HLD Obesity Plan: IV abx Monitor closely Diagnosis/Problems Diagnosis/Problems (1) Acute respiratory failure with hypoxia and hypercapnia Status: Acute (2) Chronic kidney disease, stage 3a (3) Primary hypertension (4) Aortic stenosis Status: Acute Clinical Quality Measures Admission Status Admission Dx Acute on chronic hypoxic hypercapneic resp failure COVID AECOPD HTN DM Plan: BiPAP DNR Monitor closely YAQUELIN CIUFENTES DO Apr 29, 2023 09:53
[2023-04-29] MEDS ORDERED: amLODIPine 5 MG TABLET PO ONE (10:00)
--- NOTE | 2023-04-29 10:28 | Physical Therapy Evaluation ---
PT Evaluation-General Medical Diagnosis Admission Date Apr 27, 2023 at 14:32 Medical Diagnosis: COVID Onset Date: Apr 27, 2023 Therapy Diagnosis Therapy Diagnosis: debility/weakness Height/Weight Height (Feet): 5 Height (Inches): 4.00 Weight (Pounds): 243 Weight (Ounces): 0.0 Precautions Precautions/Isolations: Airborne Isolation, Contact Isolation, Droplet Isolation Referral Physician: Brooklynn Reason for Referral: Evaluation/Treatment Medical History Pertinent Medical History: Atrial Fib, CAD, COPD, DM, GERD, Heart Failure, HTN, Hypothroidism Additional Medical History obesity Current History EMS secondary to SOA (Covid 04/22/23) Social History Home: [facility] Prior Prior Level of Function SCALE: Activities may be completed with or without assistive devices. 5-Wdzwrcuxsb-wcudato completes the activity by him/herself with no assistance from a helper. 5-Set-up or Clean-up Assistance-helper sets up or cleans up; patient completes activity. [place] assists only prior to or following the activity. 4-Supervision or Touching Assistance-helper provides verbal cues and/or touching/steadying and/or contact guard assistance as patient completes activity. Assistance may be provided throughout the activity or intermittently. 3-Partial/Moderate Assistance-helper does LESS THAN HALF the effort. [place]ett l ifts, holds or supports trunk or limbs, but provides less than half the effort. 2-Substantial/Maximal Assistance-helper does MORE THAN HALF the effort. [place] lifts or holds trunk or limbs and provides more than half the effort. 7-Lfigtbmov-jybosz does ALL the effort. Patient does none of the effort to complete the activity. Or, the assistance of 2 or more helpers is required for t he patient to complete the activity. If activity was not attempted, code reason: 7-Patient Refused. 9-Not Applicable-not attempted and the patient did not perform the activity before the current illness, exacerbation or injury. 10-Not Attempted due to Environmental Limitations-(lack of equipment, weather restraints, etc.). 88-Not Attempted due to Medical Conditions or Safety Concerns. Bed Mobility: 4 Transfers (B,C,W/C): 4 Gait: 4 Stairs: 9 Indoor Mobility (Ambulation): Needed Some Help Prior Devices Use: Walker PT Evaluation-Current Subjective Patient agrees to therapy. Objective Patient Orientation: Normal For Age Attachments: IV ROM/Strength ROM Lower Extremities bilateral LE WFL Strength Lower Extremities 3+/5 grossly bilateral LE Integumentary/Posture Bowel Incontinence: Yes Bladder Incontinence: Yes Posture WFL Neuromuscular (Tone, Coordination, Reflexes) grossly intact Sensory Vision: Functional Hearing: Functional Hand Dominance: Right Transfers Lying to Sitting/Side of Bed(Q: 4 Sit to Stand (QC): 4 Chair/Ecn-gt-Pboak Xfer(QC): 4 Gait Mode of Locomotion: Walk Anticipated Mode of Locomotion: Walk Walk 10 feet (QC): 4 Gait Assistive Device: FWW Comments/Gait Description CGA for safety/functional gait sequence Balance Sitting Static: Normal Sitting Dynamic: Normal Standing Static: Normal Standing Dynamic: Normal Assessment/Needs Patient will benefit from skilled PT to address functional strength and mobility to improve current LOF. Patient has been instructed to call for assistance to ambulate to restroom or commode. Patient voices understanding. RN notified. Rehab Potential: Fair PT [employer] Goals [facility]iary Goals PT [facility]iary Goals Time Frame: May 14, 2023 Roll Left & Right (QC): 5 Sit to Lying (QC): 5 Lying-Sitting on Side/Bed(QC): 5 Sit to Stand (QC): 5 Chair/Cyh-kx-Dhgci Xfer(QC): 5 Toilet Transfer (QC): 5 Walk 10 feet (QC): 4 Walk 50ft with 2 Turns (QC): 4 PT Plan Problem List Problem List: Activity Tolerance, Functional Strength, Safety, Balance, Gait, Transfer, Bed Mobility Treatment/Plan Treatment Plan: Continue Plan of Care Treatment Plan: Bed Mobility, Education, Functional Activity Estefany, Functional Strength, Gait, Safety, Therapeutic Exercise, Transfers Treatment Duration: May 14, 2023 Frequency: 5 times per week Estimated Hrs Per Day: .25 hour per day Time Time In: 945 Time Out: 1000 DATE: Apr 29, 2023 Total Billed Treatment Time: 15 [facility] AN[facility]A ESCOBAR PT Apr 29, 2023 10:28
--- NOTE | 2023-04-29 10:50 | Occupational Ther Daily Note ---
OT Current Status-Daily Note Subjective c/o of not have a PUR WICK and being saturated. Several excuses for not being able to perform mobility skills while performing skills. Pain Comment: Roshan is very concerned with wound care needs. Mental Status/Objective Patient Orientation: Person, Place Attachments: IV (does not want tomove arm or bend LUE for fear of IV), Oxygen (tube lengthened for ambulaiton to bathroom) ADL-Treatment Dons both socks in reclined supine position, Patient reports she cannot bend left knee, however OTR placed sock on toes of L foot and patien completed task, Bed mobility CGA to sit EOB w/ 50% VC and moderate encouragement. Once balanced w/ FAIR + sitting balance OT stretched brief and thread BLE through brief legs to knees for patient, CGA to stand w/ FWW and gait belt, min assist to complete LB garments. OT instructed patient to use call light and ambulate to bathroom w/ staff, 02, gait belt and FWW Therapy Code Descriptions/Definitions Functional [place] Measure: 0=Not Assessed/NA 4=Minimal Assistance 1=Total Assistance 5=Supervision or Setup 2=Maximal Assistance 6=Modified [place] 3=Moderate Assistance 7=Complete IndependenceSCALE: Activities may be completed with or without assistive devices. 3-Qhtzpljniw-dousnxb completes the activity by him/herself with no assistance from a helper. 5-Set-up or Clean-up Assistance-helper sets up or cleans up; patient completes activity. [place] assists only prior to or following the activity. 4-Supervision or Touching Assistance-helper provides verbal cues and/or touching/steadying and/or contact guard assistance as patient completes activity. Assistance may be provided throughout the activity or intermittently. 3-Partial/Moderate Assistance-helper does LESS THAN HALF the effort. [place] lifts, holds or supports trunk or limbs, but provides less than half the effort. 2-Substantial/Maximal Assistance-helper does MORE THAN HALF the effort. [place] lifts or holds trunk or limbs and provides more than half the effort. 4-Ujsstkdpf-hrcmig does ALL the effort. Patient does none of the effort to complete the activity. Or, the assistance of 2 or more helpers is required for the patient to complete the activity. If activity was not attempted, code reason: 7-Patient Refused. 9-Not Applicable-not attempted and the patient did not perform the activity before the current illness, exacerbation or injury. 10-Not Attempted due to Environmental Limitations-(lack of equipment, weather restraints, etc.). 88-Not Attempted due to Medical Conditions or Safety Concerns. Eating (QC): 6 Oral Hygiene (QC): 5 Upper Body Dressing (QC): 4 Lower Body Dressing (QC): 3 On/Off Footwear: 5 Toileting Hygiene (QC): 3 Toilet Transfer (QC): 4 Education OT Patient Education: Correct positioning, Exercise program, Modified ADL techniques, Progress toward Goal/Update tx plan, Purpose of tx/functional activities, Reviewed precautions, Rehab process, Safety issues, Transfer techniques, Use of adapted equipment Teaching Recipient: Patient Teaching Methods: Demonstration, Discussion Response to Teaching: Return Demonstration, Reinforcement Needed OT Detention Goals Detention Goals Eating (QC): 6 Oral Hygiene (QC): 6 (sitting) Toileting Hygiene (QC): 3 Upper Body Dressing (QC): 4 Lower Body Dressing (QC): 3 On/Off Footwear (QC): 3 1=Demonstrate adherence to instructed precautions during ADL tasks. 2=Patient will verbalize/demonstrate understanding of assistive devices/modifications for ADL. 3=Patient will improve strength/tolerance for activity to enable patient to perform ADL's. OT Education/Plan Problem List/Assessment Assessment: Decreased Activ Tolerance, Decreased Safety Aware, Decreased UE Strength, Impaired Coordination, Impaired Funct Balance, Impaired Self-Care Skills Discharge Recommendations Plan/Recommendations: Continue POC Treatment Plan/Plan of Care Treatment,Training & Education: Yes Patient would benefit from OT for education, treatment and training to promote independence in ADL's, mobility, safety and/or upper extremity function for ADL's. Plan of Care: ADL Retraining, Concurrent Therapy, Functional Mobility, Group Exercise/Act as Ind, UE Funct Exercise/Act Treatment Duration: May 06, 2023 Frequency: 3 times per week (3-5 times per week) Estimated Hrs Per Day: .25 hour per day Agreement: Yes Rehab Potential: Fair Time Start Time: 09:45 Stop Time: 10:00 DATE: Apr 29, 2023 Total Time Billed (hr/min): 15 Billed Treatment Time ADL 15 min CARSON LEAHY OT Apr 29, 2023 10:50
[2023-04-29] MEDS ORDERED: guaiFENesin/CODEINE 10ML UDC PO PRN (12:00)
[2023-04-29] MEDS: RT-ALBUTEROL HFA 8.5 GM INHALER IH PRN ×2 (12:53→18:39)
[2023-04-29] MEDS: oxyCODONE IMMEDIATE RELEASE 5 MG TABLET PO PRN ×2 (17:02→21:05)
[2023-04-29] MEDS: DULoxetine 20 MG CAPSULE PO SCH (20:59)
[2023-04-29] MEDS: ALPRAZolam 0.25 MG TABLET PO PRN (21:05)
[2023-04-29] MEDS: LIDOCAINE PATCH REMOVAL TP SCH (21:10)
[2023-04-30] VITALS (7 sets, daily range): BP systolic 136–169; BP diastolic 62–72
[2023-04-30] MEDS: RT-ALBUTEROL HFA 8.5 GM INHALER IH PRN (01:26)
[2023-04-30] MEDS ORDERED: RT-Ipratropium/Albuterol NEB 3 ML VIAL INH PRN (02:15)
[2023-04-30 05:51] LABS: BASOPHILS % (AUTO) 0 % (0-10); EOSINOPHILS % (AUTO) 0 % (0-10); HEMATOCRIT 29 % (35-52); HEMOGLOBIN 9.3 g/dL (11.5-16.0); LYMPHOCYTES # (AUTO) 0.8 10^3/uL (1.0-4.0); LYMPHOCYTES % (AUTO) 13 % (12-44); MEAN CORPUSCULAR HEMOGLOBIN 29 pg (25-34); MEAN CORPUSCULAR HGB CONC 32 g/dL (32-36); MEAN CORPUSCULAR VOLUME 91 fL (80-99); MEAN PLATELET VOLUME 9.3 fL (9.0-12.2); MONOCYTES # (AUTO) 0.2 10^3/uL (0.0-1.0); MONOCYTES % (AUTO) 3 % (0-12); NEUTROPHILS # (AUTO) 4.9 10^3/uL (1.8-7.8); NEUTROPHILS % (AUTO) 81 % (42-75); PLATELET COUNT 188 10^3/uL (130-400)
[2023-04-30] MEDS ORDERED: RT-Ipratropium/Albuterol NEB 3 ML VIAL INH SCH (06:00)
[2023-04-30] MEDS: LEVOTHYROXINE 25 MCG TABLET PO SCH (06:05)
[2023-04-30] MEDS: CEFEPIME INJECTION 1,000 MG in NS (IVPB) 50 ML 50 ML IV SCH ×3 (06:05→17:58)
[2023-04-30] MEDS: CATHETER FLUSH 10 ML SYR IVP SCH ×3 (06:06→21:38)
[2023-04-30 06:11] LABS: ALBUMIN 3.2 GM/DL (3.2-4.5); BILIRUBIN,TOTAL 0.4 MG/DL (0.1-1.0); CALCIUM 8.6 MG/DL (8.5-10.1); CREATININE SERUM 0.95 MG/DL (0.60-1.30); POTASSIUM 4.3 MMOL/L (3.6-5.0); TOTAL PROTEIN 6.1 GM/DL (6.4-8.2)
[2023-04-30] MEDS: inSUlin ASPART 1 UNIT/0.01 ML (PER UNIT) SC SCH ×4 (06:15→21:16)
[2023-04-30] MEDS ORDERED: RT-ALBUTEROL HFA 8.5 GM INHALER IH PRN (06:15)
--- NOTE | 2023-04-30 06:37 | Progress Note ---
Subjective Date Seen by a Provider: Apr 30, 2023 Time Seen by a Provider: 11:00 Subjective/Events-last exam Patient doing a lot better No falls Requiring BiPAP occasionally Lungs are improved Less productive sputum Labs stable Review of Systems General: Fatigue, Malaise Objective Exam Last Set of Vital Signs Vital Signs Date Time Temp Pulse Resp B/P (MAP) Pulse Ox O2 Delivery O2 Flow Rate FiO2 04/30/23 06:22 36.0 91 94 04/30/23 03:44 17 136/62 (86) NIV Bilevel 30.00 30.00 04/30/23 01:58 30 Capillary Refill : Less Than 3 Seconds I&O Intake and Output 04/30/23 00:00 Intake Total 2520 ml Output Total 400 ml Balance 2120 ml Intake Oral 2420 ml IV Total 100 ml Output Urine Total 400 ml # Voids 7 # Urine Diapers 2 # Bowel Movements 1 General: Alert, Oriented X3, Cooperative, No Acute Distress Lungs: Other (Crackles and wheezes) Heart: Regular Rate Psych/Mental Status: Mental Status NL, Mood NL Results Lab Laboratory Tests 04/29/23 11:36: Glucometer 205H 04/29/23 15:47: Glucometer 95 04/29/23 20:25: Glucometer 142H 04/30/23 05:40: White Blood Count 6.0, Red Blood Count 3.19L, Hemoglobin 9.3L, Hematocrit 29L, Mean Corpuscular Volume 91, Mean Corpuscular Hemoglobin 29, Mean Corpuscular Hemoglobin Concent 32, Red Cell Distribution Width 13.4, Platelet Count 188, Mean Platelet Volume 9.3, Immature Granulocyte % (Auto) 3, Neutrophils (%) (Auto) 81H, Lymphocytes (%) (Auto) 13, Monocytes (%) (Auto) 3, Eosinophils (%) (Auto) 0, Basophils (%) (Auto) 0, Neutrophils # (Auto) 4.9, Lymphocytes # (Auto) 0.8L, Monocytes # (Auto) 0.2, Eosinophils # (Auto) 0.0, Basophils # (Auto) 0.0, Immature Granulocyte # (Auto) 0.2H, Sodium Level 136, Potassium Level 4.3, Chloride Level 102, Carbon Dioxide Level 25, Anion Gap 9, Blood Urea Nitrogen 18, Creatinine 0.95, Estimat Glomerular Filtration Rate 60, BUN/Creatinine Ratio 19, Glucose Level 161H, Calcium Level 8.6, Corrected Calcium 9.2, Total Bilirubin 0.4, Aspartate Amino Transf (AST/SGOT) 14, Alanine Aminotransferase (ALT/SGPT) 15, Alkaline Phosphatase 45, Total Protein 6.1L, Albumin 3.2 Microbiology 04/28/23 Gram Stain - Final, Resulted 04/28/23 Sputum Culture - Preliminary, Resulted Usual upper respiratory dax 04/27/23 Blood Culture - Preliminary, Resulted Assessment/Plan Assessment/Plan Assess & Plan/Chief Complaint Acute respiratory failure with hypoxia and hypercapnia: IV decadron, occasionally on bipap, continue nebs COPD exacerbation: O2, decadron, nebs Early PNA placed on abx COVID: O2, decadron, nebs A-fib: continue eliquis NIDDM: SSI HTN: home BP meds Chronic edema: spironolactone PRN Anxiety: home meds Depression: home meds GERD: protonix Hypothyroidism: home dose levothyroxine CAD HLD Obesity Plan: IV abx Monitor closely Diagnosis/Problems Diagnosis/Problems (1) Acute respiratory failure with hypoxia and hypercapnia Status: Acute (2) Chronic kidney disease, stage 3a (3) Primary hypertension (4) Aortic stenosis Status: Acute Clinical Quality Measures Admission Status Admission Dx Acute on chronic hypoxic hypercapneic resp failure COVID AECOPD HTN DM Plan: BiPAP DNR Monitor closely YAQUELIN CIFUENTES DO Apr 30, 2023 06:37
[2023-04-30] MEDS: RT-ALBUTEROL HFA 8.5 GM INHALER IH SCH ×5 (07:13→22:10)
[2023-04-30] MEDS: dexAMETHasone INJ 4 MG/ML SDV IV SCH ×2 (09:07→21:15)
[2023-04-30] MEDS: APIXABAN 5 MG TABLET PO SCH ×2 (09:07→21:15)
[2023-04-30] MEDS: DOCUSATE SODIUM 100 MG CAPSULE PO SCH ×2 (09:08→21:16)
[2023-04-30] MEDS: PANTOPRAZOLE 40 MG TABLET PO SCH ×2 (09:08→21:15)
[2023-04-30] MEDS: meTOprolol TARTRATE (IR) 25 MG TABLET PO SCH (09:08)
[2023-04-30] MEDS: amLODIPine 5 MG TABLET PO SCH (09:08)
[2023-04-30] MEDS: SENNOSIDES 8.6 MG TABLET PO SCH ×2 (09:08→21:16)
[2023-04-30] MEDS: LIDOCAINE 4% PATCH TP SCH (09:09)
[2023-04-30] MEDS: AZITHROMYCIN INJECTION 500 MG in NS (IVPB) 250 ML 250 ML IV SCH (09:09)
[2023-04-30] MEDS: dilTIAZem ER 240 MG CAPSULE PO SCH (09:15)
[2023-04-30] MEDS: oxyCODONE IMMEDIATE RELEASE 5 MG TABLET PO PRN (09:16)
[2023-04-30] MEDS: MICONAZOLE 2% POWDER 90 GM TOP SCH ×2 (13:10→21:16)
[2023-04-30] MEDS: DULoxetine 20 MG CAPSULE PO SCH (21:15)
[2023-04-30] MEDS: LIDOCAINE PATCH REMOVAL TP SCH (21:16)
[2023-05-01] MEDS: CEFEPIME INJECTION 1,000 MG in NS (IVPB) 50 ML 50 ML IV SCH ×4 (00:50→18:34)
[2023-05-01] MEDS: RT-ALBUTEROL HFA 8.5 GM INHALER IH SCH ×6 (02:32→22:37)
[2023-05-01 03:41] VITALS: BP 182/80
[2023-05-01 05:40] LABS: BASOPHILS % (AUTO) 0 % (0-10); EOSINOPHILS % (AUTO) 0 % (0-10); HEMATOCRIT 28 % (35-52); HEMOGLOBIN 8.8 g/dL (11.5-16.0); LYMPHOCYTES # (AUTO) 0.9 10^3/uL (1.0-4.0); LYMPHOCYTES % (AUTO) 15 % (12-44); MEAN CORPUSCULAR HEMOGLOBIN 28 pg (25-34); MEAN CORPUSCULAR HGB CONC 32 g/dL (32-36); MEAN CORPUSCULAR VOLUME 90 fL (80-99); MEAN PLATELET VOLUME 9.5 fL (9.0-12.2); MONOCYTES # (AUTO) 0.2 10^3/uL (0.0-1.0); MONOCYTES % (AUTO) 4 % (0-12); NEUTROPHILS # (AUTO) 4.4 10^3/uL (1.8-7.8); NEUTROPHILS % (AUTO) 76 % (42-75); PLATELET COUNT 198 10^3/uL (130-400); WHITE BLOOD COUNT 5.8 10^3/uL (4.3-11.0)
[2023-05-01 06:04] LABS: ALBUMIN 3.1 GM/DL (3.2-4.5); BILIRUBIN,TOTAL 0.4 MG/DL (0.1-1.0); CALCIUM 8.7 MG/DL (8.5-10.1); CREATININE SERUM 0.94 MG/DL (0.60-1.30); POTASSIUM 4.3 MMOL/L (3.6-5.0); TOTAL PROTEIN 6.2 GM/DL (6.4-8.2)
[2023-05-01] MEDS: inSUlin ASPART 1 UNIT/0.01 ML (PER UNIT) SC SCH ×4 (06:11→21:13)
[2023-05-01] MEDS: CATHETER FLUSH 10 ML SYR IVP SCH ×2 (06:14→14:11)
[2023-05-01] MEDS: LEVOTHYROXINE 25 MCG TABLET PO SCH (06:14)
--- NOTE | 2023-05-01 06:58 | Progress Note ---
Subjective Date Seen by a Provider: May 01, 2023 Time Seen by a Provider: 12:00 Subjective/Events-last exam Patient doing a little bit better Reviewed meds and labs No falls No pain BiPAP on occasion Lungs improved Labs stable Objective Exam Last Set of Vital Signs Vital Signs Date Time Temp Pulse Resp B/P (MAP) Pulse Ox O2 Delivery O2 Flow Rate FiO2 05/01/23 03:41 36.3 66 22 182/80 (114) 95 NIV Bilevel 5.00 5.00 04/30/23 20:00 30 Capillary Refill : Less Than 3 Seconds I&O Intake and Output 04/30/23 23:59 Intake Total 2040 ml Output Total 1250 ml Balance 790 ml Intake Oral 1790 ml IV Total 250 ml Output Urine Total 1250 ml # Voids 2 # Bowel Movements 1 General: Alert, Oriented X3, Cooperative, No Acute Distress Lungs: Other (Course been improved) Heart: Regular Rate Psych/Mental Status: Mental Status NL Results Lab Laboratory Tests 04/30/23 10:52: Glucometer 169H 04/30/23 15:52: Glucometer 204H 04/30/23 20:54: Glucometer 141H 05/01/23 05:00: White Blood Count 5.8, Red Blood Count 3.10L, Hemoglobin 8.8L, Hematocrit 28L, Mean Corpuscular Volume 90, Mean Corpuscular Hemoglobin 28, Mean Corpuscular Hemoglobin Concent 32, Red Cell Distribution Width 13.4, Platelet Count 198, Mean Platelet Volume 9.5, Immature Granulocyte % (Auto) 5, Neutrophils (%) (Auto) 76H, Lymphocytes (%) (Auto) 15, Monocytes (%) (Auto) 4, Eosinophils (%) (Auto) 0, Basophils (%) (Auto) 0, Neutrophils # (Auto) 4.4, Lymphocytes # (Auto) 0.9L, Monocytes # (Auto) 0.2, Eosinophils # (Auto) 0.0, Basophils # (Auto) 0.0, Immature Granulocyte # (Auto) 0.3H, Sodium Level 136, Potassium Level 4.3, Chloride Level 104, Carbon Dioxide Level 24, Anion Gap 8, Blood Urea Nitrogen 21H, Creatinine 0.94, Estimat Glomerular Filtration Rate 61, BUN/Creatinine Ratio 22, Glucose Level 155H, Calcium Level 8.7, Corrected Calcium 9.4, Total Bilirubin 0.4, Aspartate Amino Transf (AST/SGOT) 14, Alanine Aminotransferase (ALT/SGPT) 15, Alkaline Phosphatase 44, Total Protein 6.2L, Albumin 3.1L Microbiology 04/28/23 Gram Stain - Final, Resulted 04/28/23 Sputum Culture - Preliminary, Resulted Pseudomonas aeruginosa Usual upper respiratory dax 04/27/23 Blood Culture - Preliminary, Resulted Assessment/Plan Assessment/Plan Assess & Plan/Chief Complaint Acute respiratory failure with hypoxia and hypercapnia: IV decadron, occasionally on bipap, continue nebs COPD exacerbation: O2, decadron, nebs Early PNA placed on abx COVID: O2, decadron, nebs A-fib: continue eliquis NIDDM: SSI HTN: home BP meds Chronic edema: spironolactone PRN Anxiety: home meds Depression: home meds GERD: protonix Hypothyroidism: home dose levothyroxine CAD HLD Obesity Plan: IV abx Monitor closely Diagnosis/Problems Diagnosis/Problems (1) Acute respiratory failure with hypoxia and hypercapnia Status: Acute (2) Chronic kidney disease, stage 3a (3) Primary hypertension (4) Aortic stenosis Status: Acute Clinical Quality Measures Admission Status Admission Dx Acute on chronic hypoxic hypercapneic resp failure COVID AECOPD HTN DM Plan: BiPAP DNR Monitor closely YAQUELIN CIFUENTES DO May 01, 2023 06:58
[2023-05-01 07:55] VITALS: BP 150/65
[2023-05-01] MEDS: dexAMETHasone INJ 4 MG/ML SDV IV SCH ×2 (08:21→21:12)
[2023-05-01] MEDS: amLODIPine 5 MG TABLET PO SCH (08:26)
[2023-05-01] MEDS: meTOprolol TARTRATE (IR) 25 MG TABLET PO SCH (08:26)
[2023-05-01] MEDS: SENNOSIDES 8.6 MG TABLET PO SCH ×2 (08:26→21:12)
[2023-05-01] MEDS: dilTIAZem ER 240 MG CAPSULE PO SCH (08:26)
[2023-05-01] MEDS: PANTOPRAZOLE 40 MG TABLET PO SCH ×2 (08:26→21:12)
[2023-05-01] MEDS: DOCUSATE SODIUM 100 MG CAPSULE PO SCH ×2 (08:27→21:11)
[2023-05-01] MEDS: APIXABAN 5 MG TABLET PO SCH ×2 (08:27→21:12)
[2023-05-01] MEDS: LIDOCAINE 4% PATCH TP SCH (08:27)
[2023-05-01] MEDS: MICONAZOLE 2% POWDER 90 GM TOP SCH ×2 (08:27→21:13)
[2023-05-01] MEDS: AZITHROMYCIN INJECTION 500 MG in NS (IVPB) 250 ML 250 ML IV SCH (10:59)
[2023-05-01 11:35] VITALS: BP 134/60
[2023-05-01 12:04] VITALS: BP 134/60
[2023-05-01 15:36] VITALS: BP 160/68
[2023-05-01] MEDS: oxyCODONE IMMEDIATE RELEASE 5 MG TABLET PO PRN (18:35)
[2023-05-01 20:17] VITALS: BP 178/76
[2023-05-01] MEDS: ALPRAZolam 0.25 MG TABLET PO PRN (21:12)
[2023-05-01] MEDS: DULoxetine 20 MG CAPSULE PO SCH (21:12)
[2023-05-01] MEDS: BENZONATATE 100 MG CAPSULE PO PRN (21:12)
[2023-05-01] MEDS: LIDOCAINE PATCH REMOVAL TP SCH (21:13)
[2023-05-02] VITALS (8 sets, daily range): BP systolic 135–186; BP diastolic 61–81
[2023-05-02] MEDS: CEFEPIME INJECTION 1,000 MG in NS (IVPB) 50 ML 50 ML IV SCH ×5 (00:14→22:17)
[2023-05-02] MEDS: CATHETER FLUSH 10 ML SYR IVP SCH ×4 (00:20→22:18)
[2023-05-02] MEDS: RT-ALBUTEROL HFA 8.5 GM INHALER IH SCH ×6 (02:40→22:38)
[2023-05-02 05:34] LABS: BASOPHILS % (AUTO) 0 % (0-10); EOSINOPHILS % (AUTO) 0 % (0-10); HEMATOCRIT 28 % (35-52); LYMPHOCYTES # (AUTO) 0.9 10^3/uL (1.0-4.0); LYMPHOCYTES % (AUTO) 12 % (12-44); MEAN CORPUSCULAR HEMOGLOBIN 29 pg (25-34); MEAN CORPUSCULAR HGB CONC 32 g/dL (32-36); MEAN CORPUSCULAR VOLUME 90 fL (80-99); MEAN PLATELET VOLUME 9.3 fL (9.0-12.2); MONOCYTES # (AUTO) 0.3 10^3/uL (0.0-1.0); MONOCYTES % (AUTO) 4 % (0-12); NEUTROPHILS # (AUTO) 6.1 10^3/uL (1.8-7.8); NEUTROPHILS % (AUTO) 79 % (42-75); PLATELET COUNT 208 10^3/uL (130-400); WHITE BLOOD COUNT 7.7 10^3/uL (4.3-11.0)
[2023-05-02] MEDS: LEVOTHYROXINE 25 MCG TABLET PO SCH (06:01)
[2023-05-02] MEDS: inSUlin ASPART 1 UNIT/0.01 ML (PER UNIT) SC SCH ×4 (06:01→22:16)
[2023-05-02 06:04] LABS: ALBUMIN 3.1 GM/DL (3.2-4.5); BILIRUBIN,TOTAL 0.4 MG/DL (0.1-1.0); CALCIUM 8.4 MG/DL (8.5-10.1); CREATININE SERUM 1.04 MG/DL (0.60-1.30); POTASSIUM 4.4 MMOL/L (3.6-5.0)
[2023-05-02] MEDS: LIDOCAINE 4% PATCH TP SCH (09:21)
[2023-05-02] MEDS: AZITHROMYCIN INJECTION 500 MG in NS (IVPB) 250 ML 250 ML IV SCH (09:21)
[2023-05-02] MEDS: dexAMETHasone INJ 4 MG/ML SDV IV SCH ×2 (09:22→22:16)
[2023-05-02] MEDS: SENNOSIDES 8.6 MG TABLET PO SCH ×2 (09:22→22:17)
[2023-05-02] MEDS: MICONAZOLE 2% POWDER 90 GM TOP SCH ×2 (09:22→22:17)
[2023-05-02] MEDS: APIXABAN 5 MG TABLET PO SCH ×2 (09:22→22:17)
[2023-05-02] MEDS: dilTIAZem ER 240 MG CAPSULE PO SCH (09:22)
[2023-05-02] MEDS: PANTOPRAZOLE 40 MG TABLET PO SCH ×2 (09:22→22:17)
[2023-05-02] MEDS: DOCUSATE SODIUM 100 MG CAPSULE PO SCH ×2 (09:22→22:17)
[2023-05-02] MEDS: meTOprolol TARTRATE (IR) 25 MG TABLET PO SCH (09:22)
[2023-05-02] MEDS: amLODIPine 5 MG TABLET PO SCH (09:22)
--- NOTE | 2023-05-02 10:23 | Progress Note ---
Subjective Date Seen by a Provider: May 02, 2023 Time Seen by a Provider: 10:00 Subjective/Events-last exam Patient doing a lot better Still dyspneic during conversation Lungs are improved Declines to go to a snf again Unsure if family can take care of her she is 24 person assist Review of Systems General: Fatigue, Malaise Pulmonary: Dyspnea, Cough Objective Exam Last Set of Vital Signs Vital Signs Date Time Temp Pulse Resp B/P (MAP) Pulse Ox O2 Delivery O2 Flow Rate FiO2 05/02/23 08:20 70 19 186/81 (116) 95 NIV Bilevel 30.00 4.00 05/02/23 05:06 36.2 05/01/23 08:00 30 Capillary Refill : Less Than 3 Seconds I&O Intake and Output 05/02/23 00:00 Intake Total 2450 ml Output Total 1750 ml Balance 700 ml Intake Oral 2100 ml IV Total 350 ml Output Urine Total 1750 ml # Voids 2 General: Alert, Oriented X3, Cooperative, No Acute Distress Lungs: Other (Coarse with wheezes) Heart: Regular Rate, Normal S1, Normal S2, No Murmurs Psych/Mental Status: Mental Status NL, Mood NL Results Lab Laboratory Tests 05/01/23 11:32: Glucometer 216H 05/01/23 15:41: Glucometer 224H 05/01/23 20:22: Glucometer 164H 05/02/23 05:07: Glucometer 221H 05/02/23 05:25: White Blood Count 7.7, Red Blood Count 3.16L, Hemoglobin 9.0L, Hematocrit 28L, Mean Corpuscular Volume 90, Mean Corpuscular Hemoglobin 29, Mean Corpuscular Hemoglobin Concent 32, Red Cell Distribution Width 13.3, Platelet Count 208, Mean Platelet Volume 9.3, Immature Granulocyte % (Auto) 4, Neutrophils (%) (Auto) 79H, Lymphocytes (%) (Auto) 12, Monocytes (%) (Auto) 4, Eosinophils (%) (Auto) 0, Basophils (%) (Auto) 0, Neutrophils # (Auto) 6.1, Lymphocytes # (Auto) 0.9L, Monocytes # (Auto) 0.3, Eosinophils # (Auto) 0.0, Basophils # (Auto) 0.0, Immature Granulocyte # (Auto) 0.3H, Sodium Level 137, Potassium Level 4.4, Chloride Level 104, Carbon Dioxide Level 24, Anion Gap 9, Blood Urea Nitrogen 23H, Creatinine 1.04, Estimat Glomerular Filtration Rate 54, BUN/Creatinine Ratio 22, Glucose Level 177H, Calcium Level 8.4L, Corrected Calcium 9.1, Total Bilirubin 0.4, Aspartate Amino Transf (AST/SGOT) 12, Alanine Aminotransferase (ALT/SGPT) 14, Alkaline Phosphatase 42, Total Protein 6.0L, Albumin 3.1L Microbiology 04/28/23 Gram Stain - Final, Complete 04/28/23 Sputum Culture - Final, Complete Pseudomonas aeruginosa Usual upper respiratory dax 04/27/23 Blood Culture - Preliminary, Resulted Assessment/Plan Assessment/Plan Assess & Plan/Chief Complaint Acute respiratory failure with hypoxia and hypercapnia: IV decadron, occasionally on bipap, continue nebs COPD exacerbation: O2, decadron, nebs Early PNA placed on abx COVID: O2, decadron, nebs A-fib: continue eliquis NIDDM: SSI HTN: home BP meds Chronic edema: spironolactone PRN Anxiety: home meds Depression: home meds GERD: protonix Hypothyroidism: home dose levothyroxine CAD HLD Obesity Plan: IV abx Monitor closely Diagnosis/Problems Diagnosis/Problems (1) Acute respiratory failure with hypoxia and hypercapnia Status: Acute (2) Chronic kidney disease, stage 3a (3) Primary hypertension (4) Aortic stenosis Status: Acute Clinical Quality Measures Admission Status Admission Dx Acute on chronic hypoxic hypercapneic resp failure COVID AECOPD HTN DM Plan: BiPAP DNR Monitor closely YAQUELIN CIFUENTES DO May 02, 2023 10:23
[2023-05-02] MEDS: ALPRAZolam 0.25 MG TABLET PO PRN ×2 (11:30→22:18)
--- NOTE | 2023-05-02 13:40 | Physical Therapy Daily Note ---
PT Daily Note-Current Subjective Patient is very adamant she does not want to walk to the restroom. Reluctantly agrees to therapy and activity. Pain Section J - Health Conditions 1. Rarely or not at all 2. Occasionally 3. Frequently 4. Almost constantly 8. Unable to answer Pain Effect on Sleep: 4 Pain Interference with Therapy: 4 Pain Interference w/Day-to-Day: 4 Transfers SCALE: Activities may be completed with or without assistive devices. 7-Lfrqymuhil-sxpzjjk completes the activity by him/herself with no assistance from a helper. 5-Set-up or Clean-up Assistance-helper sets up or cleans up; patient completes activity. [place] assists only prior to or following the activity. 4-Supervision or Touching Assistance-helper provides verbal cues and/or touching/steadying and/or contact guard assistance as patient completes activity. Assistance may be provided throughout the activity or intermittently. 3-Partial/Moderate Assistance-helper does LESS THAN HALF the effort. [place] lifts, holds or supports trunk or limbs, but provides less than half the effort. 2-Substantial/Maximal Assistance-helper does MORE THAN HALF the effort. [place] lifts or holds trunk or limbs and provides more than half the effort. 6-Wyobxeanp-frzhbd does ALL the effort. Patient does none of the effort to complete the activity. Or, the assistance of 2 or more helpers is required for the patient to complete the activity. If activity was not attempted, code reason: 7-Patient Refused. 9-Not Applicable-not attempted and the patient did not perform the activity before the current illness, exacerbation or injury. 10-Not Attempted due to Environmental Limitations-(lack of equipment, weather restraints, etc.). 88-Not Attempted due to Medical Conditions or Safety Concerns. Sit to Stand (QC): 4 (SBA) Toilet Transfer (QC): 4 (SBA) Gait Training Distance: 15' Walk 10 feet (QC): 4 (SBA) Gait Assistive Device: FWW slow, steady, functional gait sequence Assessment Patient able to perform activity SBA without difficulty. patient on toilet with call light in hand. PT Residential Goals Behavioral Therapist Goals PT Behavioral Therapist Goals Time Frame: May 14, 2023 Roll Left & Right (QC): 5 Sit to Lying (QC): 5 Lying-Sitting on Side/Bed(QC): 5 Sit to Stand (QC): 5 Chair/Djr-vr-Ieejl Xfer(QC): 5 Toilet Transfer (QC): 5 Walk 10 feet (QC): 4 Walk 50ft with 2 Turns (QC): 4 PT Plan Treatment/Plan Treatment Plan: Continue Plan of Care Treatment Plan: Bed Mobility, Education, Functional Activity Estefany, Functional Strength, Gait, Safety, Therapeutic Exercise, Transfers Treatment Duration: May 14, 2023 Frequency: 5 times per week Estimated Hrs Per Day: .25 hour per day Time Time In: 1250 Time Out: 1300 DATE: May 02, 2023 Total Billed Treatment Time: 10 Total Billed Treatment 1 visit FA 10 min ANGELLA ESCOBAR PT May 02, 2023 13:40
--- NOTE | 2023-05-02 14:21 | Occupational Ther Daily Note ---
OT Current Status-Daily Note Subjective Somewhat agreeable to OT, wants Dr to discontinue Mental Status/Objective Patient Orientation: Person, Place, Time, Situation Attachments: Oxygen, Other-See Comments (GUSTAVO NIETO) ADL-Treatment Therapy Code Descriptions/Definitions Functional [place] Measure: 0=Not Assessed/NA 4=Minimal Assistance 1=Total Assistance 5=Supervision or Setup 2=Maximal Assistance 6=Modified [place] 3=Moderate Assistance 7=Complete IndependenceSCALE: Activities may be completed with or without assistive devices. 1-Djytthqbej-ywgdrle completes the activity by him/herself with no assistance from a helper. 5-Set-up or Clean-up Assistance-helper sets up or cleans up; patient completes activity. [place] assists only prior to or following the activity. 4-Supervision or Touching Assistance-helper provides verbal cues and/or touching/steadying and/or contact guard assistance as patient completes activity. Assistance may be provided throughout the activity or intermittently. 3-Partial/Moderate Assistance-helper does LESS THAN HALF the effort. [place] lifts, holds or supports trunk or limbs, but provides less than half the effort. 2-Substantial/Maximal Assistance-helper does MORE THAN HALF the effort. [place] lifts or holds trunk or limbs and provides more than half the effort. 6-Dwlbjwsow-dorfcw does ALL the effort. Patient does none of the effort to complete the activity. Or, the assistance of 2 or more helpers is required for the patient to complete the activity. If activity was not attempted, code reason: 7-Patient Refused. 9-Not Applicable-not attempted and the patient did not perform the activity before the current illness, exacerbation or injury. 10-Not Attempted due to Environmental Limitations-(lack of equipment, weather restraints, etc.). 88-Not Attempted due to Medical Conditions or Safety Concerns. Eating (QC): 6 Oral Hygiene (QC): 5 Shower/Bathe Self (QC): 7 (refused) Upper Body Dressing (QC): 5 (poor motivation) Lower Body Dressing (QC): 4 On/Off Footwear: 4 (able however non motivated) Toileting Hygiene (QC): 4 (excessive soft tissue prevents reach to BM area w/o tools. Patient declines tools and wants task performed for her) Toilet Transfer (QC): 4 Education OT Patient Education: Modified ADL techniques, Progress toward Goal/Update tx plan, Purpose of tx/functional activities, Reviewed precautions, Rehab process, Safety issues, Transfer techniques Teaching Recipient: Patient Teaching Methods: Demonstration, Discussion Response to Teaching: Reinforcement Needed OT Custodial Goals Er Nurse Goals Eating (QC): 6 Oral Hygiene (QC): 6 (sitting) Toileting Hygiene (QC): 3 Upper Body Dressing (QC): 4 Lower Body Dressing (QC): 3 On/Off Footwear (QC): 3 1=Demonstrate adherence to instructed precautions during ADL tasks. 2=Patient will verbalize/demonstrate understanding of assistive devices/modifications for ADL. 3=Patient will improve strength/tolerance for activity to enable patient to perform ADL's. OT Education/Plan Problem List/Assessment Assessment: Decreased Activ Tolerance, Decreased Safety Aware, Impaired Self- Care Skills Discharge Recommendations Plan/Recommendations: Continue POC Comment Patients SBA/CGA for ambulation to bathroom w/ FWW. Min assit for LB hygiene and garments Barriers to Progress Motivation Treatment Plan/Plan of Care Treatment,Training & Education: Yes Patient would benefit from OT for education, treatment and training to promote independence in ADL's, mobility, safety and/or upper extremity function for ADL's. Plan of Care: ADL Retraining, Concurrent Therapy, Functional Mobility, Group Exercise/Act as Ind, UE Funct Exercise/Act Treatment Duration: May 06, 2023 Frequency: 3 times per week (3-5 times per week) Estimated Hrs Per Day: .25 hour per day Agreement: Yes Rehab Potential: Fair Time Start Time: 12:50 Stop Time: 13:00 DATE: May 02, 2023 Total Time Billed (hr/min): 10 Billed Treatment Time ADLs 10 min CARSON LEAHY OT May 02, 2023 14:21
[2023-05-02] MEDS: DULoxetine 20 MG CAPSULE PO SCH (22:17)
[2023-05-02] MEDS: LIDOCAINE PATCH REMOVAL TP SCH (22:18)
[2023-05-03] VITALS (7 sets, daily range): BP systolic 134–182; BP diastolic 58–78
[2023-05-03] MEDS: RT-ALBUTEROL HFA 8.5 GM INHALER IH SCH ×5 (02:01→22:04)
[2023-05-03 05:56] LABS: BASOPHILS % (AUTO) 0 % (0-10); EOSINOPHILS % (AUTO) 0 % (0-10); HEMATOCRIT 29 % (35-52); HEMOGLOBIN 9.2 g/dL (11.5-16.0); LYMPHOCYTES # (AUTO) 0.8 10^3/uL (1.0-4.0); LYMPHOCYTES % (AUTO) 10 % (12-44); MEAN CORPUSCULAR HEMOGLOBIN 28 pg (25-34); MEAN CORPUSCULAR HGB CONC 31 g/dL (32-36); MEAN CORPUSCULAR VOLUME 90 fL (80-99); MEAN PLATELET VOLUME 9.7 fL (9.0-12.2); MONOCYTES # (AUTO) 0.3 10^3/uL (0.0-1.0); MONOCYTES % (AUTO) 4 % (0-12); NEUTROPHILS # (AUTO) 6.5 10^3/uL (1.8-7.8); NEUTROPHILS % (AUTO) 82 % (42-75); PLATELET COUNT 212 10^3/uL (130-400); WHITE BLOOD COUNT 7.9 10^3/uL (4.3-11.0)
[2023-05-03] MEDS: CATHETER FLUSH 10 ML SYR IVP SCH ×3 (06:03→20:11)
[2023-05-03] MEDS: LEVOTHYROXINE 25 MCG TABLET PO SCH (06:13)
[2023-05-03] MEDS: CEFEPIME INJECTION 1,000 MG in NS (IVPB) 50 ML 50 ML IV SCH (06:13)
[2023-05-03 06:15] LABS: ALBUMIN 3.1 GM/DL (3.2-4.5); BILIRUBIN,TOTAL 0.4 MG/DL (0.1-1.0); CALCIUM 8.4 MG/DL (8.5-10.1); CREATININE SERUM 0.86 MG/DL (0.60-1.30); POTASSIUM 4.6 MMOL/L (3.6-5.0); TOTAL PROTEIN 5.9 GM/DL (6.4-8.2)
[2023-05-03] MEDS: inSUlin ASPART 1 UNIT/0.01 ML (PER UNIT) SC SCH ×4 (06:36→20:09)
[2023-05-03] MEDS: AZITHROMYCIN INJECTION 500 MG in NS (IVPB) 250 ML 250 ML IV SCH (09:14)
[2023-05-03] MEDS: dilTIAZem ER 240 MG CAPSULE PO SCH (09:14)
[2023-05-03] MEDS: APIXABAN 5 MG TABLET PO SCH ×2 (09:14→20:08)
[2023-05-03] MEDS: meTOprolol TARTRATE (IR) 25 MG TABLET PO SCH (09:14)
[2023-05-03] MEDS: dexAMETHasone INJ 4 MG/ML SDV IV SCH ×2 (09:14→20:08)
[2023-05-03] MEDS: LIDOCAINE 4% PATCH TP SCH (09:14)
[2023-05-03] MEDS: amLODIPine 5 MG TABLET PO SCH (09:14)
[2023-05-03] MEDS: SENNOSIDES 8.6 MG TABLET PO SCH ×2 (09:14→20:08)
[2023-05-03] MEDS: DOCUSATE SODIUM 100 MG CAPSULE PO SCH ×2 (09:14→20:08)
[2023-05-03] MEDS: PANTOPRAZOLE 40 MG TABLET PO SCH ×2 (09:14→20:08)
[2023-05-03] MEDS: MICONAZOLE 2% POWDER 90 GM TOP SCH ×2 (09:14→20:10)
--- NOTE | 2023-05-03 09:48 | Progress Note ---
Subjective Date Seen by a Provider: May 03, 2023 Time Seen by a Provider: 10:00 Subjective/Events-last exam Patient doing really well Much improved Discharge plan for tomorrow Maintain on oxygen Review of Systems General: Fatigue, Malaise Pulmonary: Dyspnea Objective Exam Last Set of Vital Signs Vital Signs Date Time Temp Pulse Resp B/P (MAP) Pulse Ox O2 Delivery O2 Flow Rate FiO2 05/03/23 08:00 Nasal Cannula 5.00 05/03/23 07:53 78 22 180/78 (112) 99 05/03/23 04:00 36.8 05/01/23 08:00 30 Capillary Refill : Less Than 3 Seconds I&O Intake and Output 05/03/23 00:00 Intake Total 2450 ml Output Total 1500 ml Balance 950 ml Intake Oral 2000 ml IV Total 450 ml Output Urine Total 1500 ml # Voids 4 # Urine Diapers 1 # Bowel Movements 1 General: Alert, Oriented X3, Cooperative, No Acute Distress Lungs: Other (Coarse throughout) Heart: Regular Rate, Normal S1, Normal S2, No Murmurs Psych/Mental Status: Mental Status NL, Mood NL Results Lab Laboratory Tests 05/02/23 11:14: Glucometer 255H 05/02/23 16:25: Glucometer 153H 05/02/23 19:50: Glucometer 230H 05/03/23 05:07: White Blood Count 7.9, Red Blood Count 3.25L, Hemoglobin 9.2L, Hematocrit 29L, Mean Corpuscular Volume 90, Mean Corpuscular Hemoglobin 28, Mean Corpuscular Hemoglobin Concent 31L, Red Cell Distribution Width 13.5, Platelet Count 212, Mean Platelet Volume 9.7, Immature Granulocyte % (Auto) 4, Neutrophils (%) (Auto) 82H, Lymphocytes (%) (Auto) 10L, Monocytes (%) (Auto) 4, Eosinophils (%) (Auto) 0, Basophils (%) (Auto) 0, Neutrophils # (Auto) 6.5, Lymphocytes # (Auto) 0.8L, Monocytes # (Auto) 0.3, Eosinophils # (Auto) 0.0, Basophils # (Auto) 0.0, Immature Granulocyte # (Auto) 0.3H, Sodium Level 140, Potassium Level 4.6, Chloride Level 106, Carbon Dioxide Level 26, Anion Gap 8, Blood Urea Nitrogen 25H, Creatinine 0.86, Estimat Glomerular Filtration Rate 67, BUN/Creatinine Ratio 29, Glucose Level 160H, Calcium Level 8.4L, Corrected Calcium 9.1, Total Bilirubin 0.4, Aspartate Amino Transf (AST/SGOT) 13, Alanine Aminotransferase (ALT/SGPT) 15, Alkaline Phosphatase 41, Total Protein 5.9L, Albumin 3.1L Microbiology 04/28/23 Gram Stain - Final, Complete 04/28/23 Sputum Culture - Final, Complete Pseudomonas aeruginosa Usual upper respiratory dax 04/27/23 Blood Culture - Final, Complete Assessment/Plan Assessment/Plan Assess & Plan/Chief Complaint Acute respiratory failure with hypoxia and hypercapnia: IV decadron, occasionally on bipap, continue nebs COPD exacerbation: O2, decadron, nebs Early PNA placed on abx COVID: O2, decadron, nebs A-fib: continue eliquis NIDDM: SSI HTN: home BP meds Chronic edema: spironolactone PRN Anxiety: home meds Depression: home meds GERD: protonix Hypothyroidism: home dose levothyroxine CAD HLD Obesity Plan: IV abx Monitor closely Supportive care Diagnosis/Problems Diagnosis/Problems (1) Acute respiratory failure with hypoxia and hypercapnia Status: Acute (2) Chronic kidney disease, stage 3a (3) Primary hypertension (4) Aortic stenosis Status: Acute Clinical Quality Measures Admission Status Admission Dx Acute on chronic hypoxic hypercapneic resp failure COVID AECOPD HTN DM Plan: BiPAP DNR Monitor closely YAQUELIN CIFUENTES DO May 03, 2023 09:48
--- NOTE | 2023-05-03 10:42 | Physical Therapy Daily Note ---
PT Daily Note-Current Subjective Patient reluctantly agrees to ambulate to restroom. She states how much she likes the purwick because she doesn't have to get up and move. Education with patient on importance of increasing activity to improve mobility and strength. Patient states, "I just don't care anymore." Pain Section J - Health Conditions 1. Rarely or not at all 2. Occasionally 3. Frequently 4. Almost constantly 8. Unable to answer Pain Effect on Sleep: 4 Pain Interference with Therapy: 4 Pain Interference w/Day-to-Day: 4 Mental Status Attachments: Oxygen Transfers SCALE: Activities may be completed with or without assistive devices. 6-Wqhyoysmzg-abrpttw completes the activity by him/herself with no assistance from a helper. 5-Set-up or Clean-up Assistance-helper sets up or cleans up; patient completes activity. [place] assists only prior to or following the activity. 4-Supervision or Touching Assistance-helper provides verbal cues and/or touching/steadying and/or contact guard assistance as patient completes activity. Assistance may be provided throughout the activity or intermittently. 3-Partial/Moderate Assistance-helper does LESS THAN HALF the effort. [place] lifts, holds or supports trunk or limbs, but provides less than half the effort. 2-Substantial/Maximal Assistance-helper does MORE THAN HALF the effort. [place] lifts or holds trunk or limbs and provides more than half the effort. 6-Tudtuzkzo-nrmbgx does ALL the effort. Patient does none of the effort to complete the activity. Or, the assistance of 2 or more helpers is required for the patient to complete the activity. If activity was not attempted, code reason: 7-Patient Refused. 9-Not Applicable-not attempted and the patient did not perform the activity before the current illness, exacerbation or injury. 10-Not Attempted due to Environmental Limitations-(lack of equipment, weather restraints, etc.). 88-Not Attempted due to Medical Conditions or Safety Concerns. Sit to Stand (QC): 4 Chair/Bmd-vc-Ffuvr Xfer(QC): 4 Toilet Transfer (QC): 4 Gait Training Distance: 15' x 2 Walk 10 feet (QC): 4 Gait Assistive Device: FWW SBA/CGA with all mobility Assessment Patient requires time to complete all functional tasks, however, is able to complete them SBA/CGA. Patient requires a lot of motivation to participate with therapy. Patient up in recliner and instructed to call for assistance to be up to restroom every hour. Patient demands the purwick. Nursing notified. PT Care Home Goals Bin Cleaner Goals PT Bin Cleaner Goals Time Frame: May 14, 2023 Roll Left & Right (QC): 5 Sit to Lying (QC): 5 Lying-Sitting on Side/Bed(QC): 5 Sit to Stand (QC): 5 Chair/Gak-ji-Jhgjs Xfer(QC): 5 Toilet Transfer (QC): 5 Walk 10 feet (QC): 4 Walk 50ft with 2 Turns (QC): 4 PT Plan Treatment/Plan Treatment Plan: Continue Plan of Care Treatment Plan: Bed Mobility, Education, Functional Activity Estefany, Functional Strength, Gait, Safety, Therapeutic Exercise, Transfers Treatment Duration: May 14, 2023 Frequency: 5 times per week Estimated Hrs Per Day: .25 hour per day Time Time In: 1001 Time Out: 1026 DATE: May 03, 2023 Total Billed Treatment Time: 25 Total Billed Treatment 1 visit FA x 2 25 min ANGELLA ESCOBAR PT May 03, 2023 10:42
--- NOTE | 2023-05-03 15:31 | Occupational Ther Daily Note ---
OT Current Status-Daily Note Subjective Agreeable to OT and OT observer Mental Status/Objective Patient Orientation: Person, Place, Time, Situation Uses PUR WICK, use of mask on patient d/t coughing ADL-Treatment Ambulation to bathroom form recliner w/ FWW SBA, w/ person instructing safety for 02 line. VCs for hand placement w/ transfers, position of FWW during tasks. Min assist for LB garments and sponge bathing LES d/t urine incont on legs when standing from recliner. OT intervention for sock management w. VCS only, Patient uses low side bar on FWW to prop foot and manage socks. requires min assist for final BM hygiene. Min assist off commode using GBs Therapy Code Descriptions/Definitions Functional [place] Measure: 0=Not Assessed/NA 4=Minimal Assistance 1=Total Assistance 5=Supervision or Setup 2=Maximal Assistance 6=Modified [place] 3=Moderate Assistance 7=Complete IndependenceSCALE: Activities may be completed with or without assistive devices. 1-Phzpimdgcq-[id number] completes the activity by him/herself with no assistance from a helper. 5-Set-up or Clean-up Assistance-helper sets up or cleans up; patient completes activity. [place] assists only prior to or following the activity. 4-Supervision or Touching Assistance-helper provides verbal cues and/or touching/steadying and/or contact guard assistance as patient completes activity. Assistance may be provided throughout the activity or intermittently. 3-Partial/Moderate Assistance-helper does LESS THAN HALF the effort. [place] lifts, holds or supports trunk or limbs, but provides less than half the effort. 2-Substantial/Maximal Assistance-helper does MORE THAN HALF the effort. [place] lifts or holds trunk or limbs and provides more than half the effort. 4-Pwkclblmz-qlvjzq does ALL the effort. Patient does none of the effort to complete the activity. Or, the assistance of 2 or more helpers is required for the patient to complete the activity. If activity was not attempted, code reason: 7-Patient Refused. 9-Not Applicable-not attempted and the patient did not perform the activity before the current illness, exacerbation or injury. 10-Not Attempted due to Environmental Limitations-(lack of equipment, weather restraints, etc.). 88-Not Attempted due to Medical Conditions or Safety Concerns. Eating (QC): 6 Oral Hygiene (QC): 5 Upper Body Dressing (QC): 4 Lower Body Dressing (QC): 4 On/Off Footwear: 4 Toileting Hygiene (QC): 4 Toilet Transfer (QC): 4 Education OT Patient Education: Correct positioning, Energy conservation, Modified ADL techniques, Progress toward Goal/Update tx plan, Purpose of tx/functional activities, Reviewed precautions, Rehab process, Safety issues, Transfer techniques, Use of adapted equipment Teaching Recipient: Patient Teaching Methods: Demonstration Response to Teaching: Verbalize Understanding, Reinforcement Needed OT [facility] Goals Fci Goals Eating (QC): 6 Oral Hygiene (QC): 6 (sitting) Toileting Hygiene (QC): 3 Upper Body Dressing (QC): 4 Lower Body Dressing (QC): 3 On/Off Footwear (QC): 3 1=Demonstrate adherence to instructed precautions during ADL tasks. 2=Patient will verbalize/demonstrate understanding of assistive devices/modifications for ADL. 3=Patient will improve strength/tolerance for activity to enable patient to perform ADL's. OT Education/Plan Problem List/Assessment Assessment: Decreased Activ Tolerance, Decreased Safety Aware, Impaired Self- Care Skills Discharge Recommendations Plan/Recommendations: Continue POC Equpiment Recommendations-D/C: Bridge Manager, Other, See Comments (hygiene tool) Treatment Plan/Plan of Care Treatment,Training & Education: Yes Patient would benefit from OT for education, treatment and training to promote independence in ADL's, mobility, safety and/or upper extremity function for ADL's. Plan of Care: ADL Retraining, Concurrent Therapy, Functional Mobility, Group Exercise/Act as Ind, UE Funct Exercise/Act Treatment Duration: May 06, 2023 Frequency: 3 times per week (3-5 times per week) Estimated Hrs Per Day: .25 hour per day Agreement: Yes Rehab Potential: Fair Time Start Time: 10:12 Stop Time: 10:31 DATE: May 03, 2023 Total Time Billed (hr/min): 19 Billed Treatment Time ADL 19 min CARSON LEAHY OT May 03, 2023 15:31
[2023-05-03] MEDS: ALPRAZolam 0.25 MG TABLET PO PRN (17:26)
[2023-05-03] MEDS: DULoxetine 20 MG CAPSULE PO SCH (20:08)
[2023-05-03] MEDS: LIDOCAINE PATCH REMOVAL TP SCH (20:10)
[2023-05-03] MEDS: hydrALAZINE 25 MG TABLET PO PRN (23:18)
[2023-05-04] MEDS: RT-ALBUTEROL HFA 8.5 GM INHALER IH SCH ×3 (02:42→10:58)
[2023-05-04 03:38] VITALS: BP 168/74
[2023-05-04] MEDS: CATHETER FLUSH 10 ML SYR IVP SCH ×2 (04:47→14:00)
[2023-05-04] MEDS: LEVOTHYROXINE 25 MCG TABLET PO SCH (04:47)
[2023-05-04] MEDS: hydrALAZINE 25 MG TABLET PO PRN (04:50)
[2023-05-04 05:35] LABS: BASOPHILS % (AUTO) 0 % (0-10); EOSINOPHILS % (AUTO) 0 % (0-10); HEMATOCRIT 31 % (35-52); HEMOGLOBIN 10.1 g/dL (11.5-16.0); LYMPHOCYTES # (AUTO) 0.9 10^3/uL (1.0-4.0); LYMPHOCYTES % (AUTO) 11 % (12-44); MEAN CORPUSCULAR HEMOGLOBIN 29 pg (25-34); MEAN CORPUSCULAR HGB CONC 32 g/dL (32-36); MEAN CORPUSCULAR VOLUME 90 fL (80-99); MEAN PLATELET VOLUME 9.9 fL (9.0-12.2); MONOCYTES # (AUTO) 0.3 10^3/uL (0.0-1.0); MONOCYTES % (AUTO) 3 % (0-12); NEUTROPHILS # (AUTO) 6.6 10^3/uL (1.8-7.8); NEUTROPHILS % (AUTO) 82 % (42-75); PLATELET COUNT 219 10^3/uL (130-400); WHITE BLOOD COUNT 8.1 10^3/uL (4.3-11.0)
[2023-05-04 06:04] LABS: ALBUMIN 3.1 GM/DL (3.2-4.5); BILIRUBIN,TOTAL 0.4 MG/DL (0.1-1.0); CALCIUM 8.6 MG/DL (8.5-10.1); CREATININE SERUM 0.79 MG/DL (0.60-1.30); POTASSIUM 4.5 MMOL/L (3.6-5.0); TOTAL PROTEIN 6.1 GM/DL (6.4-8.2)
[2023-05-04] MEDS: inSUlin ASPART 1 UNIT/0.01 ML (PER UNIT) SC SCH ×3 (06:14→16:17)
[2023-05-04 07:31] VITALS: BP 169/76
[2023-05-04] MEDS: amLODIPine 5 MG TABLET PO SCH (08:09)
[2023-05-04] MEDS: APIXABAN 5 MG TABLET PO SCH (08:09)
[2023-05-04] MEDS: ALPRAZolam 0.25 MG TABLET PO PRN ×4 (08:09→17:05)
[2023-05-04] MEDS: meTOprolol TARTRATE (IR) 25 MG TABLET PO SCH (08:09)
[2023-05-04] MEDS: DOCUSATE SODIUM 100 MG CAPSULE PO SCH (08:10)
[2023-05-04] MEDS: PANTOPRAZOLE 40 MG TABLET PO SCH (08:10)
[2023-05-04] MEDS: LIDOCAINE 4% PATCH TP SCH (08:10)
[2023-05-04] MEDS: dilTIAZem ER 240 MG CAPSULE PO SCH (08:10)
[2023-05-04] MEDS: SENNOSIDES 8.6 MG TABLET PO SCH (08:10)
[2023-05-04] MEDS: dexAMETHasone INJ 4 MG/ML SDV IV SCH (08:10)
[2023-05-04] MEDS: MICONAZOLE 2% POWDER 90 GM TOP SCH (08:13)
--- NOTE | 2023-05-04 11:32 | Physical Therapy Progress Note ---
Therapy Progress Note Attempted treatment x 2. Patient refused the first time stating she needs to go over paperwork. Upon arriving for the second attempt, nurse reports the patient was just placed on a Bi-Pap due to dropping O2 sats. Will attempt treatment again tomorrow. EDIN KRUEGER PT May 04, 2023 11:32
--- NOTE | 2023-05-04 11:36 | Occ Therapy Progress Note ---
Therapy Progress Note Patient declined therapy session, patient to transition to HOSPICE, DC home with family CARSON LEAHY OT May 04, 2023 11:36
[2023-05-04 12:07] VITALS: BP 162/73
[2023-05-04] MEDS: oxyCODONE IMMEDIATE RELEASE 5 MG TABLET PO PRN ×2 (13:00→17:05)
[2023-05-04] MEDS ORDERED: SPIR25TA5 PO (13:43)
[2023-05-04] MEDS ORDERED: DILT240T10 PO (13:43)
[2023-05-04] MEDS ORDERED: DOCU-143 PO (13:43)
[2023-05-04] MEDS ORDERED: ALPR.25T PO (13:43)
[2023-05-04] MEDS ORDERED: APIX5TAB PO (13:43)
[2023-05-04] MEDS ORDERED: FLUT16SP22 NSEACH (13:43)
[2023-05-04] MEDS ORDERED: HYDR-700 PO (13:43)
[2023-05-04] MEDS ORDERED: LIDO700A45 TP (13:43)
[2023-05-04] MEDS ORDERED: ONDA4TAB11 PO (13:43)
[2023-05-04] MEDS ORDERED: BENZ100C18 PO (13:43)
[2023-05-04] MEDS ORDERED: PRD20T PO (13:43)
[2023-05-04] MEDS ORDERED: POLY17PO6 PO (13:43)
[2023-05-04] MEDS ORDERED: RT-ALBUINH INH (13:43)
[2023-05-04] MEDS ORDERED: IPRA4AER IH (13:43)
[2023-05-04] MEDS ORDERED: DULO20CA19 PO (13:43)
[2023-05-04] MEDS ORDERED: LEVO25TA5 PO (13:43)
[2023-05-04] MEDS ORDERED: PANT40TA52 PO (13:43)
[2023-05-04] MEDS ORDERED: MICO90PO TOP (13:43)
[2023-05-04] MEDS ORDERED: OXC5T PO (13:43)
[2023-05-04] MEDS ORDERED: METO-333 PO (13:43)
--- NOTE | 2023-05-04 13:45 | Discharge Summary ---
Diagnosis/Chief Complaint Date of Admission Apr 27, 2023 at 14:32 Date of Discharge Discharge Date: May 04, 2023 Discharge Diagnosis Acute on chronic hypoxic hypercapneic resp failure COVID AECOPD HTN DM Reason Hospital Visit CC: Increased dyspnea with COVID HPI: This is an 83yoWF [facility] patient of Yu Moore who presents with increased work of breathing following COVID dx 04/22. She usually wears O2 24/7.BIPAP indicated and she is a DNR. Diff communicating with BIPAP on. Discharge Summary Discharge Physical Examination Allergies: Uncoded Allergies: HAYFEVER (Allergy, Unknown, 08/17/16) Vitals & I&Os Vital Signs Date Time Temp Pulse Resp B/P (MAP) Pulse Ox O2 Delivery O2 Flow Rate FiO2 05/04/23 18:45 36.5 62 22 162/73 94 Nasal Cannula 2.00 05/01/23 08:00 30 General Appearance: Alert, Oriented X3, Cooperative Cardiovascular: Regular Rate Hospital Course Was the Problem List Reviewed?: Yes Hospital course: Patient had a lengthy hospital course due to COVID causing acute on chronic respiratory failure. IV antibiotics initiated due to productive sputum and consistent findings with bacterial pneumonia. Overall she had slow recovery but ultimately decided to enroll in hospice and discharged home with family. Overall prognosis very poor. Labs (last 24 hrs) Laboratory Tests 04/26/23 23:55: White Blood Count 6.1, Red Blood Count 3.70L, Hemoglobin 10.7L, Hematocrit 34L, Mean Corpuscular Volume 91, Mean Corpuscular Hemoglobin 29, Mean Corpuscular Hemoglobin Concent 32, Red Cell Distribution Width 13.2, Platelet Count 200, Mean Platelet Volume 9.3, Immature Granulocyte % (Auto) 1, Neutrophils (%) (Auto) 59, Lymphocytes (%) (Auto) 28, Monocytes (%) (Auto) 8, Eosinophils (%) (Auto) 4, Basophils (%) (Auto) 1, Neutrophils # (Auto) 3.6, Lymphocytes # (Auto) 1.7, Monocytes # (Auto) 0.5, Eosinophils # (Auto) 0.2, Basophils # (Auto) 0.0, Immature Granulocyte # (Auto) 0.0, Sodium Level 134L, Potassium Level 3.9, Chloride Level 100, Carbon Dioxide Level 22, Anion Gap 12, Blood Urea Nitrogen 7, Creatinine 0.80, Estimat Glomerular Filtration Rate 74, BUN/Creatinine Ratio 9, Glucose Level 144H, Lactic Acid Level 1.39, Calcium Level 8.7, Corrected Calcium 9.5, Total Bilirubin 0.5, Aspartate Amino Transf (AST/SGOT) 19, Alanine Aminotransferase (ALT/SGPT) 11, Alkaline Phosphatase 62, Total Protein 6.8, Albumin 3.0L 04/27/23 04:56: Blood Gas Puncture Site RIGHT RADIAL, Blood Gas Patient Temperature UNKNOWN, Arterial Blood pH 7.30*L, Arterial Blood Partial Pressure CO2 57H, Arterial Blood Partial Pressure O2 73L, Arterial Blood HCO3 27, Arterial Blood Total CO2 28.6, Arterial Blood Oxygen Saturation 95, Arterial Blood Base Excess 1.1, Vinod Test YES-POS, Blood Gas Ventilator Setting NO, Blood Gas Inspired Oxygen 3 LITERS 04/27/23 05:27: White Blood Count 4.9, Red Blood Count 3.61L, Hemoglobin 10.3L, Hematocrit 33L, Mean Corpuscular Volume 91, Mean Corpuscular Hemoglobin 29, Mean Corpuscular Hemoglobin Concent 32, Red Cell Distribution Width 13.2, Platelet Count 162, Mean Platelet Volume 9.9, Immature Granulocyte % (Auto) 1, Neutrophils (%) (Auto) 91H, Lymphocytes (%) (Auto) 8L, Monocytes (%) (Auto) 1, Eosinophils (%) (Auto) 0, Basophils (%) (Auto) 0, Neutrophils # (Auto) 4.5, Lymphocytes # (Auto) 0.4L, Monocytes # (Auto) 0.1, Eosinophils # (Auto) 0.0, Basophils # (Auto) 0.0, Immature Granulocyte # (Auto) 0.0, Sodium Level 135, Potassium Level 4.2, Chloride Level 102, Carbon Dioxide Level 24, Anion Gap 9, Blood Urea Nitrogen 7, Creatinine 0.80, Estimat Glomerular Filtration Rate 74, BUN/Creatinine Ratio 9, Glucose Level 179H, Calcium Level 8.7, Corrected Calcium 9.5, Total Bilirubin 0.4, Aspartate Amino Transf (AST/SGOT) 20, Alanine Aminotransferase (ALT/SGPT) 12, Alkaline Phosphatase 61, Total Protein 6.7, Albumin 3.0L, Neutrophils % (Manual) 88, Lymphocytes % (Manual) 10, Monocytes % (Manual) 1, Band Neutrophils 1, Blood Morphology Comment NORMAL 04/27/23 11:25: Blood Gas Puncture Site R RAD, Blood Gas Patient Temperature 36.8, Arterial Blood pH 7.39, Arterial Blood Partial Pressure CO2 45, Arterial Blood Partial Pressure O2 91, Arterial Blood HCO3 26, Arterial Blood Total CO2 27.8, Arterial Blood Oxygen Saturation 99, Arterial Blood Base Excess 1.8, Vinod Test YES-POS, Blood Gas Ventilator Setting YES, Blood Gas Inspired Oxygen 30% 04/27/23 16:37: Glucometer 152H 04/27/23 20:00: Glucometer 165H 04/28/23 05:23: White Blood Count 5.7, Red Blood Count 3.12L, Hemoglobin 8.9L, Hematocrit 28L, Mean Corpuscular Volume 89, Mean Corpuscular Hemoglobin 29, Mean Corpuscular Hemoglobin Concent 32, Red Cell Distribution Width 13.2, Platelet Count 161, Mean Platelet Volume 9.6, Immature Granulocyte % (Auto) 1, Neutrophils (%) (Auto) 82H, Lymphocytes (%) (Auto) 15, Monocytes (%) (Auto) 2, Eosinophils (%) (Auto) 0, Basophils (%) (Auto) 0, Neutrophils # (Auto) 4.7, Lymphocytes # (Auto) 0.8L, Monocytes # (Auto) 0.1, Eosinophils # (Auto) 0.0, Basophils # (Auto) 0.0, Immature Granulocyte # (Auto) 0.1, Sodium Level 137, Potassium Level 4.1, Chloride Level 104, Carbon Dioxide Level 26, Anion Gap 7, Blood Urea Nitrogen 10, Creatinine 0.85, Estimat Glomerular Filtration Rate 68, BUN/Creatinine Ratio 12, Glucose Level 154H, Calcium Level 9.0, Corrected Calcium 9.9, Total Bilirubin 0.4, Aspartate Amino Transf (AST/SGOT) 15, Alanine Aminotransferase (ALT/SGPT) 10, Alkaline Phosphatase 52, Total Protein 6.2L, Albumin 2.9L 04/28/23 10:35: Glucometer 166H 04/28/23 16:04: Glucometer 138H 04/28/23 20:17: Glucometer 146H 04/29/23 05:30: White Blood Count 5.2, Red Blood Count 3.02L, Hemoglobin 8.7L, Hematocrit 27L, M yee Corpuscular Volume 89, Mean Corpuscular Hemoglobin 29, Mean Corpuscular Hemoglobin Concent 32, Red Cell Distribution Width 13.3, Platelet Count 176, Mean Platelet Volume 9.8, Immature Granulocyte % (Auto) 2, Neutrophils (%) (Auto) 83H, Lymphocytes (%) (Auto) 12, Monocytes (%) (Auto) 3, Eosinophils (%) (Auto) 0, Basophils (%) (Auto) 0, Neutrophils # (Auto) 4.3, Lymphocytes # (Auto) 0.6L, Monocytes # (Auto) 0.2, Eosinophils # (Auto) 0.0, Basophils # (Auto) 0.0, Immature Granulocyte # (Auto) 0.1, Sodium Level 137, Potassium Level 4.0, Chloride Level 104, Carbon Dioxide Level 26, Anion Gap 7, Blood Urea Nitrogen 13, Creatinine 0.84, Estimat Glomerular Filtration Rate 69, BUN/Creatinine Ratio 15, Glucose Level 144H, Calcium Level 8.7, Corrected Calcium 9.4, Total Bilirubin 0.4, Aspartate Amino Transf (AST/SGOT) 14, Alanine Aminotransferase (ALT/SGPT) 12, Alkaline Phosphatase 49, Total Protein 6.1L, Albumin 3.1L 04/29/23 11:36: Glucometer 205H 04/29/23 15:47: Glucometer 95 04/29/23 20:25: Glucometer 142H 04/30/23 05:40: White Blood Count 6.0, Red Blood Count 3.19L, Hemoglobin 9.3L, Hematocrit 29L, Mean Corpuscular Volume 91, Mean Corpuscular Hemoglobin 29, Mean Corpuscular Hemoglobin Concent 32, Red Cell Distribution Width 13.4, Platelet Count 188, Mean Platelet Volume 9.3, Immature Granulocyte % (Auto) 3, Neutrophils (%) (Auto) 81H, Lymphocytes (%) (Auto) 13, Monocytes (%) (Auto) 3, Eosinophils (%) (Auto) 0, Basophils (%) (Auto) 0, Neutrophils # (Auto) 4.9, Lymphocytes # (Auto) 0.8L, Monocytes # (Auto) 0.2, Eosinophils # (Auto) 0.0, Basophils # (Auto) 0.0, Immature Granulocyte # (Auto) 0.2H, Sodium Level 136, Potassium Level 4.3, Chloride Level 102, Carbon Dioxide Level 25, Anion Gap 9, Blood Urea Nitrogen 18, Creatinine 0.95, Estimat Glomerular Filtration Rate 60, BUN/Creatinine Ratio 19, Glucose Level 161H, Calcium Level 8.6, Corrected Calcium 9.2, Total Bilirubin 0.4, Aspartate Amino Transf (AST/SGOT) 14, Alanine Aminotransferase (ALT/SGPT) 15, Alkaline Phosphatase 45, Total Protein 6.1L, Albumin 3.2 04/30/23 10:52: Glucometer 169H 04/30/23 15:52: Glucometer 204H 04/30/23 20:54: Glucometer 141H 05/01/23 05:00: White Blood Count 5.8, Red Blood Count 3.10L, Hemoglobin 8.8L, Hematocrit 28L, Mean Corpuscular Volume 90, Mean Corpuscular Hemoglobin 28, Mean Corpuscular Hemoglobin Concent 32, Red Cell Distribution Width 13.4, Platelet Count 198, Mean Platelet Volume 9.5, Immature Granulocyte % (Auto) 5, Neutrophils (%) (Auto) 76H, Lymphocytes (%) (Auto) 15, Monocytes (%) (Auto) 4, Eosinophils (%) (Auto) 0, Basophils (%) (Auto) 0, Neutrophils # (Auto) 4.4, Lymphocytes # (Auto) 0.9L, Monocytes # (Auto) 0.2, Eosinophils # (Auto) 0.0, Basophils # (Auto) 0.0, Immature Granulocyte # (Auto) 0.3H, Sodium Level 136, Potassium Level 4.3, Chloride Level 104, Carbon Dioxide Level 24, Anion Gap 8, Blood Urea Nitrogen 21H, Creatinine 0.94, Estimat Glomerular Filtration Rate 61, BUN/Creatinine Ratio 22, Glucose Level 155H, Calcium Level 8.7, Corrected Calcium 9.4, Total Bilirubin 0.4, Aspartate Amino Transf (AST/SGOT) 14, Alanine Aminotransferase (ALT/SGPT) 15, Alkaline Phosphatase 44, Total Protein 6.2L, Albumin 3.1L 05/01/23 11:32: Glucometer 216H 05/01/23 15:41: Glucometer 224H 05/01/23 20:22: Glucometer 164H 05/02/23 05:07: Glucometer 221H 05/02/23 05:25: White Blood Count 7.7, Red Blood Count 3.16L, Hemoglobin 9.0L, Hematocrit 28L, Mean Corpuscular Volume 90, Mean Corpuscular Hemoglobin 29, Mean Corpuscular Hemoglobin Concent 32, Red Cell Distribution Width 13.3, Platelet Count 208, Mean Platelet Volume 9.3, Immature Granulocyte % (Auto) 4, Neutrophils (%) (Auto) 79H, Lymphocytes (%) (Auto) 12, Monocytes (%) (Auto) 4, Eosinophils (%) (Auto) 0, Basophils (%) (Auto) 0, Neutrophils # (Auto) 6.1, Lymphocytes # (Auto) 0.9L, Monocytes # (Auto) 0.3, Eosinophils # (Auto) 0.0, Basophils # (Auto) 0.0, Immature Granulocyte # (Auto) 0.3H, Sodium Level 137, Potassium Level 4.4, Chloride Level 104, Carbon Dioxide Level 24, Anion Gap 9, Blood Urea Nitrogen 23H, Creatinine 1.04, Estimat Glomerular Filtration Rate 54, BUN/Creatinine Ratio 22, Glucose Level 177H, Calcium Level 8.4L, Corrected Calcium 9.1, Total Bilirubin 0.4, Aspartate Amino Transf (AST/SGOT) 12, Alanine Aminotransferase (ALT/SGPT) 14, Alkaline Phosphatase 42, Total Protein 6.0L, Albumin 3.1L 05/02/23 11:14: Glucometer 255H 05/02/23 16:25: Glucometer 153H 05/02/23 19:50: Glucometer 230H 05/03/23 05:07: White Blood Count 7.9, Red Blood Count 3.25L, Hemoglobin 9.2L, Hematocrit 29L, Mean Corpuscular Volume 90, Mean Corpuscular Hemoglobin 28, Mean Corpuscular Hemoglobin Concent 31L, Red Cell Distribution Width 13.5, Platelet Count 212, Mean Platelet Volume 9.7, Immature Granulocyte % (Auto) 4, Neutrophils (%) (Auto) 82H, Lymphocytes (%) (Auto) 10L, Monocytes (%) (Auto) 4, Eosinophils (%) (Auto) 0, Basophils (%) (Auto) 0, Neutrophils # (Auto) 6.5, Lymphocytes # (Auto) 0.8L, Monocytes # (Auto) 0.3, Eosinophils # (Auto) 0.0, Basophils # (Auto) 0.0, Immature Granulocyte # (Auto) 0.3H, Sodium Level 140, Potassium Level 4.6, Chloride Level 106, Carbon Dioxide Level 26, Anion Gap 8, Blood Urea Nitrogen 25H, Creatinine 0.86, Estimat Glomerular Filtration Rate 67, BUN/Creatinine Ratio 29, Glucose Level 160H, Calcium Level 8.4L, Corrected Calcium 9.1, Total Bilirubin 0.4, Aspartate Amino Transf (AST/SGOT) 13, Alanine Aminotransferase (ALT/SGPT) 15, Alkaline Phosphatase 41, Total Protein 5.9L, Albumin 3.1L 05/03/23 11:10: Glucometer 211H 05/03/23 16:08: Glucometer 125H 05/03/23 19:51: Glucometer 222H 05/04/23 05:13: White Blood Count 8.1, Red Blood Count 3.47L, Hemoglobin 10.1L, Hematocrit 31L, Mean Corpuscular Volume 90, Mean Corpuscular Hemoglobin 29, Mean Corpuscular Hemoglobin Concent 32, Red Cell Distribution Width 13.7, Platelet Count 219, Mean Platelet Volume 9.9, Immature Granulocyte % (Auto) 3, Neutrophils (%) (Auto) 82H, Lymphocytes (%) (Auto) 11L, Monocytes (%) (Auto) 3, Eosinophils (%) (Auto) 0, Basophils (%) (Auto) 0, Neutrophils # (Auto) 6.6, Lymphocytes # (Auto) 0.9L, Monocytes # (Auto) 0.3, Eosinophils # (Auto) 0.0, Basophils # (Auto) 0.0, Immature Granulocyte # (Auto) 0.3H, Sodium Level 137, Potassium Level 4.5, Chloride Level 104, Carbon Dioxide Level 24, Anion Gap 9, Blood Urea Nitrogen 28H, Creatinine 0.79, Estimat Glomerular Filtration Rate 75, BUN/Creatinine Ratio 35, Glucose Level 174H, Calcium Level 8.6, Corrected Calcium 9.3, Total Bilirubin 0.4, Aspartate Amino Transf (AST/SGOT) 16, Alanine Aminotransferase (ALT/SGPT) 18, Alkaline Phosphatase 47, Total Protein 6.1L, Albumin 3.1L 05/04/23 10:41: Glucometer 255H 05/04/23 16:16: Glucometer 128H Microbiology 04/28/23 Gram Stain - Final, Complete 04/28/23 Sputum Culture - Final, Complete Pseudomonas aeruginosa Usual upper respiratory dax 04/27/23 Blood Culture - Final, Complete Pending Labs Microbiology Date/Time Source Procedure Growth Status 04/28/23 16:00 Sputum Expectorated Gram Stain - Final Complete 04/28/23 16:00 Sputum Culture - Final Pseudomonas aeruginosa Usual upper respiratory dax Complete 04/27/23 05:27 Peripheral Rt Ac Blood Culture - Final Complete 04/27/23 00:00 Peripheral Lt Ac Blood Culture - Final Complete Laboratory Tests 04/26/23 23:55: White Blood Count 6.1, Red Blood Count 3.70, Hemoglobin 10.7, Hematocrit 34, Mean Corpuscular Volume 91, Mean Corpuscular Hemoglobin 29, Mean Corpuscular Hemoglobin Concent 32, Red Cell Distribution Width 13.2, Platelet Count 200, Mean Platelet Volume 9.3, Immature Granulocyte % (Auto) 1, Neutrophils (%) (Auto) 59, Lymphocytes (%) (Auto) 28, Monocytes (%) (Auto) 8, Eosinophils (%) (Auto) 4, Basophils (%) (Auto) 1, Neutrophils # (Auto) 3.6, Lymphocytes # (Auto) 1.7, Monocytes # (Auto) 0.5, Eosinophils # (Auto) 0.2, Basophils # (Auto) 0.0, Immature Granulocyte # (Auto) 0.0, Sodium Level 134, Potassium Level 3.9, Chloride Level 100, Carbon Dioxide Level 22, Anion Gap 12, Blood Urea Nitrogen 7, Creatinine 0.80, Estimat Glomerular Filtration Rate 74, BUN/Creatinine Ratio 9, Glucose Level 144, Lactic Acid Level 1.39, Calcium Level 8.7, Corrected Calcium 9.5, Total Bilirubin 0.5, Aspartate Amino Transf (AST/SGOT) 19, Alanine Aminotransferase (ALT/SGPT) 11, Alkaline Phosphatase 62, Total Protein 6.8, Albumin 3.0 04/27/23 04:56: Blood Gas Puncture Site RIGHT RADIAL, Blood Gas Patient Temperature UNKNOWN, Arterial Blood pH 7.30, Arterial Blood Partial Pressure CO2 57, Arterial Blood Partial Pressure O2 73, Arterial Blood HCO3 27, Arterial Blood Total CO2 28.6, Arterial Blood Oxygen Saturation 95, Arterial Blood Base Excess 1.1, Vinod Test YES-POS, Blood Gas Ventilator Setting NO, Blood Gas Inspired Oxygen 3 LITERS 04/27/23 05:27: White Blood Count 4.9, Red Blood Count 3.61, Hemoglobin 10.3, Hematocrit 33, Mean Corpuscular Volume 91, Mean Corpuscular Hemoglobin 29, Mean Corpuscular Hemoglobin Concent 32, Red Cell Distribution Width 13.2, Platelet Count 162, Mean Platelet Volume 9.9, Immature Granulocyte % (Auto) 1, Neutrophils (%) (Aut o) 91, Lymphocytes (%) (Auto) 8, Monocytes (%) (Auto) 1, Eosinophils (%) (Auto) 0, Basophils (%) (Auto) 0, Neutrophils # (Auto) 4.5, Lymphocytes # (Auto) 0.4, Monocytes # (Auto) 0.1, Eosinophils # (Auto) 0.0, Basophils # (Auto) 0.0, Immature Granulocyte # (Auto) 0.0, Sodium Level 135, Potassium Level 4.2, Chloride Level 102, Carbon Dioxide Level 24, Anion Gap 9, Blood Urea Nitrogen 7, Creatinine 0.80, Estimat Glomerular Filtration Rate 74, BUN/Creatinine Ratio 9, Glucose Level 179, Calcium Level 8.7, Corrected Calcium 9.5, Total Bilirubin 0.4, Aspartate Amino Transf (AST/SGOT) 20, Alanine Aminotransferase (ALT/SGPT) 12, Alkaline Phosphatase 61, Total Protein 6.7, Albumin 3.0, Neutrophils % (Manual) 88, Lymphocytes % (Manual) 10, Monocytes % (Manual) 1, Band Neutrophils 1, Blood Morphology Comment NORMAL 04/27/23 11:25: Blood Gas Puncture Site R RAD, Blood Gas Patient Temperature 36.8, Arterial Blood pH 7.39, Arterial Blood Partial Pressure CO2 45, Arterial Blood Partial Pressure O2 91, Arterial Blood HCO3 26, Arterial Blood Total CO2 27.8, Arterial Blood Oxygen Saturation 99, Arterial Blood Base Excess 1.8, Vinod Test YES-POS, Blood Gas Ventilator Setting YES, Blood Gas Inspired Oxygen 30% 04/27/23 16:37: Glucometer 152 04/27/23 20:00: Glucometer 165 04/28/23 05:23: White Blood Count 5.7, Red Blood Count 3.12, Hemoglobin 8.9, Hematocrit 28, Mean Corpuscular Volume 89, Mean Corpuscular Hemoglobin 29, Mean Corpuscular Hemoglobin Concent 32, Red Cell Distribution Width 13.2, Platelet Count 161, Mean Platelet Volume 9.6, Immature Granulocyte % (Auto) 1, Neutrophils (%) (Auto) 82, Lymphocytes (%) (Auto) 15, Monocytes (%) (Auto) 2, Eosinophils (%) (Auto) 0, Basophils (%) (Auto) 0, Neutrophils # (Auto) 4.7, Lymphocytes # (Auto) 0.8, Monocytes # (Auto) 0.1, Eosinophils # (Auto) 0.0, Basophils # (Auto) 0.0, Immature Granulocyte # (Auto) 0.1, Sodium Level 137, Potassium Level 4.1, Chloride Level 104, Carbon Dioxide Level 26, Anion Gap 7, Blood Urea Nitrogen 10, Creatinine 0.85, Estimat Glomerular Filtration Rate 68, BUN/Creatinine Ratio 12, Glucose Level 154, Calcium Level 9.0, Corrected Calcium 9.9, Total Bilirubin 0.4, Aspartate Amino Transf (AST/SGOT) 15, Alanine Aminotransferase (ALT/SGPT) 10, Alkaline Phosphatase 52, Total Protein 6.2, Albumin 2.9 04/28/23 10:35: Glucometer 166 04/28/23 16:04: Glucometer 138 04/28/23 20:17: Glucometer 146 04/29/23 05:30: White Blood Count 5.2, Red Blood Count 3.02, Hemoglobin 8.7, Hematocrit 27, Mean Corpuscular Volume 89, Mean Corpuscular Hemoglobin 29, Mean Corpuscular Hemoglobin Concent 32, Red Cell Distribution Width 13.3, Platelet Count 176, Mean Platelet Volume 9.8, Immature Granulocyte % (Auto) 2, Neutrophils (%) (Auto) 83, Lymphocytes (%) (Auto) 12, Monocytes (%) (Auto) 3, Eosinophils (%) (Auto) 0, Basophils (%) (Auto) 0, Neutrophils # (Auto) 4.3, Lymphocytes # (Auto) 0.6, Monocytes # (Auto) 0.2, Eosinophils # (Auto) 0.0, Basophils # (Auto) 0.0, Immature Granulocyte # (Auto) 0.1, Sodium Level 137, Potassium Level 4.0, Chloride Level 104, Carbon Dioxide Level 26, Anion Gap 7, Blood Urea Nitrogen 13, Creatinine 0.84, Estimat Glomerular Filtration Rate 69, BUN/Creatinine Ratio 15, Glucose Level 144, Calcium Level 8.7, Corrected Calcium 9.4, Total Bilirubin 0.4, Aspartate Amino Transf (AST/SGOT) 14, Alanine Aminotransferase (ALT/SGPT) 12, Alkaline Phosphatase 49, Total Protein 6.1, Albumin 3.1 04/29/23 11:36: Glucometer 205 04/29/23 15:47: Glucometer 95 04/29/23 20:25: Glucometer 142 04/30/23 05:40: White Blood Count 6.0, Red Blood Count 3.19, Hemoglobin 9.3, Hematocrit 29, Mean Corpuscular Volume 91, Mean Corpuscular Hemoglobin 29, Mean Corpuscular Hemoglobin Concent 32, Red Cell Distribution Width 13.4, Platelet Count 188, Mean Platelet Volume 9.3, Immature Granulocyte % (Auto) 3, Neutrophils (%) (Auto) 81, Lymphocytes (%) (Auto) 13, Monocytes (%) (Auto) 3, Eosinophils (%) (Auto) 0, Basophils (%) (Auto) 0, Neutrophils # (Auto) 4.9, Lymphocytes # (Auto) 0.8, Monocytes # (Auto) 0.2, Eosinophils # (Auto) 0.0, Basophils # (Auto) 0.0, Immature Granulocyte # (Auto) 0.2, Sodium Level 136, Potassium Level 4.3, Chloride Level 102, Carbon Dioxide Level 25, Anion Gap 9, Blood Urea Nitrogen 18, Creatinine 0.95, Estimat Glomerular Filtration Rate 60, BUN/Creatinine Ratio 19, Glucose Level 161, Calcium Level 8.6, Corrected Calcium 9.2, Total Bilirubin 0.4, Aspartate Amino Transf (AST/SGOT) 14, Alanine Aminotransferase (ALT/SGPT) 15, Alkaline Phosphatase 45, Total Protein 6.1, Albumin 3.2 04/30/23 10:52: Glucometer 169 04/30/23 15:52: Glucometer 204 04/30/23 20:54: Glucometer 141 05/01/23 05:00: White Blood Count 5.8, Red Blood Count 3.10, Hemoglobin 8.8, Hematocrit 28, Mean Corpuscular Volume 90, Mean Corpuscular Hemoglobin 28, Mean Corpuscular Hemoglobin Concent 32, Red Cell Distribution Width 13.4, Platelet Count 198, Mean Platelet Volume 9.5, Immature Granulocyte % (Auto) 5, Neutrophils (%) (Auto) 76, Lymphocytes (%) (Auto) 15, Monocytes (%) (Auto) 4, Eosinophils (%) (Auto) 0, Basophils (%) (Auto) 0, Neutrophils # (Auto) 4.4, Lymphocytes # (Auto) 0.9, Monocytes # (Auto) 0.2, Eosinophils # (Auto) 0.0, Basophils # (Auto) 0.0, Immature Granulocyte # (Auto) 0.3, Sodium Level 136, Potassium Level 4.3, Chloride Level 104, Carbon Dioxide Level 24, Anion Gap 8, Blood Urea Nitrogen 21, Creatinine 0.94, Estimat Glomerular Filtration Rate 61, BUN/Creatinine Ratio 22, Glucose Level 155, Calcium Level 8.7, Corrected Calcium 9.4, Total Bilirubin 0.4, Aspartate Amino Transf (AST/SGOT) 14, Alanine Aminotransferase (ALT/SGPT) 15, Alkaline Phosphatase 44, Total Protein 6.2, Albumin 3.1 05/01/23 11:32: Glucometer 216 05/01/23 15:41: Glucometer 224 05/01/23 20:22: Glucometer 164 05/02/23 05:07: Glucometer 221 05/02/23 05:25: White Blood Count 7.7, Red Blood Count 3.16, Hemoglobin 9.0, Hematocrit 28, Mean Corpuscular Volume 90, Mean Corpuscular Hemoglobin 29, Mean Corpuscular Hemoglobin Concent 32, Red Cell Distribution Width 13.3, Platelet Count 208, Mean Platelet Volume 9.3, Immature Granulocyte % (Auto) 4, Neutrophils (%) (Auto) 79, Lymphocytes (%) (Auto) 12, Monocytes (%) (Auto) 4, Eosinophils (%) (Auto) 0, Basophils (%) (Auto) 0, Neutrophils # (Auto) 6.1, Lymphocytes # (Auto) 0.9, Monocytes # (Auto) 0.3, Eosinophils # (Auto) 0.0, Basophils # (Auto) 0.0, Immature Granulocyte # (Auto) 0.3, Sodium Level 137, Potassium Level 4.4, Chlo ride Level 104, Carbon Dioxide Level 24, Anion Gap 9, Blood Urea Nitrogen 23, Creatinine 1.04, Estimat Glomerular Filtration Rate 54, BUN/Creatinine Ratio 22, Glucose Level 177, Calcium Level 8.4, Corrected Calcium 9.1, Total Bilirubin 0.4, Aspartate Amino Transf (AST/SGOT) 12, Alanine Aminotransferase (ALT/SGPT) 14, Alkaline Phosphatase 42, Total Protein 6.0, Albumin 3.1 05/02/23 11:14: Glucometer 255 05/02/23 16:25: Glucometer 153 05/02/23 19:50: Glucometer 230 05/03/23 05:07: White Blood Count 7.9, Red Blood Count 3.25, Hemoglobin 9.2, Hematocrit 29, Mean Corpuscular Volume 90, Mean Corpuscular Hemoglobin 28, Mean Corpuscular Hemoglobin Concent 31, Red Cell Distribution Width 13.5, Platelet Count 212, Mean Platelet Volume 9.7, Immature Granulocyte % (Auto) 4, Neutrophils (%) (Auto) 82, Lymphocytes (%) (Auto) 10, Monocytes (%) (Auto) 4, Eosinophils (%) (Auto) 0, Basophils (%) (Auto) 0, Neutrophils # (Auto) 6.5, Lymphocytes # (Auto) 0.8, Monocytes # (Auto) 0.3, Eosinophils # (Auto) 0.0, Basophils # (Auto) 0.0, Immature Granulocyte # (Auto) 0.3, Sodium Level 140, Potassium Level 4.6, Chloride Level 106, Carbon Dioxide Level 26, Anion Gap 8, Blood Urea Nitrogen 25, Creatinine 0.86, Estimat Glomerular Filtration Rate 67, BUN/Creatinine Ratio 29, Glucose Level 160, Calcium Level 8.4, Corrected Calcium 9.1, Total Bilirubin 0.4, Aspartate Amino Transf (AST/SGOT) 13, Alanine Aminotransferase (ALT/SGPT) 15, Alkaline Phosphatase 41, Total Protein 5.9, Albumin 3.1 05/03/23 11:10: Glucometer 211 05/03/23 16:08: Glucometer 125 05/03/23 19:51: Glucometer 222 05/04/23 05:13: White Blood Count 8.1, Red Blood Count 3.47, Hemoglobin 10.1, Hematocrit 31, Mean Corpuscular Volume 90, Mean Corpuscular Hemoglobin 29, Mean Corpuscular Hemoglobin Concent 32, Red Cell Distribution Width 13.7, Platelet Count 219, Mean Platelet Volume 9.9, Immature Granulocyte % (Auto) 3, Neutrophils (%) (Auto) 82, Lymphocytes (%) (Auto) 11, Monocytes (%) (Auto) 3, Eosinophils (%) (Auto) 0, Basophils (%) (Auto) 0, Neutrophils # (Auto) 6.6, Lymphocytes # (Auto) 0.9, Monocytes # (Auto) 0.3, Eosinophils # (Auto) 0.0, Basophils # (Auto) 0.0, Immature Granulocyte # (Auto) 0.3, Sodium Level 137, Potassium Level 4.5, Chloride Level 104, Carbon Dioxide Level 24, Anion Gap 9, Blood Urea Nitrogen 28, Creatinine 0.79, Estimat Glomerular Filtration Rate 75, BUN/Creatinine Ratio 35, Glucose Level 174, Calcium Level 8.6, Corrected Calcium 9.3, Total Bilirubin 0.4, Aspartate Amino Transf (AST/SGOT) 16, Alanine Aminotransferase (ALT/SGPT) 18, Alkaline Phosphatase 47, Total Protein 6.1, Albumin 3.1 05/04/23 10:41: Glucometer 255 05/04/23 16:16: Glucometer 128 Discharge Home Medications: Active Scripts Active Prednisone 20 Mg Tab 20 Mg PO DAILY Take 3 tabs(60mg)daily,decrease by 1/2 tab(10mg)every other day. Lotrimin AF (Miconazole Nitrate) 2 % Powder 0 Gm TOP BID twice daily Pantoprazole Sodium 40 Mg Tablet.dr 40 Mg PO BID Ondansetron Odt (Ondansetron) 4 Mg Tab.rapdis 4 Mg PO Q6H PRN Tessalon Perles (Benzonatate) 100 Mg Capsule 200 Mg PO Q8H PRN Xanax Tablet (Alprazolam) 0.25 Mg Tab 0.25 Mg PO Q3HR PRN Oxyir Tablet (Oxycodone HCl) 5 Mg Tab 5 Mg PO Q4HR PRN Metoprolol Tartrate 25 Mg Tablet 25 Mg PO DAILY Eliquis (Apixaban) 5 Mg Tablet 5 Mg PO BID Ventolin Hfa (Albuterol Sulfate) 1 Puff Puff 2 Puff INH Q4H PRN Spironolactone 25 Mg Tablet 25 Mg PO DAILY PRN Combivent Respimat Inhal Wortham (Albuterol/Ipratropium) 20 Mcg-100 Mcg/Actuation Aero 2 Puff IH Q4H PRN Hydroxyzine HCl 25 Mg Tablet 25 Mg PO BID PRN Miralax (Polyethylene Glycol 3350) 17 Gram Powd.pack 17 Gm PO DAILY PRN Colace (Docusate Sodium) 100 Mg Capsule 100 Mg PO BID Lidocaine 5% Patch (Lidocaine) 5 % Adh..patch 1 Each TP DAILY MDD 2 APPLY TO LLQ Levothyroxine Sodium 25 Mcg Tablet 25 Mcg PO DAILY Duloxetine HCl 20 Mg Capsule.dr 20 Mg PO HS Diltiazem ER (Diltiazem HCl) 240 Mg Tab.er.24h 240 Mg PO DAILY Fluticasone Propionate 50 Mcg/Actuation [place].susp 1 Wortham NSEACH DAILY PRN Reported Tylenol (Acetaminophen) 325 Mg Tablet 650 Mg PO Q4H PRN Instructions to patient/family Please see electronic discharge instructions given to patient. Diagnosis/Problems Diagnosis/Problems (1) Acute respiratory failure with hypoxia and hypercapnia Status: Acute (2) Chronic kidney disease, stage 3a (3) Primary hypertension (4) Aortic stenosis Status: Acute YAQUELIN CIFUENTES DO May 04, 2023 13:45
[2023-05-04 18:45] VITALS: BP 162/73
== END 2023-05-04 18:45 | disposition hospice, home (50) | DRG 177 ==
LOC: EDUNIT# 23:50 → ER 23:52 → 4TH 23:53 → OBSVTOIN 04-27 14:32 → 4TH 04-29 12:40
PROVIDERS: ADMIT Family Medicine; ATTEND Internal Medicine
PROC: 5A09357 Assistance with Respiratory Ventilation, Less than 24 Consecutive Hours, Continuous Positive Airway Pressure (ICD-10-PCS; principal; 2023-04-27)
DX: U07.1 COVID-19 (principal); J15.9 Unspecified bacterial pneumonia; J96.21 Acute and chronic respiratory failure with hypoxia; J96.22 Acute and chronic respiratory failure with hypercapnia; I13.0 Hypertensive heart and chronic kidney disease with heart failure and stage 1 through stage 4 chronic kidney disease, or unspecified chronic kidney disease; J44.0 Chronic obstructive pulmonary disease with (acute) lower respiratory infection; J44.1 Chronic obstructive pulmonary disease with (acute) exacerbation; Z68.42 Body mass index [BMI] 45.0-49.9, adult; Z66 Do not resuscitate; E11.22 Type 2 diabetes mellitus with diabetic chronic kidney disease; N18.31 Chronic kidney disease, stage 3a; I50.9 Heart failure, unspecified; I25.10 Atherosclerotic heart disease of native coronary artery without angina pectoris; F32.A Depression, unspecified; F41.9 Anxiety disorder, unspecified; E03.9 Hypothyroidism, unspecified; K21.9 Gastro-esophageal reflux disease without esophagitis; R60.9 Edema, unspecified; E78.00 Pure hypercholesterolemia, unspecified; R32 Unspecified urinary incontinence; M19.90 Unspecified osteoarthritis, unspecified site; E66.01 Morbid (severe) obesity due to excess calories; H54.3 Unqualified visual loss, both eyes; I35.0 Nonrheumatic aortic (valve) stenosis; Z99.81 Dependence on supplemental oxygen; Z96.651 Presence of right artificial knee joint; Z79.01 Long term (current) use of anticoagulants; Z79.899 Other long term (current) drug therapy
CPT/HCPCS: 36415; 36600; 71045; 80053; 82805; 82947; 83605; 85007; 85025; 85027; 87040; 87070; 87077; 87186; 87205; 94640; 94660; 94760; 94761; 96361; 96374; G0378